=== PATIENT | male | born 1965 | race Caucasian/White ===

== ENCOUNTER 2020-07-03 21:48 | Inpatient (IN) | payer OTHER, MEDICAID, SELFPAY ==
--- NOTE | ~2020-07-03 | CT_ITS ---
EXAMINATION: CT HEAD WITHOUT CONTRAST CLINICAL INFORMATION: Dizziness. COMPARISON: 12/30/2019. TECHNIQUE: Contiguous helical images of the brain were obtained without IV contrast. Multiplanar reconstructions were performed. DLP: 742 mGy-cm. FINDINGS: There are no pathologic extra-axial fluid collections. The lateral, third, fourth ventricles are nondilated and concordant with the appearance of the sulci. There is no evidence for acute intraparenchymal hemorrhage or infarct. There is neither mass nor mass effect. There is no shift of midline structures. The paranasal sinuses and mastoid air cells are clear. There are no osseous lesions. CT/CT head/brain wo con IMPRESSION: No evidence for acute intracranial injury. Automated exposure control (Care Dose) Adjustment of the mA and/or kv according to patient size (this includes techniques or standardized protocols for targeted exams where dose is matched to indication / reason for exam; i.e. extremities or head).
--- NOTE | ~2020-07-03 | XR_ITS ---
EXAMINATION: XR CHEST CLINICAL INFORMATION: Dizziness COMPARISON: 12/30/2019 TECHNIQUE: Frontal view of the chest was obtained. FINDINGS: Lungs are clear. No focal consolidation or mass. Normal pulmonary vascularity. No pleural effusion or pneumothorax. Normal heart size. No acute osseous abnormality. XR/XR chest 1V IMPRESSION: No acute pulmonary disease. No significant change prior study.
[2020-07-03 21:51] VITALS: BP 241/118; PULSE 78; RESP 18; TEMP 36.9; O2SAT 99; BMI 35.5
[2020-07-03 22:00] VITALS: BP 179/94; PULSE 66; RESP 17; O2SAT 98
--- NOTE | 2020-07-03 22:22 | ED_ITS ---
HPI - General Adult General Chief complaint: Dizziness Stated complaint: numbness on left side Time Seen by Provider: 07/03/20 22:19 Source: patient Mode of arrival: ambulatory Limitations: no limitations History of Present Illness HPI narrative: 55-year-old male with history of hypertension taking lisinopril 40 mg once daily, and metoprolol 50 mg once daily, patient is compliant with his medication, patient felt lightheadedness and did not feel himself when this happen usually when his blood pressure runs high, patient took his blood pressure at home read high and he came to the hospital, in triage blood pressure was 241/118, patient is in room blood pressure was 179/94. Patient has no symptoms in the ED, with normal neuro exam. Related Data Previous Rx's Medication Instructions Recorded aspirin 81 mg tablet,delayed 81 mg PO DAILY 90 Days #90 tab 04/28/20 release lisinopril 20 mg tablet 20 mg PO DAILY 90 Days #90 tab 04/28/20 metoprolol tartrate 50 mg tablet 50 mg PO BID 90 Days #180 tab 04/28/20 Allergies Allergy/AdvReac Type Severity Reaction Status Date / Time No Known Allergies Allergy Verified 07/03/20 21:49 [No Known Allergies*] Review of Systems Review of Systems: All other systems are reviewed and are negative Constitutional: Reports as per HPI and Reports no additional constitutional complaints Eyes: Reports as per HPI and Reports no additional eye complaints Reports system reviewed and no additional complaints, except as documented Cardiovascular: Reports as per HPI and Reports no additional cardiovascular complaints Respiratory: Reports as per HPI and Reports no additional respiratory complaints Gastrointestinal: Reports as per HPI and Reports no additional gastrointestinal complaints Genitourinary: Reports no additional female genitourinary complaints Musculoskeletal: Reports no additional musculoskeletal complaints Skin/Breast: Reports system reviewed and no additional complaints, except as docu Psychiatric: Reports no additional psychiatric complaints Endocrine: Reports no additional endocrine complaints Hematologic/Lymphatic: Reports no additional hematologic/lymphatic complaints Allergic/Immunologic: Reports no additional allergic/immunologic complaints Reports system reviewed and no additional complaints, except as documented and Reports Abnormal speech present FOR[facility]LY [facility] Past Medical History Medical History Hypertension Social History Social History Alcohol intake: never Smoking Status: Never smoker Use of substances other than those prescribed or required for medical reasons: No Advance Directives: No Advance Directives Information Provided: No Physical Exam Vital Signs: Vital Signs: Last Vital Signs Temp 97.7 F 07/03/20 23:42 Pulse 58 07/03/20 23:42 Resp 14 07/03/20 23:42 BP 165/73 H 07/03/20 23:42 Pulse Ox 98 07/03/20 23:42 Body Mass Index 35.5 Vital signs have been reviewed as normal and appeared to be correct. Blood pressure: Hypertensive. Heart rate normal. Respiration rate normal. Temperature normal. Oxygen saturation normal. Appearance: Alert. Oriented X3. No acute distress. Head: Normal external exam. Normocephalic. Atraumatic. No Gray signs noted. No raccoon eyes noted Eyes: PERRLA. EOMI. Conjunctiva and sclera normal. Eyelids normal. ENT: TM's Normal. Pharynx normal. Uvula midline. Moist mucous membranes. No trismus noted. No drooling noted. No muffled voice noted. Neck: Normal inspection. Neck supple. FROM. No adenopathy. Thyroid Normal. No meningeal signs. No neck mass noted. CVS: Normal heart rate and rhythm. Heart sound normal. No murmurs noted. Pulses normal throughout. Respiratory: No respiratory distress. Painless inspiration. Breath sounds normal. No wheezes/rales/rhonchi noted. Chest nontender. No accessory muscle usage noted or decreased air movement noted. Abdomen: Soft and nontender. Bowel sounds normal in all 4 quadrants. No distention noted. No organomegaly noted. No visible injury noted. Back: No CVA tenderness. Full range of motion noted. Skin: Skin warm and dry. Normal skin color. Normal skin turgor. No rashes/lesions/lacerations noted. Extremities: No lower extremity edema. Extremities exhibit normal range of motion. Extremities nontender. Neuro: Oriented X 3. No motor deficit. No sensory deficit. Reflexes normal. NIH Stroke Scale Level of Consciousness: Alert Level of Consciousness Questions: Answers both questions correctly Level of Consciousness Commands: Performs both tasks correctly Best Gaze: Normal Visual: No visual loss Facial Palsy: Normal Motor Arm (Right): No drift Motor Arm (Left): No drift Motor Leg (Right): No drift Motor Leg (Left): No drift Limb Ataxia: Absent Sensory: Normal Best Language: No aphasia Dysarthia: Normal Extinction and Inattention: No abnormality Score: 0 Course Course Course Narrative: Assessment and plan. 55-year-old male history of hypertension is taking metoprolol/lisinopril at h ome, patient had an 10 minutes episodes of not feeling well becoming lightheadedness, but patient declined any chest pain or difficulty breathing then, patient checked his blood pressure at home which was high, patient initially in the ED had a high blood pressure which improved with 1 dose of metoprolol 50 mg in the ED. Labs came back with elevation of troponin with no EKG changes and no chest pain the case discussed with Dr. Olvera who recommended IV heparin, aspirin, beta andrey. And admit. Medical Decision Making Lab Data Lab results reviewed: Yes I reviewed the patient's lab results. Result diagrams: 07/03/20 22:38 07/03/20 22:38 Labs: Lab Results 07/03/20 07/03/20 07/03/20 Range/Units 22:38 22:38 22:38 WBC 8.9 (4.8-10.8) X10*3/uL RBC 4.75 (4.60-5.80) X10*6/uL Hgb 13.2 L (14.0-18.0) g/dl Hct 40.5 L (42-52) % MCV 85.3 (80-98) fL MCH 27.8 (27.0-33.0) pg MCHC 32.6 (31.0-36.0) g/dl RDW 12.8 (11.0-16.0) % Plt Count 185 (160-400) X10*3/uL MPV 10.2 (9.4-12.4) fL Immature Gran % (Auto) 0.2 (0.0-0.4) % Neut % (Auto) 49.8 (45-73) % Lymph % (Auto) 39.3 (20-40) % [place] % (Auto) 6.4 (2-11) % Eos % (Auto) 3.7 (0-4) % Baso % (Auto) 0.6 (0-2) % Lymph # (Auto) 3.5 (1.2-4.9) X10*3/uL [place] # (Auto) 0.6 (0.1-1.2) X10*3/uL Eos # (Auto) 0.3 (0.0-0.4) X10*3/uL Baso # (Auto) 0.1 (0.0-0.2) X10*3/uL Abs Immat Gran (auto) 0.02 (0.00-0.03) X10*3/uL Absolute Neuts (auto) 4.4 (2.0-8.3) X10*3/uL Absolute Nucleated RBC 0.000 (0.0-0.012) X10*3/uL Nucleated RBC % (auto) 0.0 (0.0-0.2) /100WBC Sodium 138 (135-145) mmol/L Potassium 4.0 (3.3-5.1) mmol/L Chloride 101 (96-108) mmol/L Carbon Dioxide 27 (22-29) mmol/L Anion Gap 14 (12-20) BUN 14 (9-16) mg/dL Creatinine 0.92 (0.5-1.4) mg/dL Estim Creat Clear Calc 95.9 Estimated GFR > 60 Random Glucose 206 H (60-115) mg/dL Calcium 9.0 (8.4-10.2) mg/dL Total Bilirubin 0.3 (0.0-1.0) mg/dL Direct Bilirubin < 0.2 (0.0-0.5) mg/dL AST 29 (5-37) U/L ALT 35 (0-40) U/L Alkaline Phosphatase 67 (39-117) U/L Troponin I High Sens 2652.0 H (<3.5-35.0) ng/L B-Natriuretic Peptide 108 H (<100) pg/mL Total Protein 7.3 (6.5-8.0) g/dL Albumin 4.0 (3.5-5.0) g/dL Lipase 18 (8-78) U/L Imaging Data Chest x-ray: Radiologist's impression: No acute pulmonary disease point no significant change from prior study. CT scan - head: Radiologist's impression: No evidence of acute intracranial injury. ECG Data Interpretation: Normal sinus rhythm at 63 beats per minutes, LVH, diffuse T-wave inversion in V4, V5, V6. No change from prior EKG on December 2019. Discharge Plan Discharge Clinical Impression: Hypertension, Non-ST elevated myocardial infarction Patient Disposition: Admitted As Inpatient Prescriptions: No Action lisinopril 20 mg tablet 20 mg PO DAILY 90 Days Qty: 90 RF: 0 metoprolol tartrate 50 mg tablet 50 mg PO BID 90 Days Qty: 180 RF: 0 aspirin [Adult Aspirin Regimen] 81 mg tablet,delayed release (DR/EC) 81 mg PO DAILY 90 Days Qty: 90 RF: 0
[2020-07-03 22:28] VITALS: BP 160/85; PULSE 59
[2020-07-03] MEDS: Metoprolol Succinate ER 50 MG TAB.ER.24H PO (22:28)
--- NOTE | 2020-07-03 22:29 | ECG_ITS ---
Test Reason : HTN Blood Pressure : / mmHG Vent. Rate : 063 BPM Atrial Rate : 063 BPM P-R Int : 162 ms QRS Dur : 092 ms QT Int : 420 ms P-R-T Axes : 042 001 268 degrees QTc Int : 429 ms Normal sinus rhythm T wave abnormality, consider lateral ischemia Abnormal ECG When compared with ECG of 30-DEC-2019 23:57, Borderline criteria for Inferior infarct are no longer Present T wave inversion more evident in Lateral leads Referred By: Ene Cobb Electronically Signed By:LENIN BRASWELL
[2020-07-03 22:50] LABS: MANUAL DIFF FLAG NO
[2020-07-03 22:51] LABS: Basophils Absolute Auto 0.1 X10*3/uL (0.0-0.2); Basophils Percent Auto 0.6 % (0-2); Eosinophils Absolute Auto 0.3 X10*3/uL (0.0-0.4); Eosinophils Percent Auto 3.7 % (0-4); Hematocrit 40.5 % (42-52); Hemoglobin 13.2 g/dl (14.0-18.0); Imm Gran Abs Auto 0.02 X10*3/uL (0.00-0.03); Imm Gran Pct Auto 0.2 % (0.0-0.4); Lymphocytes Absolute Auto 3.5 X10*3/uL (1.2-4.9); Lymphocytes Percent Auto 39.3 % (20-40); Mean Corpuscular HGB Conc 32.6 g/dl (31.0-36.0); Mean Corpuscular Hemoglobin 27.8 pg (27.0-33.0); Mean Corpuscular Volume 85.3 fL (80-98); Mean Platelet Volume 10.2 fL (9.4-12.4); Monocytes Absolute Auto 0.6 X10*3/uL (0.1-1.2); Monocytes Percent Auto 6.4 % (2-11); Neutrophils Absolute Auto 4.4 X10*3/uL (2.0-8.3); Neutrophils Percent Auto 49.8 % (45-73); Platelet Count 185 X10*3/uL (160-400); Red Blood Count 4.75 X10*6/uL (4.60-5.80); Red Cell Distribution Width 12.8 % (11.0-16.0); White Blood Count 8.9 X10*3/uL (4.8-10.8)
[2020-07-03 23:25] LABS: Alanine Aminotransferase 35 U/L (0-40); Alkaline Phosphatase 67 U/L (39-117); Anion Gap 14 (12-20); Aspartate Amino Transferase 29 U/L (5-37); Bilirubin Direct < 0.2 mg/dL (0.0-0.5); Bilirubin Total 0.3 mg/dL (0.0-1.0); Blood Urea Nitrogen 14 mg/dL (9-16); Carbon Dioxide 27 mmol/L (22-29); Chloride 101 mmol/L (96-108); Creatinine Clr Calc Pharmacy 95.9; Estimated Glomerular Filt Rate > 60; Glucose Random 206 mg/dL (60-115); Lipase 18 U/L (8-78); Sodium 138 mmol/L (135-145); Total Protein 7.3 g/dL (6.5-8.0)
[2020-07-03 23:34] LABS: B Type Natriuretic Peptide 108 pg/mL (<100)
[2020-07-03 23:42] VITALS: BP 165/73; PULSE 58; RESP 14; TEMP 36.5; O2SAT 98
[2020-07-04] VITALS (11 sets, daily range): BP systolic 141–183; BP diastolic 74–101; PULSE 54–70; RESP 15–19; TEMP 36.6–36.8; O2SAT 97–100; BMI 35.9
[2020-07-04] MEDS: Aspirin Enteric Coated 81 MG TABLET.DR PO ×2 (00:20→10:20)
[2020-07-04 00:40] LABS: Hematocrit 39.8 % (42-52); Hemoglobin 13.1 g/dl (14.0-18.0); Mean Corpuscular HGB Conc 32.9 g/dl (31.0-36.0); Mean Corpuscular Hemoglobin 27.6 pg (27.0-33.0); Mean Platelet Volume 10.3 fL (9.4-12.4); Platelet Count 189 X10*3/uL (160-400); Red Blood Count 4.74 X10*6/uL (4.60-5.80); Red Cell Distribution Width 12.7 % (11.0-16.0)
[2020-07-04 00:51] LABS: INTERNATIONAL NORM RATIO 1.1 (0.9-1.1); Prothrombin Time 13.2 SEC (10.8-13.0)
[2020-07-04 00:53] LABS: Partial Thromboplastin Time 36.8 SEC (24.1-38.0)
--- NOTE | 2020-07-04 00:53 | PC.NURSE ---
First Trop critically high at 2652 at 2238, Per MD, pt will be admitted and heparin drip will be started. Second IV access established, and med rec completed. Initial PTT drawn. Bed weight scale done at 97.9 kg. Hospitalist admiited pt. and aseesed pt. Will continue to monitor. pt agreed plan of care.
[2020-07-04 01:11] LABS: COVID-19 Test Negative (Negative); IDNOW Serial# 9DD0AD1C
[2020-07-04] MEDS: Heparin Sodium,Porcine/1/2NS 25,000 UNIT/250 ML IV.SOLN 10 UNIT IVCONT (01:18)
--- NOTE | 2020-07-04 01:22 | PC.NURSE ---
Heparin drip started at 0118 with rate of 10 mls/hr (10.21 unit/kg/hour). PTT-HD to be drawn at 0718. Used bed scale weight of 97.9 kg. Pt denies any pain or discomfort. Awaiting for bed assignment. Will continue to monitor.
--- NOTE | 2020-07-04 02:11 | PM.IMHP ---
History of Present Illness Date of Service: 07/04/20 Chief Complaint: Dizziness 55-year-old male with a past medical history of hypertension, hyperlipidemia presented to the hospital with a chief complaint of dizziness. Patient reports that around 9:00 p.m. he developed dizziness and noted left arm numbness; subsequently checked his blood pressure was significantly elevated with systolic greater than 200s and decided to come to the ER for further help. Denied any chest pain. Denies any numbness tingling. Denies any fever chills cough. Mentioned that at the time of my interview of these symptoms improved. Denies any fever chills cough. Denies any recent travel or sick contacts. Denies any nausea vomiting diarrhea. Review of all other systems is negative except mentioned above ER course: Per ER team patient's EKG was nonischemic noted LVH and T-wave inversions anterolaterally unchanged from the prior EKG. Patient was chest pain-free. Patient noted to have a troponin elevated to 26 100s. Discussed with doctors of [facility] from Cardiology who suggested to start the patient on aspirin beta-andrey and heparin drip for NSTEMI, and can be admitted to [facility]. [facility] Medical History Hypertension Social History Household Members: Significant Other Housing: House Alcohol intake: never Smoking Status: Never smoker service: No Current occupational status: unemployed Meds Allergies Allergy/AdvReac Type Severity Reaction Status Date / Time No Known Allergies Allergy Verified 07/03/20 21:49 [No Known Allergies*] Physical Exam Vital Signs and Narrative: Vital Signs: Last Vital Signs Temp 98.1 F 07/04/20 01:21 Pulse 54 07/04/20 01:21 Resp 15 07/04/20 01:21 BP 147/74 H 07/04/20 01:21 Pulse Ox 97 07/04/20 01:21 Body Mass Index 35.9 Gen: Appears be in no acute distress HEENT: NCAT, Moist mucosa. Pulmonary: Vesicular breath sounds, fair air entry CVS: Normal S1-S2 Abdomen: BS+, Soft, Nontender Extremities: Warm well perfused Neuro: Alert and awake. Results Labs CBC and Chem 7: 07/05/20 04:57 07/04/20 07:05 Labs: Laboratory Results - last 24 hr 07/03/20 07/03/20 07/03/20 22:38 22:38 22:38 MCV 85.3 MCH 27.8 MCHC 32.6 RDW 12.8 Plt Count 185 MPV 10.2 Immature Gran % (Auto) 0.2 Neut % (Auto) 49.8 Lymph % (Auto) 39.3 [place] % (Auto) 6.4 Eos % (Auto) 3.7 Baso % (Auto) 0.6 Lymph # (Auto) 3.5 [place] # (Auto) 0.6 Eos # (Auto) 0.3 Baso # (Auto) 0.1 Abs Immat Gran (auto) 0.02 Absolute Neuts (auto) 4.4 Absolute Nucleated RBC 0.000 Nucleated RBC % (auto) 0.0 PT INR APTT Anion Gap 14 Estim Creat Clear Calc 95.9 Estimated GFR > 60 Random Glucose 206 H Calcium 9.0 Total Bilirubin 0.3 Direct Bilirubin < 0.2 AST 29 ALT 35 Alkaline Phosphatase 67 Troponin I High Sens 2652.0 H B-Natriuretic Peptide 108 H Total Protein 7.3 Albumin 4.0 Lipase 18 COVID-19 ([facility]) COVID-19 [employer] Com 07/04/20 07/04/20 07/04/20 00:31 00:31 00:31 MCV 84.0 MCH 27.6 MCHC 32.9 RDW 12.7 Plt Count 189 MPV 10.3 Immature Gran % (Auto) Neut % (Auto) Lymph % (Auto) [place] % (Auto) Eos % (Auto) Baso % (Auto) Lymph # (Auto) [place] # (Auto) Eos # (Auto) Baso # (Auto) Abs Immat Gran (auto) Absolute Neuts (auto) Absolute Nucleated RBC 0.000 Nucleated RBC % (auto) 0.0 PT 13.2 H INR 1.1 APTT 36.8 Anion Gap Estim Creat Clear Calc Estimated GFR Random Glucose Calcium Total Bilirubin Direct Bilirubin AST ALT Alkaline Phosphatase Troponin I High Sens B-Natriuretic Peptide Total Protein Albumin Lipase COVID-19 ([facility]) Negative COVID-19 Clin Com See Note Imaging Radiologist's Impressions: Impressions Chest X-Ray 07/03/20 22:19 IMPRESSION: No acute pulmonary disease. No significant change prior study. Head CT 07/03/20 22:21 IMPRESSION: No evidence for acute intracranial injury. Automated exposure control (Care Dose) Adjustment of the mA and/or kv according to patient size (this includes techniques or standardized protocols for targeted exams where dose is matched to indication / reason for exam; i.e. extremities or head). Assessment and Plan (1) Non-ST elevated myocardial infarction: Status: Acute 55-year-old male with a past medical history of hypertension, hyperlipidemia presented to the hospital with a chief complaint of dizziness/left arm numbness; noted to have elevated troponins. Denied any chest pain. Admitted for NSTEMI. NSTEMI: Patient currently symptom free. EKG unchanged from prior. Troponins elevated. Cardiology doctors over many in recommended to start heparin drip and can be admitted to [facility]. Continue heparin drip Telemetry Continue aspirin, beta-andrey. Lipitor 40 mg Will check hemoglobin A1c and lipid profile. History of hypertension: Patient on lisinopril and beta-andrey. DVT prophylaxis: Patient on systemic anticoagulation. Diet: Will keep NPO for now Code status: Full code
[2020-07-04] MEDS: Atorvastatin Calcium 40 MG TABLET PO ×2 (02:57→21:54)
[2020-07-04 03:06] LABS: INTERNATIONAL NORM RATIO 1.1 (0.9-1.1)
[2020-07-04 03:09] LABS: PTT Heparin Drip 49.6 SEC (53-77.9)
[2020-07-04 03:24] LABS: Troponin-I High Sensitivity 1782.1 ng/L (<3.5-35.0)
[2020-07-04 07:24] LABS: MANUAL DIFF FLAG NO
[2020-07-04 07:26] LABS: Basophils Absolute Auto 0.1 X10*3/uL (0.0-0.2); Basophils Percent Auto 0.8 % (0-2); Eosinophils Absolute Auto 0.4 X10*3/uL (0.0-0.4); Hematocrit 40.6 % (42-52); Hemoglobin 13.3 g/dl (14.0-18.0); Imm Gran Abs Auto 0.03 X10*3/uL (0.00-0.03); Imm Gran Pct Auto 0.3 % (0.0-0.4); Lymphocytes Absolute Auto 3.7 X10*3/uL (1.2-4.9); Lymphocytes Percent Auto 42.4 % (20-40); Mean Corpuscular HGB Conc 32.8 g/dl (31.0-36.0); Mean Corpuscular Hemoglobin 27.7 pg (27.0-33.0); Mean Corpuscular Volume 84.4 fL (80-98); Mean Platelet Volume 10.5 fL (9.4-12.4); Monocytes Absolute Auto 0.6 X10*3/uL (0.1-1.2); Monocytes Percent Auto 6.4 % (2-11); Neutrophils Percent Auto 46.1 % (45-73); Platelet Count 178 X10*3/uL (160-400); Red Blood Count 4.81 X10*6/uL (4.60-5.80); Red Cell Distribution Width 12.8 % (11.0-16.0); White Blood Count 8.7 X10*3/uL (4.8-10.8)
[2020-07-04 07:36] LABS: PTT Heparin Drip 53.6 SEC (53-77.9)
[2020-07-04 08:00] LABS: Anion Gap 12 (12-20); Blood Urea Nitrogen 13 mg/dL (9-16); Calcium 9.1 mg/dL (8.4-10.2); Carbon Dioxide 25 mmol/L (22-29); Chloride 104 mmol/L (96-108); Creatinine Clr Calc Pharmacy 110.9; Estimated Glomerular Filt Rate > 60; Glucose Random 185 mg/dL (60-115); Sodium 137 mmol/L (135-145)
--- NOTE | 2020-07-04 08:36 | PC.NURSE ---
0800 PTT is 53.6 --no bolus required, no rate change required. aware
[2020-07-04 09:19] LABS: Troponin-I High Sensitivity 2568.3 ng/L (<3.5-35.0)
[2020-07-04] MEDS: Metoprolol Tartrate 50 MG TABLET PO ×2 (10:22→21:54)
[2020-07-04] MEDS: 0.9 % Sodium Chloride Flush 3 ML SYRINGE IVFLUSH ×2 (10:23→19:23)
--- NOTE | 2020-07-04 11:29 | P.CONCA_ITS ---
History of Present Illness History of Present Illness Date of Service: 07/04/20 Consult reason: myocardial infarction Chief complaint: NSTEMI Narrative: This is a cardiology consultation regarding NSTEMI. Patient is known to me. He is quite noncompliant and really does not come for office visits. He is also not taking any medications. He has poorly controlled hypertension baseline. In 2016, he underwent cardiac catheterization for NSTEMI and LAD stenting. Since then, he has had hospitalizations for poorly controlled hypertension. This time he again had dizzy episode and was once again noted to have markedly high blood pressures. He does not have any anginal-type chest pains or shortness of breath any other complaints. He is on heparin drip and being treated for NSTEMI. Review of Systems Review of Systems: Yes all other systems are reviewed and are negative Cardiovascular: Cardiovascular: Reports as per HPI, Reports no additional cardiovascular complaints, Denies acrocyanosis, Denies cool extremities, Denies painful fingertips, Denies chest pain, Denies chest pain at rest, Denies diaphoresis, Denies syncope, Denies irregular heart rhythm, Denies claudication, Denies leg edema, Denies lightheadedness, Denies palpitations and Denies dyspnea Respiratory: Respiratory: Denies dyspnea Neurologic: Denies syncope Endocrine: Endocrine: Denies palpitations PMF Past Medical History Medical History Hypertension Social History Social History Alcohol intake: never Smoking Status: Never smoker Use of substances other than those prescribed or required for medical reasons: No Advance Directives: No Advance Directives Information Provided: No Meds Allergies Allergy/AdvReac Type Severity Reaction Status Date / Time No Known Allergies Allergy Verified 07/03/20 21:49 [No Known Allergies*] Physical Exam Vital Signs: Vital Signs: Last Vital Signs Temp 97.8 F 07/04/20 09:19 Pulse 70 07/04/20 10:22 Resp 15 07/04/20 09:19 BP 181/101 H 07/04/20 10:22 Pulse Ox 98 07/04/20 09:19 Body Mass Index 35.9 Const: General: cooperative, comfortable and no acute distress Orientation/consciousness: patient oriented x3 HENMT: Other: Unremarkable Neck: Neck: Yes normal visual inspection Chest: Chest palpation & inspection: normal inspection of the chest Resp: Auscultation: clear to auscultation bilaterally, no crackles and no wheezes Cardio: Jugular venous distension: no JVD Palpation: normal PMI Heart sounds: S1 normal heart sound present, S2 normal heart sound present, no gallops, no murmurs and no rubs GI: Palpation (GI): Soft to palpation Back/Spine/Pelvis: Other: unremarkable Skin: General skin exam: no rashes or lesions noted Neuro: General: patient oriented x3 Extrem: General: Yes no clubbing, cyanosis or edema Psych: Mental Status: mental status grossly normal Results Labs and Meds Result diagrams: 07/04/20 07:05 07/04/20 07:05 Lab results: Laboratory Results - last 24 hr 07/03/20 07/03/20 07/03/20 22:38 22:38 22:38 WBC 8.9 RBC 4.75 Hgb 13.2 L Hct 40.5 L MCV 85.3 MCH 27.8 MCHC 32.6 RDW 12.8 Plt Count 185 MPV 10.2 Immature Gran % (Auto) 0.2 Neut % (Auto) 49.8 Lymph % (Auto) 39.3 [place] % (Auto) 6.4 Eos % (Auto) 3.7 Baso % (Auto) 0.6 Lymph # (Auto) 3.5 [place] # (Auto) 0.6 Eos # (Auto) 0.3 Baso # (Auto) 0.1 Abs Immat Gran (auto) 0.02 Absolute Neuts (auto) 4.4 Absolute Nucleated RBC 0.000 Nucleated RBC % (auto) 0.0 PT INR APTT PTT (Heparin Protocol) Sodium 138 Potassium 4.0 Chloride 101 Carbon Dioxide 27 Anion Gap 14 BUN 14 Creatinine 0.92 Estim Creat Clear Calc 95.9 Estimated GFR > 60 Random Glucose 206 H Calcium 9.0 Total Bilirubin 0.3 Direct Bilirubin < 0.2 AST 29 ALT 35 Alkaline Phosphatase 67 Troponin I High Sens 2652.0 H B-Natriuretic Peptide 108 H Total Protein 7.3 Albumin 4.0 Lipase 18 COVID-19 ([facility]) COVID-19 Clin Com 07/04/20 07/04/20 07/04/20 00:31 00:31 00:31 WBC 10.0 RBC 4.74 Hgb 13.1 L Hct 39.8 L MCV 84.0 MCH 27.6 MCHC 32.9 RDW 12.7 Plt Count 189 MPV 10.3 Immature Gran % (Auto) Neut % (Auto) Lymph % (Auto) [place] % (Auto) Eos % (Auto) Baso % (Auto) Lymph # (Auto) [place] # (Auto) Eos # (Auto) Baso # (Auto) Abs Immat Gran (auto) Absolute Neuts (auto) Absolute Nucleated RBC 0.000 Nucleated RBC % (auto) 0.0 PT 13.2 H INR 1.1 APTT 36.8 PTT (Heparin Protocol) Sodium Potassium Chloride Carbon Dioxide Anion Gap BUN Creatinine Estim Creat Clear Calc Estimated GFR Random Glucose Calcium Total Bilirubin Direct Bilirubin AST ALT Alkaline Phosphatase Troponin I High Sens B-Natriuretic Peptide Total Protein Albumin Lipase COVID-19 ([facility]) Negative COVID-19 Clin Com See Note 07/04/20 07/04/20 07/04/20 02:53 02:53 07:05 WBC RBC Hgb Hct MCV MCH MCHC RDW Plt Count MPV Immature Gran % (Auto) Neut % (Auto) Lymph % (Auto) [place] % (Auto) Eos % (Auto) Baso % (Auto) Lymph # (Auto) [place] # (Auto) Eos # (Auto) Baso # (Auto) Abs Immat Gran (auto) Absolute Neuts (auto) Absolute Nucleated RBC Nucleated RBC % (auto) PT 13.0 INR 1.1 APTT PTT (Heparin Protocol) 49.6 L 53.6 Sodium Potassium Chloride Carbon Dioxide Anion Gap BUN Creatinine Estim Creat Clear Calc Estimated GFR Random Glucose Calcium Total Bilirubin Direct Bilirubin AST ALT Alkaline Phosphatase Troponin I High Sens 1782.1 H B-Natriuretic Peptide Total Protein Albumin Lipase COVID-19 ([facility]) COVID-19 Clin Com 07/04/20 07/04/20 07/04/20 07:05 07:05 08:28 WBC 8.7 RBC 4.81 Hgb 13.3 L Hct 40.6 L MCV 84.4 MCH 27.7 MCHC 32.8 RDW 12.8 Plt Count 178 MPV 10.5 Immature Gran % (Auto) 0.3 Neut % (Auto) 46.1 Lymph % (Auto) 42.4 H [place] % (Auto) 6.4 Eos % (Auto) 4.0 Baso % (Auto) 0.8 Lymph # (Auto) 3.7 [place] # (Auto) 0.6 Eos # (Auto) 0.4 Baso # (Auto) 0.1 Abs Immat Gran (auto) 0.03 Absolute Neuts (auto) 4.0 Absolute Nucleated RBC 0.000 Nucleated RBC % (auto) 0.0 PT INR APTT PTT (Heparin Protocol) Sodium 137 Potassium 4.0 Chloride 104 Carbon Dioxide 25 Anion Gap 12 BUN 13 Creatinine 0.80 Estim Creat Clear Calc 110.9 Estimated GFR > 60 Random Glucose 185 H Calcium 9.1 Total Bilirubin Direct Bilirubin AST ALT Alkaline Phosphatase Troponin I High Sens 2568.3 H B-Natriuretic Peptide Total Protein Albumin Lipase COVID-19 ([facility]) COVID-19 Clin Com ECG Attestation: I personally reviewed and interpreted this ECG as follows: Interpretation: Admission EKG with sinus rhythm at 63/Min; lateral T inversions probably from hypertension/LVH but could also be from ischemia. On comparison with prior studies, grossly similar. Imaging Radiologist's impression: Impressions Chest X-Ray 07/03/20 22:19 IMPRESSION: No acute pulmonary disease. No significant change prior study. Head CT 07/03/20 22:21 IMPRESSION: No evidence for acute intracranial injury. Automated exposure control (Care Dose) Adjustment of the mA and/or kv according to patient size (this includes techniques or standardized protocols for targeted exams where dose is matched to indication / reason for exam; i.e. extremities or head). Assessment and Plan (1) Non-ST elevated myocardial infarction: Status: Acute (2) Hypertensive urgency: Status: Acute Laboratory Tests 07/03/20 07/04/20 07/04/20 22:38 02:53 07:05 Creatinine 0.80 Troponin I High Sens 2652.0 H 1782.1 H B-Natriuretic Peptide 108 H 07/04/20 08:28 Creatinine Troponin I High Sens 2568.3 H B-Natriuretic Peptide Based on cardiac catheterization from 2015, he had single-vessel disease in LAD which was stented. Current admission seems to be for hypertensive urgency type presentation and secondary NSTEMI from supply demand mismatch. Less likely to be acute plaque rupture but still possible. Continue heparin drip at least for 48 hours. Continue aspirin. Beta-blockers. May go up on the dose of lisinopril to 40 mg daily as the blood pressure is still high. High-dose statins. Echocardiogram tomorrow. He is asking to go home but I strongly recommended him to stay.
--- NOTE | 2020-07-04 13:46 | PM.EVENT ---
Event Note Date of Service: 07/04/20 Event Note: Patient seen and examined at bedside, Patient denies any chest pain shortness of breath Exam alert abdomen soft CVS rate and rhythm regular lungs clear Admitted for NSTEMI, monitor on telemetry continue heparin drip, continue medical management, seen by Cardiology recommended continue medical management, monitor PTT Uncontrolled hypertension, will increase lisinopril to 40 mg, continue Lopressor monitor blood pressure See H&P from today for more details
--- NOTE | 2020-07-04 14:23 | PC.NURSE ---
pt stated that he was feeling short of breath and asked for some oxygen. o2 sat was 99, respiration rhythm was regular and rate was 16, respiration effort non-labored. patient started on 1L oxygen via nasal cannula.
[2020-07-04 16:18] LABS: PTT Heparin Drip 82.1 SEC (53-77.9)
--- NOTE | 2020-07-04 16:20 | PC.NURSE ---
pt is a/o x 3, states came to [facility] yesterday for dizziness and left arm numbness. Currently in [facility]AN[facility], VS as charted. LYONS, follows commands. Respirations easy, no distress noted. CM shows SR. Lungs CTA. Patient asks for tuna sandwich, is now eating and resting comfortably. Awaiting bed assignment.
--- NOTE | 2020-07-04 16:23 | PC.NURSE ---
PTT-HD returned at 82.1. Will decrease drip by 2 units/hr, repeat PTT HD in 6 hours.
--- NOTE | 2020-07-04 18:50 | ECG_ITS ---
Test Reason : ARM PAIN Blood Pressure : / mmHG Vent. Rate : 055 BPM Atrial Rate : 055 BPM P-R Int : 162 ms QRS Dur : 098 ms QT Int : 446 ms P-R-T Axes : 042 001 265 degrees QTc Int : 426 ms Sinus bradycardia T wave abnormality, consider lateral ischemia Abnormal ECG When compared with ECG of 03-JUL-2020 22:12, No significant change was found Referred By: Ene Cobb Electronically Signed By:LENIN BRASWELL
--- NOTE | 2020-07-04 20:58 | PC.NURSE ---
report taken at 19:00 from yolie enrique. pt awake and alert, reports intermittent numbness in left arm, denies chest discomfort.
--- NOTE | 2020-07-04 21:00 | PC.NURSE ---
pt asked for and was given 2 sandwiches and apple juice. just reponded to call jensen to turn lights down.
[2020-07-04 23:14] LABS: PTT Heparin Drip 51.5 SEC (53-77.9)
--- NOTE | 2020-07-04 23:51 | PC.NURSE ---
PTT-HD 51.5, INSTRUCTIONS ON MAR TO INCREASE BY 2 U/KG/HR.
[2020-07-05] VITALS (7 sets, daily range): BP systolic 136–198; BP diastolic 58–96; PULSE 48–64; RESP 16–18; TEMP 36.4–36.7; O2SAT 97–99
[2020-07-05] MEDS: 0.9 % Sodium Chloride Flush 3 ML SYRINGE IVFLUSH (01:16)
[2020-07-05 05:01] LABS: Hematocrit 40.1 % (42-52); Hemoglobin 13.1 g/dl (14.0-18.0); Mean Corpuscular HGB Conc 32.7 g/dl (31.0-36.0); Mean Corpuscular Hemoglobin 27.8 pg (27.0-33.0); Mean Corpuscular Volume 85.1 fL (80-98); Mean Platelet Volume 10.6 fL (9.4-12.4); Platelet Count 166 X10*3/uL (160-400); Red Blood Count 4.71 X10*6/uL (4.60-5.80); Red Cell Distribution Width 12.7 % (11.0-16.0); White Blood Count 9.4 X10*3/uL (4.8-10.8)
[2020-07-05 05:07] LABS: INTERNATIONAL NORM RATIO 1.1 (0.9-1.1)
[2020-07-05 05:09] LABS: PTT Heparin Drip 79.6 SEC (53-77.9)
[2020-07-05 05:13] LABS: Estimated Average Glucose 180 mg/dL; Hemoglobin A1c % 7.9 %
[2020-07-05] MEDS: Heparin Sodium,Porcine/1/2NS 25,000 UNIT/250 ML IV.SOLN 7.83 UNIT IVCONT (06:07)
[2020-07-05 06:16] LABS: Cholesterol 189 mg/dL; HDL Cholesterol 35 mg/dL; LDL Cholesterol Calculated 106 mg/dl; Triglycerides 243 mg/dL
[2020-07-05 06:37] LABS: Thyroid Stimulating Hormone 2.58 uIU/mL (0.32-4.0)
--- NOTE | 2020-07-05 07:22 | PC.NURSE ---
called for reprt rn will call back
--- NOTE | 2020-07-05 07:26 | PC.NURSE ---
report given to nuha enrique
--- NOTE | 2020-07-05 07:30 | CA_ITS ---
Transthoracic Echocardiogram Patient (Last, First, Middle): Micah Wallace O Gender: Male Date of : 1965 Age: 55 Procedure Date: 07/05/2020 Procedure Type: Transthoracic Echocardiogram Location: [facility] Height: 165.1 cm Weight: 97.52 kg BSA: 2.04 m2 Heart Rate: bpm BP: 148 / 73 mmHg Mass Spec: DSAlejandra Referring MD: Quique Olvera MD Symptoms: NSTEMI Study Quality: Fair ECG Rhythm: Sinus Conclusions: - The left ventricular systolic function is mildly decreased. The visually estimated ejection fraction is between 40-45%. - Evidence suggests grade II (moderate) diastolic dysfunction. - Global hypokinesis with some regionality to the inferior wall. - No obvious valvular pathology seen on this study. Findings Left Ventricle Normal left ventricular cavity size. There is mildly increased left ventricular wall thickness. The left ventricular systolic function is mildly decreased. The visually estimated ejection fraction is between 40-45%. There is mild global hypokinesis. E/E prime ratio is >15, consistent with elevated filling pressures. Evidence suggests grade II (moderate) diastolic dysfunction. Wall Motion Rest Echo Findings The basal inferior segment is hypokinetic. Atria Both atria are normal in size. Aortic Valve There is a normal trileaflet aortic valve. There is mild calcification of the aortic valve. There is no aortic valve stenosis. There is no aortic valve regurgitation. Mitral Valve The mitral valve appears normal. There is trace mitral valve regurgitation. There is no mitral valve stenosis. Pulmonic Valve The pulmonic valve was not well visualized. Tricuspid Valve Normal tricuspid valve structure. There is trace tricuspid valve regurgitation. The pulmonary artery systolic pressure is normal. Great Vessels The aortic annulus, sinuses of valsalva, asc aorta, and aortic arch are normal in size. Venous The inferior vena cava was not well visualized. Pericardium/Pleural There is no evidence of pericardial effusion. Prior Study Comparison Changes noted compared to prior study dated: 07/23/2019. Diminished LVEF. Recommendations, Care & Conclusions No obvious valvular pathology seen on this study. Measurements 2D Linear Measurements IVSd: 1.08 0.6-0.9/0.6-1.0 cm LVIDd: 5.24 3.9-5.3/4.2-5.9 cm LVIDd Index: 2.57 2.4-3.2/2.2-3.1 cm/m2 LVIDs: 4.46 2.0-3.6 cm LVPWd: 1.17 0.7-1.1 cm Ao Root: 3.00 2.1-3.5 cm LA Diam: 4.40 2.7-3.8/3.0-4.0 cm LAIDs Index: 2.16 1.5-2.3 cm/m2 LV Mass: 287.36 67-162/88-224 g LV Mass Index: 140.86 43-95/49-115 g/m2 LVOT Diam: 2.30 3.0+(-)1.3 cm 2D Systolic Function EF 4C: 47.10 >55% EF 2C: 39.20 >55% EF BiP: 43.10 >55% Mitral Valve MV Pk E: 0.99 MV PK A: 0.30 MV Decel Time: 148.00 E/A: 3.30 E'Lateral: 6.42 E'Medial: 3.70 E/E' Med: 26.60 E/E' Lat: 15.30 PHT: 43.00 MVA PHT: 5.12 Decel Sabine: 6.66 Aortic Valve AoV Pk Ulises: 1.24 AoV Pk Grad: 6.00 LVOT LVOT Pk Ulises: 0.89 LVOT Mn Ulises: 0.57 LVOT VTI: 0.18 LVOT Pk Grad: 3.00 LVOT Mn Grad: 2.00 LVOT Diam: 2.30 LVOT Area: 4.15 Diastolic Function MV Pk E: 0.99 MV Pk A: 0.30 E/A: 3.30 E'Medial: 3.70 E/E' Med: 26.60 E' Laterial: 6.42 E/E' Lat: 15.30 Tricuspid Valve TR Pk Uliess: 2.17 TR Pk Grad: 19.00 RA Press: 3.00 RVSP: 22.00 Great Vessels Aorta Ao Root-2D: 3.00 2.0-3.7 cm Ao Asc: 3.20 2.1-3.4 cm Ao Arch: 2.90 Updated in Other Vendor System with Status of Final Quique Olvera MD electronically signed on 07/05/2020 11:38:24 AM with status of Final
--- NOTE | 2020-07-05 10:21 | MHC.CM.PN ---
CM met with Patient at bedside. Patient lives in a house with his and he is functionally independent. Goal for dc is home no services and CM has initiated and will follow for dc planning. PCP is from [facility].
--- NOTE | 2020-07-05 10:45 | MHC.CM.PN ---
Par ROUNDS discussion, Patient will be transferred to [facility] today.
--- NOTE | 2020-07-05 10:56 | PM.PNCARD ---
Subjective Subjective Date of Service: 07/05/20 Interval history: He states that he has some numbness in the left chest and left arm. No chest pain. Review of Systems Review of Systems Yes all other systems are reviewed and are negative Cardiovascular: Reports as per HPI, Reports no additional cardiovascular complaints, Denies acrocyanosis, Denies cool extremities, Denies painful fingertips, Denies chest pain, Denies chest pain at rest, Denies diaphoresis, Denies syncope, Denies irregular heart rhythm, Denies claudication, Denies leg edema, Denies lightheadedness, Denies palpitations and Denies dyspnea Respiratory: Denies dyspnea Denies syncope Endocrine: Denies palpitations Physical Exam Vital Signs: Last Vital Signs Temp 97.6 F 07/05/20 08:00 Pulse 61 07/05/20 08:00 Resp 16 07/05/20 08:00 BP 146/96 H 07/05/20 08:00 Pulse Ox 98 07/05/20 08:00 Body Mass Index 35.9 Const General: cooperative, comfortable and no acute distress Orientation/consciousness: patient oriented x3 HENWV Other: Unremarkable Neck Neck: Yes normal visual inspection Chest Chest palpation & inspection: normal inspection of the chest Resp Auscultation: clear to auscultation bilaterally, no crackles and no wheezes Cardio Jugular venous distension: no JVD Palpation: normal PMI Heart sounds: S1 normal heart sound present, S2 normal heart sound present, no gallops, no murmurs and no rubs GI Palpation (GI): Soft to palpation Back/Spine/Pelvis Other: unremarkable Skin General skin exam: no rashes or lesions noted Neuro General: patient oriented x3 Extrem General: Yes no clubbing, cyanosis or edema Psych Mental Status: mental status grossly normal Results Labs and Meds Result diagrams: 07/05/20 04:57 07/04/20 07:05 Lab results: Laboratory Results - last 24 hr 07/04/20 07/04/20 07/04/20 16:02 19:26 23:00 WBC RBC Hgb Hct MCV MCH MCHC RDW Plt Count MPV Absolute Nucleated RBC Nucleated RBC % (auto) PT INR PTT (Heparin Protocol) 82.1 H D 51.5 L D Estimat Average Glucose Hemoglobin A1c % Troponin I High Sens 2366.5 H Triglycerides Cholesterol LDL Cholesterol, Calc HDL Cholesterol TSH 02/01/1507/05/20 07/05/20 04:57 04:57 04:57 WBC 9.4 RBC 4.71 Hgb 13.1 L Hct 40.1 L MCV 85.1 MCH 27.8 MCHC 32.7 RDW 12.7 Plt Count 166 MPV 10.6 Absolute Nucleated RBC 0.000 Nucleated RBC % (auto) 0.0 PT INR PTT (Heparin Protocol) Estimat Average Glucose 180 Hemoglobin A1c % 7.9 Troponin I High Sens Triglycerides 243 Cholesterol 189 LDL Cholesterol, Calc 106 HDL Cholesterol 35 TSH 2.58 07/05/20 04:57 WBC RBC Hgb Hct MCV MCH MCHC RDW Plt Count MPV Absolute Nucleated RBC Nucleated RBC % (auto) PT 13.0 INR 1.1 PTT (Heparin Protocol) 79.6 H D Estimat Average Glucose Hemoglobin A1c % Troponin I High Sens Triglycerides Cholesterol LDL Cholesterol, Calc HDL Cholesterol TSH Progress Note: A&P Assessment and plan (1) Non-ST elevated myocardial infarction: Status: Acute (2) Hypertensive urgency: Status: Acute Assessment and Plan: Laboratory Tests 07/03/20 07/04/20 07/04/20 22:38 02:53 07:05 Creatinine 0.80 Troponin I High Sens 2652.0 H 1782.1 H B-Natriuretic Peptide 108 H 07/04/20 08:28 Creatinine Troponin I High Sens 2568.3 H B-Natriuretic Peptide Based on cardiac catheterization from 2015, he had single-vessel disease in LAD which was stented. Current admission seems to be for hypertensive urgency type presentation and secondary NSTEMI from supply demand mismatch. Less likely to be acute plaque rupture but still possible. Continue heparin drip at least for 48 hours. Continue aspirin. Beta-blockers. May go up on the dose of lisinopril to 40 mg daily. High-dose statins. Discussed about cardiac catheterization to reassess coronary anatomy as he has had poorly controlled blood pressures for many years now. He is agreeable. Will decide after review of echo. Fall Risk Details Current Medications: Current Medications Generic Name Dose Route Start Last Admin Trade Name Freq PRN Reason Stop Dose Admin Aspirin 81 mg 07/04/20 09:00 07/04/20 10:20 Aspirin Enteric Coated 81 Mg Tablet.Dr PO 81 mg DAILY JULIAN Administration Atorvastatin Calcium 40 mg 07/04/20 02:20 07/04/20 21:54 Atorvastatin Calcium 40 Mg Tablet PO 40 mg BEDTIME JULIAN Administration Heparin Sodium/Sodium Chloride 25,000 unit in 250 mls @ 0 mls/hr 07/04/20 00:15 07/05/20 06:07 IVCONT 8.08 units/kg/hr .Q0M JULIAN 7.83 mls/hr Administration Protocol Per Protocol Lisinopril 40 mg 07/05/20 09:00 Lisinopril 40 Mg Tablet PO DAILY [facility] Protocol Metoprolol Tartrate 50 mg 07/04/20 09:00 07/04/20 21:54 Metoprolol Tartrate 50 Mg Tablet PO 50 mg BID [facility] Administration Protocol Nitroglycerin 0.4 mg 07/05/20 07:07 Nitroglycerin 0.4 Mg Tab.Subl SUBLINGUAL Q5M PRN Chest Pain Sodium Chloride 3 ml 07/04/20 08:00 07/05/20 10:29 0.9 % Sodium Chloride Flush 3 Ml Syringe IVFLUSH Not Given QSHIFT [facility] Time Spent With Patient Time: Total time spent is greater than 50% in coordination of care (as documented) at patient's floor/unit and/or counseling patient: Time with patient: less than 15 minutes
[2020-07-05 11:23] LABS: PTT Heparin Drip 65.3 SEC (53-77.9)
[2020-07-05] MEDS: Metoprolol Tartrate 50 MG TABLET PO (11:30)
[2020-07-05] MEDS: Aspirin Enteric Coated 81 MG TABLET.DR PO (11:30)
[2020-07-05] MEDS: amLODIPine Besylate 10 MG TABLET PO (12:51)
--- NOTE | 2020-07-05 13:03 | P.PNIM_ITS ---
Subjective Subjective Date of Service: 07/05/20 Interval History: Physical Exam Vital Signs: Vital Signs: Last Vital Signs Temp 98.0 F 07/05/20 11:15 Pulse 62 07/05/20 12:51 Resp 18 07/05/20 11:15 BP 170/62 H 07/05/20 12:51 Pulse Ox 98 07/05/20 11:15 Body Mass Index 35.9 Objective Data Current Medications Generic Name Dose Route Start Last Admin Trade Name William PRN Reason Stop Dose Admin Amlodipine Besylate 10 mg 07/05/20 12:00 07/05/20 12:51 Amlodipine Besylate 10 Mg Tablet PO 10 mg DAILY [facility] Administration Protocol Aspirin 81 mg 07/04/20 09:00 07/05/20 11:30 Aspirin Enteric Coated 81 Mg Tablet.Dr PO 81 mg DAILY JULIAN Administration Atorvastatin Calcium 40 mg 07/04/20 02:20 07/04/20 21:54 Atorvastatin Calcium 40 Mg Tablet PO 40 mg BEDTIME JULIAN Administration Heparin Sodium/Sodium Chloride 25,000 unit in 250 mls @ 0 mls/hr 07/04/20 00:15 07/05/20 12:01 IVCONT 8 units/kg/hr .Q0M JULIAN 7.75 mls/hr Titration Protocol Per Protocol Lisinopril 40 mg 07/05/20 09:00 07/05/20 11:30 Lisinopril 40 Mg Tablet PO 40 mg DAILY [facility] Administration Protocol Metoprolol Tartrate 50 mg 07/04/20 09:00 07/05/20 11:30 Metoprolol Tartrate 50 Mg Tablet PO 50 mg BID [facility] Administration Protocol Nitroglycerin 0.4 mg 07/05/20 07:07 Nitroglycerin 0.4 Mg Tab.Subl SUBLINGUAL Q5M PRN Chest Pain Sodium Chloride 3 ml 07/04/20 08:00 07/05/20 10:29 0.9 % Sodium Chloride Flush 3 Ml Syringe IVFLUSH Not Given QSHIFT [facility] Labs CBC & Chem 7: 07/05/20 04:57 07/04/20 07:05
--- NOTE | 2020-07-05 13:05 | P.DS_ITS ---
DS: Providers Provider Date of Service: 07/06/20 Date of admission: 07/04/20 02:05 Primary care physician: [facility] Consults: 07/04/20 02:05 Consult to Cardiology Stat Consulting Provider: Quique Olvera Reason for consultation: NSTEMI DS: Diagnosis Discharge Diagnosis (1) Non-ST elevated myocardial infarction: Status: Acute (2) Hypertensive urgency: Status: Acute DS: Medications Discharge Medications Home Medications: Previous Rx's Medication Instructions Recorded aspirin 81 mg tablet,delayed 81 mg PO DAILY 90 Days #90 tab 04/28/20 release metoprolol tartrate 50 mg tablet 50 mg PO BID 90 Days #180 tab 04/28/20 amlodipine 10 mg PO DAILY #30 tab 07/05/20 atorvastatin 40 mg PO BEDTIME #30 tab 07/05/20 lisinopril 40 mg PO DAILY #30 tab 07/05/20 nitroglycerin [Nitrostat] 0.4 mg SUBLINGUAL Q5M PRN #30 tab 07/05/20 DS: Summary Hospital Course Hospital Course: HPI 55-year-old male with a past medical history of hypertension, hyperlipidemia presented to the hospital with a chief complaint of dizziness. Patient reports that around 9:00 p.m. he developed dizziness and noted left arm numbness; subsequently checked his blood pressure was significantly elevated with systolic greater than 200s and decided to come to the ER for further help. Denied any chest pain. Denies any numbness tingling. Denies any fever chills cough. Mentioned that at the time of my interview of these symptoms improved. Denies any fever chills cough. Denies any recent travel or sick contacts. Denies any nausea vomiting diarrhea. Review of all other systems is negative except mentioned above ER course: Per ER team patient's EKG was nonischemic noted LVH and T-wave inversions anterolaterally unchanged from the prior EKG. Patient was chest pain-free. Patient noted to have a troponin elevated to 26 100s. Discussed with doctors of Portuguese from Cardiology who suggested to start the patient on aspirin beta-andrey and heparin drip for NSTEMI, and can be admitted to [facility]. Hospital course 55-year-old male noncompliance admitted with hypertensive urgency and NSTEMI, For NSTEMI high sensitivity troponin on admission was 2652 EKG shows T-wave changes, patient was started on heparin drip and continued on aspirin statin and Lopressor, cardiology was consulted recommended continue heparin drip, echocardiogram was done shows EF 40-45% and global hypokinesis with some inferior wall regional wall motion abnormality, cardiology recommended transfer to [facility] for cardiac catheterization. for uncontrolled hypertension patient's blood pressure on admission was in 200s, patient was continued on Lopressor , lisinopril dose was increased from 20 mg to 40 mg, blood pressure was still elevated, amlodipine 10 mg was started, patient's blood pressure improved, patient was continued on Lopressor, lisinopril 40 mg daily and amlodipine 10 mg daily on transfer During the hospital course, found to have elevated blood glucose in 200s , HbA1c was checked and came back 8.2, patient will need anti diabetic medications on discharge patient was stable transferred to [facility] for cardiac catheterization for NSTEMI, patient was continued on heparin drip on transfer Echocardiogram Conclusions: - The left ventricular systolic function is mildly decreased. The visually estimated ejection fraction is between 40-45%. - Evidence suggests grade II (moderate) diastolic dysfunction. - Global hypokinesis with some regionality to the inferior wall. - No obvious valvular pathology seen on this study. Findings Left Ventricle Normal left ventricular cavity size. There is mildly increased left ventricular wall thickness. The left ventricular systolic function is mildly decreased. The visually estimated ejection fraction is between 40-45%. There is mild global hypokinesis. E/E prime ratio is >15, consistent with elevated filling pressures. Evidence suggests grade II (moderate) diastolic dysfunction. Wall Motion Rest Echo Findings The basal inferior segment is hypokinetic. Time Spent with Patient Time attestation: Total time spent providing and/or coordinating discharge services: Discharge coordination time: Greater than 30 minutes Physical Exam Vital Signs: Vital Signs: Last Vital Signs Temp 98.0 F 07/05/20 11:15 Pulse 62 07/05/20 12:51 Resp 18 07/05/20 11:15 BP 170/62 H 07/05/20 12:51 Pulse Ox 98 07/05/20 11:15 Body Mass Index 35.9 DS: Data Data Completed and Pending Labs on day of discharge: Laboratory Tests 07/03/20 07/03/20 07/03/20 22:38 22:38 22:38 WBC 8.9 RBC 4.75 Hgb 13.2 L Hct 40.5 L MCV 85.3 MCH 27.8 MCHC 32.6 RDW 12.8 Plt Count 185 MPV 10.2 Immature Gran % (Auto) 0.2 Neut % (Auto) 49.8 Lymph % (Auto) 39.3 [place] % (Auto) 6.4 Eos % (Auto) 3.7 Baso % (Auto) 0.6 Lymph # (Auto) 3.5 [place] # (Auto) 0.6 Eos # (Auto) 0.3 Baso # (Auto) 0.1 Abs Immat Gran (auto) 0.02 Absolute Neuts (auto) 4.4 Absolute Nucleated RBC 0.000 Nucleated RBC % (auto) 0.0 PT INR APTT PTT (Heparin Protocol) Sodium 138 Potassium 4.0 Chloride 101 Carbon Dioxide 27 Anion Gap 14 BUN 14 Creatinine 0.92 Estim Creat Clear Calc 95.9 Estimated GFR > 60 Random Glucose 206 H Estimat Average Glucose Hemoglobin A1c % Calcium 9.0 Total Bilirubin 0.3 Direct Bilirubin < 0.2 AST 29 ALT 35 Alkaline Phosphatase 67 Troponin I High Sens 2652.0 H B-Natriuretic Peptide 108 H Total Protein 7.3 Albumin 4.0 Triglycerides Cholesterol LDL Cholesterol, Calc HDL Cholesterol Lipase 18 TSH COVID-19 ([facility]) COVID-19 Clin Com 07/04/20 07/04/20 07/04/20 00:31 00:31 00:31 WBC 10.0 RBC 4.74 Hgb 13.1 L Hct 39.8 L MCV 84.0 MCH 27.6 MCHC 32.9 RDW 12.7 Plt Count 189 MPV 10.3 Immature Gran % (Auto) Neut % (Auto) Lymph % (Auto) [place] % (Auto) Eos % (Auto) Baso % (Auto) Lymph # (Auto) [place] # (Auto) Eos # (Auto) Baso # (Auto) Abs Immat Gran (auto) Absolute Neuts (auto) Absolute Nucleated RBC 0.000 Nucleated RBC % (auto) 0.0 PT 13.2 H INR 1.1 APTT 36.8 PTT (Heparin Protocol) Sodium Potassium Chloride Carbon Dioxide Anion Gap BUN Creatinine Estim Creat Clear Calc Estimated GFR Random Glucose Estimat Average Glucose Hemoglobin A1c % Calcium Total Bilirubin Direct Bilirubin AST ALT Alkaline Phosphatase Troponin I High Sens B-Natriuretic Peptide Total Protein Albumin Triglycerides Cholesterol LDL Cholesterol, Calc HDL Cholesterol Lipase TSH COVID-19 ([facility]) Negative COVID-19 Clin Com See Note 07/04/20 07/04/20 07/04/20 02:53 02:53 07:05 WBC RBC Hgb Hct MCV MCH MCHC RDW Plt Count MPV Immature Gran % (Auto) Neut % (Auto) Lymph % (Auto) [place] % (Auto) Eos % (Auto) Baso % (Auto) Lymph # (Auto) [place] # (Auto) Eos # (Auto) Baso # (Auto) Abs Immat Gran (auto) Absolute Neuts (auto) Absolute Nucleated RBC Nucleated RBC % (auto) PT 13.0 INR 1.1 APTT PTT (Heparin Protocol) 49.6 L 53.6 Sodium Potassium Chloride Carbon Dioxide Anion Gap BUN Creatinine Estim Creat Clear Calc Estimated GFR Random Glucose Estimat Average Glucose Hemoglobin A1c % Calcium Total Bilirubin Direct Bilirubin AST ALT Alkaline Phosphatase Troponin I High Sens 1782.1 H B-Natriuretic Peptide Total Protein Albumin Triglycerides Cholesterol LDL Cholesterol, Calc HDL Cholesterol Lipase TSH COVID-19 ([facility]) COVID-19 [employer] Com 07/04/20 07/04/20 07/04/20 07:05 07:05 08:28 WBC 8.7 RBC 4.81 Hgb 13.3 L Hct 40.6 L MCV 84.4 MCH 27.7 MCHC 32.8 RDW 12.8 Plt Count 178 MPV 10.5 Immature Gran % (Auto) 0.3 Neut % (Auto) 46.1 Lymph % (Auto) 42.4 H [place] % (Auto) 6.4 Eos % (Auto) 4.0 Baso % (Auto) 0.8 Lymph # (Auto) 3.7 [place] # (Auto) 0.6 Eos # (Auto) 0.4 Baso # (Auto) 0.1 Abs Immat Gran (auto) 0.03 Absolute Neuts (auto) 4.0 Absolute Nucleated RBC 0.000 Nucleated RBC % (auto) 0.0 PT INR APTT PTT (Heparin Protocol) Sodium 137 Potassium 4.0 Chloride 104 Carbon Dioxide 25 Anion Gap 12 BUN 13 Creatinine 0.80 Estim Creat Clear Calc 110.9 Estimated GFR > 60 Random Glucose 185 H Estimat Average Glucose Hemoglobin A1c % Calcium 9.1 Total Bilirubin Direct Bilirubin AST ALT Alkaline Phosphatase Troponin I High Sens 2568.3 H B-Natriuretic Peptide Total Protein Albumin Triglycerides Cholesterol LDL Cholesterol, Calc HDL Cholesterol Lipase TSH COVID-19 ([facility]) COVID-19 [employer] 07/04/20 07/04/20 07/04/20 16:02 19:26 23:00 WBC RBC Hgb Hct MCV MCH MCHC RDW Plt Count MPV Immature Gran % (Auto) Neut % (Auto) Lymph % (Auto) [place] % (Auto) Eos % (Auto) Baso % (Auto) Lymph # (Auto) [place] # (Auto) Eos # (Auto) Baso # (Auto) Abs Immat Gran (auto) Absolute Neuts (auto) Absolute Nucleated RBC Nucleated RBC % (auto) PT INR APTT PTT (Heparin Protocol) 82.1 H D 51.5 L D Sodium Potassium Chloride Carbon Dioxide Anion Gap BUN Creatinine Estim Creat Clear Calc Estimated GFR Random Glucose Estimat Average Glucose Hemoglobin A1c % Calcium Total Bilirubin Direct Bilirubin AST ALT Alkaline Phosphatase Troponin I High Sens 2366.5 H B-Natriuretic Peptide Total Protein Albumin Triglycerides Cholesterol LDL Cholesterol, Calc HDL Cholesterol Lipase TSH COVID-19 ([facility]) COVID-19 [employer] 07/05/20 07/05/20 07/05/20 04:57 04:57 04:57 WBC 9.4 RBC 4.71 Hgb 13.1 L Hct 40.1 L MCV 85.1 MCH 27.8 MCHC 32.7 RDW 12.7 Plt Count 166 MPV 10.6 Immature Gran % (Auto) Neut % (Auto) Lymph % (Auto) [place] % (Auto) Eos % (Auto) Baso % (Auto) Lymph # (Auto) [place] # (Auto) Eos # (Auto) Baso # (Auto) Abs Immat Gran (auto) Absolute Neuts (auto) Absolute Nucleated RBC 0.000 Nucleated RBC % (auto) 0.0 PT INR APTT PTT (Heparin Protocol) Sodium Potassium Chloride Carbon Dioxide Anion Gap BUN Creatinine Estim Creat Clear Calc Estimated GFR Random Glucose Estimat Average Glucose 180 Hemoglobin A1c % 7.9 Calcium Total Bilirubin Direct Bilirubin AST ALT Alkaline Phosphatase Troponin I High Sens B-Natriuretic Peptide Total Protein Albumin Triglycerides 243 Cholesterol 189 LDL Cholesterol, Calc 106 HDL Cholesterol 35 Lipase TSH 2.58 COVID-19 ([facility]) COVID-19 [employer] 07/05/20 07/05/20 04:57 10:59 WBC RBC Hgb Hct MCV MCH MCHC RDW Plt Count MPV Immature Gran % (Auto) Neut % (Auto) Lymph % (Auto) [place] % (Auto) Eos % (Auto) Baso % (Auto) Lymph # (Auto) [place] # (Auto) Eos # (Auto) Baso # (Auto) Abs Immat Gran (auto) Absolute Neuts (auto) Absolute Nucleated RBC Nucleated RBC % (auto) PT 13.0 INR 1.1 APTT PTT (Heparin Protocol) 79.6 H D 65.3 Sodium Potassium Chloride Carbon Dioxide Anion Gap BUN Creatinine Estim Creat Clear Calc Estimated GFR Random Glucose Estimat Average Glucose Hemoglobin A1c % Calcium Total Bilirubin Direct Bilirubin AST ALT Alkaline Phosphatase Troponin I High Sens B-Natriuretic Peptide Total Protein Albumin Triglycerides Cholesterol LDL Cholesterol, Calc HDL Cholesterol Lipase TSH COVID-19 ([facility]) COVID-19 Clin Com Discharge Plan Discharge Anticipated Discharge Date/Time: 07/05/20 12:59 Patient Disposition: [facility] Referrals: [facility] [Outside] Center,Pending Sale To [facility] [Primary Care Provider] - Discharge Medications: New atorvastatin 40 mg Tablet 40 mg PO BEDTIME Qty: 30 RF: 0 amlodipine 10 mg Tablet 10 mg PO DAILY Qty: 30 RF: 0 nitroglycerin [Nitrostat] 0.4 mg Tablet, Sublingual 0.4 mg sublingual Q5M PRN (Reason: Chest Pain) Qty: 30 RF: 0 lisinopril 40 mg Tablet 40 mg PO DAILY Qty: 30 RF: 0 Continued metoprolol tartrate 50 mg tablet 50 mg PO BID 90 Days Qty: 180 RF: 0 aspirin [Adult Aspirin Regimen] 81 mg tablet,delayed release (DR/EC) 81 mg PO DAILY 90 Days Qty: 90 RF: 0 Discontinued lisinopril 20 mg tablet 20 mg PO DAILY 90 Days Qty: 90 RF: 0 Discharge Orders: Discharge Order (Routine); Ordered 07/05/20 Ordered By: Jacob Maravilla Diet: low fat, low cholesterol Activity on Discharge: As tolerated Stand Alone Forms: Patient Portal Discharge page Care Plan Goals: treat NSTEMi Health Concerns: uncontrolled HTN NSTEMI Plan of Treatment: transfer to [facility] for cardiac cath Discharge Date/Time: 07/05/20 14:16
== END 2020-07-05 14:16 | disposition short-term general hospital (02) | DRG 190 ==
LOC: HO.ED 07-04 00:22 → HO.EDOVER 07-04 02:21 → HO.IMC 07-05 07:12
PROVIDERS: Internal Medicine; Admitting Provider Hospitalist; Emergency Provider Emergency Medicine; Visit Provider Internal Medicine
DX: I21.4 Non-ST elevation (NSTEMI) myocardial infarction (principal); E11.9 Type 2 diabetes mellitus without complications; E78.5 Hyperlipidemia, unspecified; I10 Essential (primary) hypertension; I16.0 Hypertensive urgency; Z20.822 Contact with and (suspected) exposure to COVID-19; Z91.19 Patient's noncompliance with other medical treatment and regimen; Z79.82 Long term (current) use of aspirin; Z79.899 Other long term (current) drug therapy
CPT/HCPCS: 36415; 70450; 71045; 80048; 80061; 80076; 83036; 83690; 83880; 84443; 84484; 85025; 85027; 85610; 85730; 87635; 93005; 93306; 99285

== ENCOUNTER 2020-08-18 11:40 | Emergency (ER) | payer MEDICAID, SELFPAY ==
--- NOTE | ~2020-08-18 | XR_ITS ---
EXAMINATION: XR CHEST CLINICAL INFORMATION: TIA COMPARISON: Chest radiographs 07/03/2020, 12/30/2019 TECHNIQUE: Portable upright AP view of the chest was obtained. FINDINGS: The lungs are clear. The vascularity is normal. Cardiopericardial silhouette is stable. There is no airspace consolidation, groundglass opacity, or effusion. The hilar and mediastinal contours are unremarkable. There are degenerative changes thoracic spine again seen. XR/XR chest 1V IMPRESSION: Unremarkable examination.
[2020-08-18 11:43] VITALS: BP 213/91; PULSE 55; RESP 18; TEMP 36.9; O2SAT 97; BMI 36.6
--- NOTE | 2020-08-18 13:18 | ECG_ITS ---
Test Reason : NEUROLOGICAL SYMPTOM Blood Pressure : / mmHG Vent. Rate : 055 BPM Atrial Rate : 055 BPM P-R Int : 168 ms QRS Dur : 084 ms QT Int : 412 ms P-R-T Axes : 044 -01 -28 degrees QTc Int : 394 ms Sinus bradycardia T wave abnormality, consider inferior ischemia Abnormal ECG When compared with ECG of 04-JUL-2020 18:57, Inverted T waves have replaced nonspecific T wave abnormality in Inferior leads T wave inversion no longer evident in Anterolateral leads Referred By: Bethany Cheney Electronically Signed By:LENIN BRASWELL
[2020-08-18 13:23] VITALS: BP 171/82; PULSE 55; RESP 16; TEMP 37.3; O2SAT 97
--- NOTE | 2020-08-18 13:36 | ED_ITS ---
HPI - General Adult General Chief complaint: General Medical Stated complaint: slurred speech Time Seen by Provider: 08/18/20 12:13 Source: patient Mode of arrival: ambulatory Limitations: no limitations History of Present Illness HPI narrative: 55 years old male history of hypertension presented today patient's had problem with speech (his voice was not coming out), issue is resolved now, patient declined any headache, no chest pain, no shortness of breath, no weakness, no loss of sensation. Patient during the interview is speaking fluently, grossly intact neuro exam. Initial blood pressure was in the high side patient is known to have white coat syndrome and a history of hypertension. Related Data Previous Rx's Medication Instructions Recorded aspirin 81 mg tablet,delayed 81 mg PO DAILY 90 Days #90 tab 04/28/20 release metoprolol tartrate 50 mg tablet 50 mg PO BID 90 Days #180 tab 04/28/20 amlodipine 10 mg PO DAILY #30 tab 07/05/20 atorvastatin 40 mg PO BEDTIME #30 tab 07/05/20 lisinopril 40 mg PO DAILY #30 tab 07/05/20 nitroglycerin [Nitrostat] 0.4 mg SUBLINGUAL Q5M PRN #30 tab 07/05/20 Allergies Allergy/AdvReac Type Severity Reaction Status Date / Time No Known Allergies Allergy Verified 07/03/20 21:49 [No Known Allergies*] Review of Systems Review of Systems: All other systems are reviewed and are negative Constitutional: Reports as per HPI and Reports no additional constitutional complaints Eyes: Reports as per HPI and Reports no additional eye complaints Reports system reviewed and no additional complaints, except as documented Cardiovascular: Reports as per HPI and Reports no additional cardiovascular complaints Respiratory: Reports as per HPI and Reports no additional respiratory complaints Gastrointestinal: Reports as per HPI and Reports no additional gastrointestinal complaints Genitourinary: Reports no additional female genitourinary complaints Musculoskeletal: Reports no additional musculoskeletal complaints Skin/Breast: Reports system reviewed and no additional complaints, except as docu Psychiatric: Reports no additional psychiatric complaints Endocrine: Reports no additional endocrine complaints Hematologic/Lymphatic: Reports no additional hematologic/lymphatic complaints Allergic/Immunologic: Reports no additional allergic/immunologic complaints Reports system reviewed and no additional complaints, except as documented and Reports Abnormal speech present [facility] Past Medical History Medical History Hypertension NSTEMI (non-ST elevated myocardial infarction) Social History Social History Household Members: Significant Other Housing: House Alcohol intake: never Smoking Status: Never smoker Use of substances other than those prescribed or required for medical reasons: No Advance Directives: No Advance Directives Information Provided: No service: No Current occupational status: unemployed Physical Exam Vital Signs: Vital Signs: Last Vital Signs Temp 99.1 F 08/18/20 13:23 Pulse 50 08/18/20 14:01 Resp 16 08/18/20 14:01 BP 163/79 H 08/18/20 14:01 Pulse Ox 97 08/18/20 14:01 Body Mass Index 36.6 Vital signs have been reviewed as appeared to be correct. Blood pressure in the high range. Heart rate normal. Respiration rate normal. Temperature normal. Oxygen saturation normal. Appearance: Alert. Oriented X3. No acute distress. Head: Normal external exam. Normocephalic. Atraumatic. No Gray signs noted. No raccoon eyes noted Eyes: PERRLA. EOMI. Conjunctiva and sclera normal. Eyelids normal. ENT: TM's Normal. Pharynx normal. Uvula midline. Moist mucous membranes. No trismus noted. No drooling noted. No muffled voice noted. Neck: Normal inspection. Neck supple. FROM. No adenopathy. Thyroid Normal. No meningeal signs. No neck mass noted. CVS: Normal heart rate and rhythm. Heart sound normal. No murmurs noted. Pulses normal throughout. Respiratory: No respiratory distress. Painless inspiration. Breath sounds normal. No wheezes/rales/rhonchi noted. Chest nontender. No accessory muscle usage noted or decreased air movement noted. Abdomen: Soft and nontender. Bowel sounds normal in all 4 quadrants. No distention noted. No organomegaly noted. No visible injury noted. Back: No CVA tenderness. Full range of motion noted. Skin: Skin warm and dry. Normal skin color. Normal skin turgor. No rashes/lesions/lacerations noted. Extremities: No lower extremity edema. Extremities exhibit normal range of motion. Extremities nontender. Neuro: Oriented X 3. No motor deficit. No sensory deficit. Reflexes normal. NIH Stroke Scale Level of Consciousness: Alert Level of Consciousness Questions: Answers both questions correctly Level of Consciousness Commands: Performs both tasks correctly Best Gaze: Normal Visual: No visual loss Facial Palsy: Normal Motor Arm (Right): No drift Motor Arm (Left): No drift Motor Leg (Right): No drift Motor Leg (Left): No drift Limb Ataxia: Absent Sensory: Normal Best Language: No aphasia Dysarthia: Normal Extinction and Inattention: No abnormality Score: 0 Course Course Course Narrative: 55-year-old male with history of hypertension, non STEMI, presented with short time of difficulty speaking (voice was not coming out and muffled voice) patient's neuro exam is grossly intact, patient initially found to be hypertensive repeat blood pressure blood pressure now is lower, patient always have high troponin, troponin today is in the 500 patient has no chest pain, diffuse T-wave inversion, the case discussed with Dr. Olvera who recommended to admit the patient for further evaluation. I explained to the patient our concerns patient refused to stay because he has to take care of his grand children, patient fully understand the risk of leaving the hospital without full evaluation, patient is competent to make a decision. Patient is willing to sign against medical advise. Medical Decision Making Lab Data Lab results reviewed: Yes I reviewed the patient's lab results. Result diagrams: 08/18/20 13:40 08/18/20 13:40 Labs: Lab Results 08/18/20 08/18/20 08/18/20 Range/Units 13:40 13:40 13:40 WBC 8.1 (4.8-10.8) X10*3/uL RBC 5.01 (4.60-5.80) X10*6/uL Hgb 13.7 L (14.0-18.0) g/dl Hct 42.1 (42-52) % MCV 84.0 (80-98) fL MCH 27.3 (27.0-33.0) pg MCHC 32.5 (31.0-36.0) g/dl RDW 13.1 (11.0-16.0) % Plt Count 198 (160-400) X10*3/uL MPV 9.8 (9.4-12.4) fL Immature Gran % (Auto) 0.2 (0.0-0.4) % Neut % (Auto) 52.6 (45-73) % Lymph % (Auto) 37.9 (20-40) % [place] % (Auto) 5.4 (2-11) % Eos % (Auto) 3.2 (0-4) % Baso % (Auto) 0.7 (0-2) % Lymph # (Auto) 3.1 (1.2-4.9) X10*3/uL [place] # (Auto) 0.4 (0.1-1.2) X10*3/uL Eos # (Auto) 0.3 (0.0-0.4) X10*3/uL Baso # (Auto) 0.1 (0.0-0.2) X10*3/uL Abs Immat Gran (auto) 0.02 (0.00-0.03) X10*3/uL Absolute Neuts (auto) 4.3 (2.0-8.3) X10*3/uL Absolute Nucleated RBC 0.000 (0.0-0.012) X10*3/uL Nucleated RBC % (auto) 0.0 (0.0-0.2) /100WBC Sodium 138 (135-145) mmol/L Potassium 4.2 (3.3-5.1) mmol/L Chloride 101 (96-108) mmol/L Carbon Dioxide 25 (22-29) mmol/L Anion Gap 16 (12-20) BUN 14 (9-16) mg/dL Creatinine 0.79 (0.5-1.4) mg/dL Estim Creat Clear Calc 113.4 Estimated GFR > 60 Random Glucose 168 H (60-115) mg/dL Calcium 10.0 D (8.4-10.2) mg/dL Total Bilirubin 0.4 (0.0-1.0) mg/dL Direct Bilirubin 0.2 (0.0-0.5) mg/dL AST 30 (5-37) U/L ALT 41 H (0-40) U/L Alkaline Phosphatase 68 (39-117) U/L Troponin I High Sens 501.7 H D (<3.5-35.0) ng/L B-Natriuretic Peptide (<100) pg/mL Total Protein 7.5 (6.5-8.0) g/dL Albumin 4.3 (3.5-5.0) g/dL Lipase 22 (8-78) U/L Urine Color Urine Appearance Urine pH (5.0-8.0) Ur Specific [place] (1.005-1.025) Urine Protein (NEG-TRACE) MG/DL Urine Glucose (UA) (NEG) MG/DL Urine Ketones (NEG) MG/DL Urine Blood (NEG) Urine Nitrite (NEG) Ur Leukocyte Esterase (NEG) COVID-19 ([facility]) (Negative) COVID-19 Clin Com 08/18/20 08/18/20 08/18/20 Range/Units 13:40 13:40 13:44 WBC (4.8-10.8) X10*3/uL RBC (4.60-5.80) X10*6/uL Hgb (14.0-18.0) g/dl Hct (42-52) % MCV (80-98) fL MCH (27.0-33.0) pg MCHC (31.0-36.0) g/dl RDW (11.0-16.0) % Plt Count (160-400) X10*3/uL MPV (9.4-12.4) fL Immature Gran % (Auto) (0.0-0.4) % Neut % (Auto) (45-73) % Lymph % (Auto) (20-40) % [place] % (Auto) (2-11) % Eos % (Auto) (0-4) % Baso % (Auto) (0-2) % Lymph # (Auto) (1.2-4.9) X10*3/uL [place] # (Auto) (0.1-1.2) X10*3/uL Eos # (Auto) (0.0-0.4) X10*3/uL Baso # (Auto) (0.0-0.2) X10*3/uL Abs Immat Gran (auto) (0.00-0.03) X10*3/uL Absolute Neuts (auto) (2.0-8.3) X10*3/uL Absolute Nucleated RBC (0.0-0.012) X10*3/uL Nucleated RBC % (auto) (0.0-0.2) /100WBC Sodium (135-145) mmol/L Potassium (3.3-5.1) mmol/L Chloride (96-108) mmol/L Carbon Dioxide (22-29) mmol/L Anion Gap (12-20) BUN (9-16) mg/dL Creatinine (0.5-1.4) mg/dL Estim Creat Clear Calc Estimated GFR Random Glucose (60-115) mg/dL Calcium (8.4-10.2) mg/dL Total Bilirubin (0.0-1.0) mg/dL Direct Bilirubin (0.0-0.5) mg/dL AST (5-37) U/L ALT (0-40) U/L Alkaline Phosphatase (39-117) U/L Troponin I High Sens (<3.5-35.0) ng/L B-Natriuretic Peptide 56 (<100) pg/mL Total Protein (6.5-8.0) g/dL Albumin (3.5-5.0) g/dL Lipase (8-78) U/L Urine Color YELLOW Urine Appearance CLEAR Urine pH 6.5 (5.0-8.0) Ur Specific [place] 1.020 (1.005-1.025) Urine Protein NEG (NEG-TRACE) MG/DL Urine Glucose (UA) NEG (NEG) MG/DL Urine Ketones NEG (NEG) MG/DL Urine Blood NEG (NEG) Urine Nitrite NEG (NEG) Ur Leukocyte Esterase NEG (NEG) COVID-19 ([facility]) Negative (Negative) COVID-19 Clin Com See Note Imaging Data Chest x-ray: Radiologist's impression: Unremarkable examination. ECG Data Interpretation: Sinus bradycardia at 55 beats per minutes, normal intervals, diffuse T-wave inversion in III, AVF, V5 and V6. Discharge Plan Discharge Clinical Impression: Hypertension, Non-ST elevated myocardial infarction Patient Disposition: Left Against Medical Advice Instructions: Hypertension (ED), Heart Attack (DC), High Troponin Levels (ED) Prescriptions: No Action metoprolol tartrate 50 mg tablet 50 mg PO BID 90 Days Qty: 180 RF: 0 aspirin [Adult Aspirin Regimen] 81 mg tablet,delayed release (DR/EC) 81 mg PO DAILY 90 Days Qty: 90 RF: 0 atorvastatin 40 mg Tablet 40 mg PO BEDTIME Qty: 30 RF: 0 amlodipine 10 mg Tablet 10 mg PO DAILY Qty: 30 RF: 0 nitroglycerin [Nitrostat] 0.4 mg Tablet, Sublingual 0.4 mg sublingual Q5M PRN (Reason: Chest Pain) Qty: 30 RF: 0 lisinopril 40 mg Tablet 40 mg PO DAILY Qty: 30 RF: 0 Referrals: [facility] [Primary Care Provider] - 2 days
[2020-08-18 13:51] LABS: MANUAL DIFF FLAG NO
[2020-08-18 13:52] LABS: Basophils Absolute Auto 0.1 X10*3/uL (0.0-0.2); Basophils Percent Auto 0.7 % (0-2); Eosinophils Absolute Auto 0.3 X10*3/uL (0.0-0.4); Eosinophils Percent Auto 3.2 % (0-4); Hematocrit 42.1 % (42-52); Hemoglobin 13.7 g/dl (14.0-18.0); Imm Gran Abs Auto 0.02 X10*3/uL (0.00-0.03); Imm Gran Pct Auto 0.2 % (0.0-0.4); Lymphocytes Absolute Auto 3.1 X10*3/uL (1.2-4.9); Lymphocytes Percent Auto 37.9 % (20-40); Mean Corpuscular HGB Conc 32.5 g/dl (31.0-36.0); Mean Corpuscular Hemoglobin 27.3 pg (27.0-33.0); Mean Platelet Volume 9.8 fL (9.4-12.4); Monocytes Absolute Auto 0.4 X10*3/uL (0.1-1.2); Monocytes Percent Auto 5.4 % (2-11); Neutrophils Absolute Auto 4.3 X10*3/uL (2.0-8.3); Neutrophils Percent Auto 52.6 % (45-73); Platelet Count 198 X10*3/uL (160-400); Red Blood Count 5.01 X10*6/uL (4.60-5.80); Red Cell Distribution Width 13.1 % (11.0-16.0); White Blood Count 8.1 X10*3/uL (4.8-10.8)
[2020-08-18 13:55] LABS: Glucose Urine UA NEG (NEG); Leukocyte Esterase Urine NEG (NEG); Nitrite Urine NEG (NEG); PH 6.5 (5.0-8.0); Urine Blood NEG (NEG); Urine Ketones NEG (NEG); Urine Protein NEG (NEG-TRACE)
[2020-08-18 13:59] LABS: Appearance Urine CLEAR; Color Urine YELLOW
[2020-08-18 14:01] VITALS: BP 163/79; PULSE 50; RESP 16; O2SAT 97
[2020-08-18 14:11] LABS: COVID-19 Test Negative (Negative)
[2020-08-18 14:23] LABS: Alanine Aminotransferase 41 U/L (0-40); Albumin Level 4.3 g/dL (3.5-5.0); Alkaline Phosphatase 68 U/L (39-117); Anion Gap 16 (12-20); Aspartate Amino Transferase 30 U/L (5-37); Bilirubin Direct 0.2 mg/dL (0.0-0.5); Bilirubin Total 0.4 mg/dL (0.0-1.0); Blood Urea Nitrogen 14 mg/dL (9-16); Carbon Dioxide 25 mmol/L (22-29); Chloride 101 mmol/L (96-108); Creatinine Clr Calc Pharmacy 113.4; Estimated Glomerular Filt Rate > 60; Glucose Random 168 mg/dL (60-115); Lipase 22 U/L (8-78); Potassium 4.2 mmol/L (3.3-5.1); Sodium 138 mmol/L (135-145); Total Protein 7.5 g/dL (6.5-8.0)
[2020-08-18 14:25] LABS: B Type Natriuretic Peptide 56 pg/mL (<100)
[2020-08-18 14:28] LABS: Troponin-I High Sensitivity 501.7 ng/L (<3.5-35.0)
== END 2020-08-18 15:53 | disposition left against medical advice (07) ==
PROVIDERS: Emergency Provider Emergency Medicine
DX: I21.4 Non-ST elevation (NSTEMI) myocardial infarction (principal); R47.81 Slurred speech; I10 Essential (primary) hypertension; Z20.822 Contact with and (suspected) exposure to COVID-19; Z79.899 Other long term (current) drug therapy
CPT/HCPCS: 36415; 71045; 80048; 80076; 81003; 83690; 83880; 84484; 85025; 87635; 93005; 99284

== ENCOUNTER 2020-08-19 19:09 | Inpatient (IN) | payer MEDICAID, SELFPAY ==
--- NOTE | ~2020-08-19 | CT_ITS ---
EXAMINATION: CT angio head neck CLINICAL INFORMATION: Slurred speech. COMPARISON: CT head 07/03/2020. TECHNIQUE: Air Technician images were obtained. A CT angiogram of the head and neck was performed in the arterial phase after the intravenous administration of 70 mL Omnipaque 350. Pre and delayed postcontrast images of the head were also obtained. MIP reconstructions were generated in multiple orientations at the acquisition workstation. Multiple three-dimensional surface rendered images and maximum intensity projection images were generated on a dedicated 3-D lab workstation. Arterial stenoses are measured in accordance with NASCET criteria or similar method if applicable. This CT examination was performed using dose optimization techniques as appropriate, including one or more of the following: Automated exposure control, iterative reconstruction, and adjustment of technique factors (mA and/or kVp) according to patient size (this includes techniques or standardized protocols for targeted exams where dose is matched to indication/reason for exam). Total exam dose-length product 2230 mGy-cm FINDINGS: Head: There are a few scattered nonspecific foci of hypoattenuation within the supratentorial white matter. Postcontrast images reveal no abnormal intraparenchymal enhancement. No intracranial mass effect or midline shift. Lateral and third ventricles are proportionate to the subarachnoid spaces. No hydrocephalus. Michele-white matter differentiation is grossly preserved and there is no evidence of acute territorial infarct. The calvarium and skull base are intact. Mastoid air cells and middle ear cavities are well aerated. No active paranasal sinus disease. CT angiogram neck: The aortic arch apex is normal. Origins of the major aortic branches are widely patent. Scattered atheromatous calcification involves the distal common carotid arteries and both carotid bifurcations. There is 25% stenosis of the left internal carotid artery at its origin. Extracranial internal carotid arteries are otherwise patent. The cervical segments of the vertebral arteries as well as their origins are patent. CT angiogram head: Scattered atheromatous calcification causes mild narrowing involving the supraclinoid segments of both internal carotid arteries. Intracranial internal carotid arteries are otherwise patent. Intradural vertebral artery segments and basilar artery are patent. There is mild to moderate narrowing involving a few proximal M2 segments of the left middle cerebral artery. There is also relatively focal high-grade narrowing involving the proximal A3 segment of the right anterior cerebral artery. Other: Soft tissues of the neck including the thyroid gland are normal. Grossly no pathologically enlarged cervical lymph nodes. Visualized lung apices are clear. There is multilevel degenerative spondylosis of the cervical spine. CT/CT angio head neck IMPRESSION: There is nonspecific white matter disease with a few relatively discrete low-density lesions visualized within the supratentorial white matter. Otherwise no abnormal mass or enhancement within the intracranial compartment. Grossly no evidence of acute territorial infarct. Partially calcified atheromatous plaque causes 25% stenosis of the left internal carotid artery at its origin. Otherwise no stenosis of the cervical carotid or vertebral arteries. Atheromatous calcification causes mild narrowing of the supraclinoid segments of both internal carotid arteries. There is mild to moderate narrowing involving the proximal M2 segments of the left middle cerebral artery. There is also relatively focal high-grade narrowing involving the proximal A3 segment of the right anterior cerebral artery.
--- NOTE | ~2020-08-19 | XR_ITS ---
EXAMINATION: XR CHEST CLINICAL INFORMATION: CVA COMPARISON: Chest x-ray 10/18/2020 TECHNIQUE: Frontal portable view of the chest was obtained. 7:28 PM FINDINGS: Lungs are clear. No pulmonary vascular congestion. There is no pleural effusion. The heart size is normal. The cardiac and mediastinal contours are normal. There are multilevel degenerative changes of dorsal spine. XR/XR chest 1V IMPRESSION: Unremarkable examination.
--- NOTE | 2020-08-19 19:20 | ED.NEUROSD ---
HPI - Neuro Symptoms/Deficit General Chief Complaint: Weakness Stated Complaint: Slurred speech Time Seen by Provider: 08/19/20 19:20 Source: patient Mode of arrival: ambulatory Limitations: no limitations History of Present Illness HPI Narrative: Patient with significant coronary artery disease status post stent placement had a cardiac catheterization in which showed patent LAD stent but mid LAD distal subsection 50% stenosis and distal subsection 90% stenosis also proximal circumflex with 30% ostial stenosis and proximal RCA mid subsection 50% stenosis. Patient advised to continue aspirin not possible for revascularization as it is severe stenosis. Patient did not have any chest pain at that time had only high blood pressure with elevated cardiac enzymes. Since yesterday afternoon patient notice that he has difficulty in getting the words out able to understand words and has fair comprehension and articulation but taking longer time to speak. No other weakness per patient patient was seen here yesterday had a CT scan of the head done which was negative high sensitive troponin was elevated to 501.7 which is chronically elevated, patient advised to get admitted but patient refused and went AMA. Since he went home patient been feeling better but came back as still feel sometimes that he has difficulty in speaking no weakness no chest pain or shortness of breath Onset (ago): day(s) Related Data Previous Rx's Medication Instructions Recorded aspirin 81 mg tablet,delayed 81 mg PO DAILY 90 Days #90 tab 04/28/20 release metoprolol tartrate 50 mg tablet 50 mg PO BID 90 Days #180 tab 04/28/20 amlodipine 10 mg PO DAILY #30 tab 07/05/20 atorvastatin 40 mg PO BEDTIME #30 tab 07/05/20 lisinopril 40 mg PO DAILY #30 tab 07/05/20 nitroglycerin [Nitrostat] 0.4 mg SUBLINGUAL Q5M PRN #30 tab 07/05/20 Allergies Allergy/AdvReac Type Severity Reaction Status Date / Time No Known Allergies Allergy Verified 08/19/20 19:31 [No Known Allergies*] Review of Systems Review of Systems: Constitutional : No Weight loss, No Fever, No Chills ENT/Mouth : No sore throat, No Rhinorrhea Eyes: No Eye Pain, No Swelling Cardiovascular : No Chest Pain, no palpitations Respiratory : No Cough, No Sputum, no shortness of breath Gastrointestinal : no Nausea, No Vomiting, No Diarrhea, No abdominal Pain, no black stools Genitourinary : No Dysuria, No Urinary Frequency Musculoskeletal : No joint pain, No Myalgias, No Joint Swelling Skin : No Skin Lesions, No rash Neuro : No Weakness, No Numbness, No Dizziness, No Headache, dysarthria+ Psych : No Anxiety/Panic, No Depression Heme/Lymph: No Bruising, No Lymphadenopathy Endocrine : No Polyuria, No Polydipsia All other systems reviewed and are negative [facility] Past Medical History Medical History Hypertension NSTEMI (non-ST elevated myocardial infarction) Social History Social History Household Members: Significant Other Housing: House Alcohol intake: never Smoking Status: Never smoker Advance Directives: No service: No Current occupational status: unemployed Physical Exam Vital Signs: Vital Signs: Last Vital Signs Temp 98.4 F 08/19/20 21:38 Pulse 55 08/19/20 21:38 Resp 16 08/19/20 21:38 BP 167/76 H 08/19/20 21:38 Pulse Ox 97 08/19/20 21:38 Body Mass Index 36.6 Const: General: comfortable and no acute distress Orientation/consciousness: patient oriented x3 HENMT: Head: Yes normocephalic and Yes atraumatic Eyes: General: appearance normal, both eyes and all related structures Conjunctivae: conjunctivae normal Sclerae: sclerae normal Pupils: Equal, round and reactive pupils present Neck: Neck: Yes normal visual inspection and Yes full ROM Chest: Chest palpation & inspection: normal inspection of the chest and normal palpation of entire chest wall Resp: Effort & Inspection: normal respiratory effort Auscultation: clear to auscultation bilaterally, no crackles, no rales and no rhonchi Cardio: Palpation: normal PMI Rate: regular rate Rhythm: regular rhythm Heart sounds: S1 normal heart sound present and S2 normal heart sound present Peripheral pulses: Peripheral pulses 2+ throughout GI: Inspection: Yes normal to inspection Palpation (GI): Soft to palpation and nontender Auscultation: normal bowel sounds : General: Yes no CVA tenderness Back/Spine/Pelvis: Back: no CVA tenderness Thoracic/Lumbar Spine: thoracic and lumbar spine normal to inspection Skin: General skin exam: no rashes or lesions noted Neuro: General: patient oriented x3, gait normal, tone normal, moves all extremities, no focal motor deficits and CN's II-XI intact bilaterally Cranial nerves: Yes Equal, round and reactive pupils present MDM - Neuro Symptoms/Deficit MDM Narrative Medical decision making narrative: Patient with mild dysarthria which was seen yesterday but nothing in the ER at this time per patient he has difficulty in speaking sometimes. CTA showed proximal M2 segment moderate narrowing and relatively focal high-grade narrowing involving the A3 segment of right anterior cerebral artery, patient's symptoms likely from left M2 is culprit which was seen in CTA. Case discussed with Dr. Matt neurologist advised to add Plavix along with aspirin keep the blood pressure on the higher side and plan for MRI tomorrow. Patient has chronically elevated troponin without any acute EKG changes patient never had chest pain even when he had the stent placed. At this time will continue to watch. Patient had cardiac catheterization in 07/06/2020 which showed multivessel disease not suitable for revascularization. Plan to admit patient to hospitalist service Differential Diagnosis Differential diagnosis: Likely cerebrovascular accident Lab Data Attestation: I reviewed the patient's lab results. Result diagrams: 08/19/20 19:52 08/19/20 19:52 Labs: Lab Results 08/19/20 08/19/20 08/19/20 Range/Units 19:52 19:52 19:52 WBC 7.8 (4.8-10.8) X10*3/uL RBC 4.98 (4.60-5.80) X10*6/uL Hgb 13.6 L (14.0-18.0) g/dl Hct 42.0 (42-52) % MCV 84.3 (80-98) fL MCH 27.3 (27.0-33.0) pg MCHC 32.4 (31.0-36.0) g/dl RDW 13.1 (11.0-16.0) % Plt Count 184 (160-400) X10*3/uL MPV 9.7 (9.4-12.4) fL Immature Gran % (Auto) 0.1 (0.0-0.4) % Neut % (Auto) 47.8 (45-73) % Lymph % (Auto) 42.2 H (20-40) % [place] % (Auto) 5.5 (2-11) % Eos % (Auto) 3.6 (0-4) % Baso % (Auto) 0.8 (0-2) % Lymph # (Auto) 3.3 (1.2-4.9) X10*3/uL [place] # (Auto) 0.4 (0.1-1.2) X10*3/uL Eos # (Auto) 0.3 (0.0-0.4) X10*3/uL Baso # (Auto) 0.1 (0.0-0.2) X10*3/uL Abs Immat Gran (auto) 0.01 (0.00-0.03) X10*3/uL Absolute Neuts (auto) 3.7 (2.0-8.3) X10*3/uL Absolute Nucleated RBC 0.000 (0.0-0.012) X10*3/uL Nucleated RBC % (auto) 0.0 (0.0-0.2) /100WBC PT 13.4 H (10.8-13.0) SEC INR 1.1 (0.9-1.1) APTT 37.8 (24.1-38.0) SEC Sodium 137 (135-145) mmol/L Potassium 4.2 (3.3-5.1) mmol/L Chloride 101 (96-108) mmol/L Carbon Dioxide 25 (22-29) mmol/L Anion Gap 15 (12-20) BUN 15 (9-16) mg/dL Creatinine 0.83 (0.5-1.4) mg/dL Estim Creat Clear Calc 107.9 Estimated GFR > 60 Random Glucose 171 H (60-115) mg/dL Calcium 9.7 (8.4-10.2) mg/dL Total Bilirubin 0.2 (0.0-1.0) mg/dL Direct Bilirubin < 0.2 (0.0-0.5) mg/dL AST 31 (5-37) U/L ALT 44 H (0-40) U/L Alkaline Phosphatase 72 (39-117) U/L Troponin I High Sens (<3.5-35.0) ng/L Total Protein 7.5 (6.5-8.0) g/dL Albumin 4.4 (3.5-5.0) g/dL 03/25/21 Range/Units 19:52 WBC (4.8-10.8) X10*3/uL RBC (4.60-5.80) X10*6/uL Hgb (14.0-18.0) g/dl Hct (42-52) % MCV (80-98) fL MCH (27.0-33.0) pg MCHC (31.0-36.0) g/dl RDW (11.0-16.0) % Plt Count (160-400) X10*3/uL MPV (9.4-12.4) fL Immature Gran % (Auto) (0.0-0.4) % Neut % (Auto) (45-73) % Lymph % (Auto) (20-40) % [place] % (Auto) (2-11) % Eos % (Auto) (0-4) % Baso % (Auto) (0-2) % Lymph # (Auto) (1.2-4.9) X10*3/uL [place] # (Auto) (0.1-1.2) X10*3/uL Eos # (Auto) (0.0-0.4) X10*3/uL Baso # (Auto) (0.0-0.2) X10*3/uL Abs Immat Gran (auto) (0.00-0.03) X10*3/uL Absolute Neuts (auto) (2.0-8.3) X10*3/uL Absolute Nucleated RBC (0.0-0.012) X10*3/uL Nucleated RBC % (auto) (0.0-0.2) /100WBC PT (10.8-13.0) SEC INR (0.9-1.1) APTT (24.1-38.0) SEC Sodium (135-145) mmol/L Potassium (3.3-5.1) mmol/L Chloride (96-108) mmol/L Carbon Dioxide (22-29) mmol/L Anion Gap (12-20) BUN (9-16) mg/dL Creatinine (0.5-1.4) mg/dL Estim Creat Clear Calc Estimated GFR Random Glucose (60-115) mg/dL Calcium (8.4-10.2) mg/dL Total Bilirubin (0.0-1.0) mg/dL Direct Bilirubin (0.0-0.5) mg/dL AST (5-37) U/L ALT (0-40) U/L Alkaline Phosphatase (39-117) U/L Troponin I High Sens 503.4 H (<3.5-35.0) ng/L Total Protein (6.5-8.0) g/dL Albumin (3.5-5.0) g/dL ECG Data Attestation: I personally reviewed and interpreted this ECG as follows: Interpretation: Normal sinus rhythm heart rate 61 beats per minute normal intervals normal axis no acute ST T wave changes impression normal EKG NIH Stroke Scale Internal: Initial- Upon Arrival Level of Consciousness: Alert Level of Consciousness Questions: Answers both questions correctly Level of Consciousness Commands: Performs both tasks correctly Best Gaze: Normal Visual: No visual loss Facial Palsy: Normal Motor Arm (Right): No drift Motor Arm (Left): No drift Motor Leg (Right): No drift Motor Leg (Left): No drift Limb Ataxia: Absent Sensory: Normal Best Language: No aphasia Dysarthia: Normal Extinction and Inattention: No abnormality Score: 0 Discharge Plan Discharge Clinical Impression: TIA (transient ischemic attack), Non-ST elevated myocardial infarction (non-STEMI) Patient Disposition: Admitted As Inpatient
--- NOTE | 2020-08-19 19:21 | ECG_ITS ---
Test Reason : WEAKNESS Blood Pressure : / mmHG Vent. Rate : 061 BPM Atrial Rate : 061 BPM P-R Int : 156 ms QRS Dur : 092 ms QT Int : 402 ms P-R-T Axes : 044 -02 007 degrees QTc Int : 404 ms Normal sinus rhythm Normal ECG When compared to the previous EKG of 18 august 2020, no significant change Referred By: Israel Emerson Electronically Signed By:LENIN BRASWELL
[2020-08-19 19:26] VITALS: BP 180/87; PULSE 66; RESP 16; TEMP 36.6; O2SAT 98; BMI 36.6
[2020-08-19 19:53] VITALS: BP 163/69; PULSE 58; RESP 16; O2SAT 97
[2020-08-19 19:56] LABS: MANUAL DIFF FLAG NO
[2020-08-19 19:59] LABS: Basophils Absolute Auto 0.1 X10*3/uL (0.0-0.2); Basophils Percent Auto 0.8 % (0-2); Eosinophils Absolute Auto 0.3 X10*3/uL (0.0-0.4); Eosinophils Percent Auto 3.6 % (0-4); Hemoglobin 13.6 g/dl (14.0-18.0); Imm Gran Abs Auto 0.01 X10*3/uL (0.00-0.03); Imm Gran Pct Auto 0.1 % (0.0-0.4); Lymphocytes Absolute Auto 3.3 X10*3/uL (1.2-4.9); Lymphocytes Percent Auto 42.2 % (20-40); Mean Corpuscular HGB Conc 32.4 g/dl (31.0-36.0); Mean Corpuscular Hemoglobin 27.3 pg (27.0-33.0); Mean Corpuscular Volume 84.3 fL (80-98); Mean Platelet Volume 9.7 fL (9.4-12.4); Monocytes Absolute Auto 0.4 X10*3/uL (0.1-1.2); Monocytes Percent Auto 5.5 % (2-11); Neutrophils Absolute Auto 3.7 X10*3/uL (2.0-8.3); Neutrophils Percent Auto 47.8 % (45-73); Platelet Count 184 X10*3/uL (160-400); Red Blood Count 4.98 X10*6/uL (4.60-5.80); Red Cell Distribution Width 13.1 % (11.0-16.0); White Blood Count 7.8 X10*3/uL (4.8-10.8)
[2020-08-19 20:19] LABS: INTERNATIONAL NORM RATIO 1.1 (0.9-1.1); Prothrombin Time 13.4 SEC (10.8-13.0)
[2020-08-19 20:21] LABS: Alanine Aminotransferase 44 U/L (0-40); Albumin Level 4.4 g/dL (3.5-5.0); Alkaline Phosphatase 72 U/L (39-117); Anion Gap 15 (12-20); Aspartate Amino Transferase 31 U/L (5-37); Bilirubin Direct < 0.2 mg/dL (0.0-0.5); Bilirubin Total 0.2 mg/dL (0.0-1.0); Blood Urea Nitrogen 15 mg/dL (9-16); Calcium 9.7 mg/dL (8.4-10.2); Carbon Dioxide 25 mmol/L (22-29); Chloride 101 mmol/L (96-108); Creatinine Clr Calc Pharmacy 107.9; Estimated Glomerular Filt Rate > 60; Glucose Random 171 mg/dL (60-115); Potassium 4.2 mmol/L (3.3-5.1); Sodium 137 mmol/L (135-145); Total Protein 7.5 g/dL (6.5-8.0)
[2020-08-19 20:22] LABS: Partial Thromboplastin Time 37.8 SEC (24.1-38.0)
[2020-08-19 20:42] LABS: Troponin-I High Sensitivity 503.4 ng/L (<3.5-35.0)
[2020-08-19 21:38] VITALS: BP 167/76; PULSE 55; RESP 16; TEMP 36.9; O2SAT 97
[2020-08-19] MEDS: Clopidogrel Bisulfate 75 MG TABLET PO (23:04)
[2020-08-19 23:37] VITALS: BP 164/80; PULSE 54; RESP 15; O2SAT 97
--- NOTE | 2020-08-20 05:50 | PM.IMHP ---
History of Present Illness Date of Service: 08/19/20 Chief Complaint: Slurred speech This is [id number] male with past medical history of CAD status post stent to the LAD, with a recent cardiac catheterization in which showed patent LAD stent but mid LAD distal subsection 50% stenosis and distal subsection 90% stenosis also proximal circumflex with 30% ostial stenosis and proximal RCA mid subsection 50% stenosis. Was told that revascularization was not possible due to severe stenosis. chronic elevations of troponin?, hypertension, who presented to the hospital complaining of difficulty with speech. It appears the patient has been having difficulty with getting words out since yesterday afternoon (08/18), it was intermittent, resolved spontaneously, he also noticed that it takes him longer to get the words out and speak, he denies having any weakness in his arms or lower extremities, he denies having any numbness or tingling, no facial droop, no weakness in the face, no changes in his vision, no headache, no chest pain, no shortness of breath, no abdominal pain nausea or vomiting, no diarrhea constipation, no urinary symptoms and no lower extremity edema. He did visit to the ED on 08/18 with complaints of difficulty with speech, head CT was done which was negative, patient was advised to get admitted but refused at that time left AMA. He says that his symptoms resolved when he was home but returned today and therefore he came back to the hospital. On arrival to the ED patient hemodynamically stable with no significant abnormal vitals. Blood pressure is 180/87. Labs are significant for normal CBC, PT of 13.4, ALT of 44, high sensitivity troponin of 5 with 3 which is chronically elevated , Head and neck CT angiogram shows Nonspecific white matter disease with a few relatively discrete low-density lesions visualized within the supratentorial white matter. Grossly no evidence of acute territorial infarct, partially calcified atheromatous plaque causing 25% stenosis of the left internal carotid artery at its origin, mild to moderate narrowing involving the proximal M2 segment of the left middle cerebral artery, there is also relatively focal high-grade narrowing involving the proximal A3 segment of the right anterior cerebral artery Past medical history as below lung confirmed with patient Review of Systems Review of Systems: Yes all other systems are reviewed and are negative [facility] Medical History Coronary artery disease Hypertension Hypertension Non-ST elevated myocardial infarction NSTEMI (non-ST elevated myocardial infarction) Pertinent family history: Significant for diabetes and hypertension Social History Household Members: Significant Other Housing: House Alcohol intake: never Smoking Status: Never smoker Advance Directives: No service: No Current occupational status: unemployed Meds Allergies Allergy/AdvReac Type Severity Reaction Status Date / Time No Known Allergies Allergy Verified 08/19/20 19:31 [No Known Allergies*] Active Medications: Current Medications Generic Name Dose Route Start Last Admin Trade Name Freq PRN Reason Stop Dose Admin Acetaminophen 650 mg 08/20/20 05:02 Acetaminophen 325 Mg Tablet PO Q6H PRN Pain, Mild (Pain Scale 1-3) Clopidogrel Bisulfate 75 mg 08/20/20 09:00 Clopidogrel Bisulfate 75 Mg Tablet PO DAILY JULIAN Docusate Sodium 100 mg 08/20/20 05:02 Docusate Sodium 100 Mg Capsule PO DAILY PRN Constipation Enoxaparin Sodium 40 mg 08/20/20 06:00 Enoxaparin Sodium 40 Mg/0.4 Ml Syringe SUBCUT Q24H JULIAN Ondansetron HCl 4 mg 08/20/20 05:02 Ondansetron Hcl 4 Mg/2 Ml Vial IVPUSH Q8H PRN Nausea and Vomiting Sodium Chloride 3 ml 08/20/20 05:02 08/20/20 05:04 0.9 % Sodium Chloride Flush 3 Ml Syringe IVFLUSH Not Given QSHIFT [facility] Home Medications Medication Instructions Recorded Confirmed Last Taken Type lisinopril 20 mg PO DAILY 08/20/20 08/20/20 08/19/20 History Physical Exam Vital Signs and Narrative: Vital Signs: Last Vital Signs Temp 98.4 F 08/19/20 21:38 Pulse 54 08/19/20 23:37 Resp 15 08/19/20 23:37 BP 164/80 H 08/19/20 23:37 Pulse Ox 97 08/19/20 23:37 Body Mass Index 36.6 Const: General: cooperative and no acute distress Orientation/consciousness: patient oriented x3 Resp: Effort & Inspection: normal respiratory effort and able to speak in complete sentences Cardio: Rate: regular rate Rhythm: regular rhythm GI: Palpation (GI): Soft to palpation Auscultation: normal bowel sounds Skin: General skin exam: no rashes or lesions noted Neuro: Other: Slow speech, but no focal neurological deficits General: patient oriented x3 Cognition (Neuro): normal cognition Extrem: General: Yes normal to inspection and Yes no pedal edema Results Labs CBC and Chem 7: 08/19/20 19:52 08/19/20 19:52 Labs: Laboratory Results - last 24 hr 08/19/20 08/19/20 08/19/20 19:52 19:52 19:52 MCV 84.3 MCH 27.3 MCHC 32.4 RDW 13.1 Plt Count 184 MPV 9.7 Immature Gran % (Auto) 0.1 Neut % (Auto) 47.8 Lymph % (Auto) 42.[address] [place] % (Auto) 5.5 Eos % (Auto) 3.6 Baso % (Auto) 0.8 Lymph # (Auto) 3.3 [place] # (Auto) 0.4 Eos # (Auto) 0.3 Baso # (Auto) 0.1 Abs Immat Gran (auto) 0.01 Absolute Neuts (auto) 3.7 Absolute Nucleated RBC 0.000 Nucleated RBC % (auto) 0.0 PT 13.4 H INR 1.1 APTT 37.8 Anion Gap 15 Estim Creat Clear Calc 107.9 Estimated GFR > 60 Random Glucose 171 H Calcium 9.7 Total Bilirubin 0.2 Direct Bilirubin < 0.2 AST 31 ALT 44 H Alkaline Phosphatase 72 Troponin I High Sens Total Protein 7.5 Albumin 4.4 08/19/20 19:52 MCV MCH MCHC RDW Plt Count MPV Immature Gran % (Auto) Neut % (Auto) Lymph % (Auto) [place] % (Auto) Eos % (Auto) Baso % (Auto) Lymph # (Auto) [place] # (Auto) Eos # (Auto) Baso # (Auto) Abs Immat Gran (auto) Absolute Neuts (auto) Absolute Nucleated RBC Nucleated RBC % (auto) PT INR APTT Anion Gap Estim Creat Clear Calc Estimated GFR Random Glucose Calcium Total Bilirubin Direct Bilirubin AST ALT Alkaline Phosphatase Troponin I High Sens 503.4 H Total Protein Albumin Imaging Radiologist's Impressions: Impressions Chest X-Ray 08/19/20 19:21 IMPRESSION: Unremarkable examination. Head/Neck CTA 08/19/20 19:27 IMPRESSION: There is nonspecific white matter disease with a few relatively discrete low-density lesions visualized within the supratentorial white matter. Otherwise no abnormal mass or enhancement within the intracranial compartment. Grossly no evidence of acute territorial infarct. Partially calcified atheromatous plaque causes 25% stenosis of the left internal carotid artery at its origin. Otherwise no stenosis of the cervical carotid or vertebral arteries. Atheromatous calcification causes mild narrowing of the supraclinoid segments of both internal carotid arteries. There is mild to moderate narrowing involving the proximal M2 segments of the left middle cerebral artery. There is also relatively focal high-grade narrowing involving the proximal A3 segment of the right anterior cerebral artery. Assessment and Plan (1) TIA (transient ischemic attack): Status: Acute (2) Elevated troponin: Status: Acute This is a 55-year-old male with past medical history of coronary artery disease status post stent to the LAD, extensive coronary artery disease not amenable to revascularization due to severe stenosis presents to the hospital with dysarthria # TIA/stroke - patient outside of the tPA window - CT angiogram showed few abnormalities as above - patient on aspirin at baseline - neurology was consulted by ED physician who recommended adding Plavix obtaining MRI in a.m. - will add atorvastatin high-dose 80 mg, continue aspirin - lipid battery - had an echo done in June and grade 2 diastolic dysfunction- will hold off on repeating echo unless otherwise recommended by Neurology # elevated troponin - chronically elevated - has extensive coronary artery disease: Refer to HPI - currently denies any chest pain - no acute EKG changes - monitor on tele # hypertension - will hold lisinopril to allow for permissive hypertension - resume lisinopril once patient more stable # coronary artery disease - no chest pain at this time - chronically elevated troponin - will continue aspirin and Lopressor - Nitrostat p.r.n. for chest pain DVT prophylaxis: Lovenox
[2020-08-20 07:00] VITALS: BP 164/78; PULSE 50; RESP 18; O2SAT 98
--- NOTE | 2020-08-20 07:06 | PC.NURSE ---
report taken from carly rn. pt sleeping in bed. resp even and unlabored. sinus henry in 50s on security monitor. previous rn did not give lovenox injection. will give to pt when he wakes up.
[2020-08-20 07:24] VITALS: BMI 36.6
--- NOTE | 2020-08-20 07:30 | PC.NURSE ---
called to [facility] for report, tonny to call back.
[2020-08-20 07:34] LABS: MANUAL DIFF FLAG NO
[2020-08-20 07:35] LABS: Basophils Absolute Auto 0.1 X10*3/uL (0.0-0.2); Basophils Percent Auto 0.8 % (0-2); Eosinophils Absolute Auto 0.3 X10*3/uL (0.0-0.4); Eosinophils Percent Auto 4.3 % (0-4); Hematocrit 41.6 % (42-52); Hemoglobin 13.4 g/dl (14.0-18.0); Imm Gran Abs Auto 0.02 X10*3/uL (0.00-0.03); Imm Gran Pct Auto 0.3 % (0.0-0.4); Lymphocytes Absolute Auto 2.9 X10*3/uL (1.2-4.9); Lymphocytes Percent Auto 38.3 % (20-40); Mean Corpuscular HGB Conc 32.2 g/dl (31.0-36.0); Mean Corpuscular Hemoglobin 27.2 pg (27.0-33.0); Mean Corpuscular Volume 84.4 fL (80-98); Mean Platelet Volume 9.8 fL (9.4-12.4); Monocytes Absolute Auto 0.5 X10*3/uL (0.1-1.2); Monocytes Percent Auto 6.3 % (2-11); Neutrophils Absolute Auto 3.7 X10*3/uL (2.0-8.3); Platelet Count 175 X10*3/uL (160-400); Red Blood Count 4.93 X10*6/uL (4.60-5.80); Red Cell Distribution Width 13.1 % (11.0-16.0); White Blood Count 7.5 X10*3/uL (4.8-10.8)
--- NOTE | 2020-08-20 07:39 | PC.NURSE ---
mri form completed and faxed
[2020-08-20] MEDS: Enoxaparin Sodium 40 MG/0.4 ML SYRINGE SUBCUT (07:43)
[2020-08-20] MEDS: 0.9 % Sodium Chloride Flush 3 ML SYRINGE IVFLUSH (07:44)
--- NOTE | 2020-08-20 07:53 | PC.NURSE ---
report given to [facility]. awaiting to hear from mri
[2020-08-20 07:58] LABS: Anion Gap 15 (12-20); Blood Urea Nitrogen 13 mg/dL (9-16); Calcium 9.1 mg/dL (8.4-10.2); Carbon Dioxide 24 mmol/L (22-29); Chloride 104 mmol/L (96-108); Creatinine Clr Calc Pharmacy 109.2; Estimated Glomerular Filt Rate > 60; Glucose Random 141 mg/dL (60-115); Potassium 4.1 mmol/L (3.3-5.1); Sodium 139 mmol/L (135-145)
[2020-08-20 07:59] LABS: Cholesterol 140 mg/dL; HDL Cholesterol 34 mg/dL; LDL Cholesterol Calculated 78 mg/dl; Triglycerides 142 mg/dL
--- NOTE | 2020-08-20 10:50 | MHC.CM.PN ---
met with pt who is independent dc plan home no servceis
[2020-08-20] MEDS: Clopidogrel Bisulfate 75 MG TABLET PO (11:26)
[2020-08-20] MEDS: Atorvastatin Calcium 80 MG TABLET PO (11:26)
[2020-08-20 12:00] VITALS: BP 150/70; PULSE 54; RESP 20; O2SAT 98
--- NOTE | 2020-08-20 12:36 | PM.NEUROCN ---
History of Present Illness Data of Consult Service Date: 08/20/20 Primary Care Provider: Unknown Physician HPI Reason for consult: Difficulty finding words and expressing himself This is a 55-year-old man with a history of coronary arttery disease status post toStenting who has hyperlipidemia hypertension and coronary artery disease and non-ST elevated CT was the initially in the ER with some transient speech disturbance which was improving and he left AGAINST MEDICAL ADVICE came back the next day because he had some recurrence of speech problems. He had a CT scan which showed some nonspecific White matterr hyperintensities in both hemispheres as well as a CTA which did not show any major occlusive disease. He has gotten better but doesn't feel he is 100% back to normal Review of Systems Eyes: Eyes: Reports no additional eye complaints ENT: Reports system reviewed and no additional complaints, except as documented and Reports Normal hearing present Cardiovascular: Cardiovascular: Reports no additional cardiovascular complaints Respiratory: Respiratory: Reports no additional respiratory complaints Gastrointestinal: Gastrointestinal: Reports no additional gastrointestinal complaints Genitourinary: Genitourinary: Reports no additional male genitourinary complaints Musculoskeletal: Musculoskeletal: Reports no additional musculoskeletal complaints Integumentary/Breasts: Skin/Breast: Reports system reviewed and no additional complaints, except as docu Neurologic: Reports as per HPI and Reports Normal hearing present Psychiatric: Psychiatric: Reports as per HPI Endocrine: Endocrine: Reports no additional endocrine complaints Hematologic/Lymphatic: Hematologic/Lymphatic: Reports no additional hematologic/lymphatic complaints Allergic/Immunologic: Allergic/Immunologic: Reports no additional allergic/immunologic complaints [facility] Past Medical History Medical History Coronary artery disease Hypertension Hypertension Non-ST elevated myocardial infarction NSTEMI (non-ST elevated myocardial infarction) Social History Social History Household Members: Significant Other Housing: House Alcohol intake: never Smoking Status: Never smoker Advance Directives: No service: No Current occupational status: unemployed Meds Allergies Allergy/AdvReac Type Severity Reaction Status Date / Time No Known Allergies Allergy Verified 08/19/20 19:31 [No Known Allergies*] Active Medications: Current Medications Generic Name Dose Route Start Last Admin Trade Name Freq PRN Reason Stop Dose Admin Acetaminophen 650 mg 08/20/20 05:02 Acetaminophen 325 Mg Tablet PO Q6H PRN Pain, Mild (Pain Scale 1-3) Atorvastatin Calcium 80 mg 08/20/20 09:00 08/20/20 11:26 Atorvastatin Calcium 80 Mg Tablet PO 80 mg DAILY JULIAN Administration Clopidogrel Bisulfate 75 mg 08/20/20 09:00 08/20/20 11:26 Clopidogrel Bisulfate 75 Mg Tablet PO 75 mg DAILY JULIAN Administration Docusate Sodium 100 mg 08/20/20 05:02 Docusate Sodium 100 Mg Capsule PO DAILY PRN Constipation Enoxaparin Sodium 40 mg 08/20/20 06:00 08/20/20 07:43 Enoxaparin Sodium 40 Mg/0.4 Ml Syringe SUBCUT 40 mg Q24H JULIAN Administration Ondansetron HCl 4 mg 08/20/20 05:02 Ondansetron Hcl 4 Mg/2 Ml Vial IVPUSH Q8H PRN Nausea and Vomiting Sodium Chloride 3 ml 08/20/20 05:02 08/20/20 07:44 0.9 % Sodium Chloride Flush 3 Ml Syringe IVFLUSH 3 ml QSHIFT JULIAN Administration Home Medications Medication Instructions Recorded Confirmed Last Taken Type lisinopril 20 mg PO DAILY 08/20/20 08/20/20 08/19/20 History Physical Exam Vital Signs: Vital Signs: Last Vital Signs Temp 98.4 F 08/19/20 21:38 Pulse 54 08/20/20 12:00 Resp 20 08/20/20 12:00 BP 150/70 H 08/20/20 12:00 Pulse Ox 98 08/20/20 12:00 Body Mass Index 36.6 Const: General: cooperative, comfortable, no acute distress, well developed, alert and awake Nutritional Appearance: well nourished Orientation/consciousness: oriented to person, oriented to place and oriented to time Limitations: no limitations HENMT: Head: Yes normal to inspection, Yes normocephalic and Yes atraumatic Ears: hearing grossly normal bilaterally General nose exam: Normal external nose present Face and sinus: Yes normal facial exam Mouth: Normal oral and palatal mucosa present Eyes: General: appearance normal, both eyes and all related structures Visual Oneal: normal visual oneal by confrontation Alignment and Position: alignment normal Periorbital: periorbital findings normal Eyelids: Yes eyelids normal Conjunctivae: conjunctivae normal Sclerae: sclerae normal Corneas: corneas normal Pupils: Equal, round and reactive pupils present and Pupil accommodation reflex normal EOM: EOMs intact bilaterally Direct Ophthalmoscopy: normal light reflex Neck: Neck: Yes normal visual inspection, Yes full ROM and Yes no meningeal signs Thyroid: Thyroid normal Carotids: normal carotid upstroke and bounding pulses Chest: Chest palpation & inspection: normal inspection of the chest Resp: Effort & Inspection: normal respiratory effort Auscultation: clear to auscultation bilaterally Cardio: Rate: regular rate Rhythm: regular rhythm Heart sounds: S1 normal heart sound present and S2 normal heart sound present Peripheral pulses: Peripheral pulses 2+ throughout GI: Inspection: Yes normal to inspection Percussion: Yes normal to percussion Auscultation: normal bowel sounds Rectal Exam - Male: Yes deferred Back/Spine/Pelvis: Cervical Spine: normal cervical lordosis and cervical ROM normal Thoracic/Lumbar Spine: thoracic and lumbar spine normal to inspection Skin: General skin exam: no rashes or lesions noted Neuro: General: oriented to person, oriented to place, oriented to time, gait normal, tone normal, moves all extremities, Normal light touch and pain sensation, no meningeal signs, no focal motor deficits, CN's II-XI intact bilaterally, normal sensation to monofilament and deep tendon reflexes 2+ bilaterally Cranial nerves: Yes CN's II-XII intact bilaterally, Yes Equal, round and reactive pupils present, Yes Bilaterally intact EOM present, Yes Nystagmus not present, Yes Normal facial strength present, Yes Midline tongue present, Yes Normal gag reflex present, Yes Symmetric palate elevation present, Yes Normal hearing present and Yes Ability to bilaterally rotate head present Cognition (Neuro): normal cognition Speech: Other speech findings present (Neuro) Gait exam (Neuro): Normal gait present Motor exam (neuro): 5/5 motor strength present throughout, Pronator motor function not present, no tremor noted, no asterixis, Motor fasciculations not present, Normal motor muscle tone present throughout and Motor abnormalities not present Sensory Exam: Bilaterally intact graphesthesia Deep tendon reflexes (DTR's): Right triceps reflex intensity grade: 2+, Left triceps reflex intensity grade: 2+, Rt Biceps (C5, C6): 2+, Left biceps reflex intensity grade: 2+, Right brachioradialis reflex intensity grade: 2+, Left brachioradialis reflex intensity grade: 2+, Right patellar reflex intensity grade: 2+, Left patellar reflex intensity grade: 2+, Right ankle reflex intensity grade: 2+ and Left ankle reflex intensity grade: 2+ Plantar Reflex Responses: downgoing: right, left and bilateral Coordination: [id number] test normal, [id number] test normal, tandem gait normal and Romberg test negative Pupils: Normal pupillary reactivity/response: bilateral Extrem: General: Yes normal to inspection, Yes normal exam except as noted and Yes no pedal edema Psych: Appearance: grossly normal Mental Status: mental status grossly normal Speech and movement: Normal speech and movement present and Clear speech present Affect: normal affect Attitude: cooperative Thought process: Normal thought process present Results Labs CBC & Chem 7: 08/20/20 07:30 08/20/20 07:30 Labs: Short CBC 08/19/20 08/20/20 Range/Units 19:52 07:30 WBC 7.8 7.5 (4.8-10.8) X10*3/uL Hgb 13.6 L 13.4 L (14.0-18.0) g/dl Hct 42.0 41.6 L (42-52) % Plt Count 184 175 (160-400) X10*3/uL BMP 08/19/20 08/20/20 19:52 07:30 Sodium 137 139 Potassium 4.2 4.1 Chloride 101 104 Carbon Dioxide 25 24 BUN 15 13 Creatinine 0.83 0.82 Calcium 9.7 9.1 D Liver Function 08/19/20 Range/Units 19:52 Total Bilirubin 0.2 (0.0-1.0) mg/dL Direct Bilirubin < 0.2 (0.0-0.5) mg/dL AST 31 (5-37) U/L ALT 44 H (0-40) U/L Alkaline Phosphatase 72 (39-117) U/L Albumin 4.4 (3.5-5.0) g/dL Assessment and Plan (1) TIA (transient ischemic attack): Status: Acute (2) Stroke: Problem details: He may have had a minor left hemisphere stroke accounting for his language difficulties Status: Acute His CT does not show any major occlusive disease. And the patient declined to have an MRII because of his extreme claustrophobia even though I suggested that we couuld do it with sedation. Would continue aspirin and Plavix and his atorvastatin.
[2020-08-20 14:51] LABS: Glucose, Whole Blood 172 mg/dL (60-115)
--- NOTE | 2020-08-20 15:51 | PM.DS ---
DS: Providers Provider Date of Service: 08/20/20 Date of admission: 08/19/20 23:31 Primary care physician: Unknown Physician Consults: 08/20/20 05:02 Consult to Neurology Routine Consulting Provider: [facility] Reason for consultation: TIA Has provider been notified: No DS: Diagnosis Discharge Diagnosis (1) TIA (transient ischemic attack): Status: Acute (2) Stroke: Status: Acute Problem details: He may have had a minor left hemisphere stroke accounting for his language difficulties DS: Medications Discharge Medications Home Medications: Home Medications Medication Instructions Recorded Confirmed lisinopril 20 mg PO DAILY 08/20/20 08/20/20 metformin 500 mg PO BID 08/20/20 08/20/20 Previous Rx's Medication Instructions Recorded aspirin 81 mg tablet,delayed 81 mg PO DAILY 90 Days #90 tab 04/28/20 release metoprolol tartrate 50 mg tablet 50 mg PO BID 90 Days #180 tab 04/28/20 amlodipine 10 mg PO DAILY #30 tab 07/05/20 atorvastatin 40 mg PO BEDTIME #30 tab 07/05/20 nitroglycerin [Nitrostat] 0.4 mg SUBLINGUAL Q5M PRN #30 tab 07/05/20 clopidogrel 75 mg PO DAILY #30 tab 08/20/20 DS: Summary Hospital Course Hospital Course: History of presenting illness 55-year-old male with past medical history of CAD status post stent to the LAD, with a recent cardiac catheterization in which showed patent LAD stent but mid LAD distal subsection 50% stenosis and distal subsection 90% stenosis also proximal circumflex with 30% ostial stenosis and proximal RCA mid subsection 50% stenosis. Was told that revascularization was not possible due to severe stenosis. chronic elevations of troponin?, hypertension, who presented to the hospital complaining of difficulty with speech. It appears the patient has been having difficulty with getting words out since yesterday afternoon (08/18), it was intermittent, resolved spontaneously, he also noticed that it takes him longer to get the words out and speak, he denies having any weakness in his arms or lower extremities, he denies having any numbness or tingling, no facial droop, no weakness in the face, no changes in his vision, no headache, no chest pain, no shortness of breath, no abdominal pain nausea or vomiting, no diarrhea constipation, no urinary symptoms and no lower extremity edema. He did visit to the ED on 08/18 with complaints of difficulty with speech, head CT was done which was negative, patient was advised to get admitted but refused at that time left AMA. He says that his symptoms resolved when he was home but returned today and therefore he came back to the hospital. On arrival to the ED patient hemodynamically stable with no significant abnormal vitals. Blood pressure is 180/87. Labs are significant for normal CBC, PT of 13.4, ALT of 44, high sensitivity troponin of 5 with 3 which is chronically elevated , Head and neck CT angiogram shows Nonspecific white matter disease with a few relatively discrete low-density lesions visualized within the supratentorial white matter. Grossly no evidence of acute territorial infarct, partially calcified atheromatous plaque causing 25% stenosis of the left internal carotid artery at its origin, mild to moderate narrowing involving the proximal M2 segment of the left middle cerebral artery, there is also relatively focal high-grade narrowing involving the proximal A3 segment of the right anterior cerebral artery Hospital course Minor left hemisphere stroke causing language difficulties Patient was admitted due to speech impairment, a CT brain did not show any major occlusive disease, patient declined MRI studies due to extreme claustrophobia, patient was offered to undergo MRI with sedation however patient declined, patient was seen in consultation by Dr. [place] he recommend to place patient on Plavix and to continue aspirin and Lipitor, since patient improved speech impairment has significantly improved and close to baseline he is being discharged home with recommendation to continue all home medication a prescription of Plavix 75 mg has been dispensed Chronically elevated troponin with history of coronary artery disease currently patient with no chest pain therefore no further workup obtained Time Spent with Patient Time attestation: Total time spent providing and/or coordinating discharge services: Discharge coordination time: Greater than 30 minutes Physical Exam Vital Signs: Vital Signs: Last Vital Signs Temp 98.4 F 08/19/20 21:38 Pulse 54 08/20/20 12:00 Resp 20 08/20/20 12:00 BP 150/70 H 08/20/20 12:00 Pulse Ox 98 08/20/20 12:00 Body Mass Index 36.6 General patient resting comfortably in no acute distress. Neck is supple no JVD. CVS regular rate rhythm, Respiratory lungs clear to auscultation, no respiratory distress, no wheeze, no rhonchi. Gastrointestinal abdomen soft, nontender, bowel sounds audible, no guarding , no rigidity. Extremities no clubbing cyanosis or edema. Neuro is speech clear, patient awake alert x3, no motor or sensory deficit noted. Skin no rash DS: Data Data Completed and Pending Labs on day of discharge: Laboratory Results - last 24 hr 08/19/20 08/19/20 08/19/20 19:52 19:52 19:52 WBC 7.8 RBC 4.98 Hgb 13.6 L Hct 42.0 MCV 84.3 MCH 27.3 MCHC 32.4 RDW 13.1 Plt Count 184 MPV 9.7 Immature Gran % (Auto) 0.1 Neut % (Auto) 47.8 Lymph % (Auto) 42.2 H [place] % (Auto) 5.5 Eos % (Auto) 3.6 Baso % (Auto) 0.8 Lymph # (Auto) 3.3 [place] # (Auto) 0.4 Eos # (Auto) 0.3 Baso # (Auto) 0.1 Abs Immat Gran (auto) 0.01 Absolute Neuts (auto) 3.7 Absolute Nucleated RBC 0.000 Nucleated RBC % (auto) 0.0 PT 13.4 H INR 1.1 APTT 37.8 Sodium 137 Potassium 4.2 Chloride 101 Carbon Dioxide 25 Anion Gap 15 BUN 15 Creatinine 0.83 Estim Creat Clear Calc 107.9 Estimated GFR > 60 POC Glucose Random Glucose 171 H Calcium 9.7 Total Bilirubin 0.2 Direct Bilirubin < 0.2 AST 31 ALT 44 H Alkaline Phosphatase 72 Troponin I High Sens Total Protein 7.5 Albumin 4.4 Triglycerides Cholesterol LDL Cholesterol, Calc HDL Cholesterol 08/19/20 08/20/20 08/20/20 19:52 07:30 07:30 WBC 7.5 RBC 4.93 Hgb 13.4 L Hct 41.6 L MCV 84.4 MCH 27.2 MCHC 32.2 RDW 13.1 Plt Count 175 MPV 9.8 Immature Gran % (Auto) 0.3 Neut % (Auto) 50.0 Lymph % (Auto) 38.3 [place] % (Auto) 6.3 Eos % (Auto) 4.3 H Baso % (Auto) 0.8 Lymph # (Auto) 2.9 [place] # (Auto) 0.5 Eos # (Auto) 0.3 Baso # (Auto) 0.1 Abs Immat Gran (auto) 0.02 Absolute Neuts (auto) 3.7 Absolute Nucleated RBC 0.000 Nucleated RBC % (auto) 0.0 PT INR APTT Sodium 139 Potassium 4.1 Chloride 104 Carbon Dioxide 24 Anion Gap 15 BUN 13 Creatinine 0.82 Estim Creat Clear Calc 109.2 Estimated GFR > 60 POC Glucose Random Glucose 141 H Calcium 9.1 D Total Bilirubin Direct Bilirubin AST ALT Alkaline Phosphatase Troponin I High Sens 503.4 H Total Protein Albumin Triglycerides Cholesterol LDL Cholesterol, Calc HDL Cholesterol 08/20/20 08/20/20 07:30 14:48 WBC RBC Hgb Hct MCV MCH MCHC RDW Plt Count MPV Immature Gran % (Auto) Neut % (Auto) Lymph % (Auto) [place] % (Auto) Eos % (Auto) Baso % (Auto) Lymph # (Auto) [place] # (Auto) Eos # (Auto) Baso # (Auto) Abs Immat Gran (auto) Absolute Neuts (auto) Absolute Nucleated RBC Nucleated RBC % (auto) PT INR APTT Sodium Potassium Chloride Carbon Dioxide Anion Gap BUN Creatinine Estim Creat Clear Calc Estimated GFR POC Glucose 172 H Random Glucose Calcium Total Bilirubin Direct Bilirubin AST ALT Alkaline Phosphatase Troponin I High Sens Total Protein Albumin Triglycerides 142 Cholesterol 140 D LDL Cholesterol, Calc 78 HDL Cholesterol 34 Discharge Plan Discharge Patient Disposition: Home, Self-Care Referrals: Physician,Unknown [Primary Care Provider] - Discharge Medications: New clopidogrel 75 mg Tablet 75 mg PO DAILY Qty: 30 RF: 0 Continued metoprolol tartrate 50 mg tablet 50 mg PO BID 90 Days Qty: 180 RF: 0 aspirin [Adult Aspirin Regimen] 81 mg tablet,delayed release (DR/EC) 81 mg PO DAILY 90 Days Qty: 90 RF: 0 atorvastatin 40 mg Tablet 40 mg PO BEDTIME Qty: 30 RF: 0 amlodipine 10 mg Tablet 10 mg PO DAILY Qty: 30 RF: 0 nitroglycerin [Nitrostat] 0.4 mg Tablet, Sublingual 0.4 mg sublingual Q5M PRN (Reason: Chest Pain) Qty: 30 RF: 0 lisinopril 40 mg tablet 20 mg PO DAILY RF: 0 metformin 500 mg Tablet 500 mg PO BID RF: 0 Discharge Orders: Discharge Order (Routine); Ordered 08/20/20 Ordered By: Justino Dillon Diet: diabetic diet and low fat, low cholesterol Activity on Discharge: As tolerated Stand Alone Forms: Patient Portal Discharge page Care Plan Goals: Continue all prior medication is start taking Plavix follow diabetic and low-cholesterol diet Health Concerns: Left hemisphere stroke Plan of Treatment: Outpatient follow-up with primary care physician in 1 week, return to check with any difficulty in speech/ weakness.
[2020-08-20 16:00] VITALS: BP 160/84; PULSE 60; RESP 18; TEMP 36.9; O2SAT 98
== END 2020-08-20 17:00 | disposition home or self-care (01) | DRG 45 ==
LOC: HO.ED 23:24 → HO.EDOVER 08-20 05:34 → HO.IMC 08-20 07:23
PROVIDERS: Admitting Provider Internal Medicine; Emergency Provider Internal Medicine; Visit Provider Hospitalist
DX: I63.59 Cerebral infarction due to unspecified occlusion or stenosis of other cerebral artery (principal); G45.9 Transient cerebral ischemic attack, unspecified; F40.240 Claustrophobia; R29.700 NIHSS score 0; I10 Essential (primary) hypertension; I25.10 Atherosclerotic heart disease of native coronary artery without angina pectoris; Z91.19 Patient's noncompliance with other medical treatment and regimen; Z95.1 Presence of aortocoronary bypass graft; Z79.02 Long term (current) use of antithrombotics/antiplatelets; Z79.82 Long term (current) use of aspirin; Z79.84 Long term (current) use of oral hypoglycemic drugs; Z79.899 Other long term (current) drug therapy
CPT/HCPCS: 36415; 70496; 70498; 71045; 80048; 80061; 80076; 82947; 84484; 85025; 85610; 85730; 93005; 99284; J1650; Q9967

== ENCOUNTER → 2020-09-08 13:52 | Outpatient (BNVA) | payer OTHER, MEDICAID, SELFPAY | PROVIDERS: PCP Internal Medicine; Visit Provider Internal Medicine | DX: I25.10 Atherosclerotic heart disease of native coronary artery without angina pectoris (principal); I10 Essential (primary) hypertension; E11.8 Type 2 diabetes mellitus with unspecified complications | CPT/HCPCS: 99212 ==

== ENCOUNTER 2021-07-28 09:39 | Outpatient (REF) | payer OTHER, SELFPAY ==
[2021-07-28 10:32] LABS: COVID-19 Test Negative (Negative); IDNOW Serial# 08D9AD1C
== END 2021-07-28 09:40 | disposition home or self-care (01) ==
LOC: HO.LAB 09:39
PROVIDERS: Visit Provider Internal Medicine
DX: Z20.822 Contact with and (suspected) exposure to COVID-19 (principal)
CPT/HCPCS: 87635; C9803

== ENCOUNTER 2021-08-01 19:16 | Inpatient (IN) | payer OTHER, SELFPAY ==
--- NOTE | 2021-08-01 | ECG_ITS ---
Test Reason : ELEVATED BP Blood Pressure : / mmHG Vent. Rate : 084 BPM Atrial Rate : 084 BPM P-R Int : 154 ms QRS Dur : 090 ms QT Int : 364 ms P-R-T Axes : 063 004 142 degrees QTc Int : 430 ms Normal sinus rhythm Possible Left atrial enlargement Minimal voltage criteria for LVH, may be normal variant ( Param product ) T wave abnormality, consider lateral ischemia Abnormal ECG When compared with ECG of 19-AUG-2020 19:25, Non-specific change in ST segment in Lateral leads T wave inversion no longer evident in Inferior leads T wave inversion now evident in Lateral leads Referred By: Generic ED Physician Electronically Signed By:MIC FREGOSO MD
--- NOTE | ~2021-08-01 | CT_ITS ---
EXAMINATION: CT HEAD WITHOUT CONTRAST CLINICAL INFORMATION: Hypertension and headache. COMPARISON: CTA of the head and neck dated from 08/19/2020. TECHNIQUE: Contiguous axial imaging was performed from the skull base to vertex without intravenous administration of contrast. This CT examination was performed using dose optimization techniques as appropriate, variously including the following: *Automated exposure control *Adjustment of mA and/or kV according to patient size (this includes techniques or standardized protocols for targeted exams where dose is matched to indication/reason for exam; i.e. extremities or head) *Use of iterative reconstruction technique DLP: 691 mGy-cm FINDINGS: There is no evidence of acute intracranial hemorrhage or edematous territorial infarction. Redemonstration of nonspecific white matter disease with a few low density lesions within the supratentorial white matter that are unchanged. Michele-white matter differentiation is preserved. Proportional prominence of the ventricles and sulcal spaces. No evidence for obstructive hydrocephalus. No abnormal mass effect or midline shift. No extra-axial fluid collections. No acute soft tissue or osseous abnormalities. Mucosal thickening of the paranasal sinuses. The mastoids are clear. CT/CT head/brain wo con IMPRESSION: No evidence of acute intracranial hemorrhage or edematous territorial infarction. Nonspecific white matter disease with low density supratentorial lesions is stable.
[2021-08-01 19:35] VITALS: BP 176/113; PULSE 92; RESP 18; TEMP 36.8; O2SAT 99; BMI 30.9
[2021-08-01 19:58] LABS: MANUAL DIFF FLAG NO
[2021-08-01 20:00] LABS: Basophils Percent Auto 0.5 % (0-2); Eosinophils Absolute Auto 0.3 X10*3/uL (0.0-0.4); Eosinophils Percent Auto 3.1 % (0-4); Hematocrit 41.7 % (42.0-52.0); Hemoglobin 13.2 g/dl (14.0-18.0); Imm Gran Abs Auto 0.03 X10*3/uL (0.00-0.03); Imm Gran Pct Auto 0.4 % (0.0-0.4); Lymphocytes Absolute Auto 1.7 X10*3/uL (1.2-4.9); Lymphocytes Percent Auto 20.9 % (20-40); Mean Corpuscular HGB Conc 31.7 g/dl (31.0-36.0); Mean Corpuscular Hemoglobin 26.6 pg (27.0-33.0); Mean Corpuscular Volume 83.9 fL (80.0-98.0); Mean Platelet Volume 10.1 fL (9.4-12.4); Monocytes Absolute Auto 0.3 X10*3/uL (0.1-1.2); Monocytes Percent Auto 3.3 % (2-11); Neutrophils Absolute Auto 5.9 x10*3/uL (2.0-8.3); Neutrophils Percent Auto 71.8 % (45-73); Platelet Count 204 X10*3/uL (160-400); Red Blood Count 4.97 X10*6/uL (4.60-5.80); Red Cell Distribution Width 15.9 % (11.0-16.0); White Blood Count 8.2 X10*3/uL (4.8-10.8)
[2021-08-01 20:11] LABS: Anion Gap 11 (12-20); Blood Urea Nitrogen 14 mg/dL (9-16); Calcium 9.3 mg/dL (8.4-10.2); Carbon Dioxide 26 mmol/L (22-29); Chloride 105 mmol/L (96-108); Creatinine Clr Calc Pharmacy 100.5; Estimated Glomerular Filt Rate > 60; Glucose Random 116 mg/dL (60-115); Potassium 4.4 mmol/L (3.3-5.1); Sodium 138 mmol/L (135-145)
[2021-08-01 20:36] VITALS: BP 168/119; PULSE 99; RESP 20; O2SAT 97
--- NOTE | 2021-08-01 20:52 | PC.NURSE ---
patient a&ox3, pt has no c/o pain or discomfort, pt states he came in for his BP being elevated, pt is compliant with BP medications at home and it hasnt been reducing the BP as it normally had. pt states he made an appointment with his PCP on the but feels he cant wait that long, telemetry monitor applied, pt hypertensive, will continue to monitor.
--- NOTE | 2021-08-01 21:32 | ED.GENADULT ---
HPI - General Adult General Chief complaint: Recheck/Abnormal Lab/Rx Stated complaint: high blood pressure Time Seen by Provider: 08/01/21 20:22 Source: patient Mode of arrival: ambulatory History of Present Illness HPI narrative: 56-year-old male with history of hypertension, specifically multiple incidence of uncontrolled hypertension, comes in with 2 days of elevated blood pressure and associated headache but denies any dizziness, diaphoresis, nausea, shortness of breath, chest pain/palpitations, visual changes. Related Data Previous Rx's Medication Instructions Recorded lisinopril 40 mg tablet 40 mg PO DAILY #90 tab 09/08/20 aspirin 81 mg tablet,delayed 81 mg PO DAILY #90 tab 12/15/20 release metoprolol tartrate 50 mg tablet 50 mg PO BID 90 Days #180 tab 05/04/21 Allergies Allergy/AdvReac Type Severity Reaction Status Date / Time No Known Allergies Allergy Verified 08/01/21 19:35 [No Known Allergies*] Review of Systems Review of Systems: Pertinent positives and negatives as stated in HPI 10 point review of systems is otherwise negative. COUNTS INCLUDE 234 BEDS AT THE [facility] Past Medical History Source: nursing notes reviewed Medical History Atherosclerotic cardiovascular disease Coronary artery disease Diabetes mellitus, type 2 Elevated troponin Essential hypertension Hypertension Hypertension Non-ST elevated myocardial infarction Non-ST elevated myocardial infarction (non-STEMI) NSTEMI (non-ST elevated myocardial infarction) Type 2 diabetes mellitus with unspecified complications Surgical History History of cardiac catheterization (~07/2020) Family History Family History Father No problems noted. Mother No problems noted. Social History Social History Household Members: Spouse Housing: House Do you presently have visiting nurse or other home services: No Alcohol intake: never Substance Use Type: Marijuana Advance Directives: No Advance Directives Information Provided: Yes service: No Current occupational status: unemployed Physical Exam ED Vital Signs: Vital Signs - 24 hr 08/01/21 19:35 08/01/21 20:36 08/01/21 22:50 Temperature 98.3 F Pulse Rate 92 99 94 Respiratory Rate 18 20 18 Blood Pressure 176/113 H 168/119 H 170/118 H Pulse Oximetry 99 97 97 BMI result Body Mass Index 30.9 VITAL SIGNS: Reviewed. GENERAL: Well developed, well nourished, in no acute distress. HEAD: Normocephalic/atraumatic EYES: PERRLA, EOMI OROPHARYNX: no oral lesions noted, posterior pharynx clear LUNGS: Normal breath sounds. No adventitious sounds or accessory muscle use. SpO2<99> CARDIOVASCULAR: Regular rate and rhythm without noted murmurs, no JVD or lower extremity edema. ABDOMEN: Soft, non-tender, non-distended with bowel sounds. NEUROLOGIC: Alert and oriented x 4. Strength and sensation to light touch were grossly intact x 4. Course Course Course Narrative: 56-year-old male with history and clinical presentation consistent with hypertensive urgency with ischemic cardiac changes, although this is consistent with prior presentations I discussed this case with Cardiology, patient is currently asymptomatic for chest pain/arm or jaw pain and will give aspirin as well as start heparin. Due to headache but otherwise nonfocal will do head CT. All investigations were reviewed. I discussed this case with the inpatient hospitalist who accepts admission. Medical Decision Making Lab Data Result diagrams: 08/01/21 22:20 08/01/21 19:53 Labs: Lab Results 08/01/21 08/01/21 08/01/21 Range/Units 19:53 19:53 19:53 WBC 8.2 (4.8-10.8) X10*3/uL RBC 4.97 (4.60-5.80) X10*6/uL Hgb 13.2 L (14.0-18.0) g/dl Hct 41.7 L (42.0-52.0) % MCV 83.9 (80.0-98.0) fL MCH 26.6 L (27.0-33.0) pg MCHC 31.7 (31.0-36.0) g/dl RDW 15.9 (11.0-16.0) % Plt Count 204 (160-400) X10*3/uL MPV 10.1 (9.4-12.4) fL Immature Gran % (Auto) 0.4 (0.0-0.4) % Neut % (Auto) 71.8 (45-73) % Lymph % (Auto) 20.9 (20-40) % [place] % (Auto) 3.3 (2-11) % Eos % (Auto) 3.1 (0-4) % Baso % (Auto) 0.5 (0-2) % Lymph # (Auto) 1.7 (1.2-4.9) X10*3/uL [place] # (Auto) 0.3 (0.1-1.2) X10*3/uL Eos # (Auto) 0.3 (0.0-0.4) X10*3/uL Baso # (Auto) 0.0 (0.0-0.2) X10*3/uL Abs Immat Gran (auto) 0.03 (0.00-0.03) X10*3/uL Absolute Neuts (auto) 5.9 (2.0-8.3) x10*3/uL Absolute Nucleated RBC 0.000 (0.0-0.012) X10*3/uL Nucleated RBC % (auto) 0.0 (0.0-0.2) /100WBC PT (9.9-13.0) SEC INR (0.9-1.1) aPTT Heparin Protocol (53-77.9) SEC Sodium 138 (135-145) mmol/L Potassium 4.4 (3.3-5.1) mmol/L Chloride 105 (96-108) mmol/L Carbon Dioxide 26 (22-29) mmol/L Anion Gap 11 L (12-20) BUN 14 (9-16) mg/dL Creatinine 0.81 (0.5-1.4) mg/dL Estim Creat Clear Calc 100.5 Estimated GFR > 60 Random Glucose 116 H (60-115) mg/dL Calcium 9.3 (8.4-10.2) mg/dL Troponin I High Sens 2037.8 H* (<3.5-35.0) ng/L COVID-19 ([facility]) (Negative) COVID-19 Clin Com 08/01/21 08/01/21 08/01/21 Range/Units 21:34 21:58 22:00 WBC (4.8-10.8) X10*3/uL RBC (4.60-5.80) X10*6/uL Hgb (14.0-18.0) g/dl Hct (42.0-52.0) % MCV (80.0-98.0) fL MCH (27.0-33.0) pg MCHC (31.0-36.0) g/dl RDW (11.0-16.0) % Plt Count (160-400) X10*3/uL MPV (9.4-12.4) fL Immature Gran % (Auto) (0.0-0.4) % Neut % (Auto) (45-73) % Lymph % (Auto) (20-40) % [place] % (Auto) (2-11) % Eos % (Auto) (0-4) % Baso % (Auto) (0-2) % Lymph # (Auto) (1.2-4.9) X10*3/uL [place] # (Auto) (0.1-1.2) X10*3/uL Eos # (Auto) (0.0-0.4) X10*3/uL Baso # (Auto) (0.0-0.2) X10*3/uL Abs Immat Gran (auto) (0.00-0.03) X10*3/uL Absolute Neuts (auto) (2.0-8.3) x10*3/uL Absolute Nucleated RBC (0.0-0.012) X10*3/uL Nucleated RBC % (auto) (0.0-0.2) /100WBC PT 14.3 H Cancelled (9.9-13.0) SEC INR 1.3 H Cancelled (0.9-1.1) aPTT Heparin Protocol 33.9 L (53-77.9) SEC Sodium (135-145) mmol/L Potassium (3.3-5.1) mmol/L Chloride (96-108) mmol/L Carbon Dioxide (22-29) mmol/L Anion Gap (12-20) BUN (9-16) mg/dL Creatinine (0.5-1.4) mg/dL Estim Creat Clear Calc Estimated GFR Random Glucose (60-115) mg/dL Calcium (8.4-10.2) mg/dL Troponin I High Sens (<3.5-35.0) ng/L COVID-19 ([facility]) Negative (Negative) COVID-19 Clin Com See Note 08/01/21 Range/Units 22:20 WBC 8.9 (4.8-10.8) X10*3/uL RBC 4.63 (4.60-5.80) X10*6/uL Hgb 12.4 L (14.0-18.0) g/dl Hct 38.9 L (42.0-52.0) % MCV 84.0 (80.0-98.0) fL MCH 26.8 L (27.0-33.0) pg MCHC 31.9 (31.0-36.0) g/dl RDW 15.9 (11.0-16.0) % Plt Count 194 (160-400) X10*3/uL MPV 9.9 (9.4-12.4) fL Immature Gran % (Auto) (0.0-0.4) % Neut % (Auto) (45-73) % Lymph % (Auto) (20-40) % [place] % (Auto) (2-11) % Eos % (Auto) (0-4) % Baso % (Auto) (0-2) % Lymph # (Auto) (1.2-4.9) X10*3/uL [place] # (Auto) (0.1-1.2) X10*3/uL Eos # (Auto) (0.0-0.4) X10*3/uL Baso # (Auto) (0.0-0.2) X10*3/uL Abs Immat Gran (auto) (0.00-0.03) X10*3/uL Absolute Neuts (auto) (2.0-8.3) x10*3/uL Absolute Nucleated RBC 0.000 (0.0-0.012) X10*3/uL Nucleated RBC % (auto) 0.0 (0.0-0.2) /100WBC PT (9.9-13.0) SEC INR (0.9-1.1) aPTT Heparin Protocol (53-77.9) SEC Sodium (135-145) mmol/L Potassium (3.3-5.1) mmol/L Chloride (96-108) mmol/L Carbon Dioxide (22-29) mmol/L Anion Gap (12-20) BUN (9-16) mg/dL Creatinine (0.5-1.4) mg/dL Estim Creat Clear Calc Estimated GFR Random Glucose (60-115) mg/dL Calcium (8.4-10.2) mg/dL Troponin I High Sens (<3.5-35.0) ng/L COVID-19 ([facility]) (Negative) COVID-19 Clin Com ECG Data Attestation: I personally reviewed and interpreted this ECG as follows: Prior ECG tracings: available for review Interpretation: Normal sinus rhythm, HR-84, no STEMI, however there are T-wave inversions in the lateral leads (V5/V6/lead 1), NV/QRS/QTC are within normal limits. Critical Care Time Critical Care Time Critical Care Time: Yes Total Critical Care Time: 30 Attestation: I personally attest to this time spent taking care of the patient. Discharge Plan Discharge Clinical Impression: Hypertensive urgency, Cardiac ischemia Patient Disposition: Admitted As Inpatient
--- NOTE | 2021-08-01 21:56 | PC.NURSE ---
pt medicated for rash per order
[2021-08-01 22:12] LABS: INTERNATIONAL NORM RATIO 1.3 (0.9-1.1); Prothrombin Time 14.3 SEC (9.9-13.0)
[2021-08-01 22:15] LABS: PTT Heparin Drip 33.9 SEC (53-77.9)
--- NOTE | 2021-08-01 22:16 | PC.NURSE ---
per provider pt is not to have heparin or asa until after the ct scan
[2021-08-01 22:25] LABS: Hematocrit 38.9 % (42.0-52.0); Hemoglobin 12.4 g/dl (14.0-18.0); Mean Corpuscular HGB Conc 31.9 g/dl (31.0-36.0); Mean Corpuscular Hemoglobin 26.8 pg (27.0-33.0); Mean Platelet Volume 9.9 fL (9.4-12.4); Platelet Count 194 X10*3/uL (160-400); Red Blood Count 4.63 X10*6/uL (4.60-5.80); Red Cell Distribution Width 15.9 % (11.0-16.0); White Blood Count 8.9 X10*3/uL (4.8-10.8)
[2021-08-01 22:27] LABS: COVID-19 Test Negative (Negative)
--- NOTE | 2021-08-01 22:44 | PC.NURSE ---
pt to ct scan
[2021-08-01 22:50] VITALS: BP 170/118; PULSE 94; RESP 18; O2SAT 97
[2021-08-01 23:18] VITALS: BP 187/120; PULSE 92; RESP 18; O2SAT 98
[2021-08-01] MEDS: Aspirin 81 MG TAB.CHEW 324 MG PO (23:27)
[2021-08-01] MEDS: Labetalol HCL 100 MG/20 ML VIAL IVPUSH (23:28)
[2021-08-01] MEDS: Heparin Sodium,Porcine 5,000 UNIT/ML VIAL 4000 UNIT IVPUSH (23:32)
--- NOTE | 2021-08-01 23:33 | PM.IMHP ---
History of Present Illness Date of Service: 08/01/21 Chief Complaint: dizziness 56-year-old male with past medical history of coronary artery disease w hx of NSTEMI status post stent, hypertension, diabetes type 2- diet controlled, who presents to the hospital with complaints of not feeling well, dizziness. Patient reports that he usually checks his blood pressure at home, he was not feeling too well checked his blood pressure and found to be elevated in the 170s over 110s, Therefore came to the hospital. He denies having any chest pain, no shortness of breath, no headache, no change in vision, no abdominal pain nausea or vomiting, no diarrhea constipation, no urinary symptoms and no lower extremity edema. Patient reports compliance with his antihypertensives and he reports that he took his medication around 17:00. On arrival to the ED patient vitals are significant for heart rate of 92, respiratory rate of 18, blood pressure of 176/113, satting 99% on room air Labs are significant for WBC count of 7.0, hemoglobin 12.7, hematocrit 40.3, INR of 1.3, troponin of 2037.8, repeat 193. COVID-19 negative. EKG shows T-wave inversions in aVL, V6 and V5 which were not present on previous EKG cardiology consult, patient was started on heparin drip and will be admitted for further management patient also received labetalol for blood pressure control Review of Systems Review of Systems: Yes all other systems are reviewed and are negative [facility] Medical History Atherosclerotic cardiovascular disease Coronary artery disease Diabetes mellitus, type 2 Elevated troponin Essential hypertension Hypertension Hypertension Non-ST elevated myocardial infarction Non-ST elevated myocardial infarction (non-STEMI) NSTEMI (non-ST elevated myocardial infarction) Type 2 diabetes mellitus with unspecified complications Family History Father No problems noted. Mother No problems noted. Surgical History History of cardiac catheterization (~07/2020) Social History Household Members: Spouse Housing: House Do you presently have visiting nurse or other home services: No Alcohol intake: never Substance Use Type: Marijuana Advance Directives: No Advance Directives Information Provided: Yes service: No Current occupational status: unemployed Meds Allergies Allergy/AdvReac Type Severity Reaction Status Date / Time No Known Allergies Allergy Verified 08/01/21 19:35 [No Known Allergies*] Active Medications: Current Medications Heparin Sodium (Porcine) (Heparin Sodium,Porcine 5,000 Unit/Ml Vial) 3,400 unit 40 unit/kg (3400 unit) IVPUSH PROTOCOL BOLUS PRN; Protocol PRN Reason: 40 unit/kg - Heparin Protocol Heparin Sodium (Porcine) (Heparin Sodium,Porcine 5,000 Unit/Ml Vial) 6,700 unit 80 unit/kg (6700 unit) IVPUSH PROTOCOL BOLUS PRN; Protocol PRN Reason: 80 unit/kg - Heparin Protocol Heparin Sodium/Sodium Chloride () 25,000 unit in 250 mls @ 10.118 mls/hr IVCONT .Q24H JULIAN; Protocol Pharmacy Consult (Consult Rx Perform Med Rec) 1 each MISCELLANE ONCE PRN PRN Reason: Consult order Physical Exam Vital Signs and Narrative: Vital Signs: Last Vital Signs Temp 98.3 F 08/01/21 19:35 Pulse 92 08/01/21 23:18 Resp 18 08/01/21 23:18 BP 187/120 H 08/01/21 23:18 Pulse Ox 98 08/01/21 23:18 BMI result Body Mass Index 30.9 Const: General: cooperative and no acute distress Orientation/consciousness: patient oriented x3 Eyes: Other: strabismus Pupils: Equal, round and reactive pupils present Resp: Effort & Inspection: normal respiratory effort Auscultation: clear to auscultation bilaterally Cardio: Rate: regular rate Rhythm: regular rhythm GI: Palpation (GI): Soft to palpation Auscultation: normal bowel sounds Skin: General skin exam: no rashes or lesions noted Neuro: General: patient oriented x3 Cranial nerves: Yes Equal, round and reactive pupils present Cognition (Neuro): normal cognition Extrem: General: Yes normal to inspection and Yes no pedal edema Results Labs CBC and Chem 7: 08/02/21 05:51 08/01/21 19:53 Labs: Laboratory Results - last 24 hr 08/01/21 08/01/21 08/01/21 19:53 19:53 21:34 MCV 83.9 MCH 26.6 L MCHC 31.7 RDW 15.9 Plt Count 204 MPV 10.1 Immature Gran % (Auto) 0.4 Neut % (Auto) 71.8 Lymph % (Auto) 20.9 [place] % (Auto) 3.3 Eos % (Auto) 3.1 Baso % (Auto) 0.5 Lymph # (Auto) 1.7 [place] # (Auto) 0.3 Eos # (Auto) 0.3 Baso # (Auto) 0.0 Abs Immat Gran (auto) 0.03 Absolute Neuts (auto) 5.9 Absolute Nucleated RBC 0.000 Nucleated RBC % (auto) 0.0 PT INR aPTT Heparin Protocol Anion Gap 11 L Estim Creat Clear Calc 100.5 Estimated GFR > 60 Random Glucose 116 H Calcium 9.3 COVID-19 ([facility]) Negative COVID-19 Clin Com See Note 08/01/21 08/01/21 08/01/21 21:58 22:00 22:20 MCV 84.0 MCH 26.8 L MCHC 31.9 RDW 15.9 Plt Count 194 MPV 9.9 Immature Gran % (Auto) Neut % (Auto) Lymph % (Auto) [place] % (Auto) Eos % (Auto) Baso % (Auto) Lymph # (Auto) [place] # (Auto) Eos # (Auto) Baso # (Auto) Abs Immat Gran (auto) Absolute Neuts (auto) Absolute Nucleated RBC 0.000 Nucleated RBC % (auto) 0.0 PT 14.3 H Cancelled INR 1.3 H Cancelled aPTT Heparin Protocol 33.9 L Anion Gap Estim Creat Clear Calc Estimated GFR Random Glucose Calcium COVID-19 ([facility]) COVID-19 Clin Com Imaging Radiologist's Impressions: Impressions Head CT 08/01/21 22:55 IMPRESSION: No evidence of acute intracranial hemorrhage or edematous territorial infarction. Nonspecific white matter disease with low density supratentorial lesions is stable. Assessment and Plan (1) Hypertensive urgency: Status: Acute (2) NSTEMI (non-ST elevated myocardial infarction): Status: Acute Plan this is a 56-year-old male past medical history of coronary artery disease with a history of NSTEMI status post stent placement who presents to the hospital with complaints of not feeling well found to have elevated blood pressure as well as elevated troponin # NSTEMI - likely type 2 in the setting of hypertensive urgency - patient denies chest pain, has EKG changes showing T-wave inversions in lateral leads - patient started on heparin drip for the above reason but after having heparin run for couple of hours he requested it to be showed off. The reason and the risk for stopping heparin were explained to the patient and despite that patient did not want to continue the heparin drip - at this time will continue his metoprolol, lisinopril, and aspirin - cardiology consult - echocardiogram ordered # hypertensive urgency - patient reports compliance - head CT negative - treated with labetalol with appropriate response - continue home lisinopril # history of diabetes - diet controlled - will continue diabetic diet - poc q.i.d. a.c. DVT prophylaxis: Lovenox Quality Stroke Does the patient have a stroke diagnosis?: No VTE Prior VTE?: No VTE Risk Level:: Medical - moderate - high VTE Device Contraindication: Treatment Not Indicated VTE Drug Contraindication: N/A - Med Ordered
[2021-08-01] MEDS: Heparin Sodium,Porcine/1/2NS 25,000 UNIT/250 ML IV.SOLN 10 UNIT IVCONT (23:36)
[2021-08-01 23:42] VITALS: BP 156/110; PULSE 89; RESP 24; O2SAT 98
--- NOTE | 2021-08-01 23:43 | PC.NURSE ---
This RN to bedside to medicate per JUL as Dr Traore said d/t negative head CT for bleed, pt able to receive meds as ordered. Pt aaox4, denies pain including SANTANA, CP. Pt denies vision changes, denies lightheadedness, dizziness, nausea. Pt medicated per JUL. Pt repeat trop drawn and pending at this time. 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 Pt stretcher in low locked position, rails raised, call jensen within reach.
[2021-08-01 23:50] LABS: Troponin-I High Sensitivity 1935.1 ng/L (<3.5-35.0)
[2021-08-02] VITALS (8 sets, daily range): BP systolic 122–176; BP diastolic 78–109; PULSE 73–87; RESP 14–20; TEMP 36.4–36.9; O2SAT 95–98
[2021-08-02] MEDS: Atorvastatin Calcium 80 MG TABLET PO ×2 (02:15→20:30)
--- NOTE | 2021-08-02 02:23 | PC.NURSE ---
This RN to bedside to medicate with lipitor that has been verified. Pt reports dizziness, states it is different than prior to his arrival to ED, and states I just don't feel right. Pt questioning how long heparin gtt must infuse. Pt without focal neuro deficits, denies vision changes, denies room spinning sensation. Pt speech clear, complete sentences. This RN paused heparin gtt, called Dr Rainey who is going to order ativan and instructs this RN to restart heparin gtt unless patient adamantly refuses. Stretcher low locked, rails raised, call jensen within reach.
--- NOTE | 2021-08-02 02:47 | PC.NURSE ---
Addendum entered by Merlyn Painting 08/02/21 02:58: PTT HD order remaining for 0530 per protocol instructions to obtain this lab 6 hours after initiation without any different instructions should heparin gtt be stopped. Original Note: This RN to bedside to provide to medicate pt with ativan as ordered and to continue heparin gtt. Pt refusing ativan, states I don't feel anxious and I don't want that. Pt then also states I think that medicine has done its job already so I don't want to continue it. Risks of stopping the heparin explained to pt. Pt verbalizes understanding, insists that he does not want heparin gtt restarted. Dr Rainey made aware, MAR reflects pt's decisions. Pt remains NSR on bedside playground monitor.
[2021-08-02 05:58] LABS: Hematocrit 40.3 % (42.0-52.0); Hemoglobin 12.7 g/dl (14.0-18.0); Mean Corpuscular HGB Conc 31.5 g/dl (31.0-36.0); Mean Corpuscular Hemoglobin 26.6 pg (27.0-33.0); Mean Corpuscular Volume 84.3 fL (80.0-98.0); Mean Platelet Volume 10.1 fL (9.4-12.4); Platelet Count 171 X10*3/uL (160-400); Red Blood Count 4.78 X10*6/uL (4.60-5.80)
[2021-08-02 06:10] LABS: Anion Gap 12 (12-20); Blood Urea Nitrogen 12 mg/dL (9-16); Calcium 9.1 mg/dL (8.4-10.2); Carbon Dioxide 22 mmol/L (22-29); Chloride 106 mmol/L (96-108); Creatinine Clr Calc Pharmacy 111.5; Estimated Glomerular Filt Rate > 60; Glucose Random 122 mg/dL (60-115); Sodium 136 mmol/L (135-145)
[2021-08-02 06:18] LABS: INTERNATIONAL NORM RATIO 1.3 (0.9-1.1); Prothrombin Time 14.7 SEC (9.9-13.0)
[2021-08-02 06:21] LABS: PTT Heparin Drip 34.5 SEC (53-77.9)
[2021-08-02] MEDS: Metoprolol Tartrate 50 MG TABLET PO ×2 (09:11→20:30)
[2021-08-02] MEDS: lisinopriL 40 MG TABLET PO (09:11)
[2021-08-02] MEDS: Aspirin Enteric Coated 81 MG TABLET.DR PO (09:11)
[2021-08-02] MEDS: 0.9 % Sodium Chloride Flush 3 ML SYRINGE IVFLUSH ×2 (09:12→20:31)
--- NOTE | 2021-08-02 09:18 | MHC.CM.PN ---
Patient lives in a house with his /HCP/Kiki and he is functionally independent. Home is the goal for dc and CM has initiated and will follow for dc planning. PCP is DR. Ne Nassar and Patient has received [facility] vax X3.
--- NOTE | 2021-08-02 09:35 | PM.CNCAR ---
History of Present Illness History of Present Illness Date of Service: 08/02/21 Requesting physician: Diana Bauer Chief complaint: NSTEMI Narrative: I was consulted to see Micah in cardiology consultation today for elevated troponins and uncontrolled blood pressure. Patient with prior history of CAD with LAD stenting in 2016 for non-STEMI and poor compliance with follow-up, difficult to control hypertension as outpatient. Recently he has been noticing that his blood pressures been elevated and his lisinopril was increased from 40 mg daily to 40 mg b.i.d.. He continued to high blood pressure and was taking sometimes 3 times a day 40 mg. He is on aspirin and on metoprolol 50 mg b.i.d.. Not sure if he is still taking metoprolol. Currently not on statin therapy. He has had a very spotty follow-up in Cardiology as well as his primary care physician and he claims as such. He got concerned yesterday because he started feeling again like he was feeling when he had his NSTEMI where he had dizziness and not feeling well and feeling pressure and he was pointing to his chest. And he was noted that he had significantly elevated blood pressure. He came to the hospital his blood pressure was elevated and his troponins were elevated in 2000 range. EKG compared to before shows T-wave inversion in the lateral leads. He was started on IV heparin, however nurse in the ED he refused to then continue on IV heparin. His blood pressure is not much better controlled afterReceiving labetalol IV. Currently says he feels well and wants to go home. Review of Systems Constitutional: Constitutional: Reports no additional constitutional complaints Eyes: Eyes: Reports no additional eye complaints ENT: Reports system reviewed and no additional complaints, except as documented Cardiovascular: Cardiovascular: Reports chest pain at rest, Denies rapid heart rate, Reports lightheadedness, Denies Loss of Consciousness, Denies palpitations and Denies dyspnea Respiratory: Respiratory: Reports no additional respiratory complaints and Denies dyspnea Gastrointestinal: Gastrointestinal: Reports no additional gastrointestinal complaints Genitourinary: Genitourinary: Reports no additional male genitourinary complaints Musculoskeletal: Musculoskeletal: Reports no additional musculoskeletal complaints Integumentary/Breasts: Skin/Breast: Reports system reviewed and no additional complaints, except as docu Neurologic: Reports system reviewed and no additional complaints, except as documented Psychiatric: Psychiatric: Reports no additional psychiatric complaints Endocrine: Endocrine: Reports no additional endocrine complaints and Denies palpitations Hematologic/Lymphatic: Hematologic/Lymphatic: Reports no additional hematologic/lymphatic complaints Allergic/Immunologic: Allergic/Immunologic: Reports no additional allergic/immunologic complaints [facility] Past Medical History Medical History Atherosclerotic cardiovascular disease Coronary artery disease Diabetes mellitus, type 2 Elevated troponin Essential hypertension Hypertension Hypertension Non-ST elevated myocardial infarction Non-ST elevated myocardial infarction (non-STEMI) NSTEMI (non-ST elevated myocardial infarction) Type 2 diabetes mellitus with unspecified complications Family History Family History Father No problems noted. Mother No problems noted. Surgical History Surgical History History of cardiac catheterization (~07/2020) Social History Social History Household Members: Spouse Housing: House Do you presently have visiting nurse or other home services: No Alcohol intake: never Substance Use Type: Marijuana Advance Directives: No Advance Directives Information Provided: Yes service: No Current occupational status: unemployed Meds Allergies Allergy/AdvReac Type Severity Reaction Status Date / Time No Known Allergies Allergy Verified 08/01/21 19:35 [No Known Allergies*] Active Medications: Current Medications Acetaminophen (Acetaminophen 325 Mg Tablet) 650 mg PO Q6H PRN PRN Reason: Pain, Mild (Pain Scale 1-3) Aspirin (Aspirin Enteric Coated 81 Mg Tablet.) 81 mg PO DAILY [facility] Last Admin: 08/02/21 09:11 Dose: 81 mg Documented by: Atorvastatin Calcium (Atorvastatin Calcium 80 Mg Tablet) 80 mg PO BEDTIME [facility] Last Admin: 08/02/21 02:15 Dose: 80 mg Documented by: Docusate Sodium (Docusate Sodium 100 Mg Capsule) 100 mg PO DAILY PRN PRN Reason: Constipation Heparin Sodium (Porcine) (Heparin Sodium,Porcine 5,000 Unit/Ml Vial) 3,400 unit 40 unit/kg (3400 unit) IVPUSH PROTOCOL BOLUS PRN; Protocol PRN Reason: 40 unit/kg - Heparin Protocol Heparin Sodium (Porcine) (Heparin Sodium,Porcine 5,000 Unit/Ml Vial) 6,700 unit 80 unit/kg (6700 unit) IVPUSH PROTOCOL BOLUS PRN; Protocol PRN Reason: 80 unit/kg - Heparin Protocol Heparin Sodium/Sodium Chloride () 25,000 unit in 250 mls @ 10.118 mls/hr IVCONT .Q24H [facility]; Protocol Last Titration: 08/02/21 09:11 Dose: Infused Documented by: Lisinopril (Lisinopril 40 Mg Tablet) 40 mg PO DAILY [facility]; Protocol Last Admin: 08/02/21 09:11 Dose: 40 mg Documented by: Metoprolol Tartrate (Metoprolol Tartrate 50 Mg Tablet) 50 mg PO BID [facility]; Protocol Last Admin: 08/02/21 09:11 Dose: 50 mg Documented by: Ondansetron HCl (Ondansetron Hcl 4 Mg/2 Ml Vial) 4 mg IVPUSH Q8H PRN PRN Reason: Nausea and Vomiting Pharmacy Consult (Consult Rx Perform Med Rec) 1 each MISCELLANE ONCE PRN PRN Reason: Consult order Sodium Chloride (0.9 % Sodium Chloride Flush 3 Ml Syringe) 3 ml IVFLUSH QSHIFT [facility] Last Admin: 08/02/21 09:12 Dose: 3 ml Documented by: Physical Exam Vital Signs: Vital Signs: Last Vital Signs Temp 98.3 F 08/01/21 19:35 Pulse 77 08/02/21 09:13 Resp 15 08/02/21 09:13 BP 176/101 H 08/02/21 09:13 Pulse Ox 96 08/02/21 09:13 BMI result Body Mass Index 30.9 Const: General: cooperative, comfortable, no acute distress, alert and awake Nutritional Appearance: obese Orientation/consciousness: patient oriented x3 Limitations: no limitations HENMT: Head: Yes normocephalic and Yes atraumatic Neck: Neck: Yes trachea midline, Yes supple and Yes no JVD Chest: Chest palpation & inspection: normal inspection of the chest Resp: Effort & Inspection: normal respiratory effort Auscultation: clear to auscultation bilaterally Cardio: Jugular venous distension: no JVD Palpation: normal PMI Rate: regular rate Rhythm: regular rhythm Heart sounds: S1 normal heart sound present, S2 normal heart sound present, no click, no gallops, no murmurs and no rubs GI: Auscultation: normal bowel sounds Skin: General skin exam: no rashes or lesions noted Neuro: General: patient oriented x3 and no focal motor deficits Extrem: General: Yes no clubbing, cyanosis or edema Objective Labs and Meds Result diagrams: 08/02/21 05:51 08/02/21 05:51 Lab results: Laboratory Results - last 24 hr 08/01/21 08/01/21 08/01/21 19:53 19:53 19:53 WBC 8.2 RBC 4.97 Hgb 13.2 L Hct 41.7 L MCV 83.9 MCH 26.6 L MCHC 31.7 RDW 15.9 Plt Count 204 MPV 10.1 Immature Gran % (Auto) 0.4 Neut % (Auto) 71.8 Lymph % (Auto) 20.9 [place] % (Auto) 3.3 Eos % (Auto) 3.1 Baso % (Auto) 0.5 Lymph # (Auto) 1.7 [place] # (Auto) 0.3 Eos # (Auto) 0.3 Baso # (Auto) 0.0 Abs Immat Gran (auto) 0.03 Absolute Neuts (auto) 5.9 Absolute Nucleated RBC 0.000 Nucleated RBC % (auto) 0.0 PT INR aPTT Heparin Protocol Sodium 138 Potassium 4.4 Chloride 105 Carbon Dioxide 26 Anion Gap 11 L BUN 14 Creatinine 0.81 Estim Creat Clear Calc 100.5 Estimated GFR > 60 Random Glucose 116 H Calcium 9.3 Troponin I High Sens 2037.8 H* COVID-19 ([facility]) COVID-[employer] Com 08/01/21 08/01/21 08/01/21 21:34 21:58 22:00 WBC RBC Hgb Hct MCV MCH MCHC RDW Plt Count MPV Immature Gran % (Auto) Neut % (Auto) Lymph % (Auto) [place] % (Auto) Eos % (Auto) Baso % (Auto) Lymph # (Auto) [place] # (Auto) Eos # (Auto) Baso # (Auto) Abs Immat Gran (auto) Absolute Neuts (auto) Absolute Nucleated RBC Nucleated RBC % (auto) PT 14.3 H Cancelled INR 1.3 H Cancelled aPTT Heparin Protocol 33.9 L Sodium Potassium Chloride Carbon Dioxide Anion Gap BUN Creatinine Estim Creat Clear Calc Estimated GFR Random Glucose Calcium Troponin I High Sens COVID-19 ([facility]) Negative COVID-19 Clin Com See Note 08/01/21 08/01/21 08/02/21 22:20 23:23 05:51 WBC 8.9 7.0 RBC 4.63 4.78 Hgb 12.4 L 12.7 L Hct 38.9 L 40.3 L MCV 84.0 84.3 MCH 26.8 L 26.6 L MCHC 31.9 31.5 RDW 15.9 16.0 Plt Count 194 171 MPV 9.9 10.1 Immature Gran % (Auto) Neut % (Auto) Lymph % (Auto) [place] % (Auto) Eos % (Auto) Baso % (Auto) Lymph # (Auto) [place] # (Auto) Eos # (Auto) Baso # (Auto) Abs Immat Gran (auto) Absolute Neuts (auto) Absolute Nucleated RBC 0.000 0.000 Nucleated RBC % (auto) 0.0 0.0 PT INR aPTT Heparin Protocol Sodium Potassium Chloride Carbon Dioxide Anion Gap BUN Creatinine Estim Creat Clear Calc Estimated GFR Random Glucose Calcium Troponin I High Sens 1935.1 H* COVID-19 ([facility]) COVID-19 [employer] 08/02/21 08/02/21 08/02/21 05:51 05:51 05:51 WBC RBC Hgb Hct MCV MCH MCHC RDW Plt Count MPV Immature Gran % (Auto) Neut % (Auto) Lymph % (Auto) [place] % (Auto) Eos % (Auto) Baso % (Auto) Lymph # (Auto) [place] # (Auto) Eos # (Auto) Baso # (Auto) Abs Immat Gran (auto) Absolute Neuts (auto) Absolute Nucleated RBC Nucleated RBC % (auto) PT 14.7 H INR 1.3 H aPTT Heparin Protocol 34.5 L Sodium 136 Potassium 4.0 Chloride 106 Carbon Dioxide 22 Anion Gap 12 BUN 12 Creatinine 0.73 Estim Creat Clear Calc 111.5 Estimated GFR > 60 Random Glucose 122 H Calcium 9.1 Troponin I High Sens COVID-19 ([facility]) COVID-19 Clin Com Imaging Radiologist's impression: Impressions Head CT 08/01/21 22:55 IMPRESSION: No evidence of acute intracranial hemorrhage or edematous territorial infarction. Nonspecific white matter disease with low density supratentorial lesions is stable. Assessment and Plan (1) NSTEMI (non-ST elevated myocardial infarction): Status: Acute Patient present with symptoms that are nonspecific but similar to his prior NSTEMI and findings consistent with elevated troponin which could be secondary to markedly elevated blood pressure. However given his prior CAD and stenting, is high risk for recurrent coronary artery disease and plaque rupture. Discussed with him the best approach is to do cardiac catheterization. However he does not want to undergo cardiac catheterization and categorically denies to undergo invasive procedure and transferred to [facility]. We discussed that he needs evaluation for myocardial ischemia prior to discharge. He is agreeable to the same. Will obtain an echocardiogram and if this shows significant wall motion abnormality he should be transferred for cardiac catheterization. If this shows reasonable LV systolic function with no major wall motion abnormality can pursue noninvasive myocardial perfusion imaging with resting perfusion study tomorrow and stress perfusion study day after tomorrow. If this is significantly abnormal he needs cardiac catheterization. This was discussed with him in details. He understands and agrees. Continue aggressive management. Continue IV heparin drip, aspirin, lisinopril, metoprolol and had amlodipine, see below. (2) Hypertensive urgency: Status: Acute Blood pressure is well controlled after IV labetalol. Again however blood pressure is elevated. Continue lisinopril and metoprolol. Add amlodipine to his regimen for blood pressure control. Discussed with him strongly the need for good blood pressure control and also compliance as follows. Will continue to follow with you Procedures Date of Service Date of Service: 08/02/21
--- NOTE | 2021-08-02 10:13 | PC.NURSE ---
report given to [facility] rn donte
--- NOTE | 2021-08-02 11:00 | CA_ITS ---
Transthoracic Echocardiogram Patient (Last, First, Middle): Micah Wallace O Gender: Male Date of : 1965 Age: 56 Procedure Date: 08/02/2021 Procedure Type: Transthoracic Echocardiogram Location: [facility] Height: 165.1 cm Weight: 83.92 kg BSA: 1.91 m2 Heart Rate: bpm BP: 175 / 101 mmHg Leak Patcher: RYNE Referring MD: Diana Bauer MD Docent Coordinator: Gigi Winn MD Symptoms: ntemi Study Quality: Fair ECG Rhythm: Sinus Conclusions: - 1. Severe LV systolic dysfunction with LVEF of 15-20% with pseudonormal filling pattern 2. Mild biatrial enlargement 3. Normal cardiac valvular Doppler 4. Moderately elevated right ventricular systolic pressure with significantly elevated right atrial pressures 5. No gross pericardial effusion Findings Left Ventricle Normal left ventricular cavity size. There is normal left ventricular wall thickness. The left ventricular systolic function is severely decreased. The visually estimated ejection fraction is between 15-20%. Spectral Doppler is indicative of a pseudonormal filling pattern. E/E prime ratio is between 8 and 15 consistent with indeterminate filling pressures. Right Ventricle Moderately increased right ventricular cavity size. There is mildly decreased right ventricular systolic function. Atria The left atrium is mildly dilated. There is no evidence of interatrial shunt. The right atrium is mildly dilated. Aortic Valve There is mild calcification of the aortic valve. There is no aortic valve stenosis. There is no aortic valve regurgitation. Mitral Valve Normal mitral valve structure and function. There is trace mitral valve regurgitation. There is no mitral valve stenosis. Pulmonic Valve The pulmonic valve was not well visualized. Tricuspid Valve Likely normal tricuspid valve structure and function. There is mild tricuspid valve regurgitation. Significantly elevated right atrial pressure. Moderate pulmonary hypertension is present. Great Vessels The pulmonary artery was not well visualized. There is mild dilatation of the ascending aorta. Venous The inferior vena cava is mildly dilated and does not collapse with inspiration. Pericardium/Pleural There is no evidence of pericardial effusion. Prior Study Comparison Significant changes compared to prior study dated: 07/05/2020. LV systolic function significantly reduced with grade 2 diastolic dysfunction. Moderately elevated right ventricular systolic pressures noted Measurements 2D Linear Measurements IVSd: 1.11 0.6-0.9/0.6-1.0 cm LVIDd: 5.01 3.9-5.3/4.2-5.9 cm LVIDd Index: 2.62 2.4-3.2/2.2-3.1 cm/m2 LVIDs: 4.72 2.0-3.6 cm LVPWd: 1.06 0.7-1.1 cm LA Diam: 4.20 2.7-3.8/3.0-4.0 cm LAIDs Index: 2.20 1.5-2.3 cm/m2 LV Mass: 254.17 67-162/88-224 g LV Mass Index: 133.07 43-95/49-115 g/m2 LVOT Diam: 2.20 3.0+(-)1.3 cm Mitral Valve MV Pk E: 0.65 MV PK A: 0.33 MV Decel Time: 82.00 E/A: 2.00 E'Lateral: 4.88 E'Medial: 1.69 E/E' Med: 38.50 E/E' Lat: 13.30 PHT: 24.00 MVA PHT: 9.17 Decel [place]: 7.96 Aortic Valve AoV Pk Ulises: 0.92 AoV Mn Ulises: 0.73 AoV VTI: 0.13 AoV Pk Grad: 3.00 Aov Mn Grad: 2.00 BERNARDINO Cont.VTI: 2.77 LVOT LVOT Pk Ulises: 0.70 LVOT Mn Ulises: 0.48 LVOT VTI: 0.09 LVOT Pk Grad: 2.00 LVOT Mn Grad: 1.00 LVOT Diam: 2.20 LVOT Area: 3.80 Diastolic Function MV Pk E: 0.65 MV Pk A: 0.33 E/A: 2.00 E'Medial: 1.69 E/E' Med: 38.50 E' Laterial: 4.88 E/E' Lat: 13.30 Right Ventricle TAPSE (mm): 14.70 TVS' Ulises: 9.20 Tricuspid Valve TR Pk Ulises: 2.86 TR Pk Grad: 33.00 RA Press: 15.00 RVSP: 48.00 Great Vessels Aorta Sinus of Valsalva: 3.53 2.0-3.[address] [place]: 2.26 1.7-3.4 cm Ao Asc: 3.80 2.1-3.4 cm Ao Arch: 3.40 Updated in Other Vendor System with Status of Final Gigi Winn MD electronically signed on 08/02/2021 4:55:37 PM with status of Final
[2021-08-02 11:34] LABS: Glucose, Whole Blood 158 mg/dL (60-115)
[2021-08-02 13:23] LABS: PTT Heparin Drip 49.1 SEC (53-77.9)
[2021-08-02] MEDS: Heparin Sodium,Porcine/1/2NS 25,000 UNIT/250 ML IV.SOLN 11.8 UNIT IVCONT (14:05)
[2021-08-02] MEDS: Heparin Sodium,Porcine 5,000 UNIT/ML VIAL 3400 UNIT IVPUSH (14:11)
--- NOTE | 2021-08-02 14:29 | HO.PM.IMPN ---
Subjective Subjective Date of Service: 08/02/21 Interval History: NSTEMI, uncontrolled htn. Review of Systems Patient states chest pain is improved Denies any shortness of breath abdominal pain or fever or chills or cough or phlegm. Currently declining to go to [facility] for catheterization Physical Exam Vital Signs: Vital Signs: Last Vital Signs Temp 97.5 F 08/02/21 11:27 Pulse 84 08/02/21 11:27 Resp 18 08/02/21 11:27 BP 157/109 H 08/02/21 11:27 Pulse Ox 97 08/02/21 11:27 BMI result Body Mass Index 30.9 Appearance: Alert.? Oriented X3.? not in distress.?. cvs: rrr, [id number]. res: clear to auscultation ,no rhonchii or wheezing abd: no rebound or guarding ,nt, bs present. ext pulses present , no cyanosis . neuro: axo3 , nonfocal. Objective Data Active Medications Acetaminophen (Acetaminophen 325 Mg Tablet) 650 mg PO Q6H PRN PRN Reason: Pain, Mild (Pain Scale 1-3) Aspirin (Aspirin Enteric Coated 81 Mg Tablet.) 81 mg PO DAILY [facility] Last Admin: 08/02/21 09:11 Dose: 81 mg Documented by: BECKY Atorvastatin Calcium (Atorvastatin Calcium 80 Mg Tablet) 80 mg PO BEDTIME [facility] Last Admin: 08/02/21 02:15 Dose: 80 mg Documented by: NANCY Docusate Sodium (Docusate Sodium 100 Mg Capsule) 100 mg PO DAILY PRN PRN Reason: Constipation Heparin Sodium (Porcine) (Heparin Sodium,Porcine 5,000 Unit/Ml Vial) 3,400 unit 40 unit/kg (3400 unit) IVPUSH PROTOCOL BOLUS PRN; Protocol PRN Reason: 40 unit/kg - Heparin Protocol Last Admin: 08/02/21 14:11 Dose: 3,400 unit Documented by: JENI Heparin Sodium (Porcine) (Heparin Sodium,Porcine 5,000 Unit/Ml Vial) 6,700 unit 80 unit/kg (6700 unit) IVPUSH PROTOCOL BOLUS PRN; Protocol PRN Reason: 80 unit/kg - Heparin Protocol Heparin Sodium/Sodium Chloride () 25,000 unit in 250 mls @ 0 mls/hr IVCONT .Q0M [facility]ULIAN; Protocol Last Admin: 08/02/21 14:05 Dose: 14 units/kg/hr, 11.8 mls/hr Documented by: JENI Cosigned by: GETACHEW Lisinopril (Lisinopril 40 Mg Tablet) 40 mg PO DAILY [facility]; Protocol Last Admin: 08/02/21 09:11 Dose: 40 mg Documented by: BECKY Metoprolol Tartrate (Metoprolol Tartrate 50 Mg Tablet) 50 mg PO BID [facility]; Protocol Last Admin: 08/02/21 09:11 Dose: 50 mg Documented by: BECKY Ondansetron HCl (Ondansetron Hcl 4 Mg/2 Ml Vial) 4 mg IVPUSH Q8H PRN PRN Reason: Nausea and Vomiting Pharmacy Consult (Consult Rx Perform Med Rec) 1 each MISCELLANE ONCE PRN PRN Reason: Consult order Sodium Chloride (0.9 % Sodium Chloride Flush 3 Ml Syringe) 3 ml IVFLUSH QSHIFT JULIAN Last Admin: 08/02/21 09:12 Dose: 3 ml Documented by: BECKY Labs CBC & Chem 7: 08/02/21 05:51 08/02/21 05:51 Labs: Laboratory Results - last 24 hr 08/01/21 08/01/21 08/01/21 19:53 19:53 21:34 MCV 83.9 MCH 26.6 L MCHC 31.7 RDW 15.9 Plt Count 204 MPV 10.1 Immature Gran % (Auto) 0.4 Neut % (Auto) 71.8 Lymph % (Auto) 20.9 [place] % (Auto) 3.3 Eos % (Auto) 3.1 Baso % (Auto) 0.5 Lymph # (Auto) 1.7 [place] # (Auto) 0.3 Eos # (Auto) 0.3 Baso # (Auto) 0.0 Abs Immat Gran (auto) 0.03 Absolute Neuts (auto) 5.9 Absolute Nucleated RBC 0.000 Nucleated RBC % (auto) 0.0 PT INR aPTT Heparin Protocol Anion Gap 11 L Estim Creat Clear Calc 100.5 Estimated GFR > 60 POC Glucose Random Glucose 116 H Calcium 9.3 COVID-19 (WEST) Negative COVID-19 Clin Com See Note 08/01/21 08/01/21 08/01/21 21:58 22:00 22:20 MCV 84.0 MCH 26.8 L MCHC 31.9 RDW 15.9 Plt Count 194 MPV 9.9 Immature Gran % (Auto) Neut % (Auto) Lymph % (Auto) [place] % (Auto) Eos % (Auto) Baso % (Auto) Lymph # (Auto) [place] # (Auto) Eos # (Auto) Baso # (Auto) Abs Immat Gran (auto) Absolute Neuts (auto) Absolute Nucleated RBC 0.000 Nucleated RBC % (auto) 0.0 PT 14.3 H Cancelled INR 1.3 H Cancelled aPTT Heparin Protocol 33.9 L Anion Gap Estim Creat Clear Calc Estimated GFR POC Glucose Random Glucose Calcium COVID-19 (WEST) COVID-19 Clin Com 08/02/21 08/02/21 08/02/21 05:51 05:51 05:51 MCV 84.3 MCH 26.6 L MCHC 31.5 RDW 16.0 Plt Count 171 MPV 10.1 Immature Gran % (Auto) Neut % (Auto) Lymph % (Auto) [place] % (Auto) Eos % (Auto) Baso % (Auto) Lymph # (Auto) [place] # (Auto) Eos # (Auto) Baso # (Auto) Abs Immat Gran (auto) Absolute Neuts (auto) Absolute Nucleated RBC 0.000 Nucleated RBC % (auto) 0.0 PT 14.7 H INR 1.3 H aPTT Heparin Protocol 34.5 L Anion Gap Estim Creat Clear Calc Estimated GFR POC Glucose Random Glucose Calcium COVID-19 (WEST) COVID-19 Clin Com 08/02/21 08/02/21 08/02/21 05:51 11:30 13:04 MCV MCH MCHC RDW Plt Count MPV Immature Gran % (Auto) Neut % (Auto) Lymph % (Auto) [place] % (Auto) Eos % (Auto) Baso % (Auto) Lymph # (Auto) [place] # (Auto) Eos # (Auto) Baso # (Auto) Abs Immat Gran (auto) Absolute Neuts (auto) Absolute Nucleated RBC Nucleated RBC % (auto) PT INR aPTT Heparin Protocol 49.1 L D Anion Gap 12 Estim Creat Clear Calc 111.5 Estimated GFR > 60 POC Glucose 158 H Random Glucose 122 H Calcium 9.1 COVID-19 (WEST) COVID-19 Clin Com Assessment and Plan (1) NSTEMI (non-ST elevated myocardial infarction): Status: Acute (2) Hypertensive urgency: Status: Acute (3) Type 2 diabetes mellitus with unspecified complications: Status: Acute Plan 56-year-old male past medical history of coronary artery disease? with a history of NSTEMI status post stent placement who presents to the hospital with complaints of not feeling well found to have elevated blood pressure as well as elevated troponin 1.? NSTEMI-? likely type 2 in the setting of hypertensive urgency -? patient denies chest pain, has EKG changes showing T-wave inversions in lateral leads l continue his metoprolol, lisinopril, and aspirin, iv heparin -? cardiology consult-currently declinging to go to [facility] , added echo, continue above management. 2.? hypertensive uncontrolled: -? patient reports compliance -? head CT negative continue metoprolol and lisinopril, added small dose amlodipine. 3. history of diabetes: fs 120-170 -? diet controlled -? will continue diabetic diet -? poc q.i.d. a.c. 4. obesity: encourgaed for weight loss. Quality Stroke Does the patient have a stroke diagnosis?: No VTE Prior VTE?: No VTE Risk Level:: Medical - moderate - high VTE Device Contraindication: Treatment Not Indicated VTE Drug Contraindication: N/A - Med Ordered
[2021-08-02] MEDS: amLODIPine Besylate 2.5 MG TABLET PO (14:59)
[2021-08-02 16:44] LABS: Glucose, Whole Blood 159 mg/dL (60-115)
[2021-08-02 20:18] LABS: Glucose, Whole Blood 169 mg/dL (60-115)
[2021-08-02] MEDS: Acetaminophen 325 MG TABLET 650 MG PO (20:33)
[2021-08-02 21:14] LABS: PTT Heparin Drip 130.2 SEC (53-77.9)
[2021-08-03] MEDS: diphenhydrAMINE HCL 25 MG TABLET PO (02:28)
[2021-08-03 04:00] VITALS: BP 158/98; PULSE 85; RESP 20; TEMP 36.7; O2SAT 96
[2021-08-03 05:39] LABS: Hematocrit 41.4 % (42.0-52.0); Hemoglobin 12.9 g/dl (14.0-18.0); Mean Corpuscular HGB Conc 31.2 g/dl (31.0-36.0); Mean Corpuscular Hemoglobin 26.7 pg (27.0-33.0); Mean Corpuscular Volume 85.5 fL (80.0-98.0); Mean Platelet Volume 9.9 fL (9.4-12.4); Platelet Count 166 X10*3/uL (160-400); Red Blood Count 4.84 X10*6/uL (4.60-5.80); Red Cell Distribution Width 15.9 % (11.0-16.0); White Blood Count 9.6 X10*3/uL (4.8-10.8)
[2021-08-03 05:54] LABS: INTERNATIONAL NORM RATIO 1.3 (0.9-1.1); Prothrombin Time 15.1 SEC (9.9-13.0)
[2021-08-03 05:56] LABS: PTT Heparin Drip 62.4 SEC (53-77.9)
[2021-08-03 07:28] VITALS: BP 124/76; PULSE 71; RESP 19; TEMP 36.7; O2SAT 95
[2021-08-03 07:34] LABS: Glucose, Whole Blood 152 mg/dL (60-115)
--- NOTE | 2021-08-03 08:48 | HO.PM.IMPN ---
Subjective Subjective Date of Service: 08/03/21 Interval History: nstemi , uncontrolled htn Physical Exam Vital Signs: Vital Signs: Last Vital Signs Temp 98.0 F 08/03/21 07:28 Pulse 71 08/03/21 07:28 Resp 19 08/03/21 07:28 BP 124/76 08/03/21 07:28 Pulse Ox 95 08/03/21 07:28 BMI result Body Mass Index 30.9 Objective Data Active Medications Acetaminophen (Acetaminophen 325 Mg Tablet) 650 mg PO Q6H PRN PRN Reason: Pain, Mild (Pain Scale 1-3) Last Admin: 08/02/21 20:33 Dose: 650 mg Documented by: PHILIPP Amlodipine Besylate (Amlodipine Besylate 2.5 Mg Tablet) 2.5 mg PO DAILY REPLACED BY [facility]; Protocol Aspirin (Aspirin Enteric Coated 81 Mg Tablet.) 81 mg PO DAILY REPLACED BY [facility] Last Admin: 08/02/21 09:11 Dose: 81 mg Documented by: BECKY Atorvastatin Calcium (Atorvastatin Calcium 80 Mg Tablet) 80 mg PO BEDTIME REPLACED BY [facility] Last Admin: 08/02/21 20:30 Dose: 80 mg Documented by: PHILIPP Docusate Sodium (Docusate Sodium 100 Mg Capsule) 100 mg PO DAILY PRN PRN Reason: Constipation Heparin Sodium (Porcine) (Heparin Sodium,Porcine 5,000 Unit/Ml Vial) 3,400 unit 40 unit/kg (3400 unit) IVPUSH PROTOCOL BOLUS PRN; Protocol PRN Reason: 40 unit/kg - Heparin Protocol Last Admin: 08/02/21 14:11 Dose: 3,400 unit Documented by: JENI Heparin Sodium (Porcine) (Heparin Sodium,Porcine 5,000 Unit/Ml Vial) 6,700 unit 80 unit/kg (6700 unit) IVPUSH PROTOCOL BOLUS PRN; Protocol PRN Reason: 80 unit/kg - Heparin Protocol Heparin Sodium/Sodium Chloride () 25,000 unit in 250 mls @ 0 mls/hr IVCONT .Q0M REPLACED BY [facility]; Protocol Last Titration: 08/03/21 06:06 Dose: 11.86 units/kg/hr, 10 mls/hr Documented by: PHILIPP Cosigned by: PIOTR Lisinopril (Lisinopril 40 Mg Tablet) 40 mg PO DAILY REPLACED BY [facility]; Protocol Last Admin: 08/02/21 09:11 Dose: 40 mg Documented by: BECKY Metoprolol Tartrate (Metoprolol Tartrate 50 Mg Tablet) 50 mg PO BID REPLACED BY [facility]; Protocol Last Admin: 08/02/21 20:30 Dose: 50 mg Documented by: PHILIPP Ondansetron HCl (Ondansetron Hcl 4 Mg/2 Ml Vial) 4 mg IVPUSH Q8H PRN PRN Reason: Nausea and Vomiting Pharmacy Consult (Consult Rx Perform Med Rec) 1 each MISCELLANE ONCE PRN PRN Reason: Consult order Sodium Chloride (0.9 % Sodium Chloride Flush 3 Ml Syringe) 3 ml IVFLUSH QSHIFT JULIAN Last Admin: 08/02/21 20:31 Dose: 3 ml Documented by: PHILIPP Labs CBC & Chem 7: 08/03/21 05:23 08/02/21 05:51 Labs: Laboratory Results - last 24 hr 08/02/21 08/02/21 08/02/21 11:30 13:04 16:32 MCV MCH MCHC RDW Plt Count MPV Absolute Nucleated RBC Nucleated RBC % (auto) PT INR aPTT Heparin Protocol 49.1 L D POC Glucose 158 H 159 H 08/02/21 08/02/21 08/02/21 20:09 20:35 22:17 MCV MCH MCHC RDW Plt Count MPV Absolute Nucleated RBC Nucleated RBC % (auto) PT INR aPTT Heparin Protocol 130.2 H* D 66.0 D POC Glucose 169 H 08/03/21 08/03/21 08/03/21 05:23 05:23 05:23 MCV 85.5 MCH 26.7 L MCHC 31.2 RDW 15.9 Plt Count 166 MPV 9.9 Absolute Nucleated RBC 0.000 Nucleated RBC % (auto) 0.0 PT 15.1 H INR 1.3 H aPTT Heparin Protocol 62.4 POC Glucose 08/03/21 07:30 MCV MCH MCHC RDW Plt Count MPV Absolute Nucleated RBC Nucleated RBC % (auto) PT INR aPTT Heparin Protocol POC Glucose 152 H Quality Stroke Does the patient have a stroke diagnosis?: No VTE Prior VTE?: No VTE Risk Level:: Medical - moderate - high VTE Device Contraindication: Treatment Not Indicated VTE Drug Contraindication: N/A - Med Ordered
[2021-08-03] MEDS: amLODIPine Besylate 2.5 MG TABLET PO (09:10)
[2021-08-03] MEDS: Metoprolol Tartrate 50 MG TABLET PO (09:11)
[2021-08-03] MEDS: lisinopriL 40 MG TABLET PO (09:11)
[2021-08-03] MEDS: Aspirin Enteric Coated 81 MG TABLET.DR PO (09:12)
--- NOTE | 2021-08-03 10:43 | PM.PNCARD ---
Subjective Subjective Date of Service: 08/03/21 Principal diagnosis: Cardiomyopathy, NSTEMI Interval history: Patient blood pressure is much improved. He is feeling better but still appears a little short of breath. Echocardiogram yesterday showed severe reduction LV systolic function to 15-20% which is a new finding for him. He denies any significant orthopnea. No chest pain. Remains on heparin drip and agree to heparin drip after explanation. Review of Systems Constitutional: Reports no additional constitutional complaints Eyes: Reports no additional eye complaints Cardiovascular: Denies chest pain, Denies leg edema, Denies lightheadedness, Denies Loss of Consciousness and Reports dyspnea on exertion Respiratory: Reports no additional respiratory complaints and Reports dyspnea on exertion Gastrointestinal: Reports no additional gastrointestinal complaints Genitourinary: Reports no additional male genitourinary complaints Musculoskeletal: Reports no additional musculoskeletal complaints Skin/Breast: Reports system reviewed and no additional complaints, except as docu Reports system reviewed and no additional complaints, except as documented Psychiatric: Reports no additional psychiatric complaints Endocrine: Reports no additional endocrine complaints Hematologic/Lymphatic: Reports no additional hematologic/lymphatic complaints Allergic/Immunologic: Reports no additional allergic/immunologic complaints Physical Exam Vital Signs: Last Vital Signs Temp 98.0 F 08/03/21 07:28 Pulse 71 08/03/21 07:28 Resp 19 08/03/21 07:28 BP 124/76 08/03/21 07:28 Pulse Ox 95 08/03/21 07:28 BMI result Body Mass Index 30.9 Const General: cooperative, comfortable and in distress mild and respiratory Nutritional Appearance: overweight Orientation/consciousness: patient oriented x3 Neck Neck: Yes trachea midline and Yes supple Resp Effort & Inspection: normal respiratory effort Auscultation: clear to auscultation bilaterally Cardio Palpation: abnormal PMI displaced PMI Rate: regular rate Rhythm: regular rhythm Heart sounds: S1 normal heart sound present, S2 normal heart sound present, no click, no gallops, no murmurs and no rubs GI Auscultation: normal bowel sounds Skin General skin exam: no rashes or lesions noted Neuro General: patient oriented x3 and no focal motor deficits Objective Labs and Meds Result diagrams: 08/03/21 05:23 08/02/21 05:51 Lab results: Laboratory Results - last 24 hr 08/02/21 08/02/21 08/02/21 11:30 13:04 16:32 WBC RBC Hgb Hct MCV MCH MCHC RDW Plt Count MPV Absolute Nucleated RBC Nucleated RBC % (auto) PT INR aPTT Heparin Protocol 49.1 L D POC Glucose 158 H 159 H 08/02/21 08/02/21 08/02/21 20:09 20:35 22:17 WBC RBC Hgb Hct MCV MCH MCHC RDW Plt Count MPV Absolute Nucleated RBC Nucleated RBC % (auto) PT INR aPTT Heparin Protocol 130.2 H* D 66.0 D POC Glucose 169 H 08/03/21 08/03/21 08/03/21 05:23 05:23 05:23 WBC 9.6 RBC 4.84 Hgb 12.9 L Hct 41.4 L MCV 85.5 MCH 26.7 L MCHC 31.2 RDW 15.9 Plt Count 166 MPV 9.9 Absolute Nucleated RBC 0.000 Nucleated RBC % (auto) 0.0 PT 15.1 H INR 1.3 H aPTT Heparin Protocol 62.4 POC Glucose 08/03/21 07:30 WBC RBC Hgb Hct MCV MCH MCHC RDW Plt Count MPV Absolute Nucleated RBC Nucleated RBC % (auto) PT INR aPTT Heparin Protocol POC Glucose 152 H Progress Note: A&P Assessment and plan (1) Cardiomyopathy: Status: Acute Assessment and Plan: Patient present with symptoms suggestive heart failure and now new onset LV systolic dysfunction. Question related to untreated hypertension for long time versus progressive coronary artery disease. I thing pass evaluation with cardiac catheterization. Discussed with him about the nature of the procedure and need for the procedure. We also discussed about risks, benefits, alternatives. He after discussion agreed for cardiac catheterization. Will arrange for transfer to [facility] for the same. Will changes medications from lisinopril to valsartan 160 mg b.i.d. with eventual plan to change to Entresto therapy. Will also add Aldactone 12.5 mg to his regimen. Continue metoprolol therapy. Will discontinue amlodipine and maximize his neurohormonal modulation. Start him on Lasix 40 mg IV push, appears clinically well short of breath most likely due to elevated filling pressures. Importance of management of his heart condition was discussed in details. Importance of compliance with medications as well as follow-up was discussed. He showed understanding. (2) NSTEMI (non-ST elevated myocardial infarction): Status: Acute Plan NSTEMI with elevated troponins most likely related to hypertensive urgency in the setting of severe LV systolic dysfunction. However progressive CAD cannot be entirely ruled out. Continue IV heparin for total of 48 hours. Continue aspirin and statins high-intensity. Target goal LDL in the long run less than 70 mg/dL. Aggressive control blood pressure is advised. Will follow up with him as outpatient after his cardiac catheterization. Thank you for allowing us to partake in his care Fall Risk Details Current Medications: Current Medications Acetaminophen (Acetaminophen 325 Mg Tablet) 650 mg PO Q6H PRN PRN Reason: Pain, Mild (Pain Scale 1-3) Last Admin: 08/02/21 20:33 Dose: 650 mg Documented by: Amlodipine Besylate (Amlodipine Besylate 2.5 Mg Tablet) 2.5 mg PO DAILY [facility]; Protocol Last Admin: 08/03/21 09:10 Dose: 2.5 mg Documented by: Aspirin (Aspirin Enteric Coated 81 Mg Tablet.) 81 mg PO DAILY [facility] Last Admin: 08/03/21 09:12 Dose: 81 mg Documented by: Atorvastatin Calcium (Atorvastatin Calcium 80 Mg Tablet) 80 mg PO BEDTIME [facility]ULIAN Last Admin: 08/02/21 20:30 Dose: 80 mg Documented by: Docusate Sodium (Docusate Sodium 100 Mg Capsule) 100 mg PO DAILY PRN PRN Reason: Constipation Furosemide (Furosemide 40 Mg/4 Ml Vial) 40 mg IVPUSH DAILY [facility]; Protocol Heparin Sodium (Porcine) (Heparin Sodium,Porcine 5,000 Unit/Ml Vial) 3,400 unit 40 unit/kg (3400 unit) IVPUSH PROTOCOL BOLUS PRN; Protocol PRN Reason: 40 unit/kg - Heparin Protocol Last Admin: 08/02/21 14:11 Dose: 3,400 unit Documented by: Heparin Sodium (Porcine) (Heparin Sodium,Porcine 5,000 Unit/Ml Vial) 6,700 unit 80 unit/kg (6700 unit) IVPUSH PROTOCOL BOLUS PRN; Protocol PRN Reason: 80 unit/kg - Heparin Protocol Heparin Sodium/Sodium Chloride () 25,000 unit in 250 mls @ 0 mls/hr IVCONT .Q0M [facility]; Protocol Last Titration: 08/03/21 06:06 Dose: 11.86 units/kg/hr, 10 mls/hr Documented by: Metoprolol Tartrate (Metoprolol Tartrate 50 Mg Tablet) 50 mg PO BID [facility]; Protocol Last Admin: 08/03/21 09:11 Dose: 50 mg Documented by: Ondansetron HCl (Ondansetron Hcl 4 Mg/2 Ml Vial) 4 mg IVPUSH Q8H PRN PRN Reason: Nausea and Vomiting Pharmacy Consult (Consult Rx Perform Med Rec) 1 each MISCELLANE ONCE PRN PRN Reason: Consult order Sodium Chloride (0.9 % Sodium Chloride Flush 3 Ml Syringe) 3 ml IVFLUSH QSHIFT [facility] Last Admin: 08/03/21 09:16 Dose: Not Given Documented by: Spironolactone (Spironolactone 25 Mg Tablet) 12.5 mg PO DAILY [facility]; Protocol Valsartan (Valsartan 160 Mg Tablet) 160 mg PO BID [facility]; Protocol Time Spent With Patient Time: Total time spent is greater than 50% in coordination of care (as documented) at patient's floor/unit and/or counseling patient: Time with patient: 25 - 35 minutes Progress Note: Quality Stroke Does the patient have a stroke diagnosis?: No Procedures Date of Service Date of Service: 08/03/21
[2021-08-03 11:06] VITALS: BP 180/70; PULSE 82; RESP 18; TEMP 36.3; O2SAT 98
--- NOTE | 2021-08-03 11:16 | PM.DS ---
DS: Providers Provider Date of Service: 08/03/21 Date of admission: 08/01/21 23:31 Primary care physician: Unknown Physician Consults: 08/01/21 23:31 Consult to Cardiology Routine Consulting Provider: Gigi Winn Reason for consultation: NSTEMI Has provider been notified: Yes DS: Diagnosis Discharge Diagnosis (1) Cardiomyopathy: Status: Acute (2) NSTEMI (non-ST elevated myocardial infarction): Status: Acute DS: Summary Hospital Course Hospital Course: 56-year-old male with past medical history of coronary artery disease w hx of NSTEMI status post stent, hypertension, diabetes type 2-? diet controlled, who presents to the hospital with complaints of not feeling well, dizziness.? Patient reports that he usually checks his blood pressure at home, he was not feeling too well checked his blood pressure and found to be elevated in the 170s over 110s,? Therefore came to the hospital.? He denies having any chest pain, no shortness of breath, no headache, no change in vision, no abdominal pain nausea or vomiting, no diarrhea constipation, no urinary symptoms and no lower extremity edema.? Patient reports compliance with his antihypertensives and he reports that he took his medication around 17:00.? On arrival to the ED patient vitals are significant for? heart rate of 92, respiratory rate of 18, blood pressure of 176/113, satting 99% on room air Labs are significant for? WBC count of 7.0, hemoglobin 12.7, hematocrit 40.3, INR of 1.3, troponin of 2037.8, repeat 1935.? COVID-19 negative.? EKG shows T-wave inversions in aVL, V6 and V5 which? were not present on previous EKG ?cardiology consult, patient was started on heparin drip and will be admitted for further management ?patient also received labetalol for blood pressure control. Hospital course: Patient was admitted for NSTEMI and uncontrolled hypertension: Started on IV heparin, metoprolol, aspirin, statin: Chest pain seems to be improved, seen by Cardiology patient is to go to [facility] for further cardiac workup including cardiac catheterization. His echo showed EF of 15-20%. Hypertension: Patient is on metoprolol and also his lisinopril is changed to valsartan: Blood pressure seems to be improved significantly, Monitor blood pressure and adjust above medications if needed. Diabetes: Patient has history of diabetes, fingersticks are running between 120-160 range but patient is not on any diabetic medication, monitor fingersticks closely, please consider checking hemoglobin A1c and may need oral hypoglycemic. Above management discussed with the patient in detail length he understand and in agreement with the above plan, time spent 50 minutes and 50% time spent on counseling. Significant findings: As above. Procedures performed: None. Treatment and response: As above. Complications: None. Time Spent with Patient Time attestation: Total time spent providing and/or coordinating discharge services: Discharge coordination time: Greater than 30 minutes Quality: Stroke Does the patient have a stroke diagnosis?: No Physical Exam Vital Signs: Vital Signs: Last Vital Signs Temp 98.0 F 08/03/21 07:28 Pulse 71 08/03/21 07:28 Resp 19 08/03/21 07:28 BP 124/76 08/03/21 07:28 Pulse Ox 95 08/03/21 07:28 BMI result Body Mass Index 30.9 Appearance: Alert.? Oriented X3.? not in distress. Eyes: Pupils equal, round and reactive to light.? Sclera nonicteric.? ENT: Pharynx normal.? Moist mucous membranes. cvs: rrr, [id number]. res: clear to auscultation ,no rhonchii or wheezing abd: no rebound or guarding ,nt, bs present. ext pulses present , no cyanosis . neuro: axo3 , nonfocal. DS: Data Data Completed and Pending Labs on day of discharge: Laboratory Results - last 24 hr 08/02/21 08/02/21 08/02/21 11:30 13:04 16:32 WBC RBC Hgb Hct MCV MCH MCHC RDW Plt Count MPV Absolute Nucleated RBC Nucleated RBC % (auto) PT INR aPTT Heparin Protocol 49.1 L D POC Glucose 158 H 159 H 08/02/21 08/02/21 08/02/21 20:09 20:35 22:17 WBC RBC Hgb Hct MCV MCH MCHC RDW Plt Count MPV Absolute Nucleated RBC Nucleated RBC % (auto) PT INR aPTT Heparin Protocol 130.2 H* D 66.0 D POC Glucose 169 H 08/03/21 08/03/21 08/03/21 05:23 05:23 05:23 WBC 9.6 RBC 4.84 Hgb 12.9 L Hct 41.4 L MCV 85.5 MCH 26.7 L MCHC 31.2 RDW 15.9 Plt Count 166 MPV 9.9 Absolute Nucleated RBC 0.000 Nucleated RBC % (auto) 0.0 PT 15.1 H INR 1.3 H aPTT Heparin Protocol 62.4 POC Glucose 08/03/21 07:30 WBC RBC Hgb Hct MCV MCH MCHC RDW Plt Count MPV Absolute Nucleated RBC Nucleated RBC % (auto) PT INR aPTT Heparin Protocol POC Glucose 152 H Additional Comments Additional comments: CT/CT head/brain wo con IMPRESSION: No evidence of acute intracranial hemorrhage or edematous territorial infarction. Nonspecific white matter disease with low density supratentorial lesions is stable. Discharge Plan Discharge Patient Disposition: Xfer Acute Care Hospital Discharge Diagnosis: nstemi,htn uncontrolled Referrals: Physician,Unknown J [Primary Care Provider] - 1 Week Discharge Medications: New atorvastatin 80 mg Tablet 80 mg PO BEDTIME Qty: 1 0RF docusate sodium 100 mg Capsule 100 mg PO DAILY PRN (Reason: Constipation) Qty: 1 0RF heparin(porcine) in 0.45% NaCl 25,000 unit/250 mL Parenteral Solution 25,000 unit continuous IV infusion .Q0M Qty: 250 0RF Rx Instructions: Continue current heparin drip rate, monitor PT PTT as per protocol. valsartan 160 mg Tablet 160 mg PO BID Qty: 1 0RF Protocol: Hold for SBP< HOLD for SBP < : 90 furosemide 10 mg/mL Solution 40 mg IVPUSH DAILY Qty: 4 0RF Protocol: Hold for SBP< HOLD for SBP < : 90 spironolactone 25 mg Tablet 12.5 mg PO DAILY Qty: 1 0RF Protocol: Hold for SBP< HOLD for SBP < : 90 Continued aspirin 81 mg tablet,delayed release (DR/EC) 81 mg PO DAILY Qty: 90 3RF metoprolol tartrate 50 mg tablet 50 mg PO BID 90 Days Qty: 180 0RF Rx Instructions: Needs cardiology follow up before more refills Discontinued lisinopril 40 mg tablet 40 mg PO DAILY Qty: 90 4RF Discharge Orders: Discharge Order (Routine); Ordered 08/03/21 Ordered By: Diana Bauer Diet: advance to usual diet and diabetic diet Activity on Discharge: As tolerated Stand Alone Forms: Patient Portal Discharge page Care Plan Goals: Patient was admitted for NSTEMI and uncontrolled hypertension: Started on IV heparin, metoprolol, aspirin, statin: Chest pain seems to be improved, seen by Cardiology patient is to go to [facility] for further cardiac workup including cardiac catheterization. His echo showed EF of 15-20%. Hypertension: Patient is on metoprolol and also his lisinopril is changed to valsartan: Blood pressure seems to be improved significantly, Monitor blood pressure and adjust above medications if needed. Diabetes: Patient has history of diabetes, fingersticks are running between 120-160 range but patient is not on any diabetic medication, moniter fs closely,please consider checking hemoglobin A1c and may need oral hypoglycemic. Above management discussed with patient in detail length he understand and in agreement to the plan. Health Concerns: As above. Plan of Treatment: As above. Assessment: As above.
[2021-08-03] MEDS: Furosemide 40 MG/4 ML VIAL IVPUSH (11:30)
[2021-08-03] MEDS: Spironolactone 25 MG TABLET 12.5 MG PO (11:30)
[2021-08-03 11:35] LABS: Glucose, Whole Blood 128 mg/dL (60-115)
[2021-08-03 12:16] LABS: PTT Heparin Drip 57.3 SEC (53-77.9)
[2021-08-03 12:30] LABS: Estimated Average Glucose 143 mg/dL; Hemoglobin A1c % 6.6 %
[2021-08-03] MEDS: Heparin Sodium,Porcine/1/2NS 25,000 UNIT/250 ML IV.SOLN 10 UNIT IVCONT (13:42)
[2021-08-03 16:00] VITALS: BP 181/113; PULSE 78; RESP 18; TEMP 36.3; O2SAT 97
[2021-08-03 16:25] LABS: Glucose, Whole Blood 180 mg/dL (60-115)
== END 2021-08-03 17:04 | disposition short-term general hospital (02) | DRG 199 ==
LOC: HO.ED 21:43 → HO.EDOVER 23:37 → HO.IMC 08-02 09:11
PROVIDERS: Admitting Provider Internal Medicine; Emergency Provider Student in an Organized Health Care Education/Training Program; PCP Internal Medicine; Visit Provider Internal Medicine
DX: I16.0 Hypertensive urgency (principal); I21.A1 Myocardial infarction type 2; E11.9 Type 2 diabetes mellitus without complications; I25.10 Atherosclerotic heart disease of native coronary artery without angina pectoris; I10 Essential (primary) hypertension; E66.9 Obesity, unspecified; Z68.30 Body mass index [BMI] 30.0-30.9, adult; I25.2 Old myocardial infarction; Z20.822 Contact with and (suspected) exposure to COVID-19; Z79.82 Long term (current) use of aspirin; Z79.84 Long term (current) use of oral hypoglycemic drugs; Z79.899 Other long term (current) drug therapy
CPT/HCPCS: 36415; 70450; 80048; 82947; 83036; 84484; 85025; 85027; 85610; 85730; 87635; 93005; 93306; 96365; 96366; 96375; 99285; J1940; Q0163

== ENCOUNTER → 2021-08-17 13:06 | Outpatient (BNVA) | payer OTHER, SELFPAY | PROVIDERS: PCP Internal Medicine; Referring Provider Internal Medicine; Visit Provider Internal Medicine | DX: I11.9 Hypertensive heart disease without heart failure (principal); I25.10 Atherosclerotic heart disease of native coronary artery without angina pectoris; I43 Cardiomyopathy in diseases classified elsewhere; E11.8 Type 2 diabetes mellitus with unspecified complications | CPT/HCPCS: 99212 ==

== ENCOUNTER → 2021-10-20 10:46 | Outpatient (BNVA) | payer OTHER, SELFPAY | PROVIDERS: PCP Internal Medicine; Referring Provider Internal Medicine; Visit Provider Internal Medicine | DX: I25.10 Atherosclerotic heart disease of native coronary artery without angina pectoris (principal); I11.9 Hypertensive heart disease without heart failure; I43 Cardiomyopathy in diseases classified elsewhere | CPT/HCPCS: 99212 ==

== ENCOUNTER → 2022-03-16 10:43 | Outpatient (REF) | payer OTHER, SELFPAY ==
--- NOTE | 2022-03-16 10:49 | CA_ITS ---
Transthoracic Echocardiogram Patient (Last, First, Middle): Micah Wallace O Gender: Male Date of : 1965 Age: 57 Procedure Date: 03/16/2022 Procedure Type: Transthoracic Echocardiogram Location: OP Height: 165.1 cm Weight: 94.35 kg BSA: 2.01 m2 Heart Rate: bpm BP: 158 / 102 mmHg [employer] Trader: RYNE Referring MD: Quique Olvera MD Symptoms: I11.9 - Hypertensive heart disease without heart failure Study Quality: Technically Difficult/contrast ECG Rhythm: Sinus Conclusions: - The left ventricular systolic function is moderately decreased. The calculated ejection fraction is 36% by biplane method. - Severely increased right ventricular cavity size. - No obvious valvular pathology seen on this study. - Mild to moderate pulmonary hypertension is present. Findings Procedure Information Contrast agent, definity, is being given per protocol without apparent complications. Left Ventricle Normal left ventricular cavity size. There is mildly increased left ventricular wall thickness. The left ventricular systolic function is moderately decreased. The calculated ejection fraction is 36% by biplane method. There is moderate global hypokinesis. E/E prime ratio is >15, consistent with elevated filling pressures. Evidence suggests grade II (moderate) diastolic dysfunction. There is moderate septal asymmetric hypertrophy. Right Ventricle Severely increased right ventricular cavity size. There is normal right ventricular systolic function. (RV basal diameter 5.76cm). Atria The left atrium is moderately dilated. The right atrium is normal in size. Aortic Valve There is mild calcification of the aortic valve. There is no aortic valve stenosis. There is no aortic valve regurgitation. Mitral Valve The mitral valve appears normal. There is mild mitral annular calcification. There is trace mitral valve regurgitation. There is no mitral valve stenosis. Pulmonic Valve There is trace pulmonic valve regurgitation. Tricuspid Valve Normal tricuspid valve structure. There is trace tricuspid valve regurgitation. Mild to moderate pulmonary hypertension is present. Great Vessels There is mild dilatation of the ascending aorta measuring 3.80 cm. Venous The inferior vena cava is normal in size and collapses greater than 50% with inspiration. Pericardium/Pleural There is no evidence of pericardial effusion. Prior Study Comparison Changes noted compared to prior study dated: 08/02/2021. Improvement in LVEF. Recommendations, Care & Conclusions No obvious valvular pathology seen on this study. Measurements 2D Linear Measurements IVSd: 1.33 0.6-0.9/0.6-1.0 cm LVIDd: 5.59 3.9-5.3/4.2-5.9 cm LVIDd Index: 2.78 2.4-3.2/2.2-3.1 cm/m2 LVIDs: 5.14 2.0-3.6 cm LVPWd: 1.08 0.7-1.1 cm LA Diam: 3.20 2.7-3.8/3.0-4.0 cm LAIDs Index: 1.59 1.5-2.3 cm/m2 LV Mass: 350.82 67-162/88-224 g LV Mass Index: 174.54 43-95/49-115 g/m2 LVOT Diam: 2.20 3.0+(-)1.3 cm 2D Systolic Function EF 4C: 37.50 >55% EF 2C: 32.70 >55% EF BiP: 35.60 >55% Mitral Valve MV Pk E: 0.77 MV PK A: 0.24 MV Decel Time: 149.00 E/A: 3.20 E'Lateral: 5.23 E'Medial: 3.43 E/E' Med: 22.50 E/E' Lat: 14.70 PHT: 44.00 MVA PHT: 5.00 Decel Mcdonald: 5.17 Aortic Valve AoV Pk Ulises: 0.93 AoV Mn Ulises: 0.72 AoV VTI: 0.20 AoV Pk Grad: 3.00 Aov Mn Grad: 2.00 BERNARDINO Cont.VTI: 3.21 LVOT LVOT Pk Ulises: 0.89 LVOT Mn Ulises: 0.56 LVOT VTI: 0.17 LVOT Pk Grad: 3.00 LVOT Mn Grad: 2.00 LVOT Diam: 2.20 LVOT Area: 3.80 Diastolic Function MV Pk E: 0.77 MV Pk A: 0.24 E/A: 3.20 E'Medial: 3.43 E/E' Med: 22.50 E' Laterial: 5.23 E/E' Lat: 14.70 Right Ventricle TAPSE (mm): 18.50 TVS' Ulises: 10.50 Tricuspid Valve TR Pk Ulises: 3.26 TR Pk Grad: 43.00 RA Press: 8.00 RVSP: 51.00 Great Vessels Aorta Sinus of Valsalva: 3.93 2.0-3.[address] Ridge: 2.91 1.7-3.4 cm Ao Asc: 3.80 2.1-3.4 cm Updated in Other Vendor System with Status of Final Quique Olvera MD electronically signed on 03/16/2022 6:01:47 PM with status of Final
== END ==
LOC: HO.CARD 10:43
PROVIDERS: Visit Provider Internal Medicine
DX: I11.9 Hypertensive heart disease without heart failure (principal)
CPT/HCPCS: 93306; Q9957

== ENCOUNTER 2022-07-10 15:06 | Inpatient (IN) | payer OTHER, SELFPAY ==
--- NOTE | ~2022-07-10 | XR_ITS ---
EXAMINATION: XR CHEST CLINICAL INFORMATION: Chest pain and shortness of breath COMPARISON: 08/19/2020 TECHNIQUE: 2 views of the chest were obtained. FINDINGS: Since the prior study, there has developed a small right pleural effusion with right basilar atelectasis and a possible more dense area of infiltrate in the right infrahilar region. There is some mild perihilar fullness and bilateral bronchial wall thickening. The left lung is clear. Heart size upper limits of normal. XR/XR chest 2V IMPRESSION: New small right pleural effusion with right basilar atelectasis and question of right lower lobe infiltrate. Findings could be related to pneumonia. Mild pulmonary vascular congestion would also be a consideration.
--- NOTE | 2022-07-10 16:17 | ED.CHESTPAIN ---
HPI - Chest Pain General Chief Complaint: Chest Pain <LALA Heller - Last Filed: 07/10/22 16:23> Stated Complaint: uncomfortable chest pain /sob <LALA Heller - Last Filed: 07/10/22 16:23> Time Seen by Provider: 07/10/22 17:22 <LALA eHller - Last Filed: 07/10/22 16:23> Source: patient <Israel El MD - Last Filed: 07/11/22 01:20> Mode of arrival: ambulatory <Israel El MD - Last Filed: 07/11/22 01:20> Limitations: no limitations <Israel El MD - Last Filed: 07/11/22 01:20> History of Present Illness HPI narrative: Patient 57 years old with known history of CAD status post drug-eluting stent of LAD in 2016, diabetes type 2, uncontrolled hypertension, chronic hyper troponinemia had cardiac catheterization in 08/16 which showed patent stent with diffuse mild disease. complaining of 2 days of chest discomfort not feeling good took his amlodipine last night and today but missed for last few days very noncompliant patient is supposed to be on amlodipine carvedilol metformin but is taking only amlodipine. According to patient is the 1st time having chest discomfort and not feeling good since last year cardiac catheterization has not seen any doctor since 10/16 patient also complaining of occasional cold sweats and shortness of breath for last few days <Israel El MD - Last Filed: 07/11/22 01:20> Related Data Home Medications: Previous Rx's Medication Instructions Recorded amlodipine 10 mg tablet 10 mg PO DAILY #90 tabs 10/20/21 aspirin 81 mg tablet,delayed 81 mg PO DAILY #90 tabs 03/07/22 release <LALA Heller - Last Filed: 07/10/22 16:23> Allergies/Adverse Reactions: Allergies Allergy/AdvReac Type Severity Reaction Status Date / Time No Known Allergies Allergy Verified 07/10/22 16:22 [No Known Allergies*] <LALA Heller - Last Filed: 07/10/22 16:23> Review of Systems Review of Systems: Yes all other systems are reviewed and are negative <Israel El MD - Last Filed: 07/11/22 01:20> [facility] Past Medical History Medical History: Medical History Atherosclerotic cardiovascular disease Coronary artery disease Essential hypertension <LALA Heller - Last Filed: 07/10/22 16:23> Surgical History: Surgical History History of cardiac catheterization (~07/2020) <LALA Heller - Last Filed: 07/10/22 16:23> Family History Family History: Family History Father No problems noted. Mother No problems noted. <LALA Heller - Last Filed: 07/10/22 16:23> Social History Social History: Social History Household Members: Spouse and Other Housing: House Do you presently have visiting nurse or other home services: No Alcohol intake: never Patient Tobacco Use Status: Never used Tobacco Smoked in Last 30 Days: No Use of substances other than those prescribed or required for medical reasons: Yes Substance Use Type: Marijuana Advance Directives: No Advance Directives Information Provided: No service: No Current occupational status: unemployed <LALA Heller - Last Filed: 07/10/22 16:23> Physical Exam Vital Signs: Vital Signs: Last Vital Signs Temp 98.1 F 07/10/22 19:19 Pulse 62 07/11/22 00:11 Resp 20 07/11/22 00:11 BP 126/78 07/11/22 00:11 Pulse Ox 97 07/11/22 00:11 O2 Del Method 07/11/22 00:11 BMI result Body Mass Index 35.6 <LALA Heller - Last Filed: 07/10/22 16:23> Vital Signs: Last Vital Signs Temp 98.1 F 07/10/22 19:19 Pulse 62 07/11/22 00:11 Resp 20 07/11/22 00:11 BP 126/78 07/11/22 00:11 Pulse Ox 97 07/11/22 00:11 O2 Del Method 07/11/22 00:11 BMI result Body Mass Index 35.6 <Israel El MD - Last Filed: 07/11/22 01:20> Appearance: Alert. Oriented X3. No acute distress. Eyes: PERRLA, No Nystagmus dysconjugate vision ENT: Pharynx normal. Oral Mucosa moist Neck: Normal inspection. Neck supple. CVS: Normal heart rate and rhythm. Pulses normal. Respiratory: No respiratory distress. Equal air entry bilateral, no wheezing/rales/rhonchi Abdomen: Soft and nontender. Bowel sounds are present, no mass palpable, no CVA tenderness Skin: Skin warm and dry. Normal skin color. Normal skin turgor. Extremities: No lower extremity edema. No calf tenderness Neuro: Oriented X 3. No motor deficit. No sensory deficit.No cerebellar signs , cranial nerves II-XII intact <Israel lE MD - Last Filed: 07/11/22 01:20> Course Course Course Narrative: RME - 57 yo male with history of biventricular cardiomyopathy (EF 36% in ), pulmonary HTN, HTN, CAD s/p stent who presents to the ER for evaluation of intermittent, nonradiating left sided chest discomfort for the last 2 or 3 days. It is associated with SOB, generalized weakness and fatigue. EKG, CXR, labs and viral studies ordered for further evaluation. <LALA Heller - Last Filed: 07/10/22 16:23> Medications Administered Generic Name Dose Route Start Last Admin Trade Name Freq PRN Reason Stop Dose Admin Atorvastatin Calcium 80 mg 07/10/22 21:00 07/10/22 22:04 Atorvastatin Calcium 80 Mg Tablet PO 80 mg BEDTIME JULIAN Administration Heparin Sodium/Sodium Chloride 25,000 unit in 250 mls @ 0 mls/hr 07/10/22 19:45 07/10/22 20:30 Heparin Sodium,Porcine/1/2ns IVCONT 10.31 units/kg/hr .Q0M JULIAN 10 mls/hr Administration Protocol Per Protocol Insulin Human Lispro 0 unit 07/10/22 21:00 07/10/22 22:04 Insulin Lispro 100 Unit/Ml 3 Ml Vial SUBCUT 2 unit QIDACHS JULIAN Administration Protocol Sodium Chloride 3 ml 07/11/22 00:00 07/11/22 00:13 0.9 % Sodium Chloride Flush 3 Ml Syringe IVFLUSH 3 ml QSHIFT [facility] Administration Discontinued Medications Generic Name Dose Route Start Last Admin Trade Name William PRN Reason Stop Dose Admin Aspirin 325 mg 07/10/22 19:50 07/10/22 20:11 Aspirin 325 Mg Tablet PO 07/10/22 19:51 325 mg ONCE ONE Administration Carvedilol 25 mg 07/10/22 17:47 07/10/22 17:59 Carvedilol 25 Mg Tablet PO 07/10/22 17:48 25 mg ONCE ONE Administration Protocol Furosemide 20 mg 07/10/22 19:10 07/10/22 19:27 Furosemide 20 Mg/2 Ml Vial IVPUSH 07/10/22 19:11 20 mg ONCE ONE Administration Protocol Heparin Sodium (Porcine) 5,000 unit 07/10/22 19:28 07/10/22 20:00 Heparin Sodium,Porcine 5,000 Unit/Ml Vial IVPUSH 07/10/22 19:29 5,000 unit ONCE ONE Administration Metoprolol Tartrate 5 mg 07/10/22 17:30 07/10/22 17:44 Metoprolol Tartrate 5 Mg/5 Ml Vial IVPUSH 07/10/22 17:31 5 mg ONCE ONE Administration Nitroglycerin 0.5 inch 07/10/22 19:11 07/10/22 19:27 Nitroglycerin 2 % Oint 1 Gm Packet TRANSDERMA 07/10/22 19:12 0.5 inch ONCE ONE Administration Valsartan 160 mg 07/10/22 17:47 07/10/22 18:09 Valsartan 160 Mg Tablet PO 07/10/22 17:48 160 mg ONCE ONE Administration Protocol <LALA Heller - Last Filed: 07/10/22 16:23> Medications Administered Generic Name Dose Route Start Last Admin Trade Name William PRN Reason Stop Dose Admin Atorvastatin Calcium 80 mg 07/10/22 21:00 07/10/22 22:04 Atorvastatin Calcium 80 Mg Tablet PO 80 mg BEDTIME [facility] Administration Heparin Sodium/Sodium Chloride 25,000 unit in 250 mls @ 0 mls/hr 07/10/22 19:45 07/10/22 20:30 Heparin Sodium,Porcine/1/2ns IVCONT 10.31 units/kg/hr .Q0M [facility] 10 mls/hr Administration Protocol Per Protocol Insulin Human Lispro 0 unit 07/10/22 21:00 07/10/22 22:04 Insulin Lispro 100 Unit/Ml 3 Ml Vial SUBCUT 2 unit QIDACHS [facility] Administration Protocol Sodium Chloride 3 ml 07/11/22 00:00 07/11/22 00:13 0.9 % Sodium Chloride Flush 3 Ml Syringe IVFLUSH 3 ml QSHIFT [facility] Administration Discontinued Medications Generic Name Dose Route Start Last Admin Trade Name William PRN Reason Stop Dose Admin Aspirin 325 mg 07/10/22 19:50 07/10/22 20:11 Aspirin 325 Mg Tablet PO 07/10/22 19:51 325 mg ONCE ONE Administration Carvedilol 25 mg 07/10/22 17:47 07/10/22 17:59 Carvedilol 25 Mg Tablet PO 07/10/22 17:48 25 mg ONCE ONE Administration Protocol Furosemide 20 mg 07/10/22 19:10 07/10/22 19:27 Furosemide 20 Mg/2 Ml Vial IVPUSH 07/10/22 19:11 20 mg ONCE ONE Administration Protocol Heparin Sodium (Porcine) 5,000 unit 07/10/22 19:28 07/10/22 20:00 Heparin Sodium,Porcine 5,000 Unit/Ml Vial IVPUSH 07/10/22 19:29 5,000 unit ONCE ONE Administration Metoprolol Tartrate 5 mg 07/10/22 17:30 07/10/22 17:44 Metoprolol Tartrate 5 Mg/5 Ml Vial IVPUSH 07/10/22 17:31 5 mg ONCE ONE Administration Nitroglycerin 0.5 inch 07/10/22 19:11 07/10/22 19:27 Nitroglycerin 2 % Oint 1 Gm Packet TRANSDERMA 07/10/22 19:12 0.5 inch ONCE ONE Administration Valsartan 160 mg 07/10/22 17:47 07/10/22 18:09 Valsartan 160 Mg Tablet PO 07/10/22 17:48 160 mg ONCE ONE Administration Protocol <Israel El MD - Last Filed: 07/11/22 01:20> Medical Decision Making Medical Decision Making MDM Narrative: patient with uncontrolled hypertension with chest pain without any ischemic EKG changes similar to that in the past last year when patient went cardiac catheterization which was negative. Because of high risk and patient noncompliant with the medication will start patient on heparin drip to rule out ACS elevated troponin likely from hypertensive cardiomyopathy patient's CPK is normal at this time patient does not have any chest pain. Will admit patient for further evaluation <Israel El MD - Last Filed: 07/11/22 01:20> Differential Diagnosis ACS /CHF/ bronchitis/ pneumonia/ <Israel El MD - Last Filed: 07/11/22 01:20> Consult Healthcare Provider Management of the patient was discussed with: Hospitalist <Israel El MD - Last Filed: 07/11/22 01:20> Lab Data MDM Lab Attestation statement: I reviewed the patient's lab results. <Israel El MD - Last Filed: 07/11/22 01:20> Result Diagrams: 07/10/22 16:35 07/10/22 16:35 <LALA Heller - Last Filed: 07/10/22 16:23> Labs: Lab Results 07/10/22 07/10/22 07/10/22 Range/Units 16:35 16:35 16:35 WBC 8.6 (4.8-10.8) X10*3/uL RBC 5.05 (4.60-5.80) X10*6/uL Hgb 13.5 L (14.0-18.0) g/dl Hct 43.0 (42.0-52.0) % MCV 85.1 (80.0-98.0) fL MCH 26.7 L (27.0-33.0) pg MCHC 31.4 (31.0-36.0) g/dl RDW 15.8 (11.0-16.0) % Plt Count 213 D (160-400) X10*3/uL MPV 9.8 (9.4-12.4) fL Immature Gran % (Auto) 0.4 (0.0-0.4) % Neut % (Auto) 65.0 (45-73) % Lymph % (Auto) 27.7 (20-40) % [place] % (Auto) 4.0 (2-11) % Eos % (Auto) 2.1 (0-4) % Baso % (Auto) 0.8 (0-2) % Lymph # (Auto) 2.4 (1.2-4.9) X10*3/uL [place] # (Auto) 0.3 (0.1-1.2) X10*3/uL Eos # (Auto) 0.2 (0.0-0.4) X10*3/uL Baso # (Auto) 0.1 (0.0-0.2) X10*3/uL Abs Immat Gran (auto) 0.03 (0.00-0.03) X10*3/uL Absolute Neuts (auto) 5.6 (2.0-8.3) x10*3/uL Absolute Nucleated RBC 0.000 (0.0-0.012) X10*3/uL Nucleated RBC % (auto) 0.0 (0.0-0.2) /100WBC PT 17.1 H (10.0-13.1) SEC INR 1.5 H (0.9-1.1) APTT 29.3 (26.0-36.4) SEC Sodium 137 (135-145) mmol/L Potassium 4.2 (3.3-5.1) mmol/L Chloride 105 (96-108) mmol/L Carbon Dioxide 23 (22-29) mmol/L Anion Gap 13 (12-20) BUN 16 (9-16) mg/dL Creatinine 0.94 (0.5-1.4) mg/dL Estim Creat Clear Calc 88.6 Estimated GFR > 60 Random Glucose 173 H (60-115) mg/dL Calcium 9.2 (8.4-10.2) mg/dL Magnesium 1.8 (1.6-2.6) mg/dL Total Bilirubin 1.1 H (0.0-1.0) mg/dL Direct Bilirubin 0.4 (0.0-0.5) mg/dL AST 23 (5-37) U/L ALT 21 (0-40) U/L Alkaline Phosphatase 64 (39-117) U/L Total Creatine Kinase 101 (38-174) U/L Troponin I High Sens (<3.5-35.0) ng/L B-Natriuretic Peptide (<100) pg/mL Total Protein 6.5 (6.5-8.0) g/dL Albumin 3.7 (3.5-5.0) g/dL COVID-19 ([facility]) (Negative) COVID-19 Clin Com Influenza Type A ([facility]) (Negative) Influenza Type B ([facility]) (Negative) Influenza A & B Note 07/10/22 07/10/22 07/10/22 Range/Units 16:35 16:35 16:35 WBC (4.8-10.8) X10*3/uL RBC (4.60-5.80) X10*6/uL Hgb (14.0-18.0) g/dl Hct (42.0-52.0) % MCV (80.0-98.0) fL MCH (27.0-33.0) pg MCHC (31.0-36.0) g/dl RDW (11.0-16.0) % Plt Count (160-400) X10*3/uL MPV (9.4-12.4) fL Immature Gran % (Auto) (0.0-0.4) % Neut % (Auto) (45-73) % Lymph % (Auto) (20-40) % [place] % (Auto) (2-11) % Eos % (Auto) (0-4) % Baso % (Auto) (0-2) % Lymph # (Auto) (1.2-4.9) X10*3/uL [place] # (Auto) (0.1-1.2) X10*3/uL Eos # (Auto) (0.0-0.4) X10*3/uL Baso # (Auto) (0.0-0.2) X10*3/uL Abs Immat Gran (auto) (0.00-0.03) X10*3/uL Absolute Neuts (auto) (2.0-8.3) x10*3/uL Absolute Nucleated RBC (0.0-0.012) X10*3/uL Nucleated RBC % (auto) (0.0-0.2) /100WBC PT (10.0-13.1) SEC INR (0.9-1.1) APTT (26.0-36.4) SEC Sodium (135-145) mmol/L Potassium (3.3-5.1) mmol/L Chloride (96-108) mmol/L Carbon Dioxide (22-29) mmol/L Anion Gap (12-20) BUN (9-16) mg/dL Creatinine (0.5-1.4) mg/dL Estim Creat Clear Calc Estimated GFR Random Glucose (60-115) mg/dL Calcium (8.4-10.2) mg/dL Magnesium (1.6-2.6) mg/dL Total Bilirubin (0.0-1.0) mg/dL Direct Bilirubin (0.0-0.5) mg/dL AST (5-37) U/L ALT (0-40) U/L Alkaline Phosphatase (39-117) U/L Total Creatine Kinase (38-174) U/L Troponin I High Sens 1128.5 H* (<3.5-35.0) ng/L B-Natriuretic Peptide 1709 H (<100) pg/mL Total Protein (6.5-8.0) g/dL Albumin (3.5-5.0) g/dL COVID-19 ([facility]) (Negative) COVID-19 Clin Com Influenza Type A ([facility]) Negative (Negative) Influenza Type B ([facility]) Negative (Negative) Influenza A & B Note See Note 07/10/22 07/10/22 Range/Units 16:35 18:14 WBC (4.8-10.8) X10*3/uL RBC (4.60-5.80) X10*6/uL Hgb (14.0-18.0) g/dl Hct (42.0-52.0) % MCV (80.0-98.0) fL MCH (27.0-33.0) pg MCHC (31.0-36.0) g/dl RDW (11.0-16.0) % Plt Count (160-400) X10*3/uL MPV (9.4-12.4) fL Immature Gran % (Auto) (0.0-0.4) % Neut % (Auto) (45-73) % Lymph % (Auto) (20-40) % [place] % (Auto) (2-11) % Eos % (Auto) (0-4) % Baso % (Auto) (0-2) % Lymph # (Auto) (1.2-4.9) X10*3/uL [place] # (Auto) (0.1-1.2) X10*3/uL Eos # (Auto) (0.0-0.4) X10*3/uL Baso # (Auto) (0.0-0.2) X10*3/uL Abs Immat Gran (auto) (0.00-0.03) X10*3/uL Absolute Neuts (auto) (2.0-8.3) x10*3/uL Absolute Nucleated RBC (0.0-0.012) X10*3/uL Nucleated RBC % (auto) (0.0-0.2) /100WBC PT (10.0-13.1) SEC INR (0.9-1.1) APTT (26.0-36.4) SEC Sodium (135-145) mmol/L Potassium (3.3-5.1) mmol/L Chloride (96-108) mmol/L Carbon Dioxide (22-29) mmol/L Anion Gap (12-20) BUN (9-16) mg/dL Creatinine (0.5-1.4) mg/dL Estim Creat Clear Calc Estimated GFR Random Glucose (60-115) mg/dL Calcium (8.4-10.2) mg/dL Magnesium (1.6-2.6) mg/dL Total Bilirubin (0.0-1.0) mg/dL Direct Bilirubin (0.0-0.5) mg/dL AST (5-37) U/L ALT (0-40) U/L Alkaline Phosphatase (39-117) U/L Total Creatine Kinase (38-174) U/L Troponin I High Sens 1153.7 H* (<3.5-35.0) ng/L B-Natriuretic Peptide (<100) pg/mL Total Protein (6.5-8.0) g/dL Albumin (3.5-5.0) g/dL COVID-19 ([facility]) Negative (Negative) COVID-19 Clin Com See Note Influenza Type A ([facility]) (Negative) Influenza Type B ([facility]) (Negative) Influenza A & B Note <LALA Heller - Last Filed: 07/10/22 16:23> Lab Results 07/10/22 07/10/22 07/10/22 Range/Units 16:35 16:35 16:35 WBC 8.6 (4.8-10.8) X10*3/uL RBC 5.05 (4.60-5.80) X10*6/uL Hgb 13.5 L (14.0-18.0) g/dl Hct 43.0 (42.0-52.0) % MCV 85.1 (80.0-98.0) fL MCH 26.7 L (27.0-33.0) pg MCHC 31.4 (31.0-36.0) g/dl RDW 15.8 (11.0-16.0) % Plt Count 213 D (160-400) X10*3/uL MPV 9.8 (9.4-12.4) fL Immature Gran % (Auto) 0.4 (0.0-0.4) % Neut % (Auto) 65.0 (45-73) % Lymph % (Auto) 27.7 (20-40) % [place] % (Auto) 4.0 (2-11) % Eos % (Auto) 2.1 (0-4) % Baso % (Auto) 0.8 (0-2) % Lymph # (Auto) 2.4 (1.2-4.9) X10*3/uL [place] # (Auto) 0.3 (0.1-1.2) X10*3/uL Eos # (Auto) 0.2 (0.0-0.4) X10*3/uL Baso # (Auto) 0.1 (0.0-0.2) X10*3/uL Abs Immat Gran (auto) 0.03 (0.00-0.03) X10*3/uL Absolute Neuts (auto) 5.6 (2.0-8.3) x10*3/uL Absolute Nucleated RBC 0.000 (0.0-0.012) X10*3/uL Nucleated RBC % (auto) 0.0 (0.0-0.2) /100WBC PT 17.1 H (10.0-13.1) SEC INR 1.5 H (0.9-1.1) APTT 29.3 (26.0-36.4) SEC Sodium 137 (135-145) mmol/L Potassium 4.2 (3.3-5.1) mmol/L Chloride 105 (96-108) mmol/L Carbon Dioxide 23 (22-29) mmol/L Anion Gap 13 (12-20) BUN 16 (9-16) mg/dL Creatinine 0.94 (0.5-1.4) mg/dL Estim Creat Clear Calc 88.6 Estimated GFR > 60 Random Glucose 173 H (60-115) mg/dL Calcium 9.2 (8.4-10.2) mg/dL Magnesium 1.8 (1.6-2.6) mg/dL Total Bilirubin 1.1 H (0.0-1.0) mg/dL Direct Bilirubin 0.4 (0.0-0.5) mg/dL AST 23 (5-37) U/L ALT 21 (0-40) U/L Alkaline Phosphatase 64 (39-117) U/L Total Creatine Kinase 101 (38-174) U/L Troponin I High Sens (<3.5-35.0) ng/L B-Natriuretic Peptide (<100) pg/mL Total Protein 6.5 (6.5-8.0) g/dL Albumin 3.7 (3.5-5.0) g/dL COVID-19 ([facility]) (Negative) COVID-19 Clin Com Influenza Type A ([facility]) (Negative) Influenza Type B ([facility]) (Negative) Influenza A & B Note 07/10/22 07/10/22 07/10/22 Range/Units 16:35 16:35 16:35 WBC (4.8-10.8) X10*3/uL RBC (4.60-5.80) X10*6/uL Hgb (14.0-18.0) g/dl Hct (42.0-52.0) % MCV (80.0-98.0) fL MCH (27.0-33.0) pg MCHC (31.0-36.0) g/dl RDW (11.0-16.0) % Plt Count (160-400) X10*3/uL MPV (9.4-12.4) fL Immature Gran % (Auto) (0.0-0.4) % Neut % (Auto) (45-73) % Lymph % (Auto) (20-40) % [place] % (Auto) (2-11) % Eos % (Auto) (0-4) % Baso % (Auto) (0-2) % Lymph # (Auto) (1.2-4.9) X10*3/uL [place] # (Auto) (0.1-1.2) X10*3/uL Eos # (Auto) (0.0-0.4) X10*3/uL Baso # (Auto) (0.0-0.2) X10*3/uL Abs Immat Gran (auto) (0.00-0.03) X10*3/uL Absolute Neuts (auto) (2.0-8.3) x10*3/uL Absolute Nucleated RBC (0.0-0.012) X10*3/uL Nucleated RBC % (auto) (0.0-0.2) /100WBC PT (10.0-13.1) SEC INR (0.9-1.1) APTT (26.0-36.4) SEC Sodium (135-145) mmol/L Potassium (3.3-5.1) mmol/L Chloride (96-108) mmol/L Carbon Dioxide (22-29) mmol/L Anion Gap (12-20) BUN (9-16) mg/dL Creatinine (0.5-1.4) mg/dL Estim Creat Clear Calc Estimated GFR Random Glucose (60-115) mg/dL Calcium (8.4-10.2) mg/dL Magnesium (1.6-2.6) mg/dL Total Bilirubin (0.0-1.0) mg/dL Direct Bilirubin (0.0-0.5) mg/dL AST (5-37) U/L ALT (0-40) U/L Alkaline Phosphatase (39-117) U/L Total Creatine Kinase (38-174) U/L Troponin I High Sens 1128.5 H* (<3.5-35.0) ng/L B-Natriuretic Peptide 1709 H (<100) pg/mL Total Protein (6.5-8.0) g/dL Albumin (3.5-5.0) g/dL COVID-19 ([facility]) (Negative) COVID-19 Clin Com Influenza Type A ([facility]) Negative (Negative) Influenza Type B ([facility]) Negative (Negative) Influenza A & B Note See Note 07/10/22 07/10/22 Range/Units 16:35 18:14 WBC (4.8-10.8) X10*3/uL RBC (4.60-5.80) X10*6/uL Hgb (14.0-18.0) g/dl Hct (42.0-52.0) % MCV (80.0-98.0) fL MCH (27.0-33.0) pg MCHC (31.0-36.0) g/dl RDW (11.0-16.0) % Plt Count (160-400) X10*3/uL MPV (9.4-12.4) fL Immature Gran % (Auto) (0.0-0.4) % Neut % (Auto) (45-73) % Lymph % (Auto) (20-40) % [place] % (Auto) (2-11) % Eos % (Auto) (0-4) % Baso % (Auto) (0-2) % Lymph # (Auto) (1.2-4.9) X10*3/uL [place] # (Auto) (0.1-1.2) X10*3/uL Eos # (Auto) (0.0-0.4) X10*3/uL Baso # (Auto) (0.0-0.2) X10*3/uL Abs Immat Gran (auto) (0.00-0.03) X10*3/uL Absolute Neuts (auto) (2.0-8.3) x10*3/uL Absolute Nucleated RBC (0.0-0.012) X10*3/uL Nucleated RBC % (auto) (0.0-0.2) /100WBC PT (10.0-13.1) SEC INR (0.9-1.1) APTT (26.0-36.4) SEC Sodium (135-145) mmol/L Potassium (3.3-5.1) mmol/L Chloride (96-108) mmol/L Carbon Dioxide (22-29) mmol/L Anion Gap (12-20) BUN (9-16) mg/dL Creatinine (0.5-1.4) mg/dL Estim Creat Clear Calc Estimated GFR Random Glucose (60-115) mg/dL Calcium (8.4-10.2) mg/dL Magnesium (1.6-2.6) mg/dL Total Bilirubin (0.0-1.0) mg/dL Direct Bilirubin (0.0-0.5) mg/dL AST (5-37) U/L ALT (0-40) U/L Alkaline Phosphatase (39-117) U/L Total Creatine Kinase (38-174) U/L Troponin I High Sens 1153.7 H* (<3.5-35.0) ng/L B-Natriuretic Peptide (<100) pg/mL Total Protein (6.5-8.0) g/dL Albumin (3.5-5.0) g/dL COVID-19 ([facility]) Negative (Negative) COVID-19 Clin Com See Note Influenza Type A ([facility]) (Negative) Influenza Type B ([facility]) (Negative) Influenza A & B Note <Israel El MD - Last Filed: 07/11/22 01:20> Independent Interpretation I performed an independent interpretation of an: EKG <Israel El MD - Last Filed: 07/11/22 01:20> Interpretation: number sinus rhythm heart rate 88 beats per minute LVH inverted T-waves in lateral leads similar to that in the past 08/16 no acute ischemia <Israel El MD - Last Filed: 07/11/22 01:20> Critical Care Time Critical Care Time Critical Care Time: Yes <Israel El MD - Last Filed: 07/11/22 01:20> Total Critical Care Time: 55 <Israel El MD - Last Filed: 07/11/22 01:20> Attestation: The patient was critically ill with a high probability of imminent or life threatening deterioration. I spent greater than 60 minutes of discontinuous time evaluating the patient,delivering critical care at the bedside, discussing and evaluating pertinent data with consultants. Critical care time does not include time spent performing separately billable procedures or teaching. Total time spent performing critical care was 55 minutes. <Israel El MD - Last Filed: 07/11/22 01:20> Discharge Plan Discharge Clinical Impression: NSTEMI (non-ST elevated myocardial infarction), Hypertensive cardiomyopathy, Hypertension, uncontrolled <LALA Heller - Last Filed: 07/10/22 16:23> Patient Disposition: Admitted As Inpatient <LALA Heller - Last Filed: 07/10/22 16:23>
[2022-07-10 16:18] VITALS: BP 167/111; PULSE 85; RESP 18; TEMP 36.6; O2SAT 94; BMI 33.3
--- NOTE | 2022-07-10 16:21 | ECG_ITS ---
Test Reason : chest pain Blood Pressure : / mmHG Vent. Rate : 088 BPM Atrial Rate : 088 BPM P-R Int : 156 ms QRS Dur : 086 ms QT Int : 368 ms P-R-T Axes : 066 015 137 degrees QTc Int : 445 ms Normal sinus rhythm Possible Left atrial enlargement Minimal voltage criteria for LVH, may be normal variant ( [place] product ) T wave abnormality, consider lateral ischemia Abnormal ECG When compared with ECG of 01-AUG-2021 19:39, No significant change was found Referred By: Tamanna Jaurez Electronically Signed By:Aguila Worthington
[2022-07-10 16:44] LABS: MANUAL DIFF FLAG NO
[2022-07-10 16:46] LABS: Basophils Absolute Auto 0.1 X10*3/uL (0.0-0.2); Basophils Percent Auto 0.8 % (0-2); Eosinophils Absolute Auto 0.2 X10*3/uL (0.0-0.4); Eosinophils Percent Auto 2.1 % (0-4); Hemoglobin 13.5 g/dl (14.0-18.0); Imm Gran Abs Auto 0.03 X10*3/uL (0.00-0.03); Imm Gran Pct Auto 0.4 % (0.0-0.4); Lymphocytes Absolute Auto 2.4 X10*3/uL (1.2-4.9); Lymphocytes Percent Auto 27.7 % (20-40); Mean Corpuscular HGB Conc 31.4 g/dl (31.0-36.0); Mean Corpuscular Hemoglobin 26.7 pg (27.0-33.0); Mean Corpuscular Volume 85.1 fL (80.0-98.0); Mean Platelet Volume 9.8 fL (9.4-12.4); Monocytes Absolute Auto 0.3 X10*3/uL (0.1-1.2); Neutrophils Absolute Auto 5.6 x10*3/uL (2.0-8.3); Platelet Count 213 X10*3/uL (160-400); Red Blood Count 5.05 X10*6/uL (4.60-5.80); Red Cell Distribution Width 15.8 % (11.0-16.0); White Blood Count 8.6 X10*3/uL (4.8-10.8)
[2022-07-10 16:52] LABS: INTERNATIONAL NORM RATIO 1.5 (0.9-1.1); Prothrombin Time 17.1 SEC (10.0-13.1)
[2022-07-10 16:55] LABS: Partial Thromboplastin Time 29.3 SEC (26.0-36.4)
[2022-07-10 17:01] LABS: Alanine Aminotransferase 21 U/L (0-40); Albumin Level 3.7 g/dL (3.5-5.0); Alkaline Phosphatase 64 U/L (39-117); Anion Gap 13 (12-20); Aspartate Amino Transferase 23 U/L (5-37); Bilirubin Direct 0.4 mg/dL (0.0-0.5); Bilirubin Total 1.1 mg/dL (0.0-1.0); Blood Urea Nitrogen 16 mg/dL (9-16); Calcium 9.2 mg/dL (8.4-10.2); Carbon Dioxide 23 mmol/L (22-29); Chloride 105 mmol/L (96-108); Creatinine Clr Calc Pharmacy 88.6; Estimated Glomerular Filt Rate > 60; Glucose Random 173 mg/dL (60-115); Magnesium 1.8 mg/dL (1.6-2.6); Potassium 4.2 mmol/L (3.3-5.1); Sodium 137 mmol/L (135-145); Total Protein 6.5 g/dL (6.5-8.0)
[2022-07-10 17:05] LABS: B Type Natriuretic Peptide 1709 pg/mL (<100)
[2022-07-10 17:10] LABS: COVID-19 Test Negative (Negative); IDNOW Serial# 08D9AD1C; Influenza A Negative (Negative); Influenza B2 Negative (Negative)
[2022-07-10 17:22] LABS: Troponin-I High Sensitivity 1128.5 ng/L (<3.5-35.0)
--- NOTE | 2022-07-10 17:26 | PC.NURSE ---
18G IV placed in pts RAC
[2022-07-10 17:28] VITALS: BP 167/106; PULSE 83; RESP 20; O2SAT 96
[2022-07-10] MEDS: Metoprolol Tartrate 5 MG/5 ML VIAL IVPUSH (17:44)
[2022-07-10] MEDS: carvediloL 25 MG TABLET PO (17:59)
[2022-07-10 18:01] VITALS: BP 142/98; PULSE 68; RESP 12; O2SAT 97
--- NOTE | 2022-07-10 18:03 | PC.NURSE ---
called pharmacy for Valsartan not available in pyxis
[2022-07-10] MEDS: Valsartan 160 MG TABLET PO (18:09)
[2022-07-10 18:16] VITALS: BP 140/99; PULSE 69; RESP 18; TEMP 36.3; O2SAT 97
[2022-07-10 18:44] LABS: Troponin-I High Sensitivity 1153.7 ng/L (<3.5-35.0)
[2022-07-10 19:19] VITALS: BP 135/84; PULSE 74; RESP 20; TEMP 36.7; O2SAT 94
[2022-07-10] MEDS: Nitroglycerin 2 % Oint 1 GM Packet 0.5 INCH TRANSDERMA (19:27)
[2022-07-10] MEDS: Furosemide 20 MG/2 ML VIAL IVPUSH (19:27)
[2022-07-10 19:40] VITALS: BMI 35.6
--- NOTE | 2022-07-10 19:50 | P.HPHOSP_ITS ---
History of Present Illness Date of Service: 07/10/22 Chief Complaint: Chest Pain This is a 57-year-old male with pertinent history of coronary artery disease status post stent in 2016, essential hypertension, uqm-dvrupiw-aibtpaaxg diabetes mellitus presents to the emergency department for evaluation of chest chest discomfort and dyspnea. Patient states he feels ill overall. Complaints of substernal chest discomfort that has been ongoing for the last 2 days, no exacerbating or relieving factors. Also has associated dyspnea worse with exertion. Positive for orthopnea. No PND. He denies fever, chills, cough. States he has been noncompliant with his medications and he last saw a doctor more than a year ago. Patient denies palpitations, abdominal pain, nausea, vomiting, changes in urinary or bowel habits. In the emergency department, troponin was found to be elevated. Also had elevated blood pressure upon arrival Review of Systems Constitutional: Constitutional: Reports lethargy and Reports malaise Cardiovascular: Cardiovascular: Reports chest pain, Reports chest pain with activity, Reports dyspnea on exertion and Reports orthopnea Respiratory: Respiratory: Reports dyspnea on exertion Gastrointestinal: Gastrointestinal: Reports no additional gastrointestinal complaints Genitourinary: Genitourinary: Reports no additional male genitourinary complaints [facility] Medical History Atherosclerotic cardiovascular disease Coronary artery disease Essential hypertension Family History Father No problems noted. Mother No problems noted. Surgical History History of cardiac catheterization (~07/2020) Social History Household Members: Spouse and Other Housing: House Do you presently have visiting nurse or other home services: No Alcohol intake: never Patient Tobacco Use Status: Never used Tobacco Smoked in Last 30 Days: No Use of substances other than those prescribed or required for medical reasons: Yes Substance Use Type: Marijuana Advance Directives: No Advance Directives Information Provided: No service: No Current occupational status: unemployed Meds Allergies Allergy/AdvReac Type Severity Reaction Status Date / Time No Known Allergies Allergy Verified 07/10/22 16:22 [No Known Allergies*] Active Medications: Current Medications Heparin Sodium (Porcine) (Heparin Sodium,Porcine 5,000 Unit/Ml Vial) 3,900 unit 40 unit/kg (3900 unit) IVPUSH PROTOCOL BOLUS PRN; Protocol PRN Reason: 40 unit/kg - Heparin Protocol Heparin Sodium (Porcine) (Heparin Sodium,Porcine 5,000 Unit/Ml Vial) 7,800 unit 80 unit/kg (7800 unit) IVPUSH PROTOCOL BOLUS PRN; Protocol PRN Reason: 80 unit/kg - Heparin Protocol Heparin Sodium/Sodium Chloride (Heparin Sodium,Porcine/1/2ns) 25,000 unit in 250 mls @ 0 mls/hr IVCONT .Q0M JULIAN; Protocol Pharmacy Consult (Consult Rx Perform Med Rec) 1 each MISCELLANE ONCE PRN PRN Reason: Consult order Physical Exam Vital Signs and Narrative: Vital Signs: Last Vital Signs Temp 98.1 F 07/10/22 19:19 Pulse 74 07/10/22 19:19 Resp 20 07/10/22 19:19 BP 135/84 07/10/22 19:19 Pulse Ox 94 07/10/22 19:19 O2 Del Method 07/10/22 19:19 BMI result Body Mass Index 35.6 Middle-aged male lying in bed in no distress Neck supple, no JVD Regular rate and rhythm, S1-S2 heard Regular breath sounds bilaterally, no wheezing or crackles appreciated Abdomen soft nontender, no guarding, no rigidity Patient is awake, alert and oriented to self, place, time and person ; no focal motor deficit Psych: Normal mood No pedal edema Results Labs 07/10/22 16:35 07/10/22 16:35 Labs: Laboratory Results - last 24 hr 07/10/22 07/10/22 07/10/22 16:35 16:35 16:35 MCV 85.1 MCH 26.7 L MCHC 31.4 RDW 15.8 Plt Count 213 D MPV 9.8 Immature Gran % (Auto) 0.4 Neut % (Auto) 65.0 Lymph % (Auto) 27.7 [place] % (Auto) 4.0 Eos % (Auto) 2.1 Baso % (Auto) 0.8 Lymph # (Auto) 2.4 [place] # (Auto) 0.3 Eos # (Auto) 0.2 Baso # (Auto) 0.1 Abs Immat Gran (auto) 0.03 Absolute Neuts (auto) 5.6 Absolute Nucleated RBC 0.000 Nucleated RBC % (auto) 0.0 PT 17.1 H INR 1.5 H APTT 29.3 Anion Gap 13 Estim Creat Clear Calc 88.6 Estimated GFR > 60 Random Glucose 173 H Calcium 9.2 Magnesium 1.8 Total Bilirubin 1.1 H Direct Bilirubin 0.4 AST 23 ALT 21 Alkaline Phosphatase 64 Total Creatine Kinase 101 Troponin I High Sens B-Natriuretic Peptide Total Protein 6.5 Albumin 3.7 COVID-19 ([facility]) COVID-19 Clin Com Influenza Type A (SHAISTA) Influenza Type B (SHAISTA) Influenza A & B Note 07/10/22 07/10/22 07/10/22 16:35 16:35 16:35 MCV MCH MCHC RDW Plt Count MPV Immature Gran % (Auto) Neut % (Auto) Lymph % (Auto) [place] % (Auto) Eos % (Auto) Baso % (Auto) Lymph # (Auto) [place] # (Auto) Eos # (Auto) Baso # (Auto) Abs Immat Gran (auto) Absolute Neuts (auto) Absolute Nucleated RBC Nucleated RBC % (auto) PT INR APTT Anion Gap Estim Creat Clear Calc Estimated GFR Random Glucose Calcium Magnesium Total Bilirubin Direct Bilirubin AST ALT Alkaline Phosphatase Total Creatine Kinase Troponin I High Sens 1128.5 H* B-Natriuretic Peptide 1709 H Total Protein Albumin COVID-19 ([facility]) [facility] Com Influenza Type A (SHAISTA) Negative Influenza Type B (SHAISTA) Negative Influenza A & B Note See Note 07/10/22 07/10/22 16:35 18:14 MCV MCH MCHC RDW Plt Count MPV Immature Gran % (Auto) Neut % (Auto) Lymph % (Auto) [place] % (Auto) Eos % (Auto) Baso % (Auto) Lymph # (Auto) [place] # (Auto) Eos # (Auto) Baso # (Auto) Abs Immat Gran (auto) Absolute Neuts (auto) Absolute Nucleated RBC Nucleated RBC % (auto) PT INR APTT Anion Gap Estim Creat Clear Calc Estimated GFR Random Glucose Calcium Magnesium Total Bilirubin Direct Bilirubin AST ALT Alkaline Phosphatase Total Creatine Kinase Troponin I High Sens 1153.7 H* B-Natriuretic Peptide Total Protein Albumin COVID-19 ([facility]) Negative COVID-Specialty [place] Clin Com See Note Influenza Type A (SHAISTA) Influenza Type B (SHAISTA) Influenza A & B Note Imaging Radiologist's Impressions: Impressions Chest X-Ray 07/10/22 16:57 IMPRESSION: New small right pleural effusion with right basilar atelectasis and question of right lower lobe infiltrate. Findings could be related to pneumonia. Mild pulmonary vascular congestion would also be a consideration. Assessment and Plan (1) NSTEMI (non-ST elevated myocardial infarction): Status: Acute Plan This is a 57-year-old male with pertinent history of coronary artery disease status post stent in 2016, essential hypertension, mbg-npkjegj-onpcvpeni diabetes mellitus presents to the emergency department for evaluation of chest chest discomfort and dyspnea. #. NSTEMI: Will admit patient with lunchroom monitor. Administered aspirin and statin. Patient does have a history CAD but is noncompliant with medications. Initiated on heparin drip in the ER. Consulting Cardiology in obtaining echocardiogram. #. Mild acute on chronic congestive heart failure, unspecified ejection fraction: Initiating IV Lasix. Echo as above. Transition to p.o. Lasix once euvolemia is achieved. Strict I's and O's and cardiac diet #. Uncontrolled hypertension due to noncompliance of medications : Monitor and optimize antihypertensives #. type 2 qjz-zkscigu-esvjmobrv diabetes mellitus: Initiating Accu-Cheks with sliding scale insulin. med rec pending DVT prophylaxis: On heparin drip cardiac diet Full code Admit as inpatient and will require two night minimum hospital stay for IV heparin. Cardiology consult pending Time Spent With Patient Time: Total time managing care of this patient today ____ minutes. Quality Stroke Does the patient have a stroke diagnosis?: No VTE Prior VTE?: No VTE Risk Level:: Medical - moderate - high VTE Device Contraindication: Treatment Not Indicated VTE Drug Contraindication: N/A - Med Ordered
--- NOTE | 2022-07-10 19:53 | MHC.EDTECH ---
pt ambulated to the bathroom to provide a urine sample. no dizziness upon standing. will continue to monitor.
[2022-07-10] MEDS: Heparin Sodium,Porcine 5,000 UNIT/ML VIAL 5000 UNIT IVPUSH (20:00)
--- NOTE | 2022-07-10 20:07 | PHA.MEDREC ---
Pharmacy Consult ? Medication Reconciliation Pharmacy has completed the medication reconciliation.
[2022-07-10] MEDS: Aspirin 325 MG TABLET PO (20:11)
--- NOTE | 2022-07-10 20:12 | PC.NURSE ---
Pt BARNES x4 denies chest pain at this time medicated per MAR.
[2022-07-10 20:13] LABS: Hemoglobin 13.3 g/dl (14.0-18.0); Mean Corpuscular HGB Conc 30.9 g/dl (31.0-36.0); Mean Corpuscular Hemoglobin 27.1 pg (27.0-33.0); Mean Corpuscular Volume 87.6 fL (80.0-98.0); Mean Platelet Volume 9.8 fL (9.4-12.4); Platelet Count 214 X10*3/uL (160-400); Red Blood Count 4.91 X10*6/uL (4.60-5.80); Red Cell Distribution Width 15.6 % (11.0-16.0); White Blood Count 8.6 X10*3/uL (4.8-10.8)
[2022-07-10 20:14] VITALS: BP 118/75; PULSE 65; RESP 14; O2SAT 94
[2022-07-10 20:20] LABS: INTERNATIONAL NORM RATIO 1.5 (0.9-1.1); Prothrombin Time 17.2 SEC (10.0-13.1)
[2022-07-10 20:23] LABS: PTT Heparin Drip 30.9 SEC (53-77.9)
[2022-07-10] MEDS: Heparin Sodium,Porcine/1/2NS 25,000 UNIT/250 ML IV.SOLN 10 UNIT IVCONT (20:30)
[2022-07-10 20:31] LABS: Glucose, Whole Blood 178 mg/dL (60-115)
[2022-07-10] MEDS: Atorvastatin Calcium 80 MG TABLET PO (22:04)
[2022-07-10] MEDS: Insulin Lispro 100 UNIT/ML 3 ML VIAL SUBCUT (22:04)
--- NOTE | 2022-07-10 22:07 | PC.NURSE ---
Pt CAMERON x4 denies pain. Pt medicated per JUL.
[2022-07-10 22:48] LABS: Appearance Urine Clear; Color Urine Yellow; Glucose Urine UA Negative (Negative); Leukocyte Esterase Urine Negative (Negative); Nitrite Urine Negative (Negative); PH 5.5 (5.0-9.0); UMIC TRIGGER UACC YES; Urine Blood Negative (Negative); Urine Ketones Negative (Negative); Urine Protein 30 (1+) mg/dL (Neg-Trace)
[2022-07-10 22:55] LABS: Amphetamine Screen Urine Not Detected (Not Detect); Barbiturates, Urine Not Detected (Not Detect); Benzodiazepines Screen Urine Not Detected (Not Detect); Cannabinoid Screen Urine Not Detected (Not Detect); Cocaine Screen Urine Not Detected (Not Detect); Opiate Screen Urine Not Detected (Not Detect); Phencyclidine Screen Urine Not Detected (Not Detect)
[2022-07-10 22:58] LABS: Bacteria Urine None Seen (None Seen); Hyaline Casts Urine 0-2 /LPF (0-2); RBC Urine 0-2 /HPF (0-2); Squamous Epithelial Cell Urine 0-2 /HPF (0-2); WBC Urine 0-5 /HPF (0-5)
[2022-07-11] VITALS (9 sets, daily range): BP systolic 118–162; BP diastolic 76–108; PULSE 60–78; RESP 12–22; TEMP 36.3–36.7; O2SAT 94–98; BMI 37.8
[2022-07-11] MEDS: 0.9 % Sodium Chloride Flush 3 ML SYRINGE IVFLUSH ×4 (00:13→21:04)
--- NOTE | 2022-07-11 00:13 | PC.NURSE ---
Pt Christofer x4 denies pain at this time.
[2022-07-11 00:56] LABS: Fentanyl, urine Not Detected (Not Detect)
[2022-07-11 01:36] LABS: Glucose, Whole Blood 193 mg/dL (60-115)
[2022-07-11 02:10] LABS: MANUAL DIFF FLAG NO
[2022-07-11 02:14] LABS: Basophils Absolute Auto 0.1 X10*3/uL (0.0-0.2); Basophils Percent Auto 1.2 % (0-2); Eosinophils Absolute Auto 0.2 X10*3/uL (0.0-0.4); Hemoglobin 12.4 g/dl (14.0-18.0); Imm Gran Abs Auto 0.04 X10*3/uL (0.00-0.03); Imm Gran Pct Auto 0.5 % (0.0-0.4); Lymphocytes Absolute Auto 2.4 X10*3/uL (1.2-4.9); Lymphocytes Percent Auto 30.6 % (20-40); Mean Corpuscular Hemoglobin 26.7 pg (27.0-33.0); Mean Platelet Volume 9.9 fL (9.4-12.4); Monocytes Absolute Auto 0.4 X10*3/uL (0.1-1.2); Monocytes Percent Auto 4.6 % (2-11); Neutrophils Absolute Auto 4.7 x10*3/uL (2.0-8.3); Neutrophils Percent Auto 60.1 % (45-73); Platelet Count 205 X10*3/uL (160-400); Red Blood Count 4.65 X10*6/uL (4.60-5.80); Red Cell Distribution Width 15.7 % (11.0-16.0); White Blood Count 7.8 X10*3/uL (4.8-10.8)
[2022-07-11 02:22] LABS: PTT Heparin Drip 63.8 SEC (53-77.9)
[2022-07-11 02:25] LABS: Anion Gap 14 (12-20); Blood Urea Nitrogen 20 mg/dL (9-16); Calcium 8.7 mg/dL (8.4-10.2); Carbon Dioxide 22 mmol/L (22-29); Chloride 104 mmol/L (96-108); Creatinine Clr Calc Pharmacy 81.3; Estimated Glomerular Filt Rate > 60; Glucose Random 182 mg/dL (60-115); Potassium 4.2 mmol/L (3.3-5.1); Sodium 136 mmol/L (135-145)
[2022-07-11 06:55] LABS: Hematocrit 40.8 % (42.0-52.0); Hemoglobin 12.6 g/dl (14.0-18.0); Mean Corpuscular HGB Conc 30.9 g/dl (31.0-36.0); Mean Corpuscular Hemoglobin 26.6 pg (27.0-33.0); Mean Corpuscular Volume 86.1 fL (80.0-98.0); Mean Platelet Volume 10.1 fL (9.4-12.4); Platelet Count 194 X10*3/uL (160-400); Red Blood Count 4.74 X10*6/uL (4.60-5.80); Red Cell Distribution Width 15.5 % (11.0-16.0); White Blood Count 8.2 X10*3/uL (4.8-10.8)
[2022-07-11 06:57] LABS: INTERNATIONAL NORM RATIO 1.5 (0.9-1.1); Prothrombin Time 17.2 SEC (10.0-13.1)
--- NOTE | 2022-07-11 07:00 | CA_ITS ---
Transthoracic Echocardiogram Limited w Contrast Patient (Last, First, Middle): Micah Wallace O Gender: Male Date of : 1965 Age: 57 Procedure Date: 07/11/2022 Procedure Type: Transthoracic Echocardiogram Limited w Contrast Location: ER Height: 165.1 cm Weight: 102.97 kg BSA: 2.09 m2 Heart Rate: bpm BP: 130 / 80 mmHg Medical Sonographer: Referring MD: Richa Pizano MD Symptoms: NSTEMI, CHF Study Quality: Adequate ECG Rhythm: Sinus Conclusions: - Limited echo. - Severe LV dysfunction. - Moderate to severe RV dysfunction. Findings Left Ventricle Mildly increased left ventricular cavity size. There is mildly increased left ventricular wall thickness. The left ventricular systolic function is severely decreased. The visually estimated ejection fraction is between 20 25%. There is severe global hypokinesis. Abnormal diastolic function is noted. Right Ventricle There is moderate to severely decreased right ventricular systolic function. Moderate to severe RV dilation. Tricuspid Valve Moderately elevated right atrial pressure. Venous The inferior vena cava is dilated and collapses less than 50% with inspiration. Pericardium/Pleural There is no evidence of pericardial effusion. Prior Study Comparison Changes noted compared to prior study dated: 03/16/2022. EF 20-25% now Measurements 2D Linear Measurements IVSd: 1.23 0.6-0.9/0.6-1.0 cm LVIDd: 5.43 3.9-5.3/4.2-5.9 cm LVIDd Index: 2.60 2.4-3.2/2.2-3.1 cm/m2 LVIDs: 5.11 2.0-3.6 cm LVPWd: 1.22 0.7-1.1 cm LV Mass: 342.37 67-162/88-224 g LV Mass Index: 163.81 43-95/49-115 g/m2 LVOT Diam: 2.00 3.0+(-)1.3 cm 2D Systolic Function EF 4C: 24.80 >55% EF 2C: 15.60 >55% EF BiP: 17.60 >55% LVOT LVOT Pk Ulises: 0.78 LVOT Mn Ulises: 0.55 LVOT VTI: 0.14 LVOT Pk Grad: 2.00 LVOT Mn Grad: 1.00 LVOT Diam: 2.00 LVOT Area: 3.14 Updated in Other Vendor System with Status of Final Aguila Worthington MD electronically signed on 07/11/2022 5:19:05 PM with status of Final
[2022-07-11 07:19] LABS: Glucose, Whole Blood 157 mg/dL (60-115)
[2022-07-11] MEDS: Furosemide 40 MG/4 ML VIAL IVPUSH (08:19)
[2022-07-11] MEDS: Insulin Lispro 100 UNIT/ML 3 ML VIAL SUBCUT ×2 (08:19→17:29)
--- NOTE | 2022-07-11 09:04 | MHC.CM.PN ---
PT REPORTS HE LIVES WITH HIS AND IS INDEPENDENT WITH CARE HE DENIES USE OF DME OR HOME SERVICES PT REPORTS HE IS COVID [place] HCP ON FILE PCP: MIRTHA BROWN DCP: HOME NO SERVICES PT WILL DRIVE HIMSELF AT DC
[2022-07-11 09:47] LABS: PTT Heparin Drip 52.9 SEC (53-77.9)
[2022-07-11] MEDS: Heparin Sodium,Porcine 5,000 UNIT/ML VIAL 3900 UNIT IVPUSH (10:26)
--- NOTE | 2022-07-11 11:14 | P.PNIM_ITS ---
Subjective Subjective Date of Service: 07/11/22 Review of Systems Follow-up NSTEMI Denies chest pain, shortness breath, nausea, vomiting, diarrhea Physical Exam Vital Signs: Vital Signs: Last Vital Signs Temp 97.9 F 07/11/22 10:54 Pulse 71 07/11/22 10:54 Resp 12 07/11/22 10:54 BP 141/92 H 07/11/22 10:54 Pulse Ox 95 07/11/22 10:54 O2 Del Method 07/11/22 10:54 BMI result Body Mass Index 37.8 Appearing in no acute distress lung sounds are clear to auscultation heart regular rate rhythm, clear S1, S2 positive bowel sounds, abdomen is soft, nontender neuro patient is alert x3, no focal deficits Objective Data Active Medications Acetaminophen (Acetaminophen 325 Mg Tablet) 650 mg PO Q6H PRN PRN Reason: Pain, Mild (Pain Scale 1-3) Atorvastatin Calcium (Atorvastatin Calcium 80 Mg Tablet) 80 mg PO BEDTIME JULIAN Last Admin: 07/10/22 22:04 Dose: 80 mg Documented By: AARON Dextrose (Dextrose 50 % 25 Gm/50 Ml Syringe) 25 gm IVPUSH Q15M PRN; Protocol PRN Reason: per Hypoglycemia Standing Ord. Furosemide (Furosemide 40 Mg/4 Ml Vial) 40 mg IVPUSH DAILY [facility]; Protocol Last Admin: 07/11/22 08:19 Dose: 40 mg Documented By: CHANELLE Glucose (Glucose Gel 15 Gm Gel..Gram.) 15 gm PO Q15M PRN; Protocol PRN Reason: per Hypoglycemia Standing Ord. Heparin Sodium (Porcine) (Heparin Sodium,Porcine 5,000 Unit/Ml Vial) 3,900 unit 40 unit/kg (3900 unit) IVPUSH PROTOCOL BOLUS PRN; Protocol PRN Reason: 40 unit/kg - Heparin Protocol Last Admin: 07/11/22 10:26 Dose: 3,900 unit Documented By: CHANELLE Heparin Sodium (Porcine) (Heparin Sodium,Porcine 5,000 Unit/Ml Vial) 7,800 unit 80 unit/kg (7800 unit) IVPUSH PROTOCOL BOLUS PRN; Protocol PRN Reason: 80 unit/kg - Heparin Protocol Heparin Sodium/Sodium Chloride (Heparin Sodium,Porcine/1/2ns) 25,000 unit in 250 mls @ 0 mls/hr IVCONT .Q0M JULIAN; Protocol Last Titration: 07/11/22 10:27 Dose: 12.3 units/kg/hr, 11.93 mls/hr Documented By: CHANELLE Co-signed By: DANELLE Insulin Human Lispro (Insulin Lispro 100 Unit/Ml 3 Ml Vial) 0 unit SUBCUT QIDACHS [facility]; Protocol Last Admin: 07/11/22 08:19 Dose: 2 unit Documented By: CHANELLE Melatonin (Melatonin 3 Mg Tablet) 6 mg PO BEDTIME PRN PRN Reason: Insomnia Nitroglycerin (Nitroglycerin 0.4 Mg Tab.Subl) 0.4 mg SUBLINGUAL Q5MX3 PRN PRN Reason: Chest Pain Ondansetron HCl (Ondansetron Hcl 4 Mg/2 Ml Vial) 4 mg IVPUSH Q8H PRN PRN Reason: Nausea and Vomiting Pharmacy Consult (Consult Rx Perform Med Rec) 1 each MISCELLANE ONCE PRN PRN Reason: Consult order Sodium Chloride (0.9 % Sodium Chloride Flush 3 Ml Syringe) [facility] Last Admin: 07/11/22 08:20 Dose: 3 ml Documented By: CHANELLE Labs 07/11/22 06:40 07/11/22 02:05 Labs: Laboratory Results - last 24 hr 07/10/22 07/10/22 07/10/22 16:35 16:35 16:35 MCV 85.1 MCH 26.7 L MCHC 31.4 RDW 15.8 Plt Count 213 D MPV 9.8 Immature Gran % (Auto) 0.4 Neut % (Auto) 65.0 Lymph % (Auto) 27.7 [place] % (Auto) 4.0 Eos % (Auto) 2.1 Baso % (Auto) 0.8 Lymph # (Auto) 2.4 [place] # (Auto) 0.3 Eos # (Auto) 0.2 Baso # (Auto) 0.1 Abs Immat Gran (auto) 0.03 Absolute Neuts (auto) 5.6 Absolute Nucleated RBC 0.000 Nucleated RBC % (auto) 0.0 PT 17.1 H INR 1.5 H APTT 29.3 aPTT Heparin Protocol Anion Gap 13 Estim Creat Clear Calc 88.6 Estimated GFR > 60 POC Glucose Random Glucose 173 H Calcium 9.2 Magnesium 1.8 Total Bilirubin 1.1 H Direct Bilirubin 0.4 AST 23 ALT 21 Alkaline Phosphatase 64 Total Creatine Kinase 101 Troponin I High Sens B-Natriuretic Peptide Total Protein 6.5 Albumin 3.7 Urine Color Urine Appearance Urine pH Ur Specific [place] Urine Protein Urine Glucose (UA) Urine Ketones Urine Blood Urine Nitrite Ur Leukocyte Esterase Urine RBC Urine WBC Ur Squamous Epith Cells Urine Bacteria Hyaline Casts Urine Opiates Screen Urine Fentanyl Screen Ur Barbiturates Screen Ur Phencyclidine Scrn Ur Amphetamines Screen U Benzodiazepines Scrn Urine Cocaine Screen U Marijuana (THC) Screen COVID-19 ([facility]) COVID-19 Clin Com Influenza Type A ([facility]IST[facility]) Influenza Type B ([facility]) Influenza A & B Note 07/10/22 07/10/22 07/10/22 16:35 16:35 16:35 MCV MCH MCHC RDW Plt Count MPV Immature Gran % (Auto) Neut % (Auto) Lymph % (Auto) [place] % (Auto) Eos % (Auto) Baso % (Auto) Lymph # (Auto) [place] # (Auto) Eos # (Auto) Baso # (Auto) Abs Immat Gran (auto) Absolute Neuts (auto) Absolute Nucleated RBC Nucleated RBC % (auto) PT INR APTT aPTT Heparin Protocol Anion Gap Estim Creat Clear Calc Estimated GFR POC Glucose Random Glucose Calcium Magnesium Total Bilirubin Direct Bilirubin AST ALT Alkaline Phosphatase Total Creatine Kinase Troponin I High Sens 1128.5 H* B-Natriuretic Peptide 1709 H Total Protein Albumin Urine Color Urine Appearance Urine pH Ur Specific [place] Urine Protein Urine Glucose (UA) Urine Ketones Urine Blood Urine Nitrite Ur Leukocyte Esterase Urine RBC Urine WBC Ur Squamous Epith Cells Urine Bacteria Hyaline Casts Urine Opiates Screen Urine Fentanyl Screen Ur Barbiturates Screen Ur Phencyclidine Scrn Ur Amphetamines Screen U Benzodiazepines Scrn Urine Cocaine Screen U Marijuana (THC) Screen COVID-19 ([facility]) COVID-19 Clin Com Influenza Type A ([facility]) Negative Influenza Type B ([facility]A) Negative Influenza A & B Note See Note 07/10/22 07/10/22 07/10/22 16:35 18:14 20:03 MCV 87.6 MCH 27.1 MCHC 30.9 L RDW 15.6 Plt Count 214 MPV 9.8 Immature Gran % (Auto) Neut % (Auto) Lymph % (Auto) [place] % (Auto) Eos % (Auto) Baso % (Auto) Lymph # (Auto) [place] # (Auto) Eos # (Auto) Baso # (Auto) Abs Immat Gran (auto) Absolute Neuts (auto) Absolute Nucleated RBC 0.000 Nucleated RBC % (auto) 0.0 PT INR APTT aPTT Heparin Protocol Anion Gap Estim Creat Clear Calc Estimated GFR POC Glucose Random Glucose Calcium Magnesium Total Bilirubin Direct Bilirubin AST ALT Alkaline Phosphatase Total Creatine Kinase Troponin I High Sens 1153.7 H* B-Natriuretic Peptide Total Protein Albumin Urine Color Urine Appearance Urine pH Ur Specific [place] Urine Protein Urine Glucose (UA) Urine Ketones Urine Blood Urine Nitrite Ur Leukocyte Esterase Urine RBC Urine WBC Ur Squamous Epith Cells Urine Bacteria Hyaline Casts Urine Opiates Screen Urine Fentanyl Screen Ur Barbiturates Screen Ur Phencyclidine Scrn Ur Amphetamines Screen U Benzodiazepines Scrn Urine Cocaine Screen U Marijuana (THC) Screen COVID-19 ([facility]) Negative COVID-19 Clin Com See Note Influenza Type A ([facility]ISTA) Influenza Type B ([facility]ISTA) Influenza A & B Note 07/10/22 07/10/22 07/10/22 20:03 20:27 22:38 MCV MCH MCHC RDW Plt Count MPV Immature Gran % (Auto) Neut % (Auto) Lymph % (Auto) [place] % (Auto) Eos % (Auto) Baso % (Auto) Lymph # (Auto) [place] # (Auto) Eos # (Auto) Baso # (Auto) Abs Immat Gran (auto) Absolute Neuts (auto) Absolute Nucleated RBC Nucleated RBC % (auto) PT 17.2 H INR 1.5 H APTT aPTT Heparin Protocol 30.9 L Anion Gap Estim Creat Clear Calc Estimated GFR POC Glucose 178 H Random Glucose Calcium Magnesium Total Bilirubin Direct Bilirubin AST ALT Alkaline Phosphatase Total Creatine Kinase Troponin I High Sens B-Natriuretic Peptide Total Protein Albumin Urine Color Yellow Urine Appearance Clear Urine pH 5.5 Ur Specific [place] 1.010 Urine Protein 30 (1+) H Urine Glucose (UA) Negative Urine Ketones Negative Urine Blood Negative Urine Nitrite Negative Ur Leukocyte Esterase Negative Urine RBC 0-2 Urine WBC 0-5 Ur Squamous Epith Cells 0-2 Urine Bacteria None Seen Hyaline Casts 0-2 Urine Opiates Screen Urine Fentanyl Screen Ur Barbiturates Screen Ur Phencyclidine Scrn Ur Amphetamines Screen U Benzodiazepines Scrn Urine Cocaine Screen U Marijuana (THC) Screen COVID-19 ([facility]) COVID-19 Clin Com Influenza Type A ([facility]) Influenza Type B ([facility]ISTA) Influenza A & B Note 07/10/22 07/11/22 07/11/22 22:38 01:31 02:05 MCV MCH MCHC RDW Plt Count MPV Immature Gran % (Auto) Neut % (Auto) Lymph % (Auto) [place] % (Auto) Eos % (Auto) Baso % (Auto) Lymph # (Auto) [place] # (Auto) Eos # (Auto) Baso # (Auto) Abs Immat Gran (auto) Absolute Neuts (auto) Absolute Nucleated RBC Nucleated RBC % (auto) PT INR APTT aPTT Heparin Protocol 63.8 D Anion Gap Estim Creat Clear Calc Estimated GFR POC Glucose 193 H Random Glucose Calcium Magnesium Total Bilirubin Direct Bilirubin AST ALT Alkaline Phosphatase Total Creatine Kinase Troponin I High Sens B-Natriuretic Peptide Total Protein Albumin Urine Color Urine Appearance Urine pH Ur Specific [place] Urine Protein Urine Glucose (UA) Urine Ketones Urine Blood Urine Nitrite Ur Leukocyte Esterase Urine RBC Urine WBC Ur Squamous Epith Cells Urine Bacteria Hyaline Casts Urine Opiates Screen Not Detected Urine Fentanyl Screen Not Detected Ur Barbiturates Screen Not Detected Ur Phencyclidine Scrn Not Detected Ur Amphetamines Screen Not Detected U Benzodiazepines Scrn Not Detected Urine Cocaine Screen Not Detected U Marijuana (THC) Screen Not Detected COVID-19 ([facility]) COVID-19 Clin Com Influenza Type A ([facility]ISTA) Influenza Type B ([facility]ISTA) Influenza A & B Note 07/11/22 07/11/22 07/11/22 02:05 02:05 06:40 MCV 86.0 86.1 MCH 26.7 L 26.6 L MCHC 31.0 30.9 L RDW 15.7 15.5 Plt Count 205 194 MPV 9.9 10.1 Immature Gran % (Auto) 0.5 H Neut % (Auto) 60.1 Lymph % (Auto) 30.6 [place] % (Auto) 4.6 Eos % (Auto) 3.0 Baso % (Auto) 1.2 Lymph # (Auto) 2.4 [place] # (Auto) 0.4 Eos # (Auto) 0.2 Baso # (Auto) 0.1 Abs Immat Gran (auto) 0.04 H Absolute Neuts (auto) 4.7 Absolute Nucleated RBC 0.000 0.000 Nucleated RBC % (auto) 0.0 0.0 PT INR APTT aPTT Heparin Protocol Anion Gap 14 Estim Creat Clear Calc 81.3 Estimated GFR > 60 POC Glucose Random Glucose 182 H Calcium 8.7 Magnesium Total Bilirubin Direct Bilirubin AST ALT Alkaline Phosphatase Total Creatine Kinase Troponin I High Sens B-Natriuretic Peptide Total Protein Albumin Urine Color Urine Appearance Urine pH Ur Specific [place] Urine Protein Urine Glucose (UA) Urine Ketones Urine Blood Urine Nitrite Ur Leukocyte Esterase Urine RBC Urine WBC Ur Squamous Epith Cells Urine Bacteria Hyaline Casts Urine Opiates Screen Urine Fentanyl Screen Ur Barbiturates Screen Ur Phencyclidine Scrn Ur Amphetamines Screen U Benzodiazepines Scrn Urine Cocaine Screen U Marijuana (THC) Screen COVID-19 ([facility]) COVID-19 Clin Com Influenza Type A ([facility]) Influenza Type B ([facility]A) Influenza A & B Note 07/11/22 07/11/22 07/11/22 06:40 07:10 09:19 MCV MCH MCHC RDW Plt Count MPV Immature Gran % (Auto) Neut % (Auto) Lymph % (Auto) [place] % (Auto) Eos % (Auto) Baso % (Auto) Lymph # (Auto) [place] # (Auto) Eos # (Auto) Baso # (Auto) Abs Immat Gran (auto) Absolute Neuts (auto) Absolute Nucleated RBC Nucleated RBC % (auto) PT 17.2 H INR 1.5 H APTT aPTT Heparin Protocol 52.9 L Anion Gap Estim Creat Clear Calc Estimated GFR POC Glucose 157 H Random Glucose Calcium Magnesium Total Bilirubin Direct Bilirubin AST ALT Alkaline Phosphatase Total Creatine Kinase Troponin I High Sens B-Natriuretic Peptide Total Protein Albumin Urine Color Urine Appearance Urine pH Ur Specific [place] Urine Protein Urine Glucose (UA) Urine Ketones Urine Blood Urine Nitrite Ur Leukocyte Esterase Urine RBC Urine WBC Ur Squamous Epith Cells Urine Bacteria Hyaline Casts Urine Opiates Screen Urine Fentanyl Screen Ur Barbiturates Screen Ur Phencyclidine Scrn Ur Amphetamines Screen U Benzodiazepines Scrn Urine Cocaine Screen U Marijuana (THC) Screen COVID-19 ([facility]) COVID-19 Clin Com Influenza Type A ([facility]IST[facility]) Influenza Type B ([facility]ISTA) Influenza A & B Note Assessment and Plan (1) Hypertension, uncontrolled: Status: Acute (2) NSTEMI (non-ST elevated myocardial infarction): Status: Acute Plan This is a 57-year-old male with pertinent history of coronary artery disease status post stent in 2016, essential hypertension, xss-krmhrez-onbldqqow diabetes mellitus presents to the emergency department for evaluation of chest chest discomfort and dyspnea. NSTEMI Continue IV heparin drip Aspirin and statin Cardiology consultation Echocardiogram pending Monitor on telemetry Mild acute on chronic congestive heart failure with reduced ejection fraction Continue IV Lasix Strict intake and output Daily weights Follow echocardiogram So far-1.7 L Uncontrolled hypertension Seems like he has hypertensive heart disease Continue Lasix, amlodipine Diabetes mellitus type 2 Sliding scale, ADA diet DVT prophylaxis:? On heparin drip cardiac diet Full code ?Continued hospital stay for? IV heparin.? Cardiology consult pending Time Spent With Patient Time: Total time managing care of this patient today ____ minutes. Quality Stroke Does the patient have a stroke diagnosis?: No VTE Prior VTE?: No VTE Risk Level:: Medical - moderate - high VTE Device Contraindication: Treatment Not Indicated VTE Drug Contraindication: N/A - Med Ordered
--- NOTE | 2022-07-11 12:51 | P.CDIC_ITS ---
CDI Concurrent Query Documentation Clarification: PHYSICIAN'S DOCUMENTATION REQUEST Date of Query: 07/11/22 1251 Patient Name: Micah Wallace Admit Date: 07/10/22 Dear Doctor, A review of the medical record indicates additional documentation may be needed. Please review below and update the documentation accordingly. Clinical Indicators: Risk Factors/Clinical Indicators/Treatments Nursing height and weight 07/10 - BMI 35.8 Obesity Class II If possible, please provide an associated diagnosis related to the abnormal BMI, such as: l For a BMI >= 35: * Overweight * Obesity * Due to excess calories * Drug induced * Due to other cause * Severe or Morbid Obesity * With alveolar hypoventilation * Without alveolar hypoventilation Or: * BMI is not significant * Other (please specify) * Unable to determine Use of terms such as suspected, likely, concern for, or probable (associated with a specific diagnosis that is being evaluated, monitored, or treated as if it exists) are acceptable and can be coded in the inpatient setting, when documented at the time of discharge. Thank you, Poonam Gorman [facility], CDIS Extension: [phone] Please use your independent medical judgment in providing your response. THIS QUERY IS PART OF THE PERMANENT MEDICAL RECORD Other Diagnosis: See note
--- NOTE | 2022-07-11 12:51 | MHC.CDI.CONC ---
CDI Concurrent Query Documentation Clarification: PHYSICIAN'S DOCUMENTATION REQUEST Date of Query: 07/11/22 1251 Patient Name: Micah Wallace Admit Date: 07/10/22 Dear Doctor, A review of the medical record indicates additional documentation may be needed. Please review below and update the documentation accordingly. Clinical Indicators: Risk Factors/Clinical Indicators/Treatments Nursing height and weight 07/10 - BMI 35.8 Obesity Class II If possible, please provide an associated diagnosis related to the abnormal BMI, such as: For a BMI >= 35: Overweight Obesity Due to excess calories Drug induced Due to other cause Severe or Morbid Obesity With alveolar hypoventilation Without alveolar hypoventilation Or: BMI is not significant Other (please specify) Unable to determine Use of terms such as suspected, likely, concern for, or probable (associated with a specific diagnosis that is being evaluated, monitored, or treated as if it exists) are acceptable and can be coded in the inpatient setting, when documented at the time of discharge. Thank you, Poonam Gorman [facility], CDIS Extension: [phone] Please use your independent medical judgment in providing your response. THIS QUERY IS PART OF THE PERMANENT MEDICAL RECORD Other Diagnosis: See note
[2022-07-11 13:46] LABS: Glucose, Whole Blood 130 mg/dL (60-115)
[2022-07-11 16:40] LABS: Glucose, Whole Blood 179 mg/dL (60-115)
--- NOTE | 2022-07-11 16:51 | P.CONCA_ITS ---
History of Present Illness History of Present Illness Date of Service: 07/11/22 Requesting physician: Beatrice Obregon Chief complaint: CHF, NSTEMI Narrative: 57-year-old gentleman with history of coronary disease and cardiomyopathy with ejection fraction of 36% and severely increased right ventricular size based on echocardiography from February 2020. He follows up with Dr. Olvera in the outpatient. He had a drug-eluting stent to the LAD in 2015, has diabetes, poorly controlled hypertension and has medication noncompliance. In July of 2021 he was in the hospital at [facility] where his ejection fraction was 15-20% and he had RV for dysfunction also. At that time his cardiac catheterization showed mild disease in the proximal LAD with patent LAD stent, mild circumflex disease and mild to moderate non dominant right coronary artery stenosis. He had a severe 90% apical LAD stenosis which was known from 2020. Based on these findings he had a nonischemic cardiomyopathy. Unfortunately he is presenting with chest discomfort and congestive heart fa ilure. He has not been taking any medications. Clearly compliance has been a challenge for him because there has been multiple discussions documented in the chart. Is ruled in for NSTEMI and has elevated BNP levels. Was also experiencing orthopnea. He was hypertensive when he presented. He has been given IV diuretics and is improving. He is saying he is feeling better. He is saying he will take good care of his health and is interested in taking medications regularly. [facility] Past Medical History Medical History Atherosclerotic cardiovascular disease Coronary artery disease Essential hypertension Family History Family History Father No problems noted. Mother No problems noted. Surgical History Surgical History History of cardiac catheterization (~07/2020) Social History Social History Household Members: Significant Other Housing: House Do you presently have visiting nurse or other home services: No Alcohol intake: never Patient Tobacco Use Status: Never used Tobacco Substance Use Type: Marijuana service: No Current occupational status: unemployed Meds Allergies Allergy/AdvReac Type Severity Reaction Status Date / Time No Known Allergies Allergy Verified 07/10/22 16:22 [No Known Allergies*] Active Medications: Current Medications Acetaminophen (Acetaminophen 325 Mg Tablet) 650 mg PO Q6H PRN PRN Reason: Pain, Mild (Pain Scale 1-3) Amlodipine Besylate (Amlodipine Besylate 10 Mg Tablet) 10 mg PO DAILY [facility]; Protocol Aspirin (Aspirin Enteric Coated 81 Mg Tablet.Dr) 81 mg PO DAILY [facility] Atorvastatin Calcium (Atorvastatin Calcium 80 Mg Tablet) 80 mg PO BEDTIME [facility] Last Admin: 07/10/22 22:04 Dose: 80 mg Carvedilol (Carvedilol 6.25 Mg Tablet) 6.25 mg PO BID JULIAN; Protocol Dextrose (Dextrose 50 % 25 Gm/50 Ml Syringe) 25 gm IVPUSH Q15M PRN; Protocol PRN Reason: per Hypoglycemia Standing Ord. Furosemide (Furosemide 40 Mg Tablet) 40 mg PO DAILY [facility]; Protocol Glucose (Glucose Gel 15 Gm Gel..Gram.) 15 gm PO Q15M PRN; Protocol PRN Reason: per Hypoglycemia Standing Ord. Heparin Sodium (Porcine) (Heparin Sodium,Porcine 5,000 Unit/Ml Vial) 3,900 unit 40 unit/kg (3900 unit) IVPUSH PROTOCOL BOLUS PRN; Protocol PRN Reason: 40 unit/kg - Heparin Protocol Last Admin: 07/11/22 10:26 Dose: 3,900 unit Heparin Sodium (Porcine) (Heparin Sodium,Porcine 5,000 Unit/Ml Vial) 7,800 unit 80 unit/kg (7800 unit) IVPUSH PROTOCOL BOLUS PRN; Protocol PRN Reason: 80 unit/kg - Heparin Protocol Heparin Sodium/Sodium Chloride (Heparin Sodium,Porcine/1/2ns) 25,000 unit in 250 mls @ 0 mls/hr IVCONT .Q0M [facility]; Protocol Last Titration: 07/11/22 10:27 Dose: 12.3 units/kg/hr, 11.93 mls/hr Insulin Human Lispro (Insulin Lispro 100 Unit/Ml 3 Ml Vial) 0 unit SUBCUT QIDACHS [facility]; Protocol Last Admin: 07/11/22 14:22 Dose: Not Given Melatonin (Melatonin 3 Mg Tablet) 6 mg PO BEDTIME PRN PRN Reason: Insomnia Nitroglycerin (Nitroglycerin 0.4 Mg Tab.Subl) 0.4 mg SUBLINGUAL Q5MX3 PRN PRN Reason: Chest Pain Ondansetron HCl (Ondansetron Hcl 4 Mg/2 Ml Vial) 4 mg IVPUSH Q8H PRN PRN Reason: Nausea and Vomiting Pharmacy Consult (Consult Rx Perform Med Rec) 1 each MISCELLANE ONCE PRN PRN Reason: Consult order Sodium Chloride (0.9 % Sodium Chloride Flush 3 Ml Syringe) 3 ml IVFLUSH QSHIFT JULIAN Last Admin: 07/11/22 08:20 Dose: 3 ml Physical Exam Vital Signs: Vital Signs: Last Vital Signs Temp 97.3 F 07/11/22 15:54 Pulse 77 07/11/22 15:54 Resp 15 07/11/22 15:54 BP 140/99 H 07/11/22 15:54 Pulse Ox 96 07/11/22 15:54 O2 Del Method 07/11/22 15:54 BMI result Body Mass Index 37.8 GENERAL APPEARANCE: in no acute distress, pleasant. NECK: no carotid bruit, no jugular venous distention. SKIN: no suspicious lesions, warm and dry. HEART: no murmurs, regular rate and rhythm. LUNGS: clear to auscultation bilaterally. ABDOMEN: soft, nontender. EXTREMITIES: no edema. PERIPHERAL PULSES: equal. NEUROLOGIC: No gross deficits, AAO X 3 Objective Labs and Meds 07/11/22 06:40 07/11/22 02:05 Lab results: Laboratory Results - last 24 hr 07/10/22 07/10/22 07/10/22 16:35 16:35 16:35 WBC RBC Hgb Hct MCV MCH MCHC RDW Plt Count MPV Immature Gran % (Auto) Neut % (Auto) Lymph % (Auto) [place] % (Auto) Eos % (Auto) Baso % (Auto) Lymph # (Auto) [place] # (Auto) Eos # (Auto) Baso # (Auto) Abs Immat Gran (auto) Absolute Neuts (auto) Absolute Nucleated RBC Nucleated RBC % (auto) PT 17.1 H INR 1.5 H APTT 29.3 aPTT Heparin Protocol Sodium 137 Potassium 4.2 Chloride 105 Carbon Dioxide 23 Anion Gap 13 BUN 16 Creatinine 0.94 Estim Creat Clear Calc 88.6 Estimated GFR > 60 POC Glucose Random Glucose 173 H Calcium 9.2 Magnesium 1.8 Total Bilirubin 1.1 H Direct Bilirubin 0.4 AST 23 ALT 21 Alkaline Phosphatase 64 Total Creatine Kinase 101 Troponin I High Sens 1128.5 H* B-Natriuretic Peptide Total Protein 6.5 Albumin 3.7 Urine Color Urine Appearance Urine pH Ur Specific [place] Urine Protein Urine Glucose (UA) Urine Ketones Urine Blood Urine Nitrite Ur Leukocyte Esterase Urine RBC Urine WBC Ur Squamous Epith Cells Urine Bacteria Hyaline Casts Urine Opiates Screen Urine Fentanyl Screen Ur Barbiturates Screen Ur Phencyclidine Scrn Ur Amphetamines Screen U Benzodiazepines Scrn Urine Cocaine Screen U Marijuana (THC) Screen COVID-19 (WEST) COVID-19 Clin Com Influenza Type A (SHAISTA) Influenza Type B (SHAISTA) Influenza A & B Note 07/10/22 07/10/22 07/10/22 16:35 16:35 16:35 WBC RBC Hgb Hct MCV MCH MCHC RDW Plt Count MPV Immature Gran % (Auto) Neut % (Auto) Lymph % (Auto) [place] % (Auto) Eos % (Auto) Baso % (Auto) Lymph # (Auto) [place] # (Auto) Eos # (Auto) Baso # (Auto) Abs Immat Gran (auto) Absolute Neuts (auto) Absolute Nucleated RBC Nucleated RBC % (auto) PT INR APTT aPTT Heparin Protocol Sodium Potassium Chloride Carbon Dioxide Anion Gap BUN Creatinine Estim Creat Clear Calc Estimated GFR POC Glucose Random Glucose Calcium Magnesium Total Bilirubin Direct Bilirubin AST ALT Alkaline Phosphatase Total Creatine Kinase Troponin I High Sens B-Natriuretic Peptide 1709 H Total Protein Albumin Urine Color Urine Appearance Urine pH Ur Specific [place] Urine Protein Urine Glucose (UA) Urine Ketones Urine Blood Urine Nitrite Ur Leukocyte Esterase Urine RBC Urine WBC Ur Squamous Epith Cells Urine Bacteria Hyaline Casts Urine Opiates Screen Urine Fentanyl Screen Ur Barbiturates Screen Ur Phencyclidine Scrn Ur Amphetamines Screen U Benzodiazepines Scrn Urine Cocaine Screen U Marijuana (THC) Screen COVID-19 (WEST) Negative COVID-19 Clin Com See Note Influenza Type A (SHAISTA) Negative Influenza Type B (SHAISTA) Negative Influenza A & B Note See Note 07/10/22 07/10/22 07/10/22 18:14 20:03 20:03 WBC 8.6 RBC 4.91 Hgb 13.3 L Hct 43.0 MCV 87.6 MCH 27.1 MCHC 30.9 L RDW 15.6 Plt Count 214 MPV 9.8 Immature Gran % (Auto) Neut % (Auto) Lymph % (Auto) [place] % (Auto) Eos % (Auto) Baso % (Auto) Lymph # (Auto) [place] # (Auto) Eos # (Auto) Baso # (Auto) Abs Immat Gran (auto) Absolute Neuts (auto) Absolute Nucleated RBC 0.000 Nucleated RBC % (auto) 0.0 PT 17.2 H INR 1.5 H APTT aPTT Heparin Protocol 30.9 L Sodium Potassium Chloride Carbon Dioxide Anion Gap BUN Creatinine Estim Creat Clear Calc Estimated GFR POC Glucose Random Glucose Calcium Magnesium Total Bilirubin Direct Bilirubin AST ALT Alkaline Phosphatase Total Creatine Kinase Troponin I High Sens 1153.7 H* B-Natriuretic Peptide Total Protein Albumin Urine Color Urine Appearance Urine pH Ur Specific [place] Urine Protein Urine Glucose (UA) Urine Ketones Urine Blood Urine Nitrite Ur Leukocyte Esterase Urine RBC Urine WBC Ur Squamous Epith Cells Urine Bacteria Hyaline Casts Urine Opiates Screen Urine Fentanyl Screen Ur Barbiturates Screen Ur Phencyclidine Scrn Ur Amphetamines Screen U Benzodiazepines Scrn Urine Cocaine Screen U Marijuana (THC) Screen COVID-19 (WEST) COVID-19 Clin Com Influenza Type A (SHAISTA) Influenza Type B (SHAISTA) Influenza A & B Note 07/10/22 07/10/22 07/10/22 20:27 22:38 22:38 WBC RBC Hgb Hct MCV MCH MCHC RDW Plt Count MPV Immature Gran % (Auto) Neut % (Auto) Lymph % (Auto) [place] % (Auto) Eos % (Auto) Baso % (Auto) Lymph # (Auto) [place] # (Auto) Eos # (Auto) Baso # (Auto) Abs Immat Gran (auto) Absolute Neuts (auto) Absolute Nucleated RBC Nucleated RBC % (auto) PT INR APTT aPTT Heparin Protocol Sodium Potassium Chloride Carbon Dioxide Anion Gap BUN Creatinine Estim Creat Clear Calc Estimated GFR POC Glucose 178 H Random Glucose Calcium Magnesium Total Bilirubin Direct Bilirubin AST ALT Alkaline Phosphatase Total Creatine Kinase Troponin I High Sens B-Natriuretic Peptide Total Protein Albumin Urine Color Yellow Urine Appearance Clear Urine pH 5.5 Ur Specific [place] 1.010 Urine Protein 30 (1+) H Urine Glucose (UA) Negative Urine Ketones Negative Urine Blood Negative Urine Nitrite Negative Ur Leukocyte Esterase Negative Urine RBC 0-2 Urine WBC 0-5 Ur Squamous Epith Cells 0-2 Urine Bacteria None Seen Hyaline Casts 0-2 Urine Opiates Screen Not Detected Urine Fentanyl Screen Not Detected Ur Barbiturates Screen Not Detected Ur Phencyclidine Scrn Not Detected Ur Amphetamines Screen Not Detected U Benzodiazepines Scrn Not Detected Urine Cocaine Screen Not Detected U Marijuana (THC) Screen Not Detected COVID-19 (WEST) COVID-19 Clin Com Influenza Type A (SHAISTA) Influenza Type B (SHAISTA) Influenza A & B Note 07/11/22 07/11/22 07/11/22 01:31 02:05 02:05 WBC 7.8 RBC 4.65 Hgb 12.4 L Hct 40.0 L MCV 86.0 MCH 26.7 L MCHC 31.0 RDW 15.7 Plt Count 205 MPV 9.9 Immature Gran % (Auto) 0.5 H Neut % (Auto) 60.1 Lymph % (Auto) 30.6 [place] % (Auto) 4.6 Eos % (Auto) 3.0 Baso % (Auto) 1.2 Lymph # (Auto) 2.4 [place] # (Auto) 0.4 Eos # (Auto) 0.2 Baso # (Auto) 0.1 Abs Immat Gran (auto) 0.04 H Absolute Neuts (auto) 4.7 Absolute Nucleated RBC 0.000 Nucleated RBC % (auto) 0.0 PT INR APTT aPTT Heparin Protocol 63.8 D Sodium Potassium Chloride Carbon Dioxide Anion Gap BUN Creatinine Estim Creat Clear Calc Estimated GFR POC Glucose 193 H Random Glucose Calcium Magnesium Total Bilirubin Direct Bilirubin AST ALT Alkaline Phosphatase Total Creatine Kinase Troponin I High Sens B-Natriuretic Peptide Total Protein Albumin Urine Color Urine Appearance Urine pH Ur Specific [place] Urine Protein Urine Glucose (UA) Urine Ketones Urine Blood Urine Nitrite Ur Leukocyte Esterase Urine RBC Urine WBC Ur Squamous Epith Cells Urine Bacteria Hyaline Casts Urine Opiates Screen Urine Fentanyl Screen Ur Barbiturates Screen Ur Phencyclidine Scrn Ur Amphetamines Screen U Benzodiazepines Scrn Urine Cocaine Screen U Marijuana (THC) Screen COVID-19 (WEST) COVID-19 Clin Com Influenza Type A (SHAISTA) Influenza Type B (SHAISTA) Influenza A & B Note 07/11/22 07/11/22 07/11/22 02:05 06:40 06:40 WBC 8.2 RBC 4.74 Hgb 12.6 L Hct 40.8 L MCV 86.1 MCH 26.6 L MCHC 30.9 L RDW 15.5 Plt Count 194 MPV 10.1 Immature Gran % (Auto) Neut % (Auto) Lymph % (Auto) [place] % (Auto) Eos % (Auto) Baso % (Auto) Lymph # (Auto) [place] # (Auto) Eos # (Auto) Baso # (Auto) Abs Immat Gran (auto) Absolute Neuts (auto) Absolute Nucleated RBC 0.000 Nucleated RBC % (auto) 0.0 PT 17.2 H INR 1.5 H APTT aPTT Heparin Protocol Sodium 136 Potassium 4.2 Chloride 104 Carbon Dioxide 22 Anion Gap 14 BUN 20 H Creatinine 1.06 Estim Creat Clear Calc 81.3 Estimated GFR > 60 POC Glucose Random Glucose 182 H Calcium 8.7 Magnesium Total Bilirubin Direct Bilirubin AST ALT Alkaline Phosphatase Total Creatine Kinase Troponin I High Sens B-Natriuretic Peptide Total Protein Albumin Urine Color Urine Appearance Urine pH Ur Specific [place] Urine Protein Urine Glucose (UA) Urine Ketones Urine Blood Urine Nitrite Ur Leukocyte Esterase Urine RBC Urine WBC Ur Squamous Epith Cells Urine Bacteria Hyaline Casts Urine Opiates Screen Urine Fentanyl Screen Ur Barbiturates Screen Ur Phencyclidine Scrn Ur Amphetamines Screen U Benzodiazepines Scrn Urine Cocaine Screen U Marijuana (THC) Screen COVID-19 (WEST) COVID-19 Clin Com Influenza Type A (SHAISTA) Influenza Type B (SHAISTA) Influenza A & B Note 07/11/22 07/11/22 07/11/22 07:10 09:19 13:42 WBC RBC Hgb Hct MCV MCH MCHC RDW Plt Count MPV Immature Gran % (Auto) Neut % (Auto) Lymph % (Auto) [place] % (Auto) Eos % (Auto) Baso % (Auto) Lymph # (Auto) [place] # (Auto) Eos # (Auto) Baso # (Auto) Abs Immat Gran (auto) Absolute Neuts (auto) Absolute Nucleated RBC Nucleated RBC % (auto) PT INR APTT aPTT Heparin Protocol 52.9 L Sodium Potassium Chloride Carbon Dioxide Anion Gap BUN Creatinine Estim Creat Clear Calc Estimated GFR POC Glucose 157 H 130 H Random Glucose Calcium Magnesium Total Bilirubin Direct Bilirubin AST ALT Alkaline Phosphatase Total Creatine Kinase Troponin I High Sens B-Natriuretic Peptide Total Protein Albumin Urine Color Urine Appearance Urine pH Ur Specific [place] Urine Protein Urine Glucose (UA) Urine Ketones Urine Blood Urine Nitrite Ur Leukocyte Esterase Urine RBC Urine WBC Ur Squamous Epith Cells Urine Bacteria Hyaline Casts Urine Opiates Screen Urine Fentanyl Screen Ur Barbiturates Screen Ur Phencyclidine Scrn Ur Amphetamines Screen U Benzodiazepines Scrn Urine Cocaine Screen U Marijuana (THC) Screen COVID-19 (WEST) COVID-19 Clin Com Influenza Type A (SHAISTA) Influenza Type B (SHAISTA) Influenza A & B Note 07/11/22 16:32 WBC RBC Hgb Hct MCV MCH MCHC RDW Plt Count MPV Immature Gran % (Auto) Neut % (Auto) Lymph % (Auto) [place] % (Auto) Eos % (Auto) Baso % (Auto) Lymph # (Auto) [place] # (Auto) Eos # (Auto) Baso # (Auto) Abs Immat Gran (auto) Absolute Neuts (auto) Absolute Nucleated RBC Nucleated RBC % (auto) PT INR APTT aPTT Heparin Protocol Sodium Potassium Chloride Carbon Dioxide Anion Gap BUN Creatinine Estim Creat Clear Calc Estimated GFR POC Glucose 179 H Random Glucose Calcium Magnesium Total Bilirubin Direct Bilirubin AST ALT Alkaline Phosphatase Total Creatine Kinase Troponin I High Sens B-Natriuretic Peptide Total Protein Albumin Urine Color Urine Appearance Urine pH Ur Specific [place] Urine Protein Urine Glucose (UA) Urine Ketones Urine Blood Urine Nitrite Ur Leukocyte Esterase Urine RBC Urine WBC Ur Squamous Epith Cells Urine Bacteria Hyaline Casts Urine Opiates Screen Urine Fentanyl Screen Ur Barbiturates Screen Ur Phencyclidine Scrn Ur Amphetamines Screen U Benzodiazepines Scrn Urine Cocaine Screen U Marijuana (THC) Screen COVID-19 (WEST) COVID-19 Clin Com Influenza Type A (SHAISTA) Influenza Type B (SHAISTA) Influenza A & B Note Imaging Radiologist's impression: Impressions Chest X-Ray 07/10/22 16:57 IMPRESSION: New small right pleural effusion with right basilar atelectasis and question of right lower lobe infiltrate. Findings could be related to pneumonia. Mild pulmonary vascular congestion would also be a consideration. Assessment and Plan (1) Hypertension, uncontrolled: Status: Acute (2) Congestive heart failure: Status: Acute (3) NICM (nonischemic cardiomyopathy): Status: Acute (4) NSTEMI (non-ST elevated myocardial infarction): Status: Acute Plan 57-year-old gentleman who is presenting for NSTEMI and congestive heart failure. He is known to have apical LAD disease with previous mid LAD stent which was patent as of July 2021. At that time his ejection fraction was 10-15% and he was felt to have a nonischemic cardiomyopathy. He has been quite noncompliant with medications despite discussions in the past. He is again saying that he will take medications regularly. He has ruled in for NSTEMI at this stage. He has some lateral T-wave changes which I think could be related to elevated blood pressure 2. I think we will leave him on heparin for 48 hours. Control blood pressure and restart his cardiomyopathy medications. I will review his echocardiogram to see if there is any significant changes compared to before. As of February 2022 his ejection fraction was 40-45% but it appears he was taking medications at that time. We will follow along with you. Thank you for allowing me to participate in the care of your patient. Please feel free to contact me if you have any questions. Time Spent With Patient Time: Total time managing care of this patient today ____ minutes. Procedures Date of Service Date of Service: 07/11/22
[2022-07-11 17:01] LABS: PTT Heparin Drip 104.1 SEC (53-77.9)
[2022-07-11 20:14] LABS: Glucose, Whole Blood 139 mg/dL (60-115)
[2022-07-11] MEDS: Heparin Sodium,Porcine/1/2NS 25,000 UNIT/250 ML IV.SOLN 9.02 UNIT IVCONT (20:53)
[2022-07-11] MEDS: Atorvastatin Calcium 80 MG TABLET PO (20:57)
[2022-07-11] MEDS: Valsartan 40 MG TABLET PO (20:57)
[2022-07-12 01:35] LABS: PTT Heparin Drip 55.9 SEC (53-77.9)
[2022-07-12 03:11] VITALS: BP 159/100; PULSE 79; RESP 20; TEMP 37.5; O2SAT 97
[2022-07-12 07:43] VITALS: BP 136/78; PULSE 73; RESP 16; TEMP 36.6; O2SAT 94
[2022-07-12 07:49] LABS: PTT Heparin Drip 47.1 SEC (53-77.9)
[2022-07-12 07:51] LABS: Glucose, Whole Blood 165 mg/dL (60-115)
[2022-07-12] MEDS: Heparin Sodium,Porcine 5,000 UNIT/ML VIAL 3900 UNIT IVPUSH (08:37)
[2022-07-12] MEDS: Insulin Lispro 100 UNIT/ML 3 ML VIAL SUBCUT (08:37)
[2022-07-12] MEDS: Furosemide 40 MG TABLET PO (08:37)
[2022-07-12] MEDS: Valsartan 40 MG TABLET PO (08:38)
[2022-07-12] MEDS: amLODIPine Besylate 10 MG TABLET PO (08:38)
[2022-07-12] MEDS: carvediloL 6.25 MG TABLET PO (08:38)
[2022-07-12] MEDS: Aspirin Enteric Coated 81 MG TABLET.DR PO (08:38)
[2022-07-12] MEDS: Spironolactone 25 MG TABLET PO (10:32)
[2022-07-12 11:38] VITALS: BP 140/93; PULSE 65; RESP 18; TEMP 36.5; O2SAT 96
[2022-07-12 11:46] LABS: Glucose, Whole Blood 117 mg/dL (60-115)
--- NOTE | 2022-07-12 12:22 | PM.PNCARD ---
Subjective Subjective Date of Service: 07/12/22 Interval history: Seen and examined at bedside. Echo reviewed and discussed with the patient. Feeling better. Physical Exam Vital Signs: Last Vital Signs Temp 97.7 F 07/12/22 11:38 Pulse 65 07/12/22 11:38 Resp 18 07/12/22 11:38 BP 140/93 H 07/12/22 11:38 Pulse Ox 96 07/12/22 11:38 O2 Del Method 07/12/22 11:38 BMI result Body Mass Index 37.8 GENERAL APPEARANCE: in no acute distress, pleasant. NECK: no carotid bruit, no jugular venous distention. SKIN: no suspicious lesions, warm and dry. HEART: no murmurs, regular rate and rhythm. LUNGS: clear to auscultation bilaterally. ABDOMEN: soft, nontender. EXTREMITIES: no edema. PERIPHERAL PULSES: equal. NEUROLOGIC: No gross deficits, AAO X 3 Objective Labs and Meds 07/11/22 06:40 07/11/22 02:05 Lab results: Laboratory Results - last 24 hr 07/11/22 07/11/22 07/11/22 13:42 16:32 16:35 aPTT Heparin Protocol 104.1 H D POC Glucose 130 H 179 H 07/11/22 07/12/22 07/12/22 20:10 01:17 07:30 aPTT Heparin Protocol 55.9 D 47.1 L POC Glucose 139 H 07/12/22 07/12/22 07:46 11:40 aPTT Heparin Protocol POC Glucose 165 H 117 H Progress Note: A&P Assessment and plan (1) NICM (nonischemic cardiomyopathy): Status: Acute (2) Congestive heart failure: Status: Acute (3) NSTEMI (non-ST elevated myocardial infarction): Status: Acute Plan 57-year-old gentleman who is presenting for congestive heart failure and elevated troponins on background of nonischemic cardiomyopathy and medication noncompliance. Last year July 2021 he was here with similar presentation when his biomarkers were elevated more than current admission and he was referred to [facility] where he had cardiac catheterization performed showing patent LAD stent with distal LAD severe stenosis which was a small size vessel. He was felt to have nonischemic cardiomyopathy. He also had biventricular dysfunction at that time with severe RV dysfunction 2. In between he had repeat echocardiogram in February which showed mild improvement in ejection fraction from 15-20% to 36%. Unfortunately stop taking his medications again and came back with congestive heart failure. He also had some left-sided chest discomfort and had elevated biomarkers. His EKG mostly has lateral T-wave inversions which are due to left ventricular hypertrophy and strain. He has been restarted on neurohormonal blockers. Had a detailed discussion with the patient that he has been noncompliant with medications and has been coming to hospital every year with similar presentations where he has severe biventricular dysfunction and after making some recovery he stops medications. I have explained to him that this is very dangerous situation and he needs to be completely compliant with medications. He appears to be motivated and will take medications. I think currently his treatment is medical management. Heparin can be stopped as I think this is all related to congestive heart failure elevated filling pressures. He has presented similarly 3 times. Thank you for allowing me to participate in the care of your patient. Please feel free to contact me if you have any questions. Time Spent With Patient Time: Total time managing care of this patient today ____ minutes. Progress Note: Quality Stroke Does the patient have a stroke diagnosis?: No Procedures Date of Service Date of Service: 07/12/22
--- NOTE | 2022-07-12 12:35 | PM.DS ---
DS: Providers Provider Date of Service: 07/12/22 Date of admission: 07/10/22 19:48 Date of discharge: 07/12/22 Primary care physician: Lisa Izaguirre MD Consults: 07/10/22 19:48 Consult to Cardiology Routine Consulting Provider: Aguila Worthington Reason for consultation: NSTEMI Has provider been notified: Yes DS: Diagnosis Discharge Diagnosis (1) NICM (nonischemic cardiomyopathy): Status: Acute (2) Congestive heart failure: Status: Acute (3) NSTEMI (non-ST elevated myocardial infarction): Status: Acute (4) Acute on chronic HFrEF (heart failure with reduced ejection fraction): Status: Acute DS: Summary Hospital Course Hospital Course: from admission H+P by hospitalist Richa Pizano, 07/10/22: This is a 57-year-old male with pertinent history of coronary artery disease status post stent in 2015, essential hypertension, aat-vufpeyl-yshuadtev diabetes mellitus presents to the emergency department for evaluation of chest chest discomfort and dyspnea. Patient states he feels ill overall.? Complaints of substernal chest discomfort that has been ongoing for the last 2 days, no exacerbating or relieving factors.? Also has associated dyspnea ? worse with exertion. Positive for orthopnea. No PND.? He denies fever, chills, cough.? States he has been noncompliant with his medications and he last saw a doctor more than a year ago.? Patient denies palpitations, abdominal pain, nausea, vomiting, changes in urinary or bowel habits. In the emergency department, troponin was found to be elevated.? Also had elevated blood pressure upon arrival He was admitted to the [facility] and heparinized and diuresed with IV furosemide. Cardiology was consulted and per their assessment: 57-year-old gentleman who is presenting for congestive heart failure and elevated troponins on background of nonischemic cardiomyopathy and medication noncompliance.? Last year July 2021 he was here with similar presentation when his biomarkers were elevated more than current admission and he was referred to [facility] where he had cardiac catheterization performed showing patent LAD stent with distal LAD severe stenosis which was a small size vessel.? He was felt to have nonischemic cardiomyopathy.? He also had biventricular dysfunction at that time with severe RV dysfunction 2.? In between he had repeat echocardiogram in February which showed mild improvement in ejection fraction from 15-20% to 36%.? Unfortunately stop taking his medications again and came back with congestive heart failure.? He also had some left-sided chest discomfort and had elevated biomarkers.? His EKG mostly has lateral T-wave inversions which are due to left ventricular hypertrophy and strain.? He has been restarted on neurohormonal blockers. Had a detailed discussion with the patient that he has been noncompliant with medications and has been coming to hospital every year with similar presentations where he has severe biventricular dysfunction and after making some recovery he stops medications.? I have explained to him that this is very dangerous situation and he needs to be completely compliant with medications.? He appears to be motivated and will take medications.? I think currently his treatment is medical management.? Heparin can be stopped as I think this is all related to congestive heart failure elevated filling pressures.? He has presented similarly 3 times.? The patient was discharged with prescriptions for amlodipine, carvedilol, valsartan, furosemide, spironolactone, aspirin, and atorvastatin. He was instructed to arrange Primary Care and Cardiology follow-up. He was counseled on the importance of medication compliance. Time Spent with Patient Time attestation: Total time managing care of this patient today ____ minutes. Discharge coordination time: Greater than 30 minutes Quality: Safe Use of Opioids Does Pt have an Active Cancer Diagnosis on the Problem List?: No Quality: Stroke Does the patient have a stroke diagnosis?: No Physical Exam Vital Signs: Vital Signs: Last Vital Signs Temp 97.7 F 07/12/22 11:38 Pulse 65 07/12/22 11:38 Resp 18 07/12/22 11:38 BP 140/93 H 07/12/22 11:38 Pulse Ox 96 07/12/22 11:38 O2 Del Method 07/12/22 11:38 BMI result Body Mass Index 37.8 Const: Other: Gen: in no acute distress HEENT: sclera anicteric, moist mucus membranes Neck: supple Lungs: clear to auscultation bilaterally Heart: regular rate and rhythm, no murmurs Abd: soft, non-tender, non-distended Ext: no edema Skin: warm/well-perfused Neuro: alert and oriented x3, no focal findings Psych: appropriate affect DS: Data Data Completed and Pending Completed studies during hospitalization [Text1]: Laboratory Results WBC 8.2 X10*3/uL (4.8-10.8) 07/11/22 06:40 RBC 4.74 X10*6/uL (4.60-5.80) 07/11/22 06:40 Hgb 12.6 g/dl (14.0-18.0) L 07/11/22 06:40 Hct 40.8 % (42.0-52.0) L 07/11/22 06:40 MCV 86.1 fL (80.0-98.0) 07/11/22 06:40 MCH 26.6 pg (27.0-33.0) L 07/11/22 06:40 MCHC 30.9 g/dl (31.0-36.0) L 07/11/22 06:40 RDW 15.5 % (11.0-16.0) 07/11/22 06:40 Plt Count 194 X10*3/uL (160-400) 07/11/22 06:40 MPV 10.1 fL (9.4-12.4) 07/11/22 06:40 Immature Gran % (Auto) 0.5 % (0.0-0.4) H 07/11/22 02:05 Neut % (Auto) 60.1 % (45-73) 07/11/22 02:05 Lymph % (Auto) 30.6 % (20-40) 07/11/22 02:05 [place] % (Auto) 4.6 % (2-11) 07/11/22 02:05 Eos % (Auto) 3.0 % (0-4) 07/11/22 02:05 Baso % (Auto) 1.2 % (0-2) 07/11/22 02:05 Lymph # (Auto) 2.4 X10*3/uL (1.2-4.9) 07/11/22 02:05 [place] # (Auto) 0.4 X10*3/uL (0.1-1.2) 07/11/22 02:05 Eos # (Auto) 0.2 X10*3/uL (0.0-0.4) 07/11/22 02:05 Baso # (Auto) 0.1 X10*3/uL (0.0-0.2) 07/11/22 02:05 Abs Immat Gran (auto) 0.04 X10*3/uL (0.00-0.03) H 07/11/22 02:05 Absolute Neuts (auto) 4.7 x10*3/uL (2.0-8.3) 07/11/22 02:05 Absolute Nucleated RBC 0.000 X10*3/uL (0.0-0.012) 07/11/22 06:40 Nucleated RBC % (auto) 0.0 /100WBC (0.0-0.2) 07/11/22 06:40 PT 17.2 SEC (10.0-13.1) H 07/11/22 06:40 INR 1.5 (0.9-1.1) H 07/11/22 06:40 APTT 29.3 SEC (26.0-36.4) 07/10/22 16:35 aPTT Heparin Protocol 47.1 SEC (53-77.9) L 07/12/22 07:30 Sodium 136 mmol/L (135-145) 07/11/22 02:05 Potassium 4.2 mmol/L (3.3-5.1) 07/11/22 02:05 Chloride 104 mmol/L (96-108) 07/11/22 02:05 Carbon Dioxide 22 mmol/L (22-29) 07/11/22 02:05 Anion Gap 14 (12-20) 07/11/22 02:05 BUN 20 mg/dL (9-16) H 07/11/22 02:05 Creatinine 1.06 mg/dL (0.5-1.4) 07/11/22 02:05 Estim Creat Clear Calc 81.3 07/11/22 02:05 Estimated GFR > 60 07/11/22 02:05 POC Glucose 117 mg/dL (60-115) H 07/12/22 11:40 Random Glucose 182 mg/dL (60-115) H 07/11/22 02:05 Calcium 8.7 mg/dL (8.4-10.2) 07/11/22 02:05 Magnesium 1.8 mg/dL (1.6-2.6) 07/10/22 16:35 Total Bilirubin 1.1 mg/dL (0.0-1.0) H 07/10/22 16:35 Direct Bilirubin 0.4 mg/dL (0.0-0.5) 07/10/22 16:35 AST 23 U/L (5-37) 07/10/22 16:35 ALT 21 U/L (0-40) 07/10/22 16:35 Alkaline Phosphatase 64 U/L (39-117) 07/10/22 16:35 Total Creatine Kinase 101 U/L (38-174) 07/10/22 16:35 Troponin I High Sens 1153.7 ng/L (<3.5-35.0) H* 07/10/22 18:14 B-Natriuretic Peptide 1709 pg/mL (<100) H 07/10/22 16:35 Total Protein 6.5 g/dL (6.5-8.0) 07/10/22 16:35 Albumin 3.7 g/dL (3.5-5.0) 07/10/22 16:35 Urine Color Yellow 07/10/22 22:38 Urine Appearance Clear 07/10/22 22:38 Urine pH 5.5 (5.0-9.0) 07/10/22 22:38 Ur Specific [place] 1.010 (1.005-1.025) 07/10/22 22:38 Urine Protein 30 (1+) mg/dL (Neg-Trace) H 07/10/22 22:38 Urine Glucose (UA) Negative mg/dL (Negative) 07/10/22 22:38 Urine Ketones Negative mg/dL (Negative) 07/10/22 22:38 Urine Blood Negative (Negative) 07/10/22 22:38 Urine Nitrite Negative (Negative) 07/10/22 22:38 Ur Leukocyte Esterase Negative (Negative) 07/10/22 22:38 Urine RBC 0-2 /HPF (0-2) 07/10/22 22:38 Urine WBC 0-5 /HPF (0-5) 07/10/22 22:38 Ur Squamous Epith Cells 0-2 /HPF (0-2) 07/10/22 22:38 Urine Bacteria None Seen (None Seen) 07/10/22 22:38 Hyaline Casts 0-2 /LPF (0-2) 07/10/22 22:38 Urine Opiates Screen Not Detected (Not Detect) 07/10/22 22:38 Urine Fentanyl Screen Not Detected (Not Detect) 07/10/22 22:38 Ur Barbiturates Screen Not Detected (Not Detect) 07/10/22 22:38 Ur Phencyclidine Scrn Not Detected (Not Detect) 07/10/22 22:38 Ur Amphetamines Screen Not Detected (Not Detect) 07/10/22 22:38 U Benzodiazepines Scrn Not Detected (Not Detect) 07/10/22 22:38 Urine Cocaine Screen Not Detected (Not Detect) 07/10/22 22:38 U Marijuana (THC) Screen Not Detected (Not Detect) 07/10/22 22:38 COVID-19 ([facility]) Negative (Negative) 07/10/22 16:35 COVID-19 Clin Com See Note 07/10/22 16:35 Influenza Type A (SHAISTA) Negative (Negative) 07/10/22 16:35 Influenza Type B (SHAISTA) Negative (Negative) 07/10/22 16:35 Influenza A & B Note See Note 07/10/22 16:35 Impressions Chest X-Ray 07/10/22 16:57 IMPRESSION: New small right pleural effusion with right basilar atelectasis and question of right lower lobe infiltrate. Findings could be related to pneumonia. Mild pulmonary vascular congestion would also be a consideration. TTE 07/11/22 Conclusions: - Limited echo.? - Severe LV dysfunction. ? - Moderate to severe RV dysfunction. ? Findings Left Ventricle Mildly increased left ventricular cavity size.? There is mildly increased left ventricular wall thickness.? The left ventricular systolic function is severely decreased.? The visually estimated ejection fraction is between 20 25%.? There is severe global hypokinesis.? Abnormal diastolic function is noted. Right Ventricle There is moderate to severely decreased right ventricular systolic function. Moderate to severe RV dilation. Discharge Plan Discharge Anticipated Discharge Date/Time: 07/12/22 12:27 Patient Disposition: Home, Self-Care Discharge Diagnosis: NSTEMI, nonischemic cardiomyopathy, CHF exacerbation Referrals: Aguila Worthington MD [Physician] - 1 Week Lisa Flynn MD [Primary Care Provider] - 1 Week Discharge Medications: New furosemide 40 mg Tablet 40 mg PO DAILY Qty: 30 0RF Protocol: Hold for SBP< HOLD for SBP < : 90 atorvastatin 80 mg Tablet 80 mg PO BEDTIME Qty: 30 0RF carvedilol 6.25 mg Tablet 6.25 mg PO BID Qty: 60 0RF Protocol: Hold for SBP/HR < HOLD for SBP < : 90 HOLD for HR < : 60 spironolactone 25 mg Tablet 25 mg PO DAILY Qty: 30 0RF Protocol: Hold for SBP< HOLD for SBP < : 90 valsartan 40 mg Tablet 40 mg PO BID Qty: 60 0RF Protocol: Hold for SBP< HOLD for SBP < : 90 Continued aspirin 81 mg tablet,delayed release (DR/EC) 81 mg PO DAILY Qty: 90 3RF amlodipine 10 mg tablet 10 mg PO DAILY Qty: 90 3RF Discharge Orders: Discharge Order (Routine); Ordered 07/12/22 Ordered By: Amber Ferreira Diet: Low salt diet Activity on Discharge: As tolerated Stand Alone Forms: Patient Portal Discharge page Care Plan Goals: cardiac health Health Concerns: NSTEMI, nonischemic cardiomyopathy, CHF exacerbation Plan of Treatment: take medications as prescribed without missing doses: - atorvastatin 80 mg daily - aspirin 81 mg daily - amlodipine 10 mg daily - carvedilol 6.25 mg twice daily - valsartan 40 mg twice daily - spironolactone 25 mg once daily - furosemide 40 mg once daily Please follow up with your primary care doctor within 1 week. Return to the hospital if you experience recurrent or worsening symptoms. See [facility] Cardiology in 1-2 weeks. Low-sodium diet: less than 2000 mg of sodium daily. Weigh yourself daily and call your doctor if your weight goes up by more than 3 lb/day or 5 lb/week. Assessment: See Discharge Summary.
[2022-07-12 14:04] LABS: PTT Heparin Drip 100.4 SEC (53-77.9)
--- NOTE | 2022-07-12 14:18 | MHC.CM.PN ---
pt dcd home no skilled servceis ordered by
== END 2022-07-12 16:00 | disposition home or self-care (01) | DRG 194 ==
LOC: HO.ED 17:22 → HO.EDOVER 19:52 → HO.IMC 07-11 13:45
PROVIDERS: Nurse Practitioner Acute Care; Physician Assistant; Admitting Provider Student in an Organized Health Care Education/Training Program; Emergency Provider Internal Medicine; PCP Internal Medicine; Visit Provider Family Medicine
DX: I11.0 Hypertensive heart disease with heart failure (principal); I21.4 Non-ST elevation (NSTEMI) myocardial infarction; I43 Cardiomyopathy in diseases classified elsewhere; I50.23 Acute on chronic systolic (congestive) heart failure; I10 Essential (primary) hypertension; E11.9 Type 2 diabetes mellitus without complications; E66.9 Obesity, unspecified; Z68.37 Body mass index [BMI] 37.0-37.9, adult; I25.10 Atherosclerotic heart disease of native coronary artery without angina pectoris; Z71.3 Dietary counseling and surveillance; Z91.14 Patient's other noncompliance with medication regimen; Z20.822 Contact with and (suspected) exposure to COVID-19; Z95.5 Presence of coronary angioplasty implant and graft; Z79.82 Long term (current) use of aspirin; Z79.899 Other long term (current) drug therapy
CPT/HCPCS: 36415; 71046; 80048; 80076; 80307; 81001; 82550; 82947; 83735; 83880; 84484; 85025; 85027; 85610; 85730; 87502; 87635; 93005; 93308; 99285; J1643; J1940; Q9957

== ENCOUNTER → 2022-09-04 15:05 | Outpatient (BNVA) | payer OTHER, SELFPAY | PROVIDERS: PCP Internal Medicine; Referring Provider Internal Medicine; Visit Provider Internal Medicine | DX: I11.9 Hypertensive heart disease without heart failure (principal); I43 Cardiomyopathy in diseases classified elsewhere; I25.10 Atherosclerotic heart disease of native coronary artery without angina pectoris; Z79.899 Other long term (current) drug therapy | CPT/HCPCS: 99212 ==

== ENCOUNTER 2023-06-01 09:12 | Inpatient (IN) | payer OTHER, SELFPAY ==
[2023-06-01] VITALS (8 sets, daily range): BP systolic 170–217; BP diastolic 72–89; PULSE 49–58; RESP 16–20; TEMP 36.8–37.2; O2SAT 96–98; BMI 35.6
--- NOTE | 2023-06-01 09:48 | ED.NEUROSD ---
HPI - Neuro Symptoms/Deficit General Chief Complaint: Stroke Stated Complaint: feeling unsteady ? Time Seen by Provider: 06/01/23 09:37 Source: patient and family (Significant other who is also the healthcare proxy) History of Present Illness HPI Narrative: This is a 58-year-old male with history of diabetes, hypertension, heart failure who lost his job 2 weeks ago, suffers from depression as well as previous strokes and states for the past 3 days he has not felt well. The significant other who is at the bedside, his healthcare proxy, states that sometimes it is difficult to tell whether not this is related to his underlying depression from losing his job or whether there are new findings. Neither she nor he are able to tell me what his residual deficits were after his previous stroke. I did specifically ask regarding the lopsided smile and the significant other denies that this was present previously. She states that this is been ongoing for 3 days but that he is resistant to coming into the emergency room. Related Data Previous Rx's Medication Instructions Recorded aspirin 81 mg tablet,delayed 81 mg PO DAILY #30 tabs 08/11/22 release metformin 500 mg tablet 500 mg PO BID 90 days #180 tabs 09/06/22 blood pressure monitor #1 ea 09/22/22 amlodipine 10 mg tablet 10 mg PO DAILY #90 tabs 12/25/22 atorvastatin 80 mg tablet 80 mg PO BEDTIME #90 tabs 02/26/23 carvedilol 6.25 mg tablet 6.25 mg PO BID #180 tabs 02/26/23 furosemide 40 mg tablet 40 mg PO DAILY #90 tabs 02/26/23 spironolactone 25 mg tablet 25 mg PO DAILY #90 tabs 02/26/23 valsartan 40 mg tablet 40 mg PO BID #180 tabs 02/26/23 Allergies Allergy/AdvReac Type Severity Reaction Status Date / Time No Known Allergies Allergy Verified 11/01/22 10:31 [No Known Allergies*] Review of Systems Review of Systems: Pertinent positives and negatives as stated in HPI PMFSH Past Medical History Source: nursing notes reviewed Onset Date is defined in the Problem List Problems that require an onset date and time if occurred within 24 hrs of arrival to the ED Aortic Dissection and Rupture; Neurologic impairment; Cardiopulmonary Arrest; Endotracheal Intubation; Insertion or Replacement of Mechanical Circulatory Assist Device Medical History NICM (nonischemic cardiomyopathy) Congestive heart failure Hypertension, uncontrolled Hypertensive cardiomyopathy NSTEMI (non-ST elevated myocardial infarction) Essential hypertension Atherosclerotic cardiovascular disease Coronary artery disease Surgical History History of cardiac catheterization (~07/2020) Family History Family History Father No problems noted. Mother No problems noted. Social History Social History Household Members: Significant Other Housing: House Do you presently have visiting nurse or other home services: No Alcohol intake: former Patient Tobacco Use Status: Never used Tobacco Smoked in Last 30 Days: No e-Cigarette/Vaping Use: Never Used Second Hand Smoke Exposure: No Use of substances other than those prescribed or required for medical reasons: No Substance Use Type: Marijuana Advance Directives: Yes Advance Directives on File: No service: No Current occupational status: unemployed Cognitive needs: No Hearing needs: No Vision needs: No Physical Exam Vital Signs: Vital Signs: Last Vital Signs Temp 98.9 F 06/01/23 09:38 Pulse 52 06/01/23 12:00 Resp 18 06/01/23 12:00 BP 170/75 H 06/01/23 12:00 Pulse Ox 97 06/01/23 12:00 O2 Del Method Room Air 06/01/23 12:00 BMI result Body Mass Index 35.6 VITAL SIGNS: Reviewed. GENERAL: Well developed, well nourished, in no acute distress. HEAD: Normocephalic/atraumatic EYES: PERRLA, EOMI EARS: Ext canals without abnormality NOSE: Nares patent bilateral OROPHARYNX: no oral lesions noted, posterior pharynx clear NECK: Supple, no adenopathy LUNGS: Normal breath sounds. No adventitious sounds or accessory muscle use. SpO2<96> CARDIOVASCULAR: Regular rate and rhythm without noted murmurs ABDOMEN: Soft, non-tender, non-distended with bowel sounds. MUSCULOSKELETAL: No tenderness, deformities, or effusions noted on gross inspection. EXTREMITIES: No cyanosis, clubbing or edema. SKIN: Inspection of the skin reveals no rashes NEUROLOGIC: Alert and oriented x 4. Strength and sensation to light touch were grossly intact x 4, otherwise please see the NIH stroke scale. PSYCH: Depressed affect Medications Administered Discontinued Medications Generic Name Dose Route Start Last Admin Trade Name William PRN Reason Stop Dose Admin Amlodipine Besylate 10 mg 06/01/23 11:43 06/01/23 12:17 Amlodipine Besylate 10 Mg Tablet PO 06/01/23 11:44 10 mg ONCE ONE Administration Protocol Iohexol 70 ml 06/01/23 10:59 06/01/23 10:59 Iohexol 350 Mg/Ml 100 Ml Infus..Btl IV 06/01/23 11:00 70 ml ONCE ONE Administration Labetalol HCl 5 mg 06/01/23 09:37 06/01/23 09:50 Labetalol Hcl 100 Mg/20 Ml Vial IVPUSH 06/01/23 09:38 5 mg ONCE ONE Administration Medical Decision Making Medical Decision Making MDM Narrative: 58-year-old male with history and clinical presentation, DDX: Subacute stroke suspect lacunar as a possibility, depression, patient also noted to be hypertensive on arrival and denies taking his medications this morning for unclear reasons. 1025: I received a call from lab who states that patient's troponin is over 400, I also contacted Cardiology, patient has no specific chest pain complaints. 1041: After comparison with prior EKG from June/2022 patient is not felt to have significant difference, cardiology recommendation to obtain 2nd troponin and repeat EKG with improved tracing was sent to Dr. Worthington. 1048: Dr Worthington recommends c/w CVA eval and BP control, no heparin for now. Troponins are flat but elevated without complaints of chest pain. 1229: On review of CT scan there is a suggestion of hypoattenuation within the supratentorial periventricular and subcortical white matter that is questionably progressed. There is a recommendation for follow-up MRI which we will pursue. In addition, there is noted progressive severe stenosis of the right anterior cerebral artery add and beyond the A2 segment. Will proceed with MRI and discuss with Neurology. 1348: I discussed the case with inpatient hospitalist who accepts admission. 1402: I discussed the case with Neurology, who recommends against aggressive blood pressure control. I have previously reviewed all investigations and hematologic indices are chronically stable without leukocytosis or left shift/no thrombocytopenia there is a stable normocytic anemia. Coagulation studies are within normal limits. Chemistry indices do not demonstrate an NEGIN there is no electrolyte derangements. There is a slight bump in transaminases. Urinalysis negative for UTI or hematuria. Viral testing is negative. CT scan results, EKG, troponins as discussed above. Differential Diagnosis Differential Diagnoses: The differential diagnosis associated with the presentation includes Please see the discussion above Admission/Observation Consideration of admission/observation: Escalation of care including admission/observation considered Please see the discussion above Consult Healthcare Provider Management of the patient was discussed with: Hospitalist and Entertainment Dancer Please see the discussion above Lab Data MDM Lab Attestation statement: I reviewed the patient's lab results. Please see the discussion above 06/01/23 09:48 06/01/23 09:48 Labs: Lab Results 06/01/23 06/01/23 06/01/23 Range/Units 09:42 09:48 10:45 WBC 7.7 (4.8-10.8) X10*3/uL RBC 4.89 (4.60-5.80) X10*6/uL Hgb 13.9 L (14.0-18.0) g/dl Hct 41.2 L (42.0-52.0) % MCV 84.3 (80.0-98.0) fL MCH 28.4 (27.0-33.0) pg MCHC 33.7 (31.0-36.0) g/dl RDW 12.5 (11.0-16.0) % Plt Count 190 (160-400) X10*3/uL MPV 9.7 (9.4-12.4) fL Immature Gran % (Auto) 0.4 (0.0-0.4) % Neut % (Auto) 61.3 (45-73) % Lymph % (Auto) 27.3 (20-40) % [place] % (Auto) 6.6 (2-11) % Eos % (Auto) 3.6 (0-4) % Baso % (Auto) 0.8 (0-2) % Lymph # (Auto) 2.1 (1.2-4.9) X10*3/uL [place] # (Auto) 0.5 (0.1-1.2) X10*3/uL Eos # (Auto) 0.3 (0.0-0.4) X10*3/uL Baso # (Auto) 0.1 (0.0-0.2) X10*3/uL Abs Immat Gran (auto) 0.03 (0.00-0.03) X10*3/uL Absolute Neuts (auto) 4.7 (2.0-8.3) x10*3/uL Absolute Nucleated RBC 0.000 (0.0-0.012) X10*3/uL Nucleated RBC % (auto) 0.0 (0.0-0.2) /100WBC PT 12.4 (11.1-13.3) SEC INR 1.0 (0.9-1.1) Sodium 136 (135-145) mmol/L Potassium 3.9 (3.3-5.1) mmol/L Chloride 101 (96-108) mmol/L Carbon Dioxide 26 (22-29) mmol/L Anion Gap 13 (12-20) BUN 15 (9-16) mg/dL Creatinine 0.86 (0.5-1.4) mg/dL Estim Creat Clear Calc 99.0 Estimated GFR > 60 POC Glucose 208 H (60-115) mg/dL Random Glucose 219 H (60-115) mg/dL Calcium 10.1 D (8.4-10.2) mg/dL Total Bilirubin 0.5 (0.0-1.0) mg/dL AST 48 H (5-37) U/L ALT 67 H (0-40) U/L Alkaline Phosphatase 62 (39-117) U/L Troponin I High Sens 418.6 H* D 410.6 H* (<3.5-35.0) ng/L Total Protein 8.1 H (6.5-8.0) g/dL Albumin 4.3 (3.5-5.0) g/dL Urine Color Urine Appearance Urine pH (5.0-9.0) Ur Specific [place] (1.005-1.025) Urine Protein (Neg-Trace) mg/dL Urine Glucose (UA) (Negative) mg/dL Urine Ketones (Negative) mg/dL Urine Blood (Negative) Urine Nitrite (Negative) Ur Leukocyte Esterase (Negative) Urine RBC (0-2) /HPF Urine WBC (0-5) /HPF Ur Squamous Epith Cells (0-2) /HPF Urine Bacteria (None Seen) Hyaline Casts (0-2) /LPF Influenza Type A (PCR) NEGATIVE (Negative) Influenza Type B (PCR) NEGATIVE (Negative) RSV RNA Qual (PCR) NEGATIVE (Negative) SARS-CoV-2 RNA (RT-PCR) NEGATIVE (Negative) 06/01/23 Range/Units 11:34 WBC (4.8-10.8) X10*3/uL RBC (4.60-5.80) X10*6/uL Hgb (14.0-18.0) g/dl Hct (42.0-52.0) % MCV (80.0-98.0) fL MCH (27.0-33.0) pg MCHC (31.0-36.0) g/dl RDW (11.0-16.0) % Plt Count (160-400) X10*3/uL MPV (9.4-12.4) fL Immature Gran % (Auto) (0.0-0.4) % Neut % (Auto) (45-73) % Lymph % (Auto) (20-40) % [place] % (Auto) (2-11) % Eos % (Auto) (0-4) % Baso % (Auto) (0-2) % Lymph # (Auto) (1.2-4.9) X10*3/uL [place] # (Auto) (0.1-1.2) X10*3/uL Eos # (Auto) (0.0-0.4) X10*3/uL Baso # (Auto) (0.0-0.2) X10*3/uL Abs Immat Gran (auto) (0.00-0.03) X10*3/uL Absolute Neuts (auto) (2.0-8.3) x10*3/uL Absolute Nucleated RBC (0.0-0.012) X10*3/uL Nucleated RBC % (auto) (0.0-0.2) /100WBC PT (11.1-13.3) SEC INR (0.9-1.1) Sodium (135-145) mmol/L Potassium (3.3-5.1) mmol/L Chloride (96-108) mmol/L Carbon Dioxide (22-29) mmol/L Anion Gap (12-20) BUN (9-16) mg/dL Creatinine (0.5-1.4) mg/dL Estim Creat Clear Calc Estimated GFR POC Glucose (60-115) mg/dL Random Glucose (60-115) mg/dL Calcium (8.4-10.2) mg/dL Total Bilirubin (0.0-1.0) mg/dL AST (5-37) U/L ALT (0-40) U/L Alkaline Phosphatase (39-117) U/L Troponin I High Sens (<3.5-35.0) ng/L Total Protein (6.5-8.0) g/dL Albumin (3.5-5.0) g/dL Urine Color Yellow Urine Appearance Clear Urine pH 5.5 (5.0-9.0) Ur Specific [place] >= 1.030 H (1.005-1.025) Urine Protein 30 (1+) H (Neg-Trace) mg/dL Urine Glucose (UA) 250 H (Negative) mg/dL Urine Ketones Trace (Negative) mg/dL Urine Blood Negative (Negative) Urine Nitrite Negative (Negative) Ur Leukocyte Esterase Negative (Negative) Urine RBC 0-2 (0-2) /HPF Urine WBC 0-5 (0-5) /HPF Ur Squamous Epith Cells 0-2 (0-2) /HPF Urine Bacteria None Seen (None Seen) Hyaline Casts 0-2 (0-2) /LPF Influenza Type A (PCR) (Negative) Influenza Type B (PCR) (Negative) RSV RNA Qual (PCR) (Negative) SARS-CoV-2 RNA (RT-PCR) (Negative) Independent Interpretation I performed an independent interpretation of an: EKG Interpretation: Sinus bradycardia, HR-52, questionable Wellens, no obvious STEMI, [place]/QRS/QTC is within normal limits. Radiology Impression Discussion of test interpretation with radiology: I have reviewed the radiologist's reading. Radiologist Impression: Please see the discussion above External Record Review External record reviewed: Outpatient record, Prior outpatient labs and Prior outpatient radiology Chronic Conditions Patient?s care impacted by: Diabetes and Hypertension NIH Stroke Scale Internal: Initial- Upon Arrival Level of Consciousness: Alert Level of Consciousness Questions: Answers both questions correctly Level of Consciousness Commands: Performs both tasks correctly Best Gaze: Normal Visual: No visual loss Facial Palsy: Minor paralyis Motor Arm (Right): No drift Motor Arm (Left): No drift Motor Leg (Right): No drift Motor Leg (Left): No drift Limb Ataxia: Absent Sensory: Normal Best Language: Mild to moderate aphasia Dysarthia: Normal Extinction and Inattention: No abnormality Score: 2 Critical Care Time Critical Care Time Critical Care Time: Yes Total Critical Care Time: 60 Attestation: I personally attest to this time spent taking care of the patient. Discharge Plan Discharge Clinical Impression: CVA (cerebral vascular accident), Hypertension, Elevated troponin Patient Disposition: Admitted As Inpatient Prescriptions: No Action aspirin 81 mg tablet,delayed release (DR/EC) 81 mg PO DAILY Qty: 30 1RF (DME) blood pressure monitor Kit See Rx Instructions .Route Qty: 1 0RF Rx Instructions: As directed amlodipine 10 mg tablet 10 mg PO DAILY Qty: 90 3RF spironolactone 25 mg tablet 25 mg PO DAILY Qty: 90 3RF atorvastatin 80 mg tablet 80 mg PO BEDTIME Qty: 90 3RF valsartan 40 mg tablet 40 mg PO BID Qty: 180 3RF carvedilol 6.25 mg tablet 6.25 mg PO BID Qty: 180 3RF furosemide 40 mg tablet 40 mg PO DAILY Qty: 90 3RF metformin 500 mg tablet 500 mg PO BID 90 Days Qty: 180 1RF
--- NOTE | 2023-06-01 09:52 | PC.NURSE ---
Alert and oriented, slow to respond. Denies pain or discomfort. hand grasps strong and equal. Left side of face with droop- states this has been going on for 3 days and thinks he is depressed d/t recent loss of job
--- NOTE | 2023-06-01 11:36 | PC.NURSE ---
Patient continues to denies sob or chest pain. sinus henry on monitor
--- NOTE | 2023-06-01 12:42 | PC.NURSE ---
MRI screening form completed with patient and faxed to MRI
--- NOTE | 2023-06-01 15:01 | PM.IMHP ---
History of Present Illness Date of Service: 06/01/23 Chief Complaint: left sided weakness The patient is a 58 year old male with a PMH of ICM with severely reduced EF around 20%, DM, HTN, CAD s/p PCI and prior CVA (and per documentation from that admission, resoluation of his symptoms) who presents to the ED with a 3 day history of feeling off balance. The patient is not able to expand on his symptoms much. He states that his left side felt weak. He denies falling. He reports abnormal speech but denies dysphagia. He denies any sensory deficits. No headache, no chest pain, no sob. Reports compliance with his BP meds (although BP significantly elevated upon arrival). Work up in the ED was positive for severely elevated BP, CT head with concern over CVA (to evaluate with MRI). He was given IV labetalol, PO norvasc. His trops are elevated but flat. His case has been dw the on-call weatherization operations manager and neurologist. He will be admitted for further management. Review of Systems Review of Systems: Negative except HPI/interval history. [facility] Medical History NICM (nonischemic cardiomyopathy) Congestive heart failure Hypertension, uncontrolled Hypertensive cardiomyopathy NSTEMI (non-ST elevated myocardial infarction) Essential hypertension Atherosclerotic cardiovascular disease Coronary artery disease Family History Father No problems noted. Mother No problems noted. Surgical History History of cardiac catheterization (~07/2020) Social History Household Members: Significant Other Housing: House Do you presently have visiting nurse or other home services: No Alcohol intake: former Patient Tobacco Use Status: Never used Tobacco Smoked in Last 30 Days: No e-Cigarette/Vaping Use: Never Used Second Hand Smoke Exposure: No Use of substances other than those prescribed or required for medical reasons: No Substance Use Type: Marijuana Advance Directives: Yes Advance Directives on File: No service: No Current occupational status: unemployed Cognitive needs: No Hearing needs: No Vision needs: No Meds Allergies Allergy/AdvReac Type Severity Reaction Status Date / Time No Known Allergies Allergy Verified 11/01/22 10:31 [No Known Allergies*] Active Medications: Current Medications Acetaminophen (Acetaminophen 325 Mg Tablet) 650 mg PO Q6H PRN PRN Reason: Pain, Mild (Pain Scale 1-3) Atorvastatin Calcium (Atorvastatin Calcium 80 Mg Tablet) 80 mg PO DAILY JULIAN Ondansetron HCl (Ondansetron Hcl 4 Mg/2 Ml Vial) 4 mg IVPUSH Q8H PRN PRN Reason: Nausea and Vomiting Home Medications Medication Instructions Recorded Confirmed Last Taken Type magnesium oxide 400 mg (241.3 mg 400 mg PO DAILY 06/01/23 06/01/23 05/31/23 History magnesium) tablet multivitamin 1 tab PO DAILY 06/01/23 06/01/23 05/31/23 History omega 6-sso-ebw-fish oil 300 1 cap PO DAILY 06/01/23 06/01/23 05/31/23 History mg-1,000 mg capsule,delayed release (Fish Oil) Physical Exam Vital Signs and Narrative: Vital Signs: Last Vital Signs Temp 98.2 F 06/01/23 14:56 Pulse 49 L 06/01/23 14:56 Resp 17 06/01/23 14:56 BP 174/79 H 06/01/23 14:56 Pulse Ox 96 06/01/23 14:56 O2 Del Method Room Air 06/01/23 14:56 BMI result Body Mass Index 35.6 Const: Other: Constitutional - Awake and Alert, No apparent distress Eyes - PERRLA, EOMI Cardiovascular - S1S2, RRR, No edema Respiratory - Normal lung expansion, Normal respiratory effort, No respiratory distress, CTA bilaterally Gastrointestinal - NT / ND; +BS; No rebound or guarding - No CVA tenderness Extremities - no calf tenderness bilaterally, no swelling Musculoskeletal - Normal inspection, normal ROM Skin - Warm/Dry Neurological - Alert & oriented x3, trade LUE weakness 4/5 compared to right, no pronator drift; +facial asymmetry, speech appears normal to be, but patient states it is not at baseline; RUE and b/l LE with normal str Psychological - Appropriate affect Results Labs 06/01/23 09:48 06/01/23 09:48 Labs: Laboratory Results - last 24 hr 06/01/23 06/01/23 06/01/23 09:42 09:48 11:34 MCV 84.3 MCH 28.4 MCHC 33.7 RDW 12.5 Plt Count 190 MPV 9.7 Immature Gran % (Auto) 0.4 Neut % (Auto) 61.3 Lymph % (Auto) 27.3 [place] % (Auto) 6.6 Eos % (Auto) 3.6 Baso % (Auto) 0.8 Lymph # (Auto) 2.1 [place] # (Auto) 0.5 Eos # (Auto) 0.3 Baso # (Auto) 0.1 Abs Immat Gran (auto) 0.03 Absolute Neuts (auto) 4.7 Absolute Nucleated RBC 0.000 Nucleated RBC % (auto) 0.0 PT 12.4 INR 1.0 Anion Gap 13 Estim Creat Clear Calc 99.0 Estimated GFR > 60 POC Glucose 208 H Random Glucose 219 H Calcium 10.1 D Total Bilirubin 0.5 AST 48 H ALT 67 H Alkaline Phosphatase 62 Total Protein 8.1 H Albumin 4.3 Urine Color Yellow Urine Appearance Clear Urine pH 5.5 Ur Specific [place] >= 1.030 H Urine Protein 30 (1+) H Urine Glucose (UA) 250 H Urine Ketones Trace Urine Blood Negative Urine Nitrite Negative Ur Leukocyte Esterase Negative Urine RBC 0-2 Urine WBC 0-5 Ur Squamous Epith Cells 0-2 Urine Bacteria None Seen Hyaline Casts 0-2 Influenza Type A (PCR) NEGATIVE Influenza Type B (PCR) NEGATIVE RSV RNA Qual (PCR) NEGATIVE SARS-CoV-2 RNA (RT-PCR) NEGATIVE Imaging Radiologist's Impressions: Impressions Head/Neck CTA 06/01/23 11:15 IMPRESSION: - Hypoattenuation within the supratentorial periventricular and subcortical white matter is possibly progressed and there is more conspicuous hypoattenuation within the right ventral alecia. A few chronic lacunar infarcts within the basal ganglia bilaterally are again noted. In the setting of focal neurologic deficit, MRI would be helpful in more definitive assessment. - Progressive severe stenosis/partial occlusion of the right anterior cerebral artery at and beyond the A2 segment. There is also a progressive severe stenosis involving the proximal right A1 LETA segment. - No significant arterial stenoses within the neck. Assessment and Plan (1) CVA (cerebral vascular accident): Status: Acute Plan 58 yo M with multiple medical issues incluing ICM/HFrEF, uncontrolled HTN, DM and others who presents with a 3 day history of neurological deficits. Presentation is consistent with acute/subacute CVA. He will be admitted for [facility] mgmt. 1. Acute/Sub-acute CVA CT findings noted (see full report) MRI Neuro consult allow for permissive HTN (given norvasc/labetalol in the ED for BP over 220 -- now in the 170s/90s) PT/OT/Speech (passed RN swallow) telemonitor, 2d echo (last echo from Jun 2022) asa/statin CT with multiple bilateral chronic CVA -- question embolic in nature 2. Uncontrolled HTN BP elvated over 220 on arrival; question compliance, although patient reports he has been taking his medications allow for permissive HTN 3. NSTEMI likely type 2 secondary to elevated BP Trop [place] echo as above consider cardiology 4. DM last a1c in August 2022 was >8; unclear what meds he is on repeat A1C and start POC + sliding scale Full Code DVT pptx, Lovenox Patient with acute/subacute CVA, HTN emergency and NSTEMI requiring work up and management including BP monitoring, neurology evaluation, cardiac testing. Therefore, expected to require a minimum of 2 midnights in the hospital, hence will be admitted as inpatient. Quality Stroke Does the patient have a stroke diagnosis?: Yes Reason for No Anti-thrombotic by Day Two: N/A - Med Ordered VTE Prior VTE?: No VTE Risk Level:: Medical - moderate - high VTE Device Contraindication: Treatment Not Indicated VTE Drug Contraindication: N/A - Med Ordered
--- NOTE | 2023-06-01 15:24 | PHA.MEDREC ---
Pharmacy Consult ? Medication Reconciliation Pharmacy has completed the medication reconciliation. Spoke to patient and patient's spouse to confirm meds. Per patient's spouse, the patient is noncompliant with medications. Patient unsure if they're taking spironolactone or Lasix, instructed to call pharmacy. Pt's pharmacy states that patient filled both at the same time and had pending refill in February, which was RTS due to patient not picking it up in time. Patient's states patient keeps all meds in a bag, but could not locate at this time. Instructed the pt's to call back if she finds the medications. Confirmed lasix and spironolactone along with other meds patient confirmed.
--- NOTE | 2023-06-01 16:15 | PC.NURSE ---
alert and oriented, returned from mri, hand grasps strong and equal. Denies weakness or pain and discomfort. Able to swallow po meds/ fluids without difficulty
--- NOTE | 2023-06-01 18:47 | PC.NURSE ---
Sitting up in bed watching tv with no complaints of pain or discomfort. Hand grasps remain strong and equal
[2023-06-02 01:34] VITALS: BP 136/76; PULSE 50; RESP 13; O2SAT 100
[2023-06-02 06:00] VITALS: BP 135/78; PULSE 53; RESP 15; O2SAT 98
--- NOTE | 2023-06-02 07:43 | HO.PM.IMPN ---
Subjective Subjective Date of Service: 06/02/23 Physical Exam Vital Signs: Vital Signs: Last Vital Signs Temp 98.3 F 06/01/23 19:12 Pulse 53 06/02/23 06:00 Resp 15 06/02/23 06:00 BP 135/78 06/02/23 06:00 Pulse Ox 98 06/02/23 06:00 O2 Del Method Room Air 06/02/23 06:00 BMI result Body Mass Index 35.6 Objective Data Active Medications Acetaminophen (Acetaminophen 325 Mg Tablet) 650 mg PO Q6H PRN PRN Reason: Pain, Mild (Pain Scale 1-3) Aspirin (Aspirin Enteric Coated 81 Mg Tablet.) 81 mg PO DAILY [facility] Atorvastatin Calcium (Atorvastatin Calcium 80 Mg Tablet) 80 mg PO DAILY [facility] Last Admin: 06/01/23 16:13 Dose: 80 mg Documented By: JOSE Enoxaparin Sodium (Enoxaparin Sodium 40 Mg/0.4 Ml Syringe) 40 mg SUBCUT Q24H [facility] Last Admin: 06/01/23 16:14 Dose: 40 mg Documented By: JOSE Insulin Human Lispro (Insulin Lispro 100 Unit/Ml 3 Ml Vial) 0 unit SUBCUT QIDACHS [facility]; Protocol Last Admin: 06/01/23 22:19 Dose: 2 unit Documented By: LENI Ondansetron HCl (Ondansetron Hcl 4 Mg/2 Ml Vial) 4 mg IVPUSH Q8H PRN PRN Reason: Nausea and Vomiting Labs 06/01/23 09:48 06/01/23 09:48 Labs: Laboratory Results - last 24 hr 06/01/23 06/01/23 06/01/23 09:42 09:48 11:34 MCV 84.3 MCH 28.4 MCHC 33.7 RDW 12.5 Plt Count 190 MPV 9.7 Immature Gran % (Auto) 0.4 Neut % (Auto) 61.3 Lymph % (Auto) 27.3 [place] % (Auto) 6.6 Eos % (Auto) 3.6 Baso % (Auto) 0.8 Lymph # (Auto) 2.1 [place] # (Auto) 0.5 Eos # (Auto) 0.3 Baso # (Auto) 0.1 Abs Immat Gran (auto) 0.03 Absolute Neuts (auto) 4.7 Absolute Nucleated RBC 0.000 Nucleated RBC % (auto) 0.0 Hold Purple Top PT 12.4 INR 1.0 Anion Gap 13 Estim Creat Clear Calc 99.0 Estimated GFR > 60 POC Glucose 208 H Random Glucose 219 H Estimat Average Glucose 200 Hemoglobin A1c % 8.6 H Calcium 10.1 D Total Bilirubin 0.5 AST 48 H ALT 67 H Alkaline Phosphatase 62 Total Protein 8.1 H Albumin 4.3 Urine Color Yellow Urine Appearance Clear Urine pH 5.5 Ur Specific [place] >= 1.030 H Urine Protein 30 (1+) H Urine Glucose (UA) 250 H Urine Ketones Trace Urine Blood Negative Urine Nitrite Negative Ur Leukocyte Esterase Negative Urine RBC 0-2 Urine WBC 0-5 Ur Squamous Epith Cells 0-2 Urine Bacteria None Seen Hyaline Casts 0-2 Influenza Type A (PCR) NEGATIVE Influenza Type B (PCR) NEGATIVE RSV RNA Qual (PCR) NEGATIVE SARS-CoV-2 RNA (RT-PCR) NEGATIVE 06/01/23 06/01/23 06/02/23 18:12 21:32 06:14 MCV MCH MCHC RDW Plt Count MPV Immature Gran % (Auto) Neut % (Auto) Lymph % (Auto) [place] % (Auto) Eos % (Auto) Baso % (Auto) Lymph # (Auto) [place] # (Auto) Eos # (Auto) Baso # (Auto) Abs Immat Gran (auto) Absolute Neuts (auto) Absolute Nucleated RBC Nucleated RBC % (auto) Hold Purple Top SEE NOTE PT INR Anion Gap Estim Creat Clear Calc Estimated GFR POC Glucose 116 H 194 H Random Glucose Estimat Average Glucose Hemoglobin A1c % Calcium Total Bilirubin AST ALT Alkaline Phosphatase Total Protein Albumin Urine Color Urine Appearance Urine pH Ur Specific [place] Urine Protein Urine Glucose (UA) Urine Ketones Urine Blood Urine Nitrite Ur Leukocyte Esterase Urine RBC Urine WBC Ur Squamous Epith Cells Urine Bacteria Hyaline Casts Influenza Type A (PCR) Influenza Type B (PCR) RSV RNA Qual (PCR) SARS-CoV-2 RNA (RT-PCR) Quality Stroke Does the patient have a stroke diagnosis?: Yes Reason for No Anti-thrombotic by Day Two: N/A - Med Ordered VTE Prior VTE?: No VTE Risk Level:: Medical - moderate - high VTE Device Contraindication: Treatment Not Indicated VTE Drug Contraindication: N/A - Med Ordered
[2023-06-02 07:51] LABS: Cholesterol 240 mg/dL (<200); HDL Cholesterol 35 mg/dL (>40); Triglycerides 432 mg/dL (<150)
--- NOTE | 2023-06-02 08:16 | PC.NURSE ---
patient awake and alert. skin pwd. resp even and non labored. speaking in full, clear sentences, able to make needs known. patient currently sitting at bedside eating breakfast, moving all extremities. medicated as ordered.
--- NOTE | 2023-06-02 09:15 | PC.NURSE ---
patient awake and alert. skin pwd, resp even and non labored. speaking in full, clear sentences. continues with left sided weakness and tongue deviation to the left. Provider in
[2023-06-02 10:54] VITALS: BP 171/91; PULSE 70; O2SAT 98
--- NOTE | 2023-06-02 12:46 | PM.NEUROCN ---
History of Present Illness Data of Consult Service Date: 06/02/23 Primary Care Provider: Lisa Izaguirre MD HPI Reason for consult: Stroke 58 years old man with uncontrolled severe hypertension, uncontrolled hyperlipidemia, type 2 diabetes, congestive heart failure, and intracranial atherosclerotic disease came to hospital with new onset of unsteadiness and left-sided weakness started at least 2 days before he came to hospital. There was no associated dizziness visual changes or speech or language problem. Review of Systems Review of Systems: No recent cold or flu-like illness PMFSH Past Medical History Medical History NICM (nonischemic cardiomyopathy) Congestive heart failure Hypertension, uncontrolled Hypertensive cardiomyopathy NSTEMI (non-ST elevated myocardial infarction) Essential hypertension Atherosclerotic cardiovascular disease Coronary artery disease Family History Family History Father No problems noted. Mother No problems noted. Surgical History Surgical History History of cardiac catheterization (~07/2020) Social History Social History Household Members: Significant Other Housing: House Do you presently have visiting nurse or other home services: No Alcohol intake: former Patient Tobacco Use Status: Never used Tobacco Smoked in Last 30 Days: No e-Cigarette/Vaping Use: Never Used Second Hand Smoke Exposure: No Use of substances other than those prescribed or required for medical reasons: No Substance Use Type: Marijuana Advance Directives: Yes Advance Directives on File: No Nutrition Risks: No Nutritional Risk service: No Current occupational status: unemployed Cognitive needs: No Hearing needs: No Vision needs: No Meds Allergies Allergy/AdvReac Type Severity Reaction Status Date / Time No Known Allergies Allergy Verified 11/01/22 10:31 [No Known Allergies*] Active Medications: Current Medications Acetaminophen (Acetaminophen 325 Mg Tablet) 650 mg PO Q6H PRN PRN Reason: Pain, Mild (Pain Scale 1-3) Aspirin (Aspirin Enteric Coated 81 Mg Tablet.) 81 mg PO DAILY [facility] Last Admin: 06/02/23 08:12 Dose: 81 mg Atorvastatin Calcium (Atorvastatin Calcium 80 Mg Tablet) 80 mg PO DAILY [facility] Last Admin: 06/02/23 08:12 Dose: 80 mg Enoxaparin Sodium (Enoxaparin Sodium 40 Mg/0.4 Ml Syringe) 40 mg SUBCUT Q24H [facility] Last Admin: 06/01/23 16:14 Dose: 40 mg Insulin Human Lispro (Insulin Lispro 100 Unit/Ml 3 Ml Vial) 0 unit SUBCUT QIDACHS [facility]; Protocol Last Admin: 06/02/23 08:12 Dose: 4 unit Ondansetron HCl (Ondansetron Hcl 4 Mg/2 Ml Vial) 4 mg IVPUSH Q8H PRN PRN Reason: Nausea and Vomiting Home Medications Medication Instructions Recorded Confirmed Last Taken Type magnesium oxide 400 mg (241.3 mg 400 mg PO DAILY 06/01/23 06/01/23 05/31/23 History magnesium) tablet multivitamin 1 tab PO DAILY 06/01/23 06/01/23 05/31/23 History omega 7-idk-jdk-fish oil 300 1 cap PO DAILY 06/01/23 06/01/23 05/31/23 History mg-1,000 mg capsule,delayed release (Fish Oil) Physical Exam Vital Signs: Vital Signs: Last Vital Signs Temp 98.3 F 06/01/23 19:12 Pulse 70 06/02/23 10:54 Resp 15 06/02/23 06:00 BP 171/91 H 06/02/23 10:54 Pulse Ox 98 06/02/23 10:54 O2 Del Method Room Air 06/02/23 06:00 BMI result Body Mass Index 35.6 Neuro: Other: He is alert and awake with normal spontaneity of speech fluency comprehension and vague affect. He is following commands. For there is mild left-sided central facial weakness. Tongue deviates to left. Visual barbosa are full. There is no pronator drift. Deep tendon reflexes are trace to absent with flat plantars. Speech is normal. Results Labs 06/01/23 09:48 06/02/23 06:14 Labs: BMP 06/02/23 06:14 Sodium 135 Potassium 3.7 Chloride 102 Carbon Dioxide 23 BUN 11 Creatinine 0.[address] revealed moderately severe microvascular ischemic disease both and cerebral cortex and brainstem. Assessment and Plan (1) Cerebral infarction: Qualifiers: Cerebral infarction mechanism: thrombosis Precerebral and cerebral artery: unspecified cerebral artery Qualified Code(s): I63.30 - Cerebral infarction due to thrombosis of unspecified cerebral artery Status: Acute 58 years old man with multiple uncontrolled vascular risk factors including significantly uncontrolled hypertension, uncontrolled hyperlipidemia, intracranial atherosclerotic disease, diabetes, and heart disease who presented with 2 days history of unsteadiness and left-sided weakness. He probably has a brainstem were subcortical infarct on top of multiple previous ischemic infarctions. His overall prognosis due to lack of proper treatment and control of his risk factors is not good. At this time my recommendation is to add clopidogrel 75 mg daily with baby aspirin, treat him with full dose of statin, and provide appropriate blood pressure control. He should be educated about vascular risk factors and there control and should follow his primary care physician on regular basis. PT OT consultation is also recommended. Part of the problem could be that due to significant vascular disease in brain, he suffered from vascular dementia limiting his ability to take care of himself Procedures Date of Service Date of Service: 06/02/23
[2023-06-02 14:39] VITALS: BP 156/64; PULSE 60; RESP 12; O2SAT 96
--- NOTE | 2023-06-02 15:48 | MHC.CM.PN ---
Pt self-care, lives at home with his significant other/HCP Kiki. Kiki will transport him home. PCP: Dr. Lisa Izaguirre
--- NOTE | 2023-06-02 16:15 | P.DS_ITS ---
DS: Providers Provider Date of Service: 06/02/23 Date of admission: 06/01/23 14:55 Date of discharge: 06/02/23 Primary care physician: Lisa Izaguirre MD Attending physician on admission: Eugene Kelly Consults: 06/01/23 14:55 Consult to Neurology Routine Consulting Provider: [facility] Reason for consultation: stroke, low EF on echo Attending physician on discharge: [facility] Discharging clinician: Tania Paredes DS: Diagnosis Discharge Diagnosis (1) Cerebral infarction: Status: Acute DS: Summary Hospital Course Hospital Course: HPI on admission by Dr. Kelly 06/01: Chief Complaint: left sided weakness The patient is a 58 year old male with a PMH of ICM with severely reduced EF around 20%, DM, HTN, CAD s/p PCI and prior CVA (and per documentation from that admission, resoluation of his symptoms) who presents to the ED with a 3 day history of feeling off balance. The patient is not able to expand on his symptoms much. He states that his left side felt weak. He denies falling. He reports abnormal speech but denies dysphagia. He denies any sensory deficits. No headache, no chest pain, no sob. Reports compliance with his BP meds (although BP significantly elevated upon arrival). Work up in the ED was positive for severely elevated BP, CT head with concern o jc CVA (to evaluate with MRI). He was given IV labetalol, PO norvasc. His trops are elevated but flat. 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 He will be admitted for further management. Hospital Course: Pt with uncontrolled vascular risk factors including uncontrolled htn, uncontrolled hld, intracranial atherosclerotic disease, diabetes, and heart disease admitted for further evaluation and management of acute CVA. Blood pressure initially quite elevated to 217/89 and was given IV labetalol and norvasc. No further antihypertensives administered to allow for permissive hypertensive. Blood pressure on discharge 156/64. He was evaluated by neurology who suspcts brainstem or subcorticol infarct on top of multiple previous ischemic infarctions. Recommended adding plavix 75mg daily to baby asa daily. Unfortuantely, MRI brain ordered but patient refused due to reported claustrophobia though continued to decline when offered anti-anxiolytics. He was evaluated by PT/OT who recommended home services. However, patient has also declined these services. He states he will set them up outpt. Diabetes was found to be uncontrolled with hgb a1c 8.4%. POC glucose was monitored and managed with Humalog on sliding scale. He is discharged on metformin 500 mg twice daily and advised to follow diabetic diet. Cholesterol levels were elevated with total cholesterol 240, triglyceride level 432, HDL 35, and LDL was not able to be calculated due to significant hypertriglyceridemia. He is advised to resume atorvastatin 80 mg daily. Stressed the importance of blood pressure control and he is advised to continue with amlodipine 10 mg, carvedilol 6.25 mg twice daily, furosemide 40 mg daily, spironolactone 25 mg daily, valsartan 40 mg daily. He should follow-up in 1 week with PCP and is also recommended for outpatient echocardiogram. Time Attestation Discharge coordination time: Greater than 30 minutes Quality: Safe Use of Opioids Does Pt have an Active Cancer Diagnosis on the Problem List?: No Quality: Stroke Does the patient have a stroke diagnosis?: No Physical Exam Vital Signs: Vital Signs: Last Vital Signs Temp 98.3 F 06/01/23 19:12 Pulse 60 06/02/23 14:39 Resp 12 06/02/23 14:39 BP 156/64 H 06/02/23 14:39 Pulse Ox 96 06/02/23 14:39 O2 Del Method Room Air 06/02/23 14:39 BMI result Body Mass Index 35.6 Constitutional - Awake and Alert, No apparent distress Eyes - PERRLA, EOMI Cardiovascular - S1S2, RRR, No edema Respiratory - Normal lung expansion, Normal respiratory effort, No respiratory distress, CTA bilaterally Extremities - no calf tenderness bilaterally, no swelling Skin - Warm/Dry Neurological - Alert & oriented x3, left sided facial droop, otherwise CN II-XII in tact, 5/5 strength RUE and RLE. 3/5 strength LUE and LLE Psychological - Appropriate affect DS: Data Data Completed and Pending Labs on day of discharge: Laboratory Results - last 24 hr 06/01/23 06/01/23 06/02/23 18:12 21:32 06:14 Hold Purple Top SEE NOTE Sodium 135 Potassium 3.7 Chloride 102 Carbon Dioxide 23 Anion Gap 14 BUN 11 Creatinine 0.82 Estim Creat Clear Calc 103.8 Estimated GFR > 60 POC Glucose 116 H 194 H Random Glucose 186 H Calcium 9.9 Triglycerides 432 H Cholesterol 240 H LDL Cholesterol, Calc TNP HDL Cholesterol 35 L 06/02/23 06/02/23 07:59 12:27 Hold Purple Top Sodium Potassium Chloride Carbon Dioxide Anion Gap BUN Creatinine Estim Creat Clear Calc Estimated GFR POC Glucose 201 H 216 H Random Glucose Calcium Triglycerides Cholesterol LDL Cholesterol, Calc HDL Cholesterol Discharge Plan Discharge Anticipated Discharge Date/Time: 06/02/23 16:09 Patient Disposition: Home, Self-Care Discharge Diagnosis: CVA Referrals: Lisa Flynn MD [Primary Care Provider] - 1 Week Discharge Medications: New clopidogrel [Plavix] 75 mg tablet 75 mg PO DAILY Qty: 90 0RF metformin 500 mg tablet 500 mg PO BIDWMEAL Qty: 60 2RF Continued aspirin 81 mg tablet,delayed release (DR/EC) 81 mg PO DAILY Qty: 30 1RF (DME) blood pressure monitor Kit See Rx Instructions .Route Qty: 1 0RF Rx Instructions: As directed amlodipine 10 mg tablet 10 mg PO DAILY Qty: 90 3RF spironolactone 25 mg tablet 25 mg PO DAILY Qty: 90 3RF atorvastatin 80 mg tablet 80 mg PO BEDTIME Qty: 90 3RF valsartan 40 mg tablet 40 mg PO BID Qty: 180 3RF carvedilol 6.25 mg tablet 6.25 mg PO BID Qty: 180 3RF furosemide 40 mg tablet 40 mg PO DAILY Qty: 90 3RF multivitamin Tablet 1 tab PO DAILY magnesium oxide 400 mg (241.3 mg magnesium) Tablet 400 mg PO DAILY omega 0-nhq-mrl-fish oil [Fish Oil] 300-1,000 mg Capsule,Delayed Re lease(Dr/Ec) 1 cap PO DAILY Discharge Orders: Discharge Order (Routine); Ordered 06/02/23 Ordered By: Tania Paredes Diet: Advance to usual diet Activity on Discharge: As tolerated Stand Alone Forms: Patient Portal Discharge page Care Plan Goals: Reduce stroke risk Rehabiliation Health Concerns: Medication noncompliance Uncontrolled HTN CVA Plan of Treatment: Take baby aspirin daily and clopidogrel 75mg daily Continue atorvastatin 80mg daily Take all blood pressure medications as prescribed- amlodipine 10mg, carvedilol 6.25mg twice daily, spironolactone 25mg daily, and valsartan 40mg daily You were recommended for home PT, but declined this. Please let up PT outpatient to continue with rehabilitation given ongoing weakness Follow up with PCP for echocardiogram. You should also have MRI of the brain th ough you refused this Assessment: See above. See discharge summary Discharge Date/Time: 06/02/23 16:36
[2023-06-02 16:31] VITALS: BP 181/79; PULSE 68; RESP 19; TEMP 36.6; O2SAT 97
--- NOTE | 2023-06-02 22:25 | PC.NURSE ---
Late Entry 1300: Pt evaluated by Dr. Matt. Stroke Education provided to patient. Updated on plan of care and recommendations placed in chart.
== END 2023-06-02 16:36 | disposition home or self-care (01) | DRG 45 ==
LOC: HO.ED 14:16 → HO.EDOVER 15:01 → HO.IMC 06-02 16:07
PROVIDERS: Admitting Provider Family Medicine; Emergency Provider Student in an Organized Health Care Education/Training Program; PCP Internal Medicine; Visit Provider Physician Assistant
DX: I63.9 Cerebral infarction, unspecified (principal); E78.5 Hyperlipidemia, unspecified; I25.10 Atherosclerotic heart disease of native coronary artery without angina pectoris; Z20.822 Contact with and (suspected) exposure to COVID-19; R29.702 NIHSS score 2; F40.240 Claustrophobia; Z95.1 Presence of aortocoronary bypass graft; Z79.82 Long term (current) use of aspirin; Z79.84 Long term (current) use of oral hypoglycemic drugs; Z79.899 Other long term (current) drug therapy
CPT/HCPCS: 0241U; 36415; 70496; 70498; 80048; 80053; 80061; 81001; 82947; 83036; 84484; 85025; 85610; 93005; 97162; 99285; J1650; J1920; Q9967

== ENCOUNTER → 2023-06-01 09:37 | Outpatient (BNV) | payer OTHER, SELFPAY | PROVIDERS: Admitting Provider Family Medicine; Emergency Provider Student in an Organized Health Care Education/Training Program; PCP Internal Medicine; Visit Provider Internal Medicine Cardiovascular Disease | DX: R00.1 Bradycardia, unspecified (principal); R94.31 Abnormal electrocardiogram [ECG] [EKG] | CPT/HCPCS: 93010 ==

== ENCOUNTER → 2023-06-01 14:55 | Outpatient (BNV) | payer OTHER, SELFPAY | PROVIDERS: Admitting Provider Family Medicine; Emergency Provider Student in an Organized Health Care Education/Training Program; PCP Internal Medicine; Visit Provider Family Medicine | DX: I63.30 Cerebral infarction due to thrombosis of unspecified cerebral artery (principal) | CPT/HCPCS: 99223; 99239 ==

== ENCOUNTER 2023-07-12 11:00 | Outpatient (RCR) | payer OTHER, SELFPAY ==
[2023-06-12 07:31] VITALS: BP 187/84
--- NOTE | 2023-08-08 11:01 | MHC.PT.DC ---
[facility] [place] Office [place] Office [place] Office [address] [place] [address] [phone] F: [phone] F: [phone] F: [phone] F: [phone] Physical Therapy Discharge Report Diagnosis: S/P CVA (KP) Date of Surgery: Date of Evaluation: 06/11/23 Date of Discharge: 08/08/23 Treatments to Date: 5 Cancellations to Date: 3 No Shows to Date: 4 Discharge Status: Discharge Summary: Pt HAD BEEN PROGRESSING WELL WITH PT BUT THEN HAD SEVERAL MISSED VISITS DUE TO CANCELS AND NO SHOWS. MISSED LAST SEVERAL VISITS AND STATUS IS UNKNOWN. ATTEMPTS TO REACH Pt BY PHONE WERE UNSUCESSFUL. Pt HAS BEEN ISSED A COMPREHENSIVE HOME PROGRAM WHICH HE MAY CONTINUE WITH FOR CONT SYMPTOM MANAGEMENT. Electronically signed by: AUGIE MACIEL PT DPT Please sign and return to therapist. Thank you for your referral.
== END 2023-08-08 11:01 | disposition home or self-care (01) ==
LOC: HO.PT 11:00
PROVIDERS: PCP Internal Medicine; Visit Provider Internal Medicine
DX: I63.30 Cerebral infarction due to thrombosis of unspecified cerebral artery (principal)
CPT/HCPCS: 97110; 97161; 97530

== ENCOUNTER 2023-07-18 17:22 | Emergency (ER) | payer OTHER, SELFPAY ==
--- NOTE | ~2023-07-18 | XR_ITS ---
EXAMINATION: XR WRIST, LEFT CLINICAL INFORMATION: Left wrist pain. COMPARISON: None available. TECHNIQUE: Four views of the left wrist. FINDINGS: No acute fracture or subluxation. Mild subchondral cystic changes in the lunate favored to represent degenerative changes or ganglion cysts. Carpal rows are maintained. Nonspecific diffuse soft tissue swelling. Moderate to severe scattered vascular calcifications. XR/XR wrist LT min 3V IMPRESSION: 1. No acute fracture or subluxation. 2. Cystic changes in the lunate favoring to represent sequela of degenerative disease or ganglion cysts. 3. Nonspecific diffuse soft tissue swelling. 4. Moderate to severe vascular calcifications.
[2023-07-18 17:34] VITALS: BP 176/94; PULSE 87; RESP 16; TEMP 36.6; O2SAT 98; BMI 35.1
--- NOTE | 2023-07-18 17:34 | ED_ITS ---
HPI - Nausea/Vomiting/Diarrhea General Chief complaint: General Medical Stated complaint: vomiting Time Seen by Provider: 07/18/23 23:38 Source: patient Mode of arrival: ambulatory Limitations: no limitations History of Present Illness HPI Narrative: Patient nauseated vomited 2 times had 1 watery stool no significant abdominal discomfort no fever no chills also complaining of left wrist pain for last few days no trauma no other family member sick patient looks comfortable when he arrived Related Data Home Medications Medication Instructions Recorded Confirmed magnesium oxide 400 mg (241.3 mg 400 mg PO DAILY 06/01/23 06/01/23 magnesium) tablet multivitamin 1 tab PO DAILY 06/01/23 06/01/23 omega 9-wro-qes-fish oil 300 1 cap PO DAILY 06/01/23 06/01/23 mg-1,000 mg capsule,delayed release (Fish Oil) Previous Rx's Medication Instructions Recorded blood pressure monitor #1 ea 09/22/22 atorvastatin 80 mg tablet 80 mg PO BEDTIME #90 tabs 02/26/23 carvedilol 6.25 mg tablet 6.25 mg PO BID #180 tabs 02/26/23 furosemide 40 mg tablet 40 mg PO DAILY #90 tabs 02/26/23 spironolactone 25 mg tablet 25 mg PO DAILY #90 tabs 02/26/23 valsartan 40 mg tablet 40 mg PO BID #180 tabs 02/26/23 clopidogrel 75 mg tablet (Plavix) 75 mg PO DAILY #90 tabs 06/02/23 metformin 500 mg tablet 500 mg PO BIDWMEAL #60 tabs 06/02/23 amlodipine 10 mg tablet 10 mg PO DAILY #90 tabs 06/11/23 aspirin 81 mg tablet,delayed 81 mg PO DAILY #90 tabs 06/11/23 release ondansetron 4 mg disintegrating 4 mg PO Q6-8H PRN nausea and 07/19/23 tablet vomiting #5 tabs Allergies Allergy/AdvReac Type Severity Reaction Status Date / Time No Known Allergies Allergy Verified 07/18/23 17:34 [No Known Allergies*] Review of Systems 2 Review of Systems: Yes all other systems are reviewed and are negative PMFSH Past Medical History Medical History NICM (nonischemic cardiomyopathy) Congestive heart failure Hypertension, uncontrolled Hypertensive cardiomyopathy NSTEMI (non-ST elevated myocardial infarction) Essential hypertension Atherosclerotic cardiovascular disease Coronary artery disease Surgical History History of cardiac catheterization (~07/2020) Family History Family History Father No problems noted. Mother No problems noted. Social History Social History Household Members: Significant Other Housing: House Do you presently have visiting nurse or other home services: No Alcohol intake: former Patient Tobacco Use Status: Never used Tobacco e-Cigarette/Vaping Use: Never Used Second Hand Smoke Exposure: No Substance Use Type: Marijuana Advance Directives: No Advance Directives Information Provided: Yes service: No Current occupational status: unemployed Cognitive needs: No Hearing needs: No Vision needs: No Physical Exam 2 Vital Signs: Vital Signs: Last Vital Signs Temp 98.0 F 07/19/23 00:09 Pulse 79 07/19/23 00:09 Resp 12 07/19/23 00:09 BP 156/80 H 07/19/23 00:09 Pulse Ox 95 07/19/23 00:09 O2 Del Method Room Air 07/19/23 00:09 BMI result Body Mass Index 35.1 Appearance: Alert. Oriented X3. No acute distress. ENT: Pharynx normal. Oral Mucosa moist Neck: Normal inspection. Neck supple. CVS: Normal heart rate and rhythm. Pulses normal. Respiratory: No respiratory distress. Equal air entry bilateral, Abdomen: Soft and nontender. Bowel sounds are present, no mass palpable, no CVA tenderness Skin: Skin warm and dry. Normal skin color. Normal skin turgor. Extremities: Left wrist soft tissue tenderness good range of movement neurovascular intact Neuro: Oriented X 3. Course Course Course Narrative: RME: 58 year-old M w/ PMHx CHF, HTN, NSTEMI, CAD, presenting to the ED c/o L wrist pain x few days & vomiting x today (2 episodes) w/nonbloody diarrhea. denies abdominal pain, brbpr, known wrist injury Labs, UA, wrist XR ordered Full HPI, ROS and PE to be performed by primary ED provider. Medications Administered Discontinued Medications Generic Name Dose Route Start Last Admin Trade Name Freq PRN Reason Stop Dose Admin Ondansetron HCl 4 mg 07/19/23 00:26 07/19/23 00:43 Ondansetron Odt 4 Mg Tab.Dunia KAYU 07/19/23 00:27 4 mg ONCE ONE Administration Medical Decision Making Medical Decision Making [facility] Narrative: Patient with mild gastroenteritis at food after initial episode of vomiting will give Zofran. Left wrist x-ray negative for acute low clinically left wrist strain advised to take Tylenol/Motrin for pain Lab Data [facility] Lab Attestation statement: I reviewed the patient's lab results. 07/18/23 19:07 07/18/23 19:07 Labs: Lab Results 07/18/23 07/18/23 07/18/23 Range/Units 19:07 20:11 20:33 WBC 11.1 H (4.8-10.8) X10*3/uL RBC 5.55 (4.60-5.80) X10*6/uL Hgb 15.6 (14.0-18.0) g/dl Hct 46.0 (42.0-52.0) % MCV 82.9 (80.0-98.0) fL MCH 28.1 (27.0-33.0) pg MCHC 33.9 (31.0-36.0) g/dl RDW 12.7 (11.0-16.0) % Plt Count 206 (160-400) X10*3/uL MPV 10.0 (9.4-12.4) fL Immature Gran % (Auto) 0.5 H (0.0-0.4) % Neut % (Auto) 86.4 H (45-73) % Lymph % (Auto) 9.3 L (20-40) % Beaver % (Auto) 2.8 (2-11) % Eos % (Auto) 0.6 (0-4) % Baso % (Auto) 0.4 (0-2) % Lymph # (Auto) 1.0 L (1.2-4.9) X10*3/uL [place] # (Auto) 0.3 (0.1-1.2) X10*3/uL Eos # (Auto) 0.1 (0.0-0.4) X10*3/uL Baso # (Auto) 0.0 (0.0-0.2) X10*3/uL Abs Immat Gran (auto) 0.06 H (0.00-0.03) X10*3/uL Absolute Neuts (auto) 9.6 H (2.0-8.3) x10*3/uL Absolute Nucleated RBC 0.000 (0.0-0.012) X10*3/uL Nucleated RBC % (auto) 0.0 (0.0-0.2) /100WBC Sodium 136 (135-145) mmol/L Potassium 4.1 (3.3-5.1) mmol/L Chloride 100 (96-108) mmol/L Carbon Dioxide 23 (22-29) mmol/L Anion Gap 17 (12-20) BUN 21 H (9-16) mg/dL Creatinine 0.98 (0.5-1.4) mg/dL Estim Creat Clear Calc 86.3 Estimated GFR > 60 Random Glucose 240 H (60-115) mg/dL Calcium 10.4 H (8.4-10.2) mg/dL Magnesium 1.7 (1.6-2.6) mg/dL Total Bilirubin 0.6 (0.0-1.0) mg/dL Direct Bilirubin 0.2 (0.0-0.5) mg/dL AST 106 H (5-37) U/L ALT 100 H (0-40) U/L Alkaline Phosphatase 70 (39-117) U/L Troponin I High Sens 312.3 H* 300.2 H* (<3.5-35.0) ng/L Total Protein 9.1 H (6.5-8.0) g/dL Albumin 4.6 (3.5-5.0) g/dL Lipase 15 (8-78) U/L Urine Color Dark Yellow Urine Appearance Clear Urine pH 5.0 (5.0-9.0) Ur Specific [place] >= 1.030 H (1.005-1.025) Urine Protein 300 (3+) H (Neg-Trace) mg/dL Urine Glucose (UA) 250 H (Negative) mg/dL Urine Ketones 15 (Negative) mg/dL Urine Blood Negative (Negative) Urine Nitrite Negative (Negative) Ur Leukocyte Esterase Negative (Negative) Urine RBC 0-2 (0-2) /HPF Urine WBC 0-5 (0-5) /HPF Ur Squamous Epith Cells 0-2 (0-2) /HPF Urine Bacteria None Seen (None Seen) Hyaline Casts 6-10 (0-2) /LPF Independent Interpretation I performed an independent interpretation of an: Plain X-Ray Radiology Impression Discussion of test interpretation with radiology: I have reviewed the radiologist's reading. Discharge Plan Discharge Clinical Impression: Gastroenteritis Patient Disposition: Home, Self-Care Instructions: Gastroenteritis (ED) Additional Instructions: Drink plenty of fluids Medicine for nausea as prescribed Follow with PCP if not better Prescriptions: New ondansetron 4 mg tablet,disintegrating 4 mg PO Q6-8H PRN (Reason: nausea and vomiting) Qty: 5 0RF No Action (DME) blood pressure monitor Kit See Rx Instructions .Route Qty: 1 0RF Rx Instructions: As directed spironolactone 25 mg tablet 25 mg PO DAILY Qty: 90 3RF atorvastatin 80 mg tablet 80 mg PO BEDTIME Qty: 90 3RF valsartan 40 mg tablet 40 mg PO BID Qty: 180 3RF carvedilol 6.25 mg tablet 6.25 mg PO BID Qty: 180 3RF furosemide 40 mg tablet 40 mg PO DAILY Qty: 90 3RF amlodipine 10 mg tablet 10 mg PO DAILY Qty: 90 3RF aspirin 81 mg tablet,delayed release (DR/EC) 81 mg PO DAILY Qty: 90 3RF multivitamin Tablet 1 tab PO DAILY magnesium oxide 400 mg (241.3 mg magnesium) Tablet 400 mg PO DAILY omega 5-flk-kke-fish oil [Fish Oil] 300-1,000 mg Capsule,Delayed Release(Dr/Ec) 1 cap PO DAILY clopidogrel [Plavix] 75 mg tablet 75 mg PO DAILY Qty: 90 0RF metformin 500 mg tablet 500 mg PO BIDWMEAL Qty: 60 2RF Interventions: ED Discharge Assessment Last Done: 07/19/23 00:46 Discharge Date/Time: 07/19/23 00:47
--- NOTE | 2023-07-18 19:12 | MHC.EDTECH ---
PATIENT BLOOD DRAWN AND SENT TO LAB .
[2023-07-18 19:13] LABS: MANUAL DIFF FLAG NO
[2023-07-18 19:14] LABS: Basophils Percent Auto 0.4 % (0-2); Eosinophils Absolute Auto 0.1 X10*3/uL (0.0-0.4); Eosinophils Percent Auto 0.6 % (0-4); Hemoglobin 15.6 g/dl (14.0-18.0); Imm Gran Abs Auto 0.06 X10*3/uL (0.00-0.03); Imm Gran Pct Auto 0.5 % (0.0-0.4); Lymphocytes Percent Auto 9.3 % (20-40); Mean Corpuscular HGB Conc 33.9 g/dl (31.0-36.0); Mean Corpuscular Hemoglobin 28.1 pg (27.0-33.0); Mean Corpuscular Volume 82.9 fL (80.0-98.0); Monocytes Absolute Auto 0.3 X10*3/uL (0.1-1.2); Monocytes Percent Auto 2.8 % (2-11); Neutrophils Absolute Auto 9.6 x10*3/uL (2.0-8.3); Neutrophils Percent Auto 86.4 % (45-73); Platelet Count 206 X10*3/uL (160-400); Red Blood Count 5.55 X10*6/uL (4.60-5.80); Red Cell Distribution Width 12.7 % (11.0-16.0); White Blood Count 11.1 X10*3/uL (4.8-10.8)
[2023-07-18 19:28] LABS: Alanine Aminotransferase 100 U/L (0-40); Albumin Level 4.6 g/dL (3.5-5.0); Alkaline Phosphatase 70 U/L (39-117); Anion Gap 17 (12-20); Aspartate Amino Transferase 106 U/L (5-37); Bilirubin Direct 0.2 mg/dL (0.0-0.5); Bilirubin Total 0.6 mg/dL (0.0-1.0); Blood Urea Nitrogen 21 mg/dL (9-16); Calcium 10.4 mg/dL (8.4-10.2); Carbon Dioxide 23 mmol/L (22-29); Chloride 100 mmol/L (96-108); Creatinine Clr Calc Pharmacy 86.3; Estimated Glomerular Filt Rate > 60; Glucose Random 240 mg/dL (60-115); Lipase 15 U/L (8-78); Magnesium 1.7 mg/dL (1.6-2.6); Potassium 4.1 mmol/L (3.3-5.1); Sodium 136 mmol/L (135-145); Total Protein 9.1 g/dL (6.5-8.0)
--- NOTE | 2023-07-18 19:42 | ECG_ITS ---
Test Reason : high trop Blood Pressure : / mmHG Vent. Rate : 083 BPM Atrial Rate : 083 BPM P-R Int : 162 ms QRS Dur : 092 ms QT Int : 386 ms P-R-T Axes : 047 -20 068 degrees QTc Int : 453 ms Sinus rhythm with Premature supraventricular complexes Possible Left atrial enlargement Minimal voltage criteria for LVH, may be normal variant ( Param product ) Inferior infarct (cited on or before 01-JUN-2023) Abnormal ECG When compared with ECG of 01-JUN-2023 10:40, Premature atrial complexes are now Present Referred By: Neda Hyatt Electronically Signed By:MIC FREGOSO MD
[2023-07-18 19:43] LABS: Troponin-I High Sensitivity 312.3 ng/L (<3.5-35.0)
[2023-07-18 20:21] LABS: Appearance Urine Clear; Color Urine Dark Yellow; Glucose Urine UA 250 mg/dL (Negative); Leukocyte Esterase Urine Negative (Negative); Nitrite Urine Negative (Negative); Specific Gravity - Urine >= 1.030 (1.005-1.025); UMIC TRIGGER UACC YES; Urine Blood Negative (Negative); Urine Ketones 15 mg/dL (Negative); Urine Protein 300 (3+) mg/dL (Neg-Trace)
--- NOTE | 2023-07-18 20:35 | MHC.EDTECH ---
PATIENT REPEATED TROP DRAWN AND SENT TO LAB .
[2023-07-18 20:36] LABS: Bacteria Urine None Seen (None Seen); RBC Urine 0-2 /HPF (0-2); Squamous Epithelial Cell Urine 0-2 /HPF (0-2); WBC Urine 0-5 /HPF (0-5)
[2023-07-18 21:12] LABS: Troponin-I High Sensitivity 300.2 ng/L (<3.5-35.0)
[2023-07-18 21:32] VITALS: BP 191/95; PULSE 79; RESP 19; TEMP 37.1; O2SAT 96
[2023-07-19 00:09] VITALS: BP 156/80; PULSE 79; RESP 12; TEMP 36.7; O2SAT 95
[2023-07-19] MEDS: Ondansetron ODT 4 MG TAB.RAPDIS TRANSLINGU (00:43)
== END 2023-07-19 00:47 | disposition home or self-care (01) ==
PROVIDERS: Physician Assistant; Emergency Provider Internal Medicine; PCP Internal Medicine
DX: K52.9 Noninfective gastroenteritis and colitis, unspecified (principal); R11.2 Nausea with vomiting, unspecified; R10.9 Unspecified abdominal pain; M25.532 Pain in left wrist; E11.9 Type 2 diabetes mellitus without complications; I11.0 Hypertensive heart disease with heart failure; I50.9 Heart failure, unspecified; Z86.73 Personal history of transient ischemic attack (TIA), and cerebral infarction without residual deficits; Z79.84 Long term (current) use of oral hypoglycemic drugs; Z79.82 Long term (current) use of aspirin
CPT/HCPCS: 36415; 73110; 80048; 80076; 81001; 83690; 83735; 84484; 85025; 93005; 99284

== ENCOUNTER → 2023-07-18 19:42 | Outpatient (BNV) | payer OTHER, SELFPAY | PROVIDERS: Emergency Provider Internal Medicine; PCP Internal Medicine; Visit Provider Internal Medicine Cardiovascular Disease | DX: R94.31 Abnormal electrocardiogram [ECG] [EKG] (principal) | CPT/HCPCS: 93010 ==

== ENCOUNTER 2023-11-08 12:59 | Outpatient (AMB) | payer OTHER, SELFPAY ==
--- NOTE | 2023-11-08 13:04 | MHC.OFFVIS ---
Vital Signs 11/08/23 13:05 11/08/23 13:26 Height 5 ft 5 in Weight 209 lb 7.026 oz BMI 34.8 BP 168/80 H 148/78 H Blood Pressure Location Lt brachial Lt brachial Position Sitting Sitting Pulse 60 Pulse Source Pulse Oximeter Intake Visit Reasons: r/s x3 6 mos followup Allergies No Known Allergies [No Known Allergies*] Allergy (Verified 07/18/23 17:34) HPI Comments Details: 58-year-old male presents today for a follow-up. He had last seen Dr. Olvera back August 2022. He has a history of CAD and cardiomopathy. He has a history of being non-compliant with his medications but he is proud to report he is taking all his medications daily. He reports he has been feeling well. He denies any chest pains, shortness of breath, palpitations, dizziness, or orthopnea. He is avoiding salt and sugars. He has been going for daily walks without any difficulty. [facility] Medical History NICM (nonischemic cardiomyopathy) Congestive heart failure Hypertension, uncontrolled Hypertensive cardiomyopathy NSTEMI (non-ST elevated myocardial infarction) Essential hypertension Atherosclerotic cardiovascular disease Coronary artery disease Surgical History History of cardiac catheterization (~07/2020) Family History Father No problems noted. Mother No problems noted. Social History Household Members: Significant Other Housing: House Do you presently have visiting nurse or other home services: No Alcohol intake: former Patient Tobacco Use Status: Never used Tobacco e-Cigarette/Vaping Use: Never Used Second Hand Smoke Exposure: No Substance Use Type: Marijuana service: No Current occupational status: unemployed Cognitive needs: No Hearing needs: No Vision needs: No Review of Systems Const Denies weakness ENT Denies dizziness Card Denies chest pain, Denies chest pain with activity, Denies syncope, Denies rapid heart rate, Denies pedal edema, Denies edema, Denies leg edema, Denies lightheadedness, Denies palpitations, Denies dyspnea, Denies dyspnea on exertion and Denies orthopnea Resp Denies cough, Denies dyspnea and Denies dyspnea on exertion GI Denies hematochezia and Denies change in stool character Musc Denies abnormal gait, Denies muscle cramps, Denies muscle weakness, Denies numbness, Denies radiating pain into limb and Denies tingling Neuro Denies abnormal gait, Denies dizziness, Denies syncope, Denies numbness, Denies tingling and Denies weakness Endo Denies palpitations Physical Exam Vital Signs: Last Vital Signs Pulse 60 11/08/23 13:05 BP 148/78 H 11/08/23 13:26 BMI result Body Mass Index 34.8 Assessment & Plan Assessment & Plan (1) Systolic congestive heart failure: Code(s): I50.20 - Unspecified systolic (congestive) heart failure Category: Medical (2) Atherosclerotic cardiovascular disease: Code(s): I25.10 - Atherosclerotic heart disease of [place] coronary artery without angina pectoris Category: Medical (3) Essential hypertension: Code(s): I10 - Essential (primary) hypertension Category: Medical (4) Type 2 diabetes mellitus with unspecified complications: Code(s): E11.8 - Type 2 diabetes mellitus with unspecified complications Category: Medical Plan Echocardiogram 07/11/2022 showed EF 20-25%. Severe global hypokinesis. No symptoms at this time. Not in fluid overload. Will repeat echocardiogram. Will also check his cholesterol levels. In 05/2023 test was not performed due to triglycerides being 432. He reports he has been walking more and eating better. Blood pressure elevated today. Improved some on recheck. Asked to check them at home and log them. Bring to next visit. Patient agrees. A1C in May was 8.4. Patient is due for a follow-up with his PCP in December. He states his sugars have improved. Will follow-up after testing. Orders: Orders Basic Metabolic Panel 11/08/23 I25.10 - Atherosclerotic heart disease of [place] coronary artery without angina pectoris, I50.20 - Unspecified systolic (congestive) heart failure CA echo transthoracic complete 11/08/23 I25.10 - Atherosclerotic heart disease of [place] coronary artery without angina pectoris, I50.20 - Unspecified systolic (congestive) heart failure Lipid Panel 11/08/23 I25.10 - Atherosclerotic heart disease of [place] coronary artery without angina pectoris, I50.20 - Unspecified systolic (congestive) heart failure Coding Level of Care Code Est Pt Level 3 (66876) Diagnoses Systolic congestive heart failure I50.20 Atherosclerotic cardiovascular disease I25.10 Essential hypertension I10 Type 2 diabetes mellitus with unspecified complications E11.8
[2023-11-08 13:05] VITALS: BP 168/80; PULSE 60; BMI 34.8
[2023-11-08 13:26] VITALS: BP 148/78
== END 2023-11-08 13:34 | disposition home or self-care (01) ==
PROVIDERS: PCP Internal Medicine; Visit Provider Nurse Practitioner
DX: I50.20 Unspecified systolic (congestive) heart failure (principal); I25.10 Atherosclerotic heart disease of native coronary artery without angina pectoris; I10 Essential (primary) hypertension; E11.8 Type 2 diabetes mellitus with unspecified complications
CPT/HCPCS: 99213

== ENCOUNTER → 2023-11-08 12:59 | Outpatient (BNVA) | payer OTHER, SELFPAY | PROVIDERS: PCP Internal Medicine; Visit Provider Nurse Practitioner | DX: I11.0 Hypertensive heart disease with heart failure (principal); I50.20 Unspecified systolic (congestive) heart failure; I25.10 Atherosclerotic heart disease of native coronary artery without angina pectoris; E11.8 Type 2 diabetes mellitus with unspecified complications | CPT/HCPCS: 99212 ==

== ENCOUNTER → 2024-08-08 12:43 | Outpatient (REF) | payer OTHER, SELFPAY ==
--- NOTE | 2024-08-08 12:45 | CA_ITS ---
Transthoracic Echocardiogram Patient (Last, First, Middle): Micah Wallace O Gender: Male Date of : 1965 Age: 59 Procedure Date: 08/08/2024 Procedure Type: Transthoracic Echocardiogram Location: OP Height: 165. cm Weight: 90.72 kg BSA: 1.98 m2 Heart Rate: 58 bpm BP: 200 / 95 mmHg Medical Massage Therapist: HELEN Referring MD: Gregory Nicholson NP Symptoms: I50.20 - Unspecified systolic (congestive) heart failure Study Quality: Adequate w/Contrast ECG Rhythm: Bradycardia Conclusions: - The left ventricular systolic function is moderate to severely decreased. The visually estimated ejection fraction is between 30-35%. - No obvious valvular pathology seen on this study. - There is mild dilatation of the ascending aorta measuring 3.90 cm. Findings Procedure Information Contrast agent, definity, is being given per protocol without apparent complications. Left Ventricle Normal left ventricular cavity size. There is severely increased left ventricular wall thickness. The left ventricular systolic function is moderate to severely decreased. The visually estimated ejection fraction is between 30-35%. Evidence suggests grade I (mild) diastolic dysfunction. Right Ventricle Normal right ventricular cavity size and systolic function. Atria Both atria are normal in size. Aortic Valve There is a normal trileaflet aortic valve. There is mild calcification of the aortic valve. There is no aortic valve stenosis. There is no aortic valve regurgitation. Mitral Valve The mitral valve appears normal. There is no mitral valve regurgitation. There is no mitral valve stenosis. Pulmonic Valve The pulmonic valve is likely normal. Tricuspid Valve There is no tricuspid valve regurgitation. Tricuspid regurgitation envelope is inadequate for calculation of right ventricular systolic pressure. Great Vessels The aortic arch is normal in size. There is mild dilatation of the ascending aorta measuring 3.90 cm. Venous The inferior vena cava was not well visualized. Pericardium/Pleural There is no evidence of pericardial effusion. Prior Study Comparison Changes noted compared to prior study dated: 07/11/2022. LVEF slightly higher than previously reported. Recommendations, Care & Conclusions No obvious valvular pathology seen on this study. Measurements 2D Linear Measurements IVSd: 1.78 0.6-0.9/0.6-1.0 cm LVIDd: 4.13 3.9-5.3/4.2-5.9 cm LVIDd Index: 2.09 2.4-3.2/2.2-3.1 cm/m2 LVIDs: 3.53 2.0-3.6 cm LVPWd: 1.68 0.7-1.1 cm LA Diam: 4.00 2.7-3.8/3.0-4.0 cm LAIDs Index: 2.02 1.5-2.3 cm/m2 LV Mass: 381.47 67-162/88-224 g LV Mass Index: 192.66 43-95/49-115 g/m2 LVOT Diam: 2.00 3.0+(-)1.3 cm 2D Systolic Function EF 4C: 40.60 >55% EF 2C: 41.70 >55% EF BiP: 42.50 >55% Mitral Valve MV Pk E: 0.69 MV PK A: 0.73 MV Decel Time: 303.00 E/A: 0.90 E'Lateral: 4.73 E'Medial: 3.15 E/E' Med: 22.00 E/E' Lat: 14.70 PHT: 89.00 MVA PHT: 2.47 Decel [place]: 2.29 Aortic Valve AoV Pk Ulises: 1.10 AoV Mn Ulises: 0.79 AoV VTI: 0.22 AoV Pk Grad: 5.00 Aov Mn Grad: 3.00 BERNARDINO Cont.VTI: 3.00 LVOT LVOT Pk Ulises: 1.06 LVOT Mn Ulises: 0.69 LVOT VTI: 0.21 LVOT Pk Grad: 4.00 LVOT Mn Grad: 2.00 LVOT Diam: 2.00 LVOT Area: 3.14 Diastolic Function MV Pk E: 0.69 MV Pk A: 0.73 E/A: 0.90 E'Medial: 3.15 E/E' Med: 22.00 E' Laterial: 4.73 E/E' Lat: 14.70 Right Ventricle TAPSE (mm): 27.00 TVS' Ulises: 12.80 Great Vessels Aorta Sinus of Valsalva: 3.50 2.0-3.5 cm Ao Asc: 3.90 2.1-3.4 cm Ao Arch: 3.40 Pulmonary Valve PV Pk Ulises: 0.84 Peak PV Grad: 3.00 Updated in Other Vendor System with Status of Final Quique Olvera MD electronically signed on 08/09/2024 12:55:40 PM with status of Final
--- OUTSIDE RECORDS SUMMARY | 2024-08-08 14:15 | XMS_ITS | Clinical Summary ---
Author Organization [employer] Address [address] [place] [address] Care Team Providers Care Cmm Programmer Name Role Phone Unavailable Primary Care Provider Unavailabl e Allergies No known active allergies Medications amLODIPine (Norvasc) 10 MG tablet Take 1 tablet by mouth Once per day. 04/07/2024 Active Aspirin Low Dose 81 MG EC tablet Take 81 mg by mouth Once per day. Active atorvastatin (Lipitor) 80 MG tablet Take 80 mg by mouth at bedtime. Active valsartan (Diovan) 40 MG tablet Take 1 tablet by mouth 2 times daily. 03/31/2024 Active spironolactone (Aldactone) 25 MG tablet Take 1 tablet by mouth Once per day. 12/13/2023 Active furosemide (Lasix) 40 MG tablet Take 1 tablet by mouth Once per day. 04/07/2024 Active carvedilol (Coreg) 6.25 MG tablet Take 6.25 mg by mouth 2 times daily. Active Encounters Date Type Department Care Team Description 06/04/2024 1:00 PM EST Office Visit [facility] [address] [place] [address] Margarita Chau from Last 3 Months Social History Tobacco Use Types Packs/Day Years Used Date Smoking Tobacco: Never Passive Smoke Exposure: Never Smokeless Tobacco: Never Tobacco Cessation:Counseling Given: Not Answered Alcohol Use Standard Drinks/Week Comments Defer 0 (1 standard drink = 0.6 oz pur e alcohol) Sex and Gender Information Value Date Recorded Sex Assigned at Male 06/05/2023 1:08 PM EST Legal Sex Male 1:01 PM EST Gender Identity Male 06/05/2023 1:08 PM EST Sexual Orientation Choose not to disclose 2023 1:08 PM EST Last Filed Vital Signs Vital Sign Reading Time Taken Comments Blood Pressure 132/78 06/04/2024 1:05 PM EST Pulse - - Temperature - - Respiratory Rate - - Oxygen Saturation - - Inhaled Oxygen Concentration - - Weight - - Height - - Body Mass Index - - Plan of Treatment Health Maintenance Due Date Last Done Comments CT Colonography 1965 Colonoscopy 1965 Colorectal Cancer Screening 1965 Dental Prophylaxis 1965 Depression Screening 1965 FIT DNA/Cologuard 1965 FIT 1965 FOBT 1965 HIV Screening 1965 Lipid Panel 1965 SDOH Screening 1965 Sigmoidoscopy 1965 Alcohol/Substance Use Screening 1976 Hepatitis C Screening 1982 Zoster Vaccines (1 of 2) 2014 Pneumococcal Vaccine: 50+ Years (2 of 2 - PCV) 05/09/2017 05/09/2016 Hepatitis B Vaccines (3 of 3 - 19+ 3-dose series) 07/10/2021 02/15/2021, 02/15/2021, 01/07/2021 COVID-19 Vaccine (3 - 2023- season) 2024 10/06/2020, 09/08/2020 Influenza Vaccine (#1) 2024 , 07/22/2019, 04/11/2017, Additional history exists RSV Patients and Patients Aged 60 years or older (1 - Risk 60-74 years 1-dose series) 2024 Dental Oral Exam 12/03/2024 06/04/2024 Tobacco Screening 06/04/2025 06/04/2024 Dental X-Ray: Bitewings 06/05/2025 06/04/2024 DTaP/Tdap/Td Vaccines (2 - Td or Tdap) 04/11/2027 04/11/2017 Dental X-Ray: Full Mouth 06/05/2027 06/04/2024 HIB Vaccines Aged Out No longer eligi ble based on patient's age to complete this topic HPV Vaccines Aged Out No longer eligi ble based on patient's age to complete this topic Hepatitis A Vaccines Aged Out No long er eligible based on patient's age to complete this topic IPV Vaccines Aged Out No longer eligi ble based on patient's age to complete this topic Meningococcal Vaccine Aged Out No johanny car eligible based on patient's age to complete this topic RSV under 20 months Aged Out No longe r eligible based on patient's age to complete this topic Rotavirus Vaccines Aged Out No longer eligible based on patient's age to complete this topic Procedures Procedure Name Priority Date/Time Associated Diagnosis Comments COMPREHENSIVE PERIODONTAL EVALUATION - NEW OR ESTABLISHED PATIENT Routine 06/04/2024 1:00 PM EST PERIODIC ORAL EVALUATION - ESTABLISHED PATIENT Routine 06/04/2024 1:00 PM EST INTRAORAL - COMPLETE SERIES OF RADIOGRAPHIC IMAGES Routine 06/04/2024 1:00 PM EST ORAL HYGIENE INSTRUCTIONS Routine 2024 1:00 PM EST CASE PRESENTATION, DETAILED AND EXTENSIVE TREATMENT PLANNING Routine 06/04/2024 1:00 PM EST FULL MOUTH DEBRIDEMENT TO ENABLE A COMPREHENSIVE ORAL EVALUATION AND DIAGNOSIS ON A SUBSEQUENT VISIT Routine 06/04/2024 1:00 PM EST 31 O AMALGAM FILLING Routine 06/04/2024 12:00 AM EST 29 O AMALGAM FILLING Routine 06/04/2024 12:00 AM EST 28 O AMALGAM FILLING Routine 06/04/2024 12:00 AM EST 18 TRUDY AMALGAM FILLING Routine 06/04/2024 12:00 AM EST 19 TRUDY AMALGAM FILLING Routine 06/04/2024 12:00 AM EST from Last 3 Months Insurance [place] AD[place]
--- OUTSIDE RECORDS SUMMARY | 2024-08-08 14:15 | XMS_ITS | Clinical Summary ---
Author Organization [facility] Address [address] [place] [address] Care Team Providers Care Patients Transporter Name Role Phone Renetta Singh PA-C Primary Care Provider [phone] Source Comments PLEASE NOTE, if this patient is a minor, it may be UNLAWFUL to discuss sensitive information that is contained in these records (such as FAMILY PLANNING, MENTAL HEALTH or SUBSTANCE ABUSE) with the minor patient's parent or other person without the patient's specific authorization.[facility] Allergies No known active allergies Medications sildenafil (VIAGRA) 25 mg tabletIndications: Erectile dysfunction, unspecified erectile dysfunction type Take 1 Tab by mouth once daily as needed for erectile dysfunction. 6 Tab 0 09/23/19 15 Active acetaminophen (TYLENOL) 325 mg tabletIndications: Chronic midline thoracic back pain Take 2 Tabs by mouth every 6 (six) hours as needed for pain 90 Tab 1 05/26/20 16 Active Miscellaneous Medical Supply miscIndications:Es sential hypertension by miscellaneous route 2 (two) times daily Dx: HTN. Digital blood pressure monitor machine. Pt check BP BID, Disp#1, no refills. 1 Each 0 05/26/20 16 Active ticagrelor (BRILINTA) 90 mg tabIndications:Acu te coronary syndrome (HCC-CMS) Take 90 mg by mouth 2 (two) times daily 60 Tab 05/26/20 16 Active metoprolol tartrate (LOPRESSOR) 50 mg tabletIndications: Essential hypertension Per Cardio 3 02/06/20 17 Active amLODIPine (NORVASC) 2.5 mg tabletIndications: Essential hypertension Per Cardio 3 02/06/20 [address] tabletIndications: Essential hypertension,Acute coronary syndrome (HCC-CMS) Per Cardio 30 Tab 11 04/11/20 17 Active atorvastatin (LIPITOR) 80 mg tabletIndications: Mixed hyperlipidemia Per Cardio 30 Tab 04/11/20 17 Active Active Problems Problem Noted Date Diagnosed Date Syncope 11/04/2019 TB lung, latent 04/11/2017 Overview (04/11/2017): Treated in 2014 per pt Exotropia of left eye 04/11/2017 Acute coronary syndrome (HCC-CMS) 05/26/2016 Mixed hyperlipidemia 05/26/2016 NSTEMI (non-ST elevated myocardial infarction) ( [facility]) 05/26/2016 Mild intermittent asthma 09/22/2014 Back pain 09/22/2014 Depression, major, recurrent ([facility]) 4 Overview (04/15/2014): Follows with Therapist - Verito Bauer- at [address] every month, Psychiatrist- Dr. Johnson provides medications. Ambien 10mg Seroquel 100mg Klonipen 0.5mg HTN (hypertension) 04/01/2014 Insomnia 04/01/2014 Anxiety 04/01/2014 Overview (04/15/2014): Follows with Therapist - Verito Lawrencess- at [address] every month, Psychiatrist- Dr. Johnson provides medications. Data obtained from facility. Ambien 10mg Seroquel 100mg Klonipen 0.5mg Meds unchanged from 12/2012. Immunizations Name Administration Dates Next Due Flu, Preservative Free 04/11/2017 TDAP 04/11/2017 Family History Medical History Relation Name Comments Diabetes Mother Heart Problems Mother Hypertension Mother Relation Name Status Comments Brother 2 bro Alive Father Mother Sister 7 sis Alive Social History Tobacco Use Types Packs/Day Years Used Date Smoking Tobacco: Never Smokeless Tobacco: Never Alcohol Use Standard Drinks/Week Comments Yes 0 (1 standard drink = 0.6 oz pur e alcohol) occasionally, once monthly Social Connections Answer Date Recorded Social Connections and Isolation 0 01/18/2019 Financial Resource Strain Answer Date R ecorded Financial Resource Strain 0 2018 Stress Answer Date Recorded Stress 0 01/18/2019 Physical Activity Answer Date Recorded Physical Activity 0 01/18/2019 Food Insecurity Answer Date Recorded Food 0 01/18/2019 Transportation Needs Answer Date Record ed Transportation 0 01/18/2019 Housing Stability Answer Date Recorded Housing 0 01/18/2019 Safety and Environment Answer Date [place] r[place] Safety 0 01/18/2019 Utilities Answer Date Recorded Utilities 0 01/18/2019 Employment Answer Date Recorded Employment 0 01/18/2019 Sex and Gender Information Value Date Recorded Sex Assigned at Male 04/11/2017 8:43 AM PST Legal Sex Male 11:36 AM PDT Gender Identity Male 04/11/2017 8:43 AM PST Sexual Orientation Straight 04/11/2017 8: 43 AM PST Last Filed Vital Signs Vital Sign Reading Time Taken Comments Blood Pressure 172/102 04/25/2017 9:12 AM EST Pulse 74 04/25/2017 9:12 AM EST Temperature 36.8 ??C (98.3 ??F) 04/25/2017 9:12 AM ES T Respiratory Rate 19 04/25/2017 9:12 AM EST Oxygen Saturation - - Inhaled Oxygen Concentration - - Weight 103.4 kg (228 lb) 04/25/2017 9:12 AM EST Height 167.6 cm (5' 6 ) 09/22/2014 9:45 AM EDT Body Mass Index 36.8 09/22/2014 9:45 AM EDT Plan of Treatment Not on file Insurance [facility] [place] [address] [facility] MED[employer] Care Teams Patients Transporter Relationship Specialty Start Date End Date Renetta Singh PA-C [address] [place] [address] PCP - General FAMILY MEDICINE PA 01/15/20
== END ==
LOC: HO.CARD 12:43
PROVIDERS: PCP Internal Medicine
DX: I50.20 Unspecified systolic (congestive) heart failure (principal)
CPT/HCPCS: 93306; Q9957

== ENCOUNTER → 2024-08-08 12:45 | Outpatient (BNV) | payer OTHER, SELFPAY | PROVIDERS: PCP Internal Medicine; Visit Provider Internal Medicine | DX: I50.20 Unspecified systolic (congestive) heart failure (principal); I35.8 Other nonrheumatic aortic valve disorders | CPT/HCPCS: 93306 ==

== ENCOUNTER 2024-12-17 10:18 | Outpatient (AMB) | payer OTHER, SELFPAY ==
[2024-12-17 10:37] VITALS: BP 180/100; PULSE 59; BMI 34.1
--- NOTE | 2024-12-17 10:37 | A.OFFVIS_ITS ---
Vital Signs 12/17/24 10:37 Height 5 ft 5 in Weight 205 lb 0.478 oz BMI 34.1 BP 180/100 H Blood Pressure Location Lt brachial Position Sitting Pulse 59 Pulse Source Monitor Intake Visit Reasons: r/s x5 6 mos followup Allergies No Known Allergies (No Known Allergies*) Allergy (Verified 07/18/23 17:34) Medication List - Last Reconciled 12/17/24 by Quique Olvera MD amlodipine 10 mg PO DAILY aspirin 81 mg PO DAILY atorvastatin 80 mg PO BEDTIME blood pressure monitor As directed carvedilol 6.25 mg PO BID furosemide 40 mg PO DAILY magnesium oxide 400 mg PO DAILY metformin 500 mg PO BIDWMEAL multivitamin 1 tab PO DAILY omega 8-yiv-zen-fish oil 300-1,000 mg (Fish Oil) 1 cap PO DAILY ondansetron 4 mg PO Q6-8H PRN spironolactone 25 mg PO DAILY valsartan 40 mg PO BID 90 days HPI Comments Details: Micah returns for follow-up regarding coronary disease and cardiomyopathy. He also has a history of poorly controlled hypertension. Unfortunately, there is lot of noncompliance with medications and he does not really take meds regularly. Also lots of clinic no shows/cancellations. Currently, he denies any clear-cut cardiac symptoms like angina or shortness of breath. He states he is in a lot of stress because of family issues. FORMERLY [facility], [facility] Medical History NICM (nonischemic cardiomyopathy) Congestive heart failure Hypertension, uncontrolled Hypertensive cardiomyopathy NSTEMI (non-ST elevated myocardial infarction) Essential hypertension Atherosclerotic cardiovascular disease Coronary artery disease Surgical History History of cardiac catheterization (~07/2020) Family History Father No problems noted. Mother No problems noted. Social History Household Members: Significant Other Housing: House Do you presently have visiting nurse or other home services: No Alcohol intake: former Patient Tobacco Use Status: Never used Tobacco e-Cigarette/Vaping Use: Never Used Second Hand Smoke Exposure: No Substance Use Type: Marijuana service: No Current occupational status: unemployed Cognitive needs: No Hearing needs: No Vision needs: No Review of Systems Const All systems reviewed & are unremarkable except as noted in HPI and below Reports as per HPI and Reports no additional complaints Eyes Reports as per HPI and Denies no additional complaints ENT Denies no additional complaints and Reports as per HPI Card Reports as per HPI, Reports no additional complaints, Denies acrocyanosis, Denies chest pain, Denies leg edema, Denies lightheadedness, Denies palpitations and Denies dyspnea Resp Reports as per HPI, Denies no additional complaints and Denies dyspnea GI Reports as per HPI and Denies no additional complaints Reports no additional complaints and Reports as per HPI Musc Reports no additional complaints and Reports as per HPI Skin/Breast Reports system reviewed and no additional complaints, except as documented Neuro Reports no additional complaints and Reports as per HPI Psych Reports no additional complaints and Reports as per HPI Endo Reports no additional complaints, Reports as per HPI and Denies palpitations Micha/Lymph Reports no additional complaints and Reports as per HPI Aller/Immun Reports no additional complaints and Reports as per HPI Physical Exam Vital Signs: Last Vital Signs Pulse 59 12/17/24 10:37 BP 180/100 H 12/17/24 10:37 BMI result Body Mass Index 34.1 Const General: comfortable and no acute distress Orientation/consciousness: patient oriented x3 HEENT Other: Unremarkable Head: Yes normal to inspection Neck Neck: Yes normal visual inspection Chest Chest palpation & inspection: normal inspection of the chest Resp Auscultation: clear to auscultation bilaterally Cardio Palpation: normal PMI Heart sounds: S1 normal heart sound present, S2 normal heart sound present, no gallops, no murmurs and no rubs GI Palpation (GI): Soft to palpation Back/Spine/Pelvis Other: unremarkable Skin General skin exam: no rashes or lesions noted Neuro General: patient oriented x3 Extrem General: Yes normal to inspection Psych Mental Status: mental status grossly normal Office Procedures EKG Details: EKG with sinus bradycardia at 59/Min; inferior and anterolateral T inversions probably from left ventricle hypertrophy; [place] [address]-[id number], Complete Assessment & Plan Assessment & Plan (1) Hypertensive cardiomyopathy: Code(s): I11.9 - Hypertensive heart disease without heart failure; I43 - Cardiomyopathy in diseases classified elsewhere Category: Medical Plan: In the last echocardiogram, LVEF is 30-35%. Suspect likely from poorly controlled hypertension. Main recommendation is to still be compliant with his medications and we have reinforced this numerous times. However, poor understanding. (2) Atherosclerotic cardiovascular disease: Code(s): I25.10 - Atherosclerotic heart disease of sun'aq coronary artery without angina pectoris Category: Medical Plan: In the last cardiac catheterization, LAD stent was patent. There was chronic severe 90% stenosis in the apical part of LAD. Otherwise, bbyl-iy-qheclbow disease in the mid RCA and mild disease in the proximal LAD and proximal left circumflex. Continue aspirin and statins. He does not have any angina. (3) Essential hypertension: Code(s): I10 - Essential (primary) hypertension Category: Medical Plan: Meds listed in his chart include amlodipine, carvedilol, spironolactone, valsartan. However, questionable compliance. We will send a message to PCP to arrange a nurse navigator for blood pressure management. Plan Discussion Notes I discussed with the patient the importance of managing his hypertension through consistent medication use and monitoring. We talked about the impact of stress on his blood pressure and explored strategies to reduce stress, including lifestyle changes and potential counseling. I recommended that he arranges a follow-up appointment with his primary care physician. Patient was informed and verbally consented to the use of an ambient scribe for clinic note documentation during this visit. Patient Instructions: - Continue taking all prescribed medications as directed. - Monitor blood pressure regularly and report any significant changes. - Implement stress reduction techniques and consider counseling if needed. - Schedule a follow-up appointment with primary care to reassess blood pressure and overall health. Coding Level of Care Code Est Pt Level 4 (24626) Complex EM visit Add On G2211 Diagnoses Hypertensive cardiomyopathy I11.9; I43 Atherosclerotic cardiovascular disease I25.10 Essential hypertension I10 CPT Codes EKG - CPT: 85000-[id number], Complete ([id number])
--- OUTSIDE RECORDS SUMMARY | 2024-12-17 11:20 | XMS_ITS | Clinical Summary ---
Author Organization [facility] Address [address] [place] [phone] Phone Care Team Providers Care Sharepoint Net Developer Name Role Phone Lisa Flynn MD Primary Care Provid er Immunizations Immunization Administration Dates Next Due COVID-19 (Pre-03/19) Moderna Vaccine, mRNA, PF 10/06/2020,09/08/2020 Hepatitis B Adult 02/15/2021,01/07/2021,01/08/20 Influenza Quadrivalent Preservative Free IM 01/28 MMR 01/07/2021,01/07/2021 Tdap 04/11/2017,04/11/2017 Social History Tobacco Use Types Packs/Day Years Used Date Smoking Tobacco: Never Assessed Education Answer Date Recorded Are you interested in more education? Not on renetta e 09/23/2022 Are you concerned about learning? Not on file 09/23/2022 No 09/23/2022 No 09/23/2022 Digital Access Answer Date Recorded No 10/22/2022 No 10/22/2022 No 10/22/2022 Reliable internet access at home? Not on file 10/22/2022 Device with a working camera? Not on file Sex and Gender Information Value Date Recorded Sex Assigned at Not on file Legal Sex Male 8:04 PM EDT Gender Identity Not on file Sexual Orientation Not on file Plan of Treatment Health Maintenance Due Date Last Done Comments LIPID PANEL 1964 DEPRESSION SCREENING 1976 SMOKING Hx and SMOKELESS TOBACCO SCREENING 1977 HEPATITIS C SCREENING 1982 HIV ONE-TIME SCREENING (18-6 5 YEARS) 1982 COLOGUARD 2009 COLONOSCOPY 2009 COLORECTAL CANCER SCREENING 2009 FIT TEST 2009 FOBT 2009 SIGMOIDOSCOPY 2009 VIRTUAL COLONOSCOPY 2009 PNEUMOCOCCAL VACCINES (50+ years) (1 of 1 - PCV) 2014 ZOSTER VACCINES (1 of 2) 2014 COVID-19 VACCINE (3 - 2023-2 5 season) 2024 10/06/2020, 09/08/2020 Adult Td,Tdap Booster 04/11/2027 04/11/2017 , 04/11/2017 RSV VACCINE (1 - 1-dose 75+ series) 2039 HEPATITIS A VACCINES Aged Out No long er eligible based on patient's age to complete this topic HIB VACCINES Aged Out No longer eligi ble based on patient's age to complete this topic MENINGOCOCCAL VACCINES (ACWY) Aged Out No longer eligible based on patient's age to complete this topic MENINGOCOCCAL VACCINES (B) Aged Out N o longer eligible based on patient's age to complete this topic Medical Devices Not on file Insurance [place] [address] [place] [address] [place] [address] [place] [address] [place] [address] [place] [address] [place] [address] [place] [address] [place] [address] [place] [address] [place] [address] [place] [address] [place] [address] ACO [facility] Care Teams Sharepoint Net Developer Relationship Specialty Start Date End Date Lisa Flynn MD [address] [place] [address] PCP - General Internal Medicine 12/31/20 Additional Source Comments The information contained in this document represents components of the legal health record. It is not the complete legal health record.[facility]
--- OUTSIDE RECORDS SUMMARY | 2024-12-17 11:20 | XMS_ITS | Clinical Summary ---
Author Organization [facility] Address [address] [place] [address] Care Team Providers Care Neurosurgical Physician Assistant Name Role Phone Unavailable Primary Care Provider [...] mg by mouth 2 times daily. Active amoxicillin (Amoxil) 500 MG capsule Take 1 capsule (500 mg) by mouth every 8 (eight) hours for 7 days. 21 capsule 12/04/2024 12/12/19 25 Active Problems No known active problems Encounters Date Type Department Care Team Description 12/04/2024 10:00 AM EDT Office Visit [facility] [address] [place] [address] Gelacio Norwood 09/22/2024 Telephone [facility] [address] [place] [address] Miri Ma DDS from Last 3 Months Social History Tobacco [...] Sign Reading Time Taken Comments Blood Pressure 136/80 12/04/2024 10:00 AM EDT Pulse 100 12/04/2024 10:00 AM EDT Temperature - - Respiratory Rate - - Oxygen Saturation - - Inhaled Oxygen Concentration - - Weight - - Height - - Body Mass Index - - Plan of Treatment Upcoming Encounters Date Type Department Care Team (Late st Contact Info) Description 12/24/2024 10:00 AM EDT Office Visit [facility] [address] [place], [place] [id number] Gelacio [place]wood [address] [place] [address] Health Maintenance Due Date Last Done Comments CT Colonography 1964 Colonoscopy 1964 Colorectal Cancer Screening 1964 Dental Prophylaxis 1964 Depression Screening 1964 FIT DNA/Cologuard 1964 FIT 1964 FOBT 1964 HIV Screening 1964 Lipid Panel 1964 SDOH Screening 1964 Sigmoidoscopy 1964 Disability Screening 1964 Alcohol/Substance Use Screening 1976 Hepatitis C Screening 1982 Zoster Vaccines (1 of 2) 2014 Pneumococcal Vaccine: 50+ Years (2 of 2 - PCV) 05/09/2017 05/09/2016 Hepatitis B Vaccines (3 of 3 - 19+ 3-dose series) 07/10/2021 02/15/2021, 02/15/2021, 01/07/2021 COVID-19 Vaccine (3 - 2023- season) 2024 10/06/2020, 09/08/2020 RSV Patients and Patients Aged 60 years or older (1 - Risk 60-74 years 1-dose series) 2024 Dental Oral Exam 12/03/2024 06/04/2024 Influenza Vaccine (#1) 2025 1, 07/22/2019, 04/11/2017, Additional history exists Dental X-Ray: Bitewings 06/05/2025 06/04/2024 Tobacco Screening 12/04/2025 12/04/2024 DTaP/Tdap/Td Vaccines (2 - Td or Tdap) [...] patient's age to complete this topic Meningococcal B Vaccine Aged Out No l onger eligible based on patient's age to complete [...] Procedure Name Priority Date/Time Associated Diagnosis Comments 11 INTRAORAL - PERIAPICAL FIRST RADIOGRAPHIC IMAGE Routine 12/04/2024 10:00 AM EDT 11 LIMITED ORAL EVALUATION - PROBLEM FOCUSED Routine 12/04/2024 10:00 AM EDT INTRAORAL - COMPLETE SERIES OF RADIOGRAPHIC IMAGES Routine 06/04/2024 1:00 PM EST PERIODIC ORAL EVALUATION - ESTABLISHED PATIENT Routine 06/04/2024 1:00 PM EST from Last 3 Months or Most Recently Relevant to Health Maintenance Insurance [facility] MEDICAID STAND ADULT
== END 2024-12-17 11:03 | disposition home or self-care (01) ==
LOC: HO.HCS 10:19
PROVIDERS: PCP Internal Medicine; Visit Provider Internal Medicine
DX: I11.9 Hypertensive heart disease without heart failure (principal); I43 Cardiomyopathy in diseases classified elsewhere; I25.10 Atherosclerotic heart disease of native coronary artery without angina pectoris; I10 Essential (primary) hypertension
CPT/HCPCS: 93010; 99214; G2211

== ENCOUNTER → 2024-12-17 10:18 | Outpatient (BNVA) | payer OTHER, SELFPAY | PROVIDERS: PCP Internal Medicine; Visit Provider Internal Medicine | DX: I11.9 Hypertensive heart disease without heart failure (principal); I43 Cardiomyopathy in diseases classified elsewhere; I25.10 Atherosclerotic heart disease of native coronary artery without angina pectoris; R00.1 Bradycardia, unspecified; R94.31 Abnormal electrocardiogram [ECG] [EKG] | CPT/HCPCS: 93005; 99212 ==